=== PATIENT | male | born 1985 | race Caucasian/White ===

== ENCOUNTER 2023-06-07 14:44 | Emergency (ER) | payer SELFPAY ==
[2023-06-07 15:09] VITALS: BP 145/94
--- NOTE | 2023-06-07 16:21 | ED.GENMED ---
History of Present Illness
General
Chief Complaint: Back Pain
Source: patient
Exam Limitations: none
Time Seen by Provider: 06/07/23 16:05
Travel History
Have you had any contact with someone who has COVID-19?: No
Do you have any symptoms of coronavirus? Fever > 100 degrees, chills, cough, shortness of breath, sore throat, loss of taste or smell, muscle aches, or headache?: No
History of Present Illness
History of Present Illness:
37 year old male presents with low back pain starting after bending over today in the shower. He had similar pain one week ago after bending over as well. No leg pain,numbness. No perianal anesthesia. No bowel or bladder dysfunction. Tried
ibuprofen with minimal relief. healthy otherwise. No other complaints.
Past History
Past History
ED Past Medical History: GERD, Psychiatric (Anxiety, Depression) and Other (epididymitis L testicle, kidney stones); Negative Asthma, HTN, Hypercholesterolemia or NIDDM
ED Past Surgical History: Appendectomy
Social History
Tobacco: Vaping (Quit 2020 now vapes)
Alcohol: Daily (Beer 2-3, Drinks whatever he has, Vodka 05/12 pint 01/10/2020)
Drug: None
Personal: Single
Living: with family
Employment: Employed
Phy Exam
Physical Exam
Physical Exam:
General: well appearing male NAD
HEENT: normal cephalic, atraumatic
Heart; rRR, no murmurs
Lungs: CTA bilaterally
MSK: paraspinous muscle tenderness noted to lumbar spine
EXT: no cyanosis or edema
Neuro: Good sensation both lower extremities. Bilateral patellar reflexes 2+. Negative straight leg raise bilaterally
Skin is warm no rash or lesions
Course
Orders/Labs/Results
Orders:
Orders
06/07/23 16:16
Diazepam [Valium] 5 mg PO NOW STA
Ketorolac [Toradol] 30 mg IM NOW STA
CR Lumbar Spine 2 Or 3 Views Urgent
Comment:
Reason For Exam: back pain
Vital Signs
Initial and Last Documented VS:
Initial Vital Signs
Temp Pulse Resp BP Pulse Ox
98.5 F 74 18 145/94 99
06/07/23 15:06/07/23 15:06/07/23 15:06/07/23 15:06/07/23 15:09
Last Documented Vital Signs
Temp Pulse Resp BP Pulse Ox
98.5 F 74 18 145/94 99
06/07/23 15:06/07/23 15:06/07/23 15:06/07/23 15:06/07/23 15:09
MDM/Problems Addressed
Differential Diagnosis Includes:
Low back pain. No signs of cauda equina. No fever to suggest infectious source.
X-ray lumbar spine pending. Will treat with toradol and PO valium.
*Critical Care Note
Total Time (30-74mins, 75-104mins- exclusive of procedures): Not Applicable
Update Note
Update Note:
Lumbar spine x-ray negative for acute finding. Patient with subtle relief of discomfort after medications here. Will require more anti-inflammatories and muscle relaxers at home. Prescriptions for these were provided. Also recommended Lidoderm
patch and a work note was provided as well
ED Attending Note
-
Portions of this chart may have been created with voice recognition software.� Occasional wrong word or��sound alike� substitutions may have occurred due to the inherent limitations of voice recognition software.
Discharge Plan
Departure
Patient Disposition: Home (Routine Discharge)
Date of Disposition: 06/07/23
Time of Disposition: 17:50
Patient with high blood pressure during this ER visit?: No
Discharge Problem:
Lumbar strain
Instructions: Low Back Pain (DC)
Prescriptions:
New
diazepam [Valium] 5 mg tablet
5 mg PO TID PRN (Reason: muscle spasm) Qty: 10 0RF
lidocaine [Lidoderm] 5 % adhesive patch,medicated
1 patch topical DAILY Qty: 15 0RF
ibuprofen 600 mg tablet
600 mg PO Q8H PRN (Reason: Pain) Qty: 14 0RF
No Action
azithromycin 250 mg Tablet
500 mg PO DAILY Qty: 5 0RF
guaifenesin 600 mg Tablet Extended Release 12hr
600 mg PO Q12 Qty: 30 0RF
cefuroxime axetil 500 mg tablet
500 mg PO BID Qty: 10 0RF
albuterol sulfate [ProAir HFA] 90 mcg/actuation Hfa Aerosol Inhaler
2 puff INHALATION Q4HPRN PRN (Reason: shortness of breath) Qty: 8.5 0RF
Referrals:
Xavier Newman MD [Family Provider] -
Stand Alone Forms: Return to Work
Interventions
Interventions:
*Risk Screen - Suicide Last Done: 06/07/23 16:13
*General Assessment Last Done: 06/07/23 15:09
*Neglect/Abuse Screening Last Done: 06/07/23 16:13
ED- Fall Risk Assessment Last Done: 06/07/23 16:13
*ED COVID-19 Vaccine History Last Done: 06/07/23 15:09
ED-Musculoskeletal Assessment Last Done: 06/07/23 16:12
[2023-06-07] MEDS: VALIUM 5 MG PO (16:38)
[2023-06-07] MEDS: TORADOL 30 MG IM (16:38)
== END 2023-06-07 18:36 | disposition home or self-care (01) ==
LOC: EMR 14:44
PROVIDERS: EMERGENCY PHYSICIAN Emergency Medicine; FAMILY PHYSICIAN Family Medicine
DX: S39.012A Strain of muscle, fascia and tendon of lower back, initial encounter (principal); X50.1XXA Overexertion from prolonged static or awkward postures, initial encounter; F17.290 Nicotine dependence, other tobacco product, uncomplicated
CPT/HCPCS: 99284; 96372; 72100

== ENCOUNTER 2023-07-20 20:00 | Emergency (ER) | payer SELFPAY ==
[2023-07-20 20:05] VITALS: BP 144/105
[2023-07-20 20:25] LABS: % Eosinophils 5.9 % (0-6); % Immature Granulocytes 0.3 % (0-0.5); % Lymphocytes 46.8 % (20.5-51.1); % Monocytes 6.9 % (1.7-9.3); % Neutrophils 39.1 % (42.2-75.2); Absolute Basophils 0.1 10^3/uL (0-0.2); Absolute Eosinophils 0.3 10^3/uL (0-0.7); Absolute Lymphocytes 2.7 10^3/uL (1.2-3.4); Absolute Monocytes 0.4 10^3/uL (0.1-0.6); Absolute Neutrophils 2.3 10^3/uL (1.4-6.5); Hematocrit 44.6 % (39.0-52.0); Hemoglobin 15.2 g/dL (13.0-18.0); Mean Corp Hgb Conc. 34.1 g/dL (33.0-37.0); Mean Corpuscular Hgb 29.4 pg (27.0-31.0); Mean Corpuscular Volume 86.3 fL (80.0-94.0); Mean Platelet Volume 9.8 fL (7.4-10.4); Nucleated Red Blood Cells % 0 % (-); Platelet Count 283 10^3/uL (130-400); Red Blood Cell Count 5.17 10^6/uL (4.70-6.10); Red Cell Dist. Width 13.7 % (11.5-14.5); White Blood Cell Count 5.8 10^3/uL (4.8-10.8)
[2023-07-20 20:41] LABS: ALT (SGPT) 31 U/L (0-50); AST (SGOT) 29 U/L (17-59); Albumin 4.5 g/dl (3.5-5.0); Alkaline Phosphatase 64 U/L (38-126); Blood Urea Nitrogen 9 mg/dl (9-20); COVID-19 Antigen Negative (Negative); Calcium 9.4 mg/dl (8.4-10.2); Carbon Dioxide 29 mmol/L (22-30); Chloride 98 mmol/L (98-107); Glucose 102 mg/dl (70-99); Potassium 4.4 mmol/L (3.5-5.1); Sodium 138 mmol/L (135-145); Total Bilirubin 0.6 mg/dl (0.2-1.3); Total Protein 7.6 g/dl (6.3-8.2); eGFR > 60.00
--- NOTE | 2023-07-21 00:10 | ED.GENMED ---
History of Present Illness
General
Chief Complaint: Cough
Source: patient and records
Exam Limitations: none
Time Seen by Provider: 07/20/23 23:42
Nursing documentation reviewed up to this point in time: agreed with
Travel History
Have you had any contact with someone who has COVID-19?: No
Do you have any symptoms of coronavirus? Fever > 100 degrees, chills, cough, shortness of breath, sore throat, loss of taste or smell, muscle aches, or headache?: No
History of Present Illness
History of Present Illness:
37-year-old male cough congestion for a few days similar less severe to when he was admitted with pneumonia few months ago no nausea vomiting eating and drinking okay, no hemoptysis,
Past History
Past History
ED Past Medical History: GERD, Psychiatric (Anxiety, Depression) and Other (epididymitis L testicle, kidney stones); Negative Asthma, HTN, Hypercholesterolemia or NIDDM
ED Past Surgical History: Appendectomy
Social History
Tobacco: Vaping (Quit 2020 now vapes)
Alcohol: Daily (Beer 2-3, Drinks whatever he has, Vodka 05/12 pint 01/10/2020)
Drug: None
Personal: Single
Living: with family
Employment: Employed
Review of Systems
Review of Systems
All Other Systems: Not applicable
Constitutional: Reports fatigue; Denies fever
Respiratory: Reports cough and trouble breathing
Cardiac: Reports no symptoms
ABD/GI: Reports no symptoms
: Reports no symptoms
Musculoskeletal: Reports no symptoms
Skin: Reports no symptoms
Phy Exam
Physical Exam
Physical Exam:
Physical Exam
General: 37 male coughing
Neck: No jaundice posterior pharynx is clear
Heart: Regular
Lungs: Rhonchi right greater than left
Abdomen: Not tender
Neuro: alert and oriented. no focal neurological deficits
Skin: no rash
Psychiatric: well kept. interactive and cooperative
Extremities: no edema.
Course
Orders/Labs/Results
Orders:
Orders
07/20/23 20:08
CR Chest - 2 Views Urgent
Comment:
Reason For Exam: cough
07/20/23 20:15
COVID-19 Antigen Urgent
Source: Nasal Swab
Complete Blood Count/With Diff Urgent
Comprehensive Metabolic Panel Urgent
Influenza A+B Rapid Molecular Urgent
YOVANY Source: Nasal Swab
Specimen Description:
07/21/23 00:07
Azithromycin [Zithromax] 500 mg PO NOW STA
Benzonatate [Tessalon Perles] 200 mg PO NOW STA
Ipratropium/Albuterol Sulfate [Duoneb] 3 ml INH R NOW ONE
Abnormal Lab Results
07/20/23
20:15
Neutrophils % 39.1 L %
(42.2-75.2)
Glucose 102 H mg/dl
(70-99)
07/20/23 20:15
07/20/23 20:15
Vital Signs
Initial and Last Documented VS:
Initial Vital Signs
Temp Pulse Resp BP Pulse Ox
97.8 F 95 20 144/105 99
07/20/23 20:05 07/20/23 20:05 07/20/23 20:05 07/20/23 20:05 07/20/23 20:05
Last Documented Vital Signs
Temp Pulse Resp BP Pulse Ox
97.8 F 95 20 144/105 99
07/20/23 20:05 07/20/23 20:05 07/20/23 20:05 07/20/23 20:05 07/20/23 20:05
MDM/Problems Addressed
Differential Diagnosis Includes:
Bronchitis pneumonia less likely heart failure URI influenza COVID
MDM/Problems Addressed:
Cough
Chronic conditions affecting care:
Prior pneumonia
*Radiology
Radiology exam reviewed: radiology read reviewed
*Pulse Oximetry
Patient hypoxic: no
*Critical Care Note
Total Time (30-74mins, 75-104mins- exclusive of procedures): Not Applicable
Data Reviewed
Review of Other/Old Records Reveals: Labs, Records and Radiology Studies
Source: patient
Update Note
Update Note:
Update patient with cough congestion states he feels similar to when he had pneumonia x-ray noted report noted, labs are noted we will start on nebs steroids antibiotics, do not believe that this presentation represents pulm embolism, or ACS
ED Attending Note
-
Portions of this chart may have been created with voice recognition software.� Occasional wrong word or��sound alike� substitutions may have occurred due to the inherent limitations of voice recognition software.
Discharge Plan
Departure
Prescriptions:
No Action
azithromycin 250 mg Tablet
500 mg PO DAILY Qty: 5 0RF
guaifenesin 600 mg Tablet Extended Release 12hr
600 mg PO Q12 Qty: 30 0RF
cefuroxime axetil 500 mg tablet
500 mg PO BID Qty: 10 0RF
albuterol sulfate [ProAir HFA] 90 mcg/actuation Hfa Aerosol Inhaler
2 puff INHALATION Q4HPRN PRN (Reason: shortness of breath) Qty: 8.5 0RF
diazepam [Valium] 5 mg tablet
5 mg PO TID PRN (Reason: muscle spasm) Qty: 10 0RF
lidocaine [Lidoderm] 5 % adhesive patch,medicated
1 patch topical DAILY Qty: 15 0RF
ibuprofen 600 mg tablet
600 mg PO Q8H PRN (Reason: Pain) Qty: 14 0RF
Referrals:
Xavier Newman MD [Family Provider] -
Interventions
Interventions:
*Risk Screen - Suicide Last Done: 07/20/23 20:05
*General Assessment Last Done: 07/20/23 20:05
*Neglect/Abuse Screening Last Done: 07/20/23 20:05
[2023-07-21] MEDS: DUONEB 3 ML INH (00:11)
[2023-07-21] MEDS: ZITHROMAX 500 MG PO (00:11)
[2023-07-21] MEDS: TESSALON PERLES 200 MG PO (00:11)
[2023-07-21 00:13] VITALS: BP 127/92
== END 2023-07-21 00:48 | disposition home or self-care (01) ==
LOC: EMR 20:00
PROVIDERS: Emergency Medicine; EMERGENCY PHYSICIAN Emergency Medicine; FAMILY PHYSICIAN Family Medicine
DX: R05.9 Cough, unspecified (principal); R06.00 Dyspnea, unspecified; R53.83 Other fatigue; R09.89 Other specified symptoms and signs involving the circulatory and respiratory systems; Z11.52 Encounter for screening for COVID-19; F41.9 Anxiety disorder, unspecified; K21.9 Gastro-esophageal reflux disease without esophagitis; F32.A Depression, unspecified; F17.290 Nicotine dependence, other tobacco product, uncomplicated; Z87.01 Personal history of pneumonia (recurrent); Z87.442 Personal history of urinary calculi; Z86.16 Personal history of COVID-19
CPT/HCPCS: 99283; 71046; 80053; 85025; 87502; 87811

== ENCOUNTER 2023-11-12 05:45 | Emergency (ER) | payer OTHER, SELFPAY ==
[2023-11-12 05:52] VITALS: BP 144/108
[2023-11-12 06:00] VITALS: BMI 27.2
--- NOTE | 2023-11-12 06:03 | ED.GENMED ---
History of Present Illness
General
Chief Complaint: Breathing Problem
Source: patient
Exam Limitations: none
Time Seen by Provider: 11/12/23 06:04
Nursing documentation reviewed up to this point in time: agreed with
History of Present Illness
History of Present Illness:
Patient is a pleasant 38-year-old man who reports 2 days of diffuse chest tightness and shortness of breath. Patient also reports a mild cough. He denies fever. He denies sick contacts. He denies leg pain and leg swelling. Patient reports that
he feels short of breath at rest and during exertion. He denies a history of PE and DVT.
Past History
Past History
ED Past Medical History: GERD, Psychiatric (Anxiety, Depression) and Other (epididymitis L testicle, kidney stones)
ED Past Surgical History: Appendectomy
Social History
Tobacco: Vaping (Quit 2020 now vapes)
Alcohol: Daily (Beer 2-3, Drinks whatever he has, Vodka 05/12 pint 01/10/2020)
Drug: None
Personal: Single
Living: with family
Employment: Employed
Family History
Family History: Other
Review of Systems
Review of Systems
Allergies reviewed?: Yes
All Other Systems: ROS reviewed and negative except as documented in HPI and ROS
Constitutional: Reports no symptoms
EENT: Reports no symptoms
Respiratory: Reports cough and trouble breathing
Cardiac: Reports chest pain
ABD/GI: Reports no symptoms
: Reports no symptoms
Musculoskeletal: Reports muscle stiffness and back pain
Skin: Reports no symptoms
Neurological: Reports no symptoms
Endocrine: Reports no symptoms
Hematologic/Lymphatic: Reports no symptoms
Psychiatric: Reports no symptoms
Phy Exam
Physical Exam
Physical Exam:
Physical Exam
General: , not acutely ill, patient appears slightly diaphoretic but completely awake and conversational
Neck: supple. no meningeal signs. normal psoterior pharynx
Heart: Tachycardic, regular
Lungs: no acute respiratory distress. clear bilaterally
Abdomen: normal bowel sounds. not tender. no CVAT
Neuro: alert and oriented. no focal neurological deficits
Skin: no rash
Psychiatric: well kept. interactive and cooperative
Extremities: no edema. no calf tenderness. negative homans. good distal pulses
Course
Orders/Labs/Results
Orders:
Orders
11/12/23 05:56
Electrocardiogram (*1) Urgent
Reason for Study: Shortness of Breath
EKG- Treatment ONCE
11/12/23 06:09
CMP [Comprehensive Metabolic Panel] Urgent
Complete Blood Count/With Diff Urgent
Lipase Urgent
Troponin I Urgent
11/12/23 06:14
COVID-19 Antigen Urgent
Source: Nasal Swab
D-Dimer Urgent
11/12/23 06:45
CR Chest - 2 Views Urgent
Comment:
Reason For Exam: SOB
11/12/23 07:43
Ipratropium/Albuterol Sulfate [Duoneb] 3 ml INH R NOW ONE
11/12/23 08:39
Prednisone [Deltasone] 40 mg PO NOW STA
11/12/23 08:41
Azithromycin [Zithromax] 500 mg PO NOW STA
Abnormal Lab Results
11/12/23
06:09
RDW 15.2 H %
(11.5-14.5)
BUN 6 L mg/dl
(9-20)
Glucose 116 H mg/dl
(70-99)
AST 72 H U/L
(17-59)
11/12/23 06:09
11/12/23 06:09
Vital Signs
Initial and Last Documented VS:
Initial Vital Signs
Temp Pulse Resp BP Pulse Ox
98.3 F 112 26 144/108 98
11/12/23 05:52 11/12/23 05:52 11/12/23 05:52 11/12/23 05:52 11/12/23 05:52
Last Documented Vital Signs
Temp Pulse Resp BP Pulse Ox
98.3 F 87 14 143/98 96
11/12/23 05:52 11/12/23 06:30 11/12/23 06:30 11/12/23 06:18 11/12/23 06:30
MDM/Problems Addressed
Differential Diagnosis Includes:
Pneumonia, acute coronary syndrome, PE
MDM/Problems Addressed:
Patient presents with acute shortness of breath and chest tightness
Acute Exacerbation and/or Progression of Chronic Illness:
Patient is acutely hypertensive but there is no sign of stroke or CHF
Acute Exacerbation and/or Progression of Chronic Illness: HTN
*Radiology
Radiology exam reviewed: preliminary read by ED provider (Chest x-ray reviewed by me. No acute disease) and radiology read reviewed
*Pulse Oximetry
Patient hypoxic: no
*EKG
Interpreted by ED Provider?: Yes
Interpretation: abnormal
Comparison EKG: changes noted (Now tachycardic)
Rate: tachycardiac
Rhythm: sinus
[place]: normal axis
Interval: normal interval
QRS Pattern: normal QRS
Ischemia: no ischemia
*Metal Fitter Interpretation
Rate: tachycardiac
Interpretation: abnormal
Rhythm: sinus
*Critical Care Note
Total Time (30-74mins, 75-104mins- exclusive of procedures): Not Applicable
Data Reviewed
Review of Other/Old Records Reveals: Radiology Studies (Chest x-ray reviewed from 07/17/2023 which shows residual left-sided opacities)
Update Note
Update Note:
8:45 AM patient is still resting comfortably without tachypnea or hypoxia. His lungs remain clear. Chest x-ray looks negative for pneumonia, however, given patient's history of cigarette smoking and vaping, as well as his history of frequent
pneumonia, decision made to start him on azithromycin for acute bronchitis. Patient's heart rate in the 80s.
ED Attending Note
-
Portions of this chart may have been created with voice recognition software.� Occasional wrong word or��sound alike� substitutions may have occurred due to the inherent limitations of voice recognition software.
Discharge Plan
Departure
Patient Disposition: Home (Routine Discharge)
Date of Disposition: 11/12/23
Time of Disposition: 08:40
Patient with high blood pressure during this ER visit?: Yes
Condition: Good
Covid-19: Negative COVID-19
Discharge Problem:
Acute bronchitis
Instructions: Bronchitis, Adult ED
Prescriptions:
New
prednisone 20 mg tablet
20 mg PO DAILY 5 Days Qty: 5 0RF
azithromycin [Zithromax] 250 mg tablet
250 mg PO DAILY 4 Days Qty: 4 0RF
No Action
omeprazole [Prilosec] 20 mg Capsule,Delayed Release(Dr/Ec)
20 mg PO DAILY
escitalopram oxalate [Lexapro] 5 mg Tablet
5 mg PO DAILY
Referrals:
Xavier Newman MD [Family Provider] -
Interventions
Interventions:
*Risk Screen - Suicide Last Done: 11/12/23 05:52
*General Assessment Last Done: 11/12/23 06:01
*Neglect/Abuse Screening Last Done: 11/12/23 05:52
ED- Fall Risk Assessment Last Done: 11/12/23 06:22
*ED COVID-19 Vaccine History Last Done: 11/12/23 06:01
ED- Cardiac Assessment Last Done: 11/12/23 06:22
ED- Pulmonary Assessment Last Done: 11/12/23 06:22
Discharge Date and Time
Print Language: WELSH
[2023-11-12 06:18] VITALS: BP 143/98
[2023-11-12 06:18] LABS: % Basophils 1.3 % (0-2); % Eosinophils 2.5 % (0-6); % Immature Granulocytes 0.3 % (0-0.5); % Lymphocytes 37.8 % (20.5-51.1); % Monocytes 7.8 % (1.7-9.3); % Neutrophils 50.3 % (42.2-75.2); Absolute Basophils 0.1 10^3/uL (0-0.2); Absolute Eosinophils 0.2 10^3/uL (0-0.7); Absolute Lymphocytes 2.4 10^3/uL (1.2-3.4); Absolute Monocytes 0.5 10^3/uL (0.1-0.6); Absolute Neutrophils 3.2 10^3/uL (1.4-6.5); Hemoglobin 15.5 g/dL (13.0-18.0); Mean Corp Hgb Conc. 33.7 g/dL (33.0-37.0); Mean Corpuscular Hgb 29.2 pg (27.0-31.0); Mean Corpuscular Volume 86.8 fL (80.0-94.0); Mean Platelet Volume 9.7 fL (7.4-10.4); Nucleated Red Blood Cells % 0 % (-); Platelet Count 272 10^3/uL (130-400); Red Cell Dist. Width 15.2 % (11.5-14.5); White Blood Cell Count 6.4 10^3/uL (4.8-10.8)
[2023-11-12 06:36] LABS: ALT (SGPT) 45 U/L (0-50); AST (SGOT) 72 U/L (17-59); Alkaline Phosphatase 65 U/L (38-126); Blood Urea Nitrogen 6 mg/dl (9-20); Calcium 9.8 mg/dl (8.4-10.2); Carbon Dioxide 24 mmol/L (22-30); Chloride 101 mmol/L (98-107); Estimated Creatinine Clearance > 125 ml/min; Glucose 116 mg/dl (70-99); Lipase 142 U/L (23-300); Potassium 4.1 mmol/L (3.5-5.1); Sodium 139 mmol/L (135-145); Total Bilirubin 0.7 mg/dl (0.2-1.3); Total Protein 8.2 g/dl (6.3-8.2); eGFR > 60.00
[2023-11-12 06:42] LABS: D-Dimer < 0.27 ug/mlFEU (0.00-0.50)
[2023-11-12 06:43] LABS: COVID-19 Antigen Negative (Negative)
[2023-11-12 06:48] LABS: Troponin I < 0.012 ng/ml
[2023-11-12 07:06] VITALS: BP 153/84
[2023-11-12 08:00] VITALS: BP 133/78
[2023-11-12] MEDS: DUONEB 3 ML INH (08:09)
[2023-11-12] MEDS: ZITHROMAX 500 MG PO (08:53)
[2023-11-12] MEDS: DELTASONE 40 MG PO (08:53)
[2023-11-12 08:56] VITALS: BP 149/97
--- NOTE | 2023-11-12 09:05 | EDRN ---
Reviewed discharge instructions with patient. Verbalized understanding.
[2023-11-12 09:08] VITALS: BP 149/97
== END 2023-11-12 09:05 | disposition home or self-care (01) ==
LOC: EMR 05:45
PROVIDERS: EMERGENCY PHYSICIAN Emergency Medicine; FAMILY PHYSICIAN Family Medicine
DX: J20.9 Acute bronchitis, unspecified (principal); F17.290 Nicotine dependence, other tobacco product, uncomplicated; R03.0 Elevated blood-pressure reading, without diagnosis of hypertension
CPT/HCPCS: 99285; 94640; 71046; 80053; 83690; 84484; 85025; 85379; 87811; 93005

== ENCOUNTER 2023-11-12 14:09 | Emergency (ER) | payer OTHER, SELFPAY ==
[2023-11-12 14:11] VITALS: BP 166/98
[2023-11-12 14:49] VITALS: BP 168/120
[2023-11-12 15:00] VITALS: BP 160/106
--- NOTE | 2023-11-12 15:13 | ED.GENMED ---
History of Present Illness
General
Chief Complaint: Breathing Problem
Source: patient
Time Seen by Provider: 11/12/23 15:00
History of Present Illness
History of Present Illness:
2-year-old male presents to the emergency room complaining of abdominal distention. Patient was seen here in the emergency room early this morning for cough and shortness of breath. Workup at that time was unremarkable. He was started on
Zithromax and prednisone because of a smoking history and question of acute bronchitis. After patient returned home he began feeling some fullness in his abdomen. No nausea or vomiting. Patient denies any constipation or diarrhea.
Past History
Past History
ED Past Medical History: GERD, Psychiatric (Anxiety, Depression) and Other (epididymitis L testicle, kidney stones)
ED Past Surgical History: Appendectomy
Social History
Tobacco: Vaping (Quit 2020 now vapes)
Alcohol: Daily (Beer 2-3, Drinks whatever he has, Vodka 05/12 pint 01/10/2020)
Drug: None
Personal: Single
Living: with family
Employment: Employed
Family History
Family History: Other
Phy Exam
Physical Exam
Physical Exam:
General: Awake, Alert, Oriented X3. No acute distress.
Vitals: unremarkable
Head: Atraumatic
Eyes: Pupils equal, EOMI
Throat: Airway intact, no exudates
Neck: Trachea midline
Lungs: Clear and equal b/l
Heart: Regular rate, no murmurs
Abd: Soft, Nontender, no significant distention, no pulsatile mass
Neuro: Nonfocal
Skin: Warm, dry, no rash
Extremities: pulses equal b/l, no edema
Course
Orders/Labs/Results
Orders:
Orders
11/12/23 14:52
Electrocardiogram (*1) Urgent
Reason for Study: Chest Pain
EKG- Treatment ONCE
11/12/23 15:12
CR Abdomen - 2 Views Urgent
Comment: Pt had chest x-ray this morning so not neccesary n
Reason For Exam: abd pain/distension
Vital Signs
Initial and Last Documented VS:
Initial Vital Signs
Temp Pulse Resp BP Pulse Ox
98.3 F 119 16 166/98 99
11/12/23 14:11 11/12/23 14:11 11/12/23 14:11 11/12/23 14:11 11/12/23 14:11
Last Documented Vital Signs
Temp Pulse Resp BP Pulse Ox
98.3 F 91 18 165/101 100
11/12/23 14:11 11/12/23 16:35 11/12/23 16:35 11/12/23 16:35 11/12/23 16:35
MDM/Problems Addressed
Differential Diagnosis Includes:
Gastritis or medication, constipation,
MDM/Problems Addressed:
Exam benign. Labs from earlier today benign. Chest x-ray showed no acute abnormality. Obstruction series was obtained which shows no evidence of obstruction. Patient has a normal EKG. Stable for discharge home. Heart rate at the time of
discharge is 98. Abdomen is benign on repeat evaluation. Patient reportedly had a very large bowel movement while here.
*EKG
Interpreted by ED Provider?: Yes
Heart Rate: 105
Rate: tachycardiac
Rhythm: sinus tachycardia
QRS Pattern: normal QRS
Ischemia: no ischemia
*Station Baggage Agent Interpretation
Rate: tachycardiac
Rhythm: sinus tachycardia
*Critical Care Note
Total Time (30-74mins, 75-104mins- exclusive of procedures): Not Applicable
ED Attending Note
-
Portions of this chart may have been created with voice recognition software.� Occasional wrong word or��sound alike� substitutions may have occurred due to the inherent limitations of voice recognition software.
Discharge Plan
Departure
Patient Disposition: Home (Routine Discharge)
Date of Disposition: 11/12/23
Time of Disposition: 16:28
Patient with high blood pressure during this ER visit?: Yes
Condition: Good
Discharge Problem:
Abdominal pain
Instructions: Abdominal Pain, BLOOD PRESSURE
Prescriptions:
No Action
omeprazole [Prilosec] 20 mg Capsule,Delayed Release(Dr/Ec)
20 mg PO DAILY
escitalopram oxalate [Lexapro] 5 mg Tablet
5 mg PO DAILY
prednisone 20 mg tablet
20 mg PO DAILY 5 Days Qty: 5 0RF
azithromycin [Zithromax] 250 mg tablet
250 mg PO DAILY 4 Days Qty: 4 0RF
Referrals:
Xavier Newman MD [Family Provider] -
Interventions
Interventions:
*Risk Screen - Suicide Last Done: 11/12/23 14:11
*General Assessment Last Done: 11/12/23 14:11
*Neglect/Abuse Screening Last Done: 11/12/23 14:11
*Nursing Disposition Last Done: 11/12/23 16:35
ED- Cardiac Assessment Last Done: 11/12/23 15:04
ED- Pulmonary Assessment Last Done: 11/12/23 15:07
Discharge Date and Time
Discharge Date/Time: 11/12/23 16:36
Print Language: NEPALESE
[2023-11-12 16:35] VITALS: BP 165/101
== END 2023-11-12 16:36 | disposition home or self-care (01) ==
LOC: EMR 14:09
PROVIDERS: EMERGENCY PHYSICIAN Emergency Medicine; FAMILY PHYSICIAN Family Medicine
DX: R10.9 Unspecified abdominal pain (principal); R03.0 Elevated blood-pressure reading, without diagnosis of hypertension; F17.290 Nicotine dependence, other tobacco product, uncomplicated
CPT/HCPCS: 99284; 74019; 93005

== ENCOUNTER 2023-11-30 17:40 | Emergency (ER) | payer OTHER, SELFPAY ==
[2023-11-30 17:45] VITALS: BP 162/79
[2023-11-30 18:13] LABS: % Basophils 1.6 % (0-2); % Eosinophils 1.8 % (0-6); % Immature Granulocytes 0.2 % (0-0.5); % Lymphocytes 44.7 % (20.5-51.1); % Monocytes 8.8 % (1.7-9.3); % Neutrophils 42.9 % (42.2-75.2); Absolute Basophils 0.1 10^3/uL (0-0.2); Absolute Eosinophils 0.1 10^3/uL (0-0.7); Absolute Lymphocytes 2.2 10^3/uL (1.2-3.4); Absolute Monocytes 0.4 10^3/uL (0.1-0.6); Absolute Neutrophils 2.1 10^3/uL (1.4-6.5); Hematocrit 43.2 % (39.0-52.0); Hemoglobin 14.8 g/dL (13.0-18.0); Mean Corp Hgb Conc. 34.3 g/dL (33.0-37.0); Mean Corpuscular Hgb 29.1 pg (27.0-31.0); Mean Corpuscular Volume 84.9 fL (80.0-94.0); Mean Platelet Volume 9.8 fL (7.4-10.4); Nucleated Red Blood Cells % 0 % (-); Platelet Count 325 10^3/uL (130-400); Red Blood Cell Count 5.09 10^6/uL (4.70-6.10); Red Cell Dist. Width 15.9 % (11.5-14.5); White Blood Cell Count 4.9 10^3/uL (4.8-10.8)
[2023-11-30 18:27] LABS: ALT (SGPT) 86 U/L (0-50); AST (SGOT) 70 U/L (17-59); Albumin 4.9 g/dl (3.5-5.0); Alkaline Phosphatase 69 U/L (38-126); Blood Urea Nitrogen 9 mg/dl (9-20); Calcium 9.2 mg/dl (8.4-10.2); Carbon Dioxide 23 mmol/L (22-30); Chloride 102 mmol/L (98-107); Glucose 103 mg/dl (70-99); Lipase 117 U/L (23-300); Potassium 4.5 mmol/L (3.5-5.1); Sodium 139 mmol/L (135-145); Total Bilirubin 0.6 mg/dl (0.2-1.3); Total Protein 7.7 g/dl (6.3-8.2); eGFR > 60.00
[2023-11-30 18:44] VITALS: BP 141/67
[2023-11-30] MEDS: NSS 1000 IV (19:07)
[2023-11-30] MEDS: ZOFRAN 4 MG IV (19:07)
--- NOTE | 2023-11-30 19:19 | ED.GENMED ---
History of Present Illness
General
Chief Complaint: Abdominal Symptoms
Source: patient
Exam Limitations: none
Time Seen by Provider: 11/30/23 18:23
History of Present Illness
History of Present Illness:
This is a 38 year old male that comes in with c/o vomiting. States that in the past couple of hours he has vomited at least 15 times. State that this started 1-2 days ago and he just feels drained. States that he has pressure in his head that comes
and goes and state that he just feels out of it. States that occasionally he feels SOB and has abd pain. Denies any fever, chills, chest pain, diarrhea, urinary burning or dizziness.
Past History
Past History
ED Past Medical History: GERD, Psychiatric (Anxiety, Depression) and Other (epididymitis L testicle, kidney stones, PNA, Renal calculus, Migraines)
ED Past Surgical History: Appendectomy
Social History
Tobacco: Vaping (Quit 2020 now vapes)
Alcohol: Daily (Beer 2-3, Drinks whatever he has, Vodka 05/12 pint 01/10/2020)
Drug: None
Personal: Single
Living: alone
Employment: Employed
Family History
Family History: Other
Review of Systems
Review of Systems
All Other Systems: ROS reviewed and negative except as documented in HPI and ROS
Constitutional: Reports no symptoms; Denies fever or chills
EENT: Reports no symptoms
Respiratory: Reports trouble breathing (Occasional); Denies cough
Cardiac: Denies chest pain
ABD/GI: Reports abdominal pain, nausea and vomiting; Denies diarrhea
: Reports no symptoms; Denies dysuria, frequency or urgency
Musculoskeletal: Reports no symptoms
Skin: Reports no symptoms
Neurological: Reports headache and other (Just feels 'out of it')
Psychiatric: Reports no symptoms
Phy Exam
General Physical Exam
General Presentation: no apparent distress
General age: appears stated age
General Skin: warm and dry
General Habitus: normal
General Mental: alert
General Hydration: dry mucous membranes
ENT Exam
ENT Exam: TM's normal, pharynx normal and neck supple
Eye Exam
Eye Exam: EOMI
Cardiovascular Exam
Cardiovascular Exam: regular rate/rhythm, no edema and normal peripheral pulses
Pulmonary Exam
Pulmonary Exam: lungs clear, no respiratory distress, no rales, chest non tender, no crackles, no rhonchi, no wheezing and no cough
Gastrointestinal Exam
Gastrointestinal Exam: normal bowel sounds, non tender, soft, no organomegaly, no pulsatile mass and non distended
Musculoskeletal Exam
Musculoskeletal Exam: full ROM and no edema
Skin Exam
Skin Exam: normal color, warm/dry, no petechia and other (Slight Red rash noted on the right upper chest and shoulder into the upper back. Crosses over the mid line on the chest slightly)
Psychiatric Exam
Psychiatric Exam: normal mood/affect
Course
Orders/Labs/Results
Orders:
Orders
11/30/23 17:54
Alcohol Urgent
Complete Blood Count/With Diff Urgent
Comprehensive Metabolic Panel Urgent
Lipase Urgent
Lyme Progressive Urgent
Comment: ADD ON
11/30/23 18:53
Add On- LAB Urgent
Tests Added?: alcohol, Lyme titer
Urinalysis Reflex To Culture Urgent
Urine Drug Abuse Screen Urgent
0.9% Sodium Chloride 1000 ml [Nss] 1,000 ml IV BOLUS
Ondansetron Injectable [Zofran] 4 mg IV NOW STA
11/30/23 19:19
US Abdomen Complete/Upper Urgent
Comment:
Reason For Exam: Elevated liver enzymes
11/30/23 19:23
COVID-19 Antigen Urgent
Source: Nasal Swab
11/30/23 19:25
Pantoprazole [Protonix IV] 40 mg IV NOW STA
Abnormal Lab Results
11/30/23
17:54
RDW 15.9 H %
(11.5-14.5)
Glucose 103 H mg/dl
(70-99)
AST 70 H U/L
(17-59)
ALT 86 H U/L
(0-50)
11/30/23 17:54
11/30/23 17:54
Gucose nonfasting. AST/ALT elevation. Lipase normal at 117, Alcohol 230, COVID negative,
Vital Signs
Initial and Last Documented VS:
Initial Vital Signs
Temp Pulse Resp BP Pulse Ox
98.3 F 82 20 162/79 97
11/30/23 17:45 11/30/23 17:45 11/30/23 17:45 11/30/23 17:45 11/30/23 17:45
Last Documented Vital Signs
Temp Pulse Resp BP Pulse Ox
98.3 F 92 16 139/91 97
11/30/23 17:45 11/30/23 20:09 11/30/23 20:09 11/30/23 20:09 11/30/23 20:09
MDM/Problems Addressed
Differential Diagnosis Includes:
COVID, Alcohol abuse, Gallbladder disease
MDM/Problems Addressed:
This is a 38 year old male tht comes in with c/o vomiting. States that he has vomited at least 15 times in the past couple of hours. States that this started 2-3 days ago.
Will get labs, US, give IV fluids, Antiemetic,
Back into see patient. Explained that his blood work shows that his Liver enzymes are elevated. Lipase is normal but patient alcohol level shows that he is intoxicated. Patient US is negative for any gallstones of gallbladder disease. Explained to
patient that this is most likely due to his alcohol use. Explained that if he keeps drinking he will end up with liver disease and this is a slow . Patient to follow up with the family doctor. Return with any concerns.
Chronic conditions affecting care: Other (Alcohol abuse)
Acute Exacerbation and/or Progression of Chronic Illness: Other (Alcohol abuse)
*Radiology
Radiology exam reviewed: radiology read reviewed (US-Hepatic steatosis. No chlelithiasis or bile duct dilation. )
*Pulse Oximetry
Patient hypoxic: no
*EKG
Interpreted by ED Provider?: NA
Rate: EKG- N/A
*Reinforced Concrete Inspector Interpretation
Rate: Reinforced Concrete Inspector- N/A
*Critical Care Note
Total Time (30-74mins, 75-104mins- exclusive of procedures): Not Applicable
ED Attending Note
-
Portions of this chart may have been created with voice recognition software.� Occasional wrong word or��sound alike� substitutions may have occurred due to the inherent limitations of voice recognition software.
Discharge Plan
Departure
Patient Disposition: Home (Routine Discharge)
Date of Disposition: 11/30/23
Time of Disposition: 21:39
Patient with high blood pressure during this ER visit?: Yes
Condition: Good
Covid-19: Negative COVID-19
Discharge Problem:
Nausea & vomiting, Alcohol abuse
Instructions: Nausea and Vomiting, Adult (DC), Alcohol Use Disorder (DC), BLOOD PRESSURE
Prescriptions:
New
ondansetron 4 mg tablet,disintegrating
4 mg PO Q8H PRN (Reason: nausea and vomiting) Qty: 7 0RF
No Action
omeprazole [Prilosec] 20 mg Capsule,Delayed Release(Dr/Ec)
20 mg PO DAILY
escitalopram oxalate [Lexapro] 5 mg Tablet
5 mg PO DAILY
prednisone 20 mg tablet
20 mg PO DAILY 5 Days Qty: 5 0RF
azithromycin [Zithromax] 250 mg tablet
250 mg PO DAILY 4 Days Qty: 4 0RF
Referrals:
Xavier Newman MD [Family Provider] - Follow up in 2-3 days
Activity Restrictions/Additional Instructions:
As discussed, your blood work shows that your liver enzymes are elevated. Your Alcohol level shows that you are intoxicated. You need to stop drinking as you are going to destroy your liver. Please increase your water intake to 8-8oz glasses daily.
Your Ultrasound is negative for any gallbladder disease. Follow up with the family doctor. You have had a prescription for Zofran sent to your Pharmacy to help with any nausea/vomiting. IF YOU HAVE ANY OTHER CONCERNS PLEASE RETURN TO THE EMERGENCY
ROOM.
Interventions
Interventions:
*Risk Screen - Suicide Last Done: 11/30/23 17:45
*General Assessment Last Done: 11/30/23 17:45
*Neglect/Abuse Screening Last Done: 11/30/23 17:45
*ED COVID-19 Vaccine History Last Done: 11/30/23 18:33
BX-Ljxtwt-Wghftkyguy Assessment Last Done: 11/30/23 18:33
Discharge Date and Time
Print Language: WOLOF
[2023-11-30] MEDS: PROTONIX IV 40 MG IV (19:28)
[2023-11-30 19:40] LABS: Alcohol 230 mg/dl
[2023-11-30 19:49] LABS: COVID-19 Antigen Negative (Negative)
[2023-11-30 20:09] VITALS: BP 139/91
[2023-11-30 21:43] VITALS: BP 141/78
[2023-12-03 14:21] LABS: Lyme Antibody Screen, EIA Negative (Negative)
== END 2023-11-30 21:46 | disposition home or self-care (01) ==
LOC: EMR 17:40
PROVIDERS: Clinical Nurse Specialist Family Health; Emergency Medicine; EMERGENCY PHYSICIAN Student in an Organized Health Care Education/Training Program; FAMILY PHYSICIAN Family Medicine
DX: R11.2 Nausea with vomiting, unspecified (principal); R51.9 Headache, unspecified; R10.9 Unspecified abdominal pain; R06.02 Shortness of breath; F10.10 Alcohol abuse, uncomplicated; Y90.7 Blood alcohol level of 200-239 mg/100 ml; R03.0 Elevated blood-pressure reading, without diagnosis of hypertension; Z11.52 Encounter for screening for COVID-19; K76.0 Fatty (change of) liver, not elsewhere classified; F32.A Depression, unspecified; F41.9 Anxiety disorder, unspecified; K21.9 Gastro-esophageal reflux disease without esophagitis; F17.290 Nicotine dependence, other tobacco product, uncomplicated; Z87.442 Personal history of urinary calculi; Z87.01 Personal history of pneumonia (recurrent)
CPT/HCPCS: 99284; 96374; 96375; 96361; 76700; 80053; 82077; 83690; 85025; 86618; 87811

== ENCOUNTER 2023-12-02 22:41 | Inpatient (IN) | payer OTHER, SELFPAY ==
[2023-12-02 19:32] VITALS: BMI 27.9
[2023-12-02 19:34] VITALS: BP 152/108
[2023-12-02 20:32] LABS: % Basophils 1.4 % (0-2); % Eosinophils 2.1 % (0-6); % Immature Granulocytes 0.2 % (0-0.5); % Lymphocytes 42.9 % (20.5-51.1); % Monocytes 8.2 % (1.7-9.3); % Neutrophils 45.2 % (42.2-75.2); Absolute Basophils 0.1 10^3/uL (0-0.2); Absolute Eosinophils 0.1 10^3/uL (0-0.7); Absolute Lymphocytes 1.8 10^3/uL (1.2-3.4); Absolute Monocytes 0.4 10^3/uL (0.1-0.6); Absolute Neutrophils 1.9 10^3/uL (1.4-6.5); Hematocrit 42.5 % (39.0-52.0); Hemoglobin 14.5 g/dL (13.0-18.0); Mean Corp Hgb Conc. 34.1 g/dL (33.0-37.0); Mean Corpuscular Hgb 29.5 pg (27.0-31.0); Mean Corpuscular Volume 86.4 fL (80.0-94.0); Mean Platelet Volume 9.4 fL (7.4-10.4); Nucleated Red Blood Cells % 0 % (-); Platelet Count 312 10^3/uL (130-400); Red Blood Cell Count 4.92 10^6/uL (4.70-6.10); Red Cell Dist. Width 15.9 % (11.5-14.5); White Blood Cell Count 4.3 10^3/uL (4.8-10.8)
[2023-12-02] MEDS: NSS 1000 IV ×2 (20:39→23:15)
[2023-12-02] MEDS: ATIVAN 1 MG IV ×2 (20:40→21:39)
[2023-12-02] MEDS: ZOFRAN 4 MG IV (20:40)
[2023-12-02 20:48] VITALS: BP 145/98
--- NOTE | 2023-12-02 20:53 | ED.GENMED ---
History of Present Illness
General
Chief Complaint: Abdominal Symptoms
Source: patient
Exam Limitations: none
Time Seen by Provider: 12/02/23 20:06
History of Present Illness
History of Present Illness:
38-year-old male with recurrent vomiting. Jitteriness. Abdominal distention. Seen 2 days ago for same. Did not have any alcohol today. Admits to recent significant alcohol use. Denies fever flank or back pain. Had a bowel movement earlier
today.
Past History
Past History
ED Past Medical History: GERD, Psychiatric (Anxiety, Depression) and Other (epididymitis L testicle, kidney stones, PNA, Renal calculus, Migraines)
ED Past Surgical History: Appendectomy
Social History
Tobacco: Vaping (Quit 2020 now vapes)
Alcohol: Daily (Beer 2-3, Drinks whatever he has, Vodka 05/12 pint 01/10/2020)
Drug: None
Personal: Single
Living: alone
Employment: Employed
Family History
Family History: Other
Review of Systems
Review of Systems
All Other Systems: Not applicable
Constitutional: Denies fever or chills
Respiratory: Reports no symptoms
Cardiac: Reports no symptoms
Phy Exam
Physical Exam
Physical Exam:
GENERAL: Alert and oriented. Pleasant. Cooperative. However moderately anxious and tremulous
EYE: Orbits normal.
NECK: Supple, no significant adenopathy.
ENT: Pharynx without erythema
CARDIAC: Regular rate and rhythm without any obvious murmurs.
LUNGS: Clear breath sounds,normal
ABDOMEN: Mildly distended. Slightly decreased bowel sounds but present. No focal tenderness no rebound and no guarding.
NEUROLOGICAL: Alert and oriented , grossly non-focal. Tremulous anxious.
SKIN: Warm and dry, no rash or lesion, no discoloration, skin intact.
MUSCULOSKELETAL: No edema,no deformity.Good color
PSYCH: Normal and appropriate interaction.
Course
Orders/Labs/Results
Orders:
Orders
12/02/23 19:47
Add On- LAB Urgent
Tests Added?: alcohol
12/02/23 20:13
Electrocardiogram (*1) Urgent
Reason for Study: Chest Pain
Alcohol Urgent
Complete Blood Count/With Diff Urgent
Comprehensive Metabolic Panel Urgent
Lipase Urgent
12/02/23 20:14
EKG- Treatment ONCE
12/02/23 20:33
CT Abd/Pel (IV only)-DH only Urgent
Comment:
Reason For Exam: abd pain.vomiting
0.9% Sodium Chloride 1000 ml [Nss] 1,000 ml IV BOLUS
12/02/23 20:34
Lorazepam [Ativan] 1 mg IV NOW STA
Ondansetron Injectable [Zofran] 4 mg IV NOW STA
12/02/23 20:43
Ketorolac [Toradol] 60 mg IM NOW STA
12/02/23 21:25
Lorazepam [Ativan] 1 mg IV NOW STA
12/02/23 22:26
Admit/Transfer Patient As Directed
Co-Sign Provider:
Level of Care: Inpatient admission
Assign to:: Telemetry
Physician / Group: nelson
Diagnosis: alcohol withdrawal
Reason for Telemetry: Other
Other Reason for Telemetry: alcohol withdrawal
Date to Stop Telemetry: 12/04/23
Time to Stop Telemetry: 11:00
Reason for Hospitalization: alcohol withdrawal
Expected length of stay greater than two midnights?: Yes
ELOS- Estimated Length of Stay in days: 3
I certify the patient meets the requirements for IP care: Yes
PRN Pain Medication Management As Directed
May give lesser potent ordered pain med per pt: Yes
preference::
Protocol:: Medication orders for pain may be administered in a
manner that supports deferring to patient preference
when the pt is:
- Requesting an ordered lesser potent pain medication.
Least to most potent pain medications are defined
as: acetaminophen < NSAID < tramadol < opioids
(morphine, oxycodone, hydromorphone).
- Requesting a lesser dose of the same medication IF
ORDERED.
- Requesting a less intrusive route of administration
if both routes are prescribed by the provider (PO <
IV).
12/02/23 22:27
Code Status As Directed
Resuscitation Status: Full Code
12/02/23 22:45
0.9% Sodium Chloride [Nss (Preservative Free)] See Protocol IV PRN PRN
Lorazepam [Ativan] 1 mg IV Q1HPRN PRN
Lorazepam [Ativan] 1 mg PO Q2HPRN PRN
Lorazepam [Ativan] 2 mg IV Q1HPRN PRN
12/04/23 11:00
DC Protocol for Telemetry ONCE
Abnormal Lab Results
12/02/23
20:13
WBC 4.3 L 10^3/uL
(4.8-10.8)
RDW 15.9 H %
(11.5-14.5)
BUN 8 L mg/dl
(9-20)
Glucose 114 H mg/dl
(70-99)
AST 83 H U/L
(17-59)
ALT 73 H U/L
(0-50)
12/02/23 20:13
12/02/23 20:13
Vital Signs
Initial and Last Documented VS:
Initial Vital Signs
Temp Pulse Resp BP Pulse Ox
98.4 F 89 20 152/108 98
12/02/23 19:34 12/02/23 19:34 12/02/23 19:34 12/02/23 19:34 12/02/23 19:34
Last Documented Vital Signs
Temp Pulse Resp BP Pulse Ox
98.4 F 83 20 125/94 94
12/02/23 19:34 12/02/23 21:45 12/02/23 21:45 12/02/23 21:00 12/02/23 21:00
MDM/Problems Addressed
Differential Diagnosis Includes:
Suspect alcohol related issue alcohol withdrawal and possible gastritis. However with ongoing abdominal symptoms CT scan will also be ordered. Fluids, Ativan, Zofran.
*Radiology
Radiology exam reviewed: radiology read reviewed (No acute findings)
*Pulse Oximetry
Patient hypoxic: no
*EKG
Interpreted by ED Provider?: Yes
Interpretation: normal
Comparison EKG: no changes
Heart Rate: 82
Rate: normal
Rhythm: sinus
[place]: normal axis
Interval: normal interval
QRS Pattern: normal QRS
Ischemia: no ischemia
*Community Fundraiser Interpretation
Rate: normal
Interpretation: normal
Heart Rate: 88
Rhythm: sinus
*Critical Care Note
Total Time (30-74mins, 75-104mins- exclusive of procedures): Not Applicable
Data Reviewed
Review of Other/Old Records Reveals: Labs, Records and Testing
Update Note
Update Note:
2124... Patient returning from CT. Moderately tremulous. Will repeat Ativan dose
Patient still moderately symptomatic. Will admit
ED Attending Note
-
Portions of this chart may have been created with voice recognition software.� Occasional wrong word or��sound alike� substitutions may have occurred due to the inherent limitations of voice recognition software.
Discharge Plan
Departure
Patient Disposition: Admit
Date of Disposition: 12/02/23
Time of Disposition: 22:07
Presentation/result/management discussed w/ accepting MD/DO: Hospitalist
Discharge Problem:
Acute alcohol withdrawal
Interventions
Interventions:
*Risk Screen - Suicide Last Done: 12/02/23 19:34
*General Assessment Last Done: 12/02/23 19:34
*Neglect/Abuse Screening Last Done: 12/02/23 19:34
ED- Fall Risk Assessment Last Done: 12/02/23 20:51
NQ-Chnpyw-Jriwksfuuv Assessment Last Done: 12/02/23 20:51
[2023-12-02 20:56] LABS: ALT (SGPT) 73 U/L (0-50); AST (SGOT) 83 U/L (17-59); Albumin 4.8 g/dl (3.5-5.0); Alcohol 98 mg/dl; Alkaline Phosphatase 69 U/L (38-126); Blood Urea Nitrogen 8 mg/dl (9-20); Calcium 9.6 mg/dl (8.4-10.2); Carbon Dioxide 26 mmol/L (22-30); Chloride 102 mmol/L (98-107); Estimated Creatinine Clearance 105 ml/min; Glucose 114 mg/dl (70-99); Lipase 155 U/L (23-300); Potassium 4.7 mmol/L (3.5-5.1); Sodium 140 mmol/L (135-145); Total Bilirubin 0.9 mg/dl (0.2-1.3); Total Protein 7.7 g/dl (6.3-8.2); eGFR > 60.00
[2023-12-02 21:00] VITALS: BP 125/94
--- NOTE | 2023-12-02 22:09 | HPS.HSE ---
Family Physician
-
Family Physician: Xavier Newman
Chief Complaint
-
abdominal discomfort
History of Present Illness
38-year-old male with recurrent vomiting. Jitteriness. Abdominal distention, discomfort for past few days. stated some mid sternum pain which is worse with touch and movement. he feels sob with pain. multiple episodes of foamy vomit. tolerating
diet. denied CHAVEZ, dizzy or syncopal episode. feels foggy. denied diarrhea. denied dysuria or hematuria.
drinks alcohol 3-4 beers,vodka daily. last intake was last night. complaining of tremors tonight.
Medical History
Past Medical History
Past Medical History: Reports Other
Additional Past Medical History:
GERD
Anxiety
Kidney stones
Past Surgical History: Reports Other
Additional Past Surgical History:
Appendectomy
Social History
Tobacco: Vaping
Alcohol: Daily (3-48 drinks daily)
Living: With Family
Employment: Not Employed
Family History
Family History: Not pertinent
Allergies / Home Medications
Allergies reflects when Allergies were last updated in [facility].
Home Medications with original date entered in [facility]
Allergy/Medication List:
Allergies
Allergy/AdvReac Type Severity Reaction Status Date / Time
No Known Allergies Allergy Verified 12/02/23 19:34
Home Medications
escitalopram oxalate 5 mg tablet (Lexapro) 5 mg PO DAILY 11/12/23
omeprazole 20 mg capsule,delayed release 20 mg PO DAILY 11/12/23
Review of Systems
-
Constitutional: Reports No Symptoms
EENT: Reports No Symptoms
Respiratory: Reports No Symptoms
Cardiac: Reports No Symptoms
Abdomen/GI: Reports Abdominal Pain, Nausea and Vomiting
: Reports No Symptoms
Musculoskeletal: Reports No Symptoms
Skin: Reports No Symptoms
Neurological: Reports No Symptoms
Endocrine: Reports No Symptoms
Hematologic/Lymphatic: Reports No Symptoms
Psych: Reports No Symptoms
Physical Exam
Vital Signs
Vital Signs
Temp Pulse Resp BP Pulse Ox
98.4 F 83 20 125/94 94
12/02/23 19:34 12/02/23 21:45 12/02/23 21:45 12/02/23 21:00 12/02/23 21:00
Physical Exam
General: Well Developed, Well Nourished and No Apparent Distress
HEENT: NormoCephalic, Moist mucous membranes and Atraumatic
Respiratory: Clear
Cardiac: S1/S2 and Regular Rhythm; No Murmur or Rub
GI: Soft, Non Tender, Non Distended and Normal Bowel Sounds; No Organomegaly
Rectal: Deferred by Provider
Musculoskeletal: No Clubbing, No Cyanosis and No Edema
Skin: No Rash
Neuro: AO x 3 and Nonfocal/grossly intact
Laboratory Results
-
12/02/23 20:13
12/02/23 20:13
Laboratory Results
Total Bilirubin 0.9 mg/dl (0.2-1.3) 12/02/23 20:13
AST 83 U/L (17-59) H 12/02/23 20:13
ALT 73 U/L (0-50) H 12/02/23 20:13
Alkaline Phosphatase 69 U/L (38-126) 12/02/23 20:13
Lipase 155 U/L (23-300) 12/02/23 20:13
Data Reviewed
-
CT Scan: Report Reviewed by me
Lab Data: Labs Reviewed by me
Impression/Plan
-
# Alcohol withdrawal
-Protocol initiated
-Monitor MSAS
# Abdominal distention/pain unclear cause
#transaminitis likely from alcohol abuse
-ast 83,alt 73
-Ct abdomen pelvis with Submucosal fat deposition throughout the colon suggesting a chronic inflammatory bowel disease. No clear evidence for an acute inflammatory process.
-Continue to monitor
#midsternum pain likely muscular
-ctm
-ekg with NSR
# History of anxiety. Continue Lexapro
# GERD
-Protonix continued
# DVT prophylaxis, low risk.
# Code status, full code.
--- NOTE | 2023-12-02 22:23 | W.PN.UPDATE ---
Update Note
Progress Note Update
This is an addendum to the H&P written by Saritha Szymanski on 12/02/2023. Patient seen and examined independently with MENTAL HEALTH THERAPIST.
38-year-old male past medical history of alcohol use disorder, anxiety/depression, GERD, presenting with recurrent vomiting, anxiety, secondary to alcohol withdrawal.
Transaminitis on labs. CT abdomen pelvis shows no acute pathology, submucosal fat deposition as seen in chronic inflammatory bowel disease. IV fluids, thiamine and folate, alcohol withdrawal protocol. Continue omeprazole for gastritis.
[2023-12-02] MEDS: ATIVAN 1 MG PO (22:53)
[2023-12-02 23:37] LABS: INR 1.18; PT 15.1 Sec (11.4-14.6)
[2023-12-02 23:38] LABS: APTT 32.1 Sec (23.4-35.0)
[2023-12-02 23:50] LABS: GGTP 140 U/L (15-73); Magnesium 1.7 mg/dl (1.6-2.3); Phosphorus 3.2 mg/dl (2.5-4.5)
[2023-12-02 23:56] LABS: B-Hydroxybutyrate 0.06 mmol/L (0.02-0.27)
[2023-12-03] VITALS (8 sets, daily range): BP systolic 133–154; BP diastolic 79–105; BMI 27.4
[2023-12-03] MEDS: ATIVAN 1 MG IV (00:39)
[2023-12-03 00:52] LABS: Urine Albumin Negative (Neg - Trace); Urine Bilirubin Negative (Negative); Urine Character Clear (Clear); Urine Color Yellow; Urine Glucose Negative (Negative); Urine Ketone Negative (Negative); Urine Leukocyte Trace (Negative); Urine Nitrite Negative (Negative); Urine Occult Blood Negative (Negative); Urine Urobilinogen Negative (Neg - 1+); Urine pH 6.5 (5.0-9.0)
[2023-12-03 01:08] LABS: Amphetamines Negative (Negative); Barbiturates Negative (Negative); Benzodiazepines Positive (Negative); Buprenorphine Negative (Negative); Cocaine Negative (Negative); Marijuana Negative (Negative); Methadone Negative (Negative); Methamphetamines Negative (Negative); Opiates Negative (Negative); Phencyclidine Negative (Negative); Tricyclic Antidepressants Negative (Negative)
[2023-12-03 01:14] LABS: Urine Bacteria Few (Negative); Urine Red Blood Cell 0-2 /HPF (0-2)
[2023-12-03 01:16] LABS: Fentanyl, Urine Negative (Negative)
[2023-12-03 06:45] LABS: Hematocrit 36.8 % (39.0-52.0); Mean Corp Hgb Conc. 35.3 g/dL (33.0-37.0); Mean Corpuscular Hgb 30.8 pg (27.0-31.0); Mean Corpuscular Volume 87.2 fL (80.0-94.0); Mean Platelet Volume 9.6 fL (7.4-10.4); Platelet Count 242 10^3/uL (130-400); Red Blood Cell Count 4.22 10^6/uL (4.70-6.10); Red Cell Dist. Width 15.9 % (11.5-14.5); White Blood Cell Count 6.4 10^3/uL (4.8-10.8)
[2023-12-03 06:54] LABS: ALT (SGPT) 59 U/L (0-50); AST (SGOT) 76 U/L (17-59); Alkaline Phosphatase 58 U/L (38-126); Blood Urea Nitrogen 9 mg/dl (9-20); Calcium 9.1 mg/dl (8.4-10.2); Carbon Dioxide 28 mmol/L (22-30); Chloride 102 mmol/L (98-107); Estimated Creatinine Clearance 116 ml/min; Glucose 99 mg/dl (70-99); Potassium 4.2 mmol/L (3.5-5.1); Sodium 136 mmol/L (135-145); Total Bilirubin 1.7 mg/dl (0.2-1.3); Total Protein 6.4 g/dl (6.3-8.2); eGFR > 60.00
[2023-12-03] MEDS: PROTONIX 40 MG PO (07:41)
[2023-12-03] MEDS: LEXAPRO 5 MG PO (07:41)
[2023-12-03] MEDS: THIAMINE INJECTION 200 MG IV ×2 (07:42→20:00)
[2023-12-03] MEDS: FOLVITE 1 MG PO (07:42)
--- NOTE | 2023-12-03 07:53 | W.PN.HOSP.TC ---
Today's Communication/Plan
-
cont MSAS protocol
thiamine supplementation
ETOH cessation/abstinence counseled
Assessment / Plan
Assessment / Plan
Physical Exam
General: Well Developed, Well Nourished and No Apparent Distress
HEENT: NormoCephalic, Moist mucous membranes and Atraumatic
Respiratory: Clear
Cardiac: S1/S2 and Regular Rhythm; No Murmur or Rub
GI: Soft, Non Tender, Non Distended and Normal Bowel Sounds; No Organomegaly
Musculoskeletal: No Clubbing, No Cyanosis and No Edema
Skin: No Rash
Neuro: AO x 3, mild tremors fingertips outstretched hands
HPI: 38-year-old male with recurrent vomiting. Jitteriness. Abdominal distention, discomfort for past few days. stated some mid sternum pain which is worse with touch and movement. he feels sob with pain. multiple episodes of foamy vomit.
tolerating diet. denied CHAVEZ, dizzy or syncopal episode. feels foggy. denied diarrhea. denied dysuria or hematuria.
drinks alcohol 3-4 beers,vodka daily. Reports tremors
# Alcohol withdrawal
-Cont MSAS protocol
-ETOH abstinence counseled
# Abdominal distention/pain since improved/resolved
#mild transaminitis likely from alcohol abuse
-Ct abdomen pelvis with Submucosal fat deposition throughout the colon suggesting a chronic inflammatory bowel disease. No clear evidence for an acute inflammatory process.
-Continue to monitor
#midsternum pain likely muscular 2/2 vomiting since resolved
-ctm
-ekg with NSR
# History of anxiety. Continue Lexapro
# GERD
-Protonix continued
dvt ppx Lovenox
Full Code
I spent a total of 50 minutes with the patient or on the floor. More than 50% of this time involved counseling and coordination of care.
Anticipated Discharge: 24 - 48 hours
Subjective/Interval History
-
Date of Service: December 03, 2023
Seen and examined at bedside in no acute distress sitting up comfortably in bed. Reports significant improvement in overall symptoms. Tolerating diet. Mild tremor noted on outstretched hands
Objective Data
-
Labs:
Laboratory Results
12/02/23 12/02/23 12/03/23
20:13 23:14 06:16
WBC 4.3 L 6.4
Hgb 14.5 13.0
Hct 42.5 36.8 L
Plt Count 312 242 D
PT 15.1 H
INR 1.18
APTT 32.1
Sodium 140 136
Potassium 4.7 4.2
Chloride 102 102
Carbon Dioxide 26 28
BUN 8 L 9
Creatinine 1.0 0.9
Glucose 114 H 99
Calcium 9.6 9.1
Total Bilirubin 0.9 1.7 H
AST 83 H 76 H
ALT 73 H 59 H
Alkaline Phosphatase 69 58
Vital Signs:
Vital Signs
Temp Pulse Resp BP Pulse Ox
98.3 F 89 15 125/94 94
12/03/23 03:05 12/03/23 02:15 12/03/23 02:15 12/02/23 21:00 12/02/23 21:00
--- NOTE | 2023-12-03 09:21 | CM ---
CM following re: discharge planning.
Reviewed pt's chart, met with pt.
Pt is a 38 year old male, admitted with primary dx of abdominal discomfort. Alcohol withdrawal. Protocol initiated.
Pt reports he lives with parents and 12 year old daughter in a 2SH, 3 steps to enter. Pt reports he shared a custody of her daughter with daughter's mother who is around and usually does not care for her daughter. 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
Pt admitted to h/o alcohol abuse, has been drinking daily since he was 19. Drink of choice - bourbon. Pt reports he has been drinking heavily in the past 2 weeks due to 'life pressure situation'. Counseling regarding alcohol dependency, negative
outcomes and treatment resources provided to the pt. Pt agrees to meet with [facility] team. Pt expressed no interest in inpatient or outpatient D&A related treatment but expressed his interest to meet with [facility] team. pt stated he will try not to drink
on his own especially his parents do not drink and always alerted him of his alcohol dependency.
A referral to [facility] made. [facility] brochure provided and pt stated he will call them if he has challenges with working on his sobriety.
PCP: Xavier Newman
Pharmacy: [facility]
D/C plan: home with [facility] to follow and family support.
CM will follow with discharge plan updates as hospitalization progresses.
[2023-12-03] MEDS: TYLENOL 650 MG PO ×2 (10:14→16:37)
[2023-12-03] MEDS: ATIVAN 1 MG PO ×4 (11:16→20:08)
[2023-12-03] MEDS: NSS 1000 IV (12:48)
[2023-12-04] MEDS: NSS 1000 IV (01:54)
[2023-12-04 03:02] VITALS: BP 139/91
--- NOTE | 2023-12-04 07:05 | W.PN.HOSP.TC ---
Today's Communication/Plan
-
discharge
Assessment / Plan
Assessment / Plan
Physical Exam
General: Well Developed, Well Nourished and No Apparent Distress
HEENT: NormoCephalic, Moist mucous membranes and Atraumatic
Respiratory: Clear
Cardiac: S1/S2 and Regular Rhythm; No Murmur or Rub
GI: Soft, Non Tender, Non Distended and Normal Bowel Sounds; No Organomegaly
Musculoskeletal: No Clubbing, No Cyanosis and No Edema
Skin: No Rash
Neuro: AO x 3, no tremors noted
HPI: 38-year-old male with recurrent vomiting. Jitteriness. Abdominal distention, discomfort for past few days. stated some mid sternum pain which is worse with touch and movement. he feels sob with pain. multiple episodes of foamy vomit.
tolerating diet. denied CHAVEZ, dizzy or syncopal episode. feels foggy. denied diarrhea. denied dysuria or hematuria.
drinks alcohol 3-4 beers,vodka daily. Reports tremors
# Alcohol withdrawal
-Cont MSAS protocol
-ETOH abstinence counseled
-Patient reports he will follow up with [facility] outpatient
# Abdominal distention/pain since improved/resolved
#mild transaminitis likely from alcohol abuse
-Ct abdomen pelvis with Submucosal fat deposition throughout the colon suggesting a chronic inflammatory bowel disease. No clear evidence for an acute inflammatory process.
-Repeat CMP in [address] imaging in 1 month with primary care provider recommended.
#midsternum pain likely muscular 2/2 vomiting since resolved
-ctm
-ekg with NSR
# History of anxiety. Continue Lexapro
# GERD
-Protonix continued
dvt ppx Lovenox
Full Code
Medically stable for discharge home with outpatient follow up recommendations.
Total Time Preparing Discharge ___40____ minutes including examination of the patient, summary of the hospital stay, instructions for continuing care to all relevant caregivers; and preparation of discharge records, prescriptions, and referral
forms if necessary.
Anticipated Discharge: Today
Subjective/Interval History
-
Date of Service: December 04, 2023
Seen and examined at bedside. No acute distress. Reports overall feeling well. Alcohol withdrawal symptoms resolved. Last prn dose ativan yesterday. No issues overnight.
Objective Data
-
Labs:
Laboratory Results
12/04/23
06:21
WBC Pending
Hgb Pending
Hct Pending
Plt Count Pending
Sodium Pending
Potassium Pending
Chloride Pending
Carbon Dioxide Pending
BUN Pending
Creatinine Pending
Glucose Pending
Calcium Pending
Total Bilirubin Pending
AST Pending
ALT Pending
Alkaline Phosphatase Pending
Vital Signs:
Vital Signs
Temp Pulse Resp BP Pulse Ox
97.5 F 56 18 139/91 98
12/04/23 03:02 12/04/23 03:02 12/04/23 03:02 12/04/23 03:02 12/04/23 03:02
I&O
12/03/23 12/04/23 12/05/23
06:59 06:59 06:59
Intake Total 2400 / 2400
Balance 2400 / 2400
[2023-12-04 07:15] VITALS: BP 135/86
[2023-12-04 07:27] LABS: Hematocrit 38.6 % (39.0-52.0); Hemoglobin 12.9 g/dL (13.0-18.0); Mean Corp Hgb Conc. 33.4 g/dL (33.0-37.0); Mean Corpuscular Hgb 29.9 pg (27.0-31.0); Mean Corpuscular Volume 89.4 fL (80.0-94.0); Mean Platelet Volume 10.3 fL (7.4-10.4); Platelet Count 228 10^3/uL (130-400); Red Blood Cell Count 4.32 10^6/uL (4.70-6.10); Red Cell Dist. Width 15.6 % (11.5-14.5); White Blood Cell Count 4.7 10^3/uL (4.8-10.8)
[2023-12-04 07:47] LABS: ALT (SGPT) 62 U/L (0-50); AST (SGOT) 72 U/L (17-59); Albumin 3.9 g/dl (3.5-5.0); Alkaline Phosphatase 56 U/L (38-126); Blood Urea Nitrogen 7 mg/dl (9-20); Calcium 9.1 mg/dl (8.4-10.2); Carbon Dioxide 29 mmol/L (22-30); Chloride 105 mmol/L (98-107); Estimated Creatinine Clearance 116 ml/min; Glucose 103 mg/dl (70-99); Magnesium 1.8 mg/dl (1.6-2.3); Phosphorus 4.1 mg/dl (2.5-4.5); Potassium 4.7 mmol/L (3.5-5.1); Sodium 138 mmol/L (135-145); Total Bilirubin 1.5 mg/dl (0.2-1.3); Total Protein 6.4 g/dl (6.3-8.2); eGFR > 60.00
[2023-12-04] MEDS: PROTONIX 40 MG PO (08:38)
[2023-12-04] MEDS: FOLVITE 1 MG PO (08:38)
[2023-12-04] MEDS: LEXAPRO 5 MG PO (08:38)
[2023-12-04] MEDS: THIAMINE INJECTION 200 MG IV (08:38)
--- NOTE | 2023-12-04 09:52 | PTCARENOTE ---
pt MSAS score of 0 for this nurse and night clerk nurse 12/02. pt tolerating oral intake, D/c IVF per MD order, and is a self within the room. pt states he feels good and is no longer diaphoretic and or having abd pain.
[2023-12-04 11:05] VITALS: BP 135/88
--- NOTE | 2023-12-04 12:48 | W.DCSUMMARY ---
Discharge Summary
Discharge Data
Date of Admission: 12/02/23
Date of Discharge: 12/04/23
-
Pending Results: No
Discharge Plan
-
Patient Disposition: Home (Routine Discharge)
Discharge Diagnosis/Procedures: Alcohol Withdrawal
Mild Transaminitis likely due to Alcohol use
Fatty Liver Disease
Possible Chronic Inflammatory Bowel Disease noted on CT
Condition: Good
Diet: Regular
Activity: As tolerated
Driving Restrictions: As prior to admission
Bathing Restrictions: None
Blood Work: Please repeat CBC and CMP with primary care provider in 1 week of discharge.
Others Tests: Repeat CT abd/pelvis with contrast with primary care provider in 1 month of discharge to follow up on possible chronic inflammatory bowel disease (suspect related to Alcohol use)
Activity Restrictions/Additional Instructions:
Please follow up with primary care provider and [facility] in 1 week of discharge.
Alcohol use cessation/abstinence is strongly advised. Further use is likely to lead to recurrence of symptoms, significant increase risk of harm/morbidity, and even the possibility of .
Instructions: Alcohol Use Disorder (DC)
Referrals:
Xavier Newman MD [Family Provider] - in one week
Prescriptions:
Continued
omeprazole 20 mg Capsule,Delayed Release(Dr/Ec)
20 mg PO DAILY
escitalopram oxalate [Lexapro] 5 mg Tablet
5 mg PO DAILY
Discharge Orders:
Discharge Patient (As Directed); Ordered 12/04/23
Ordered By: Smitha Kim
Discharge Date and Time
Print Language: TUVALU[place]
--- NOTE | 2023-12-04 13:47 | PTCARENOTE ---
pt discharged home with no needs. follow up with [facility] and within one week per discharge paperwork. IV site discontinued and pt walked out of room with no assistance. refused wheelchair on discharge.
--- NOTE | 2023-12-04 17:00 | CM ---
Patient has been medically cleared for discharge to home with no additional skilled services. Patient has declined assistance with ETOH abuse at this time.
== END 2023-12-04 13:52 | disposition home or self-care (01) | DRG 897 ==
LOC: 2 NORTH 22:41
PROVIDERS: Emergency Medicine; Registered Nurse; ADMITTING PHYSICIAN Hospitalist; ATTENDING PHYSICIAN Internal Medicine; EMERGENCY PHYSICIAN Emergency Medicine; FAMILY PHYSICIAN Family Medicine
DX: F10.139 Alcohol abuse with withdrawal, unspecified (principal); K76.0 Fatty (change of) liver, not elsewhere classified; F32.A Depression, unspecified; F41.9 Anxiety disorder, unspecified; F17.290 Nicotine dependence, other tobacco product, uncomplicated; K21.9 Gastro-esophageal reflux disease without esophagitis; R25.1 Tremor, unspecified; R14.0 Abdominal distension (gaseous); Z79.899 Other long term (current) drug therapy; Z87.442 Personal history of urinary calculi
CPT/HCPCS: 74177; 80053; 80306; 80307; 81003; 81015; 82010; 82077; 82977; 83690; 83735; 84100; 85025; 85027; 85610; 85730; 93005; 96361; 96372; 96374; 96375; 96376; 99285; 99406; Q9967

== ENCOUNTER 2023-12-05 15:35 | Emergency (ER) | payer OTHER, SELFPAY ==
[2023-12-05 15:39] VITALS: BP 163/125
[2023-12-05 16:02] LABS: % Basophils 0.9 % (0-2); % Eosinophils 3.8 % (0-6); % Immature Granulocytes 0.3 % (0-0.5); % Lymphocytes 20.2 % (20.5-51.1); % Monocytes 5.4 % (1.7-9.3); % Neutrophils 69.4 % (42.2-75.2); Absolute Basophils 0.1 10^3/uL (0-0.2); Absolute Eosinophils 0.3 10^3/uL (0-0.7); Absolute Lymphocytes 1.3 10^3/uL (1.2-3.4); Absolute Monocytes 0.4 10^3/uL (0.1-0.6); Absolute Neutrophils 4.5 10^3/uL (1.4-6.5); Hematocrit 42.5 % (39.0-52.0); Hemoglobin 14.5 g/dL (13.0-18.0); Mean Corp Hgb Conc. 34.1 g/dL (33.0-37.0); Mean Corpuscular Hgb 29.8 pg (27.0-31.0); Mean Corpuscular Volume 87.3 fL (80.0-94.0); Mean Platelet Volume 9.6 fL (7.4-10.4); Nucleated Red Blood Cells % 0 % (-); Platelet Count 264 10^3/uL (130-400); Red Blood Cell Count 4.87 10^6/uL (4.70-6.10); Red Cell Dist. Width 15.8 % (11.5-14.5); White Blood Cell Count 6.5 10^3/uL (4.8-10.8)
[2023-12-05 16:19] LABS: ALT (SGPT) 169 U/L (0-50); AST (SGOT) 284 U/L (17-59); Alkaline Phosphatase 63 U/L (38-126); Blood Urea Nitrogen 13 mg/dl (9-20); Calcium 10.2 mg/dl (8.4-10.2); Carbon Dioxide 28 mmol/L (22-30); Chloride 100 mmol/L (98-107); Glucose 122 mg/dl (70-99); Potassium 4.3 mmol/L (3.5-5.1); Sodium 136 mmol/L (135-145); Total Bilirubin 1.5 mg/dl (0.2-1.3); Total Protein 7.8 g/dl (6.3-8.2); eGFR > 60.00
[2023-12-05 16:21] LABS: Alcohol None Detected
[2023-12-05 17:43] VITALS: BP 162/103
[2023-12-05 18:00] VITALS: BP 161/108
--- NOTE | 2023-12-05 18:10 | ED.GENMED ---
History of Present Illness
General
Chief Complaint: Headache
Source: patient
Exam Limitations: none
Time Seen by Provider: 12/05/23 17:53
History of Present Illness
History of Present Illness:
This is a 38 year old male that was discharged yesterday due to alcohol withdraw. States that he felt great yesterday. Then today he has this pressure in his head and everything looks bright. States that he feels like he can't talk right and that
his balance is off. States that his leg keeps jumping. States that he gets chest pain on and off and SOB. States that his abd discomfort comes and goes and he is nauseated. States that he had dry heaves today. Denies any fever, chills,
diarrhea,dizziness, urinary burning.
Past History
Past History
ED Past Medical History: GERD, Psychiatric (Anxiety, Depression) and Other (epididymitis L testicle, kidney stones, PNA, Renal calculus, Migraines)
ED Past Surgical History: Appendectomy
Social History
Tobacco: Vaping (Quit 2020 now vapes)
Alcohol: Former (as of 12/05/23 not alcohol for 5 days. )
Drug: None
Personal: Single
Living: alone
Employment: Employed
Family History
Family History: Other
Review of Systems
Review of Systems
All Other Systems: ROS reviewed and negative except as documented in HPI and ROS
Constitutional: Reports no symptoms; Denies fever or chills
EENT: Reports no symptoms
Respiratory: Reports trouble breathing (Occasional); Denies cough
Cardiac: Reports chest pain (On and off)
ABD/GI: Reports abdominal pain (Upper abd), nausea and other (Dry heaves); Denies diarrhea
: Reports no symptoms; Denies dysuria, frequency or urgency
Musculoskeletal: Reports other (Feels like his balance is off)
Skin: Reports no symptoms
Neurological: Reports headache; Denies dizzy
Psychiatric: Reports no symptoms
Phy Exam
General Physical Exam
General Presentation: well appearing and no apparent distress
General age: appears stated age
General Skin: warm and dry
General Habitus: normal
General Mental: alert
General Hydration: appears well hydrated
ENT Exam
ENT Exam: TM's normal, pharynx normal and neck supple
Eye Exam
Eye Exam: EOMI
Cardiovascular Exam
Cardiovascular Exam: regular rate/rhythm, no edema, no murmur and normal peripheral pulses
Pulmonary Exam
Pulmonary Exam: lungs clear, no respiratory distress, no rales, chest non tender, no crackles, no rhonchi, no wheezing and no cough
Gastrointestinal Exam
Gastrointestinal Exam: normal bowel sounds, soft, no organomegaly, no pulsatile mass, non distended and tender (Upper abd tenderness with palpation)
NIH Stroke Score
Level of Consciousness: 0 - Alert
LOC questions: 0-Answers both correctly
LOC Commands: 0-Performs both correctly
Best Gaze: 0-Normal
Visual Johns: 0=Normal, no visual loss
Facial palsy: 0=Normal, symmetrical
Motor - Right Arm: 0=No drift 10 seconds
Motor - Left Arm: 0=No drift 10 seconds
Motor - Right Le-No drift 5 seconds
Motor - Left Le-No drift 5 seconds
Limb Ataxia: 0-Absent
Sensation: 0-Normal
Best Language: 0-No aphasia
Dysarthria: 0-Normal
Extinction and Inattention: 0-No abnormality
Total Score:: 0
Musculoskeletal Exam
Musculoskeletal Exam: full ROM, no edema and other (Hand grasp and push pulls equal)
Skin Exam
Skin Exam: normal color, warm/dry, no rash and no petechia
Psychiatric Exam
Psychiatric Exam: normal mood/affect
Course
Orders/Labs/Results
Orders:
Orders
12/05/23 15:51
Alcohol Urgent
CMP [Comprehensive Metabolic Panel] Urgent
Complete Blood Count/With Diff Urgent
Direct Bilirubin Urgent
Comment: ADD ON
Lipase Urgent
Comment: ADDON
12/05/23 17:55
Add On- LAB Urgent
Tests Added?: Direct shanthi
12/05/23 18:08
CT Head W/o Iv Contrast Urgent
Comment:
Reason For Exam: Head pressure, feels off balance
0.9% Sodium Chloride 1000 ml [Nss] 1,000 ml IV BOLUS
Acetaminophen [Tylenol] 1,000 mg PO NOW STA
Ketorolac [Toradol] 30 mg IV NOW STA
US Abdomen Limited Urgent
Comment: RUQ exam per Araseli Nicolas
Reason For Exam: elevated liver enzymes, Upper abd tenderness
12/05/23 18:12
Electrocardiogram (*1) Urgent
Reason for Study: Chest Pain
EKG- Treatment ONCE
12/05/23 18:13
Dexamethasone Sod Phosphate [Decadron] 20 mg IV NOW STA
Diphenhydramine [Benadryl] 25 mg IV NOW STA
Prochlorperazine [Compazine] 5 mg IV NOW STA
12/05/23 18:16
Add On- LAB Urgent
Tests Added?: Lipase
12/05/23 18:36
Troponin I Urgent
Abnormal Lab Results
12/05/23
15:51
RDW 15.8 H %
(11.5-14.5)
Lymphocytes % 20.2 L %
(20.5-51.1)
Glucose 122 H mg/dl
(70-99)
Total Bilirubin 1.5 H mg/dl
(0.2-1.3)
AST 284 H U/L
(17-59)
ALT 169 H U/L
(0-50)
12/05/23 15:51
12/05/23 15:51
Hyperglycemia. Total shanthi elevated. AST/ALT elevation since AST was 72, ALT 62 on 12/04/23, Alcohol Negative. Direct shanthi nrmal at 0.4, Lipase normal at 147
Vital Signs
Initial and Last Documented VS:
Initial Vital Signs
Temp Pulse Resp BP Pulse Ox
98.6 F 105 16 163/125 97
12/05/23 15:39 12/05/23 15:39 12/05/23 15:39 12/05/23 15:39 12/05/23 15:39
Last Documented Vital Signs
Temp Pulse Resp BP Pulse Ox
98.6 F 65 14 138/98 97
12/05/23 15:39 12/05/23 20:17 12/05/23 19:15 12/05/23 20:17 12/05/23 20:17
MDM/Problems Addressed
Differential Diagnosis Includes:
Gallbladder disease. Migraines
MDM/Problems Addressed:
This is a 38 year old male that comes in with c/o just not feeling well. States that he has head pressure and feels off balance. States that his leg keep jumping, he is nauseated, had dry heaves, chest pain on and off with SOB occasionally. States
that he also has a headache that is pressure in the back of his head and on top. States that he did not take anything.
Will check labs. US abd, CT head and medicate for pain.
Back into see patient. Patient was sleeping soundly. Arouses easily. States that he is feeling better. Explained that his CT of his head is normal. This may have just been a Migraine. Explained that his US shows his fatty liver but there are no
stones or wall thickening. Will discharge patient home. Patient is steady on his feet and ambulating to the BR without difficulty.
Chronic conditions affecting care:
history of MIgraines
Acute Exacerbation and/or Progression of Chronic Illness:
Migraines
*Radiology
Radiology exam reviewed: radiology read reviewed (CT head-NO CT evidence for acute intracranial disease. Andrew cisterna magna in the posterior fossa which appears unchanged. US=Moderate diffuse hepatic steatosis. No sonographic evidence for
cholelithiasis or biliary obstruction. )
*Pulse Oximetry
Patient hypoxic: no
*Valve Mechanic Interpretation
Rate: normal
Heart Rate: 86
Rhythm: sinus
*Critical Care Note
Total Time (30-74mins, 75-104mins- exclusive of procedures): Not Applicable
ED Attending Note
-
Portions of this chart may have been created with voice recognition software.� Occasional wrong word or��sound alike� substitutions may have occurred due to the inherent limitations of voice recognition software.
Discharge Plan
Departure
Patient Disposition: Home (Routine Discharge)
Date of Disposition: 12/05/23
Time of Disposition: 20:41
Patient with high blood pressure during this ER visit?: Yes
Condition: Good
Covid-19: Not Applicable
Discharge Problem:
Migraine
Instructions: Migraines (DC), BLOOD PRESSURE
Prescriptions:
No Action
omeprazole 20 mg Capsule,Delayed Release(Dr/Ec)
20 mg PO DAILY
escitalopram oxalate [Lexapro] 5 mg Tablet
5 mg PO DAILY
Referrals:
Xavier Newman MD [Family Provider] - Follow up in 2-3 days
Activity Restrictions/Additional Instructions:
As discussed, your blood work shows that our liver enzymes are elevated. Your Ultrasound shows that you have a fatty liver. This will raise your Liver enzmes. Your CT of the head is negative for any acute process. Encouraged patient to increase his
water intake to 8-8oz glasses daily. Follow up with the Family doctor. Tylenol or Ibuprofen for headache pain. IF YOU HAVE VOMITING, FEVER, OR YOU HAVE ANY OTHER CONCERNS PLEASE RETURN TO THE EMERGENCY ROOM.
Interventions
Interventions:
ED- Neurological Assessment Last Done: 12/05/23 18:53
Discharge Date and Time
Print Language: MALTESE
[2023-12-05 18:30] LABS: Direct Bilirubin 0.4 mg/dl (0.0-0.4); Lipase 147 U/L (23-300)
[2023-12-05] MEDS: TYLENOL 1000 MG PO (18:38)
[2023-12-05] MEDS: NSS 1000 IV (18:38)
[2023-12-05] MEDS: BENADRYL 25 MG IV (18:38)
[2023-12-05] MEDS: TORADOL 30 MG IV (18:38)
[2023-12-05] MEDS: DECADRON 20 MG IV (18:39)
[2023-12-05] MEDS: COMPAZINE 5 MG IV (18:39)
[2023-12-05 19:18] LABS: Troponin I < 0.012 ng/ml
[2023-12-05 20:17] VITALS: BP 138/98
== END 2023-12-05 20:54 | disposition home or self-care (01) ==
LOC: EMR 15:35
PROVIDERS: Clinical Nurse Specialist Family Health; Student in an Organized Health Care Education/Training Program; EMERGENCY PHYSICIAN Emergency Medicine; FAMILY PHYSICIAN Family Medicine
DX: G43.909 Migraine, unspecified, not intractable, without status migrainosus (principal); R07.9 Chest pain, unspecified; R06.02 Shortness of breath; R10.10 Upper abdominal pain, unspecified; R11.0 Nausea; R03.0 Elevated blood-pressure reading, without diagnosis of hypertension; F41.9 Anxiety disorder, unspecified; F32.A Depression, unspecified; F17.290 Nicotine dependence, other tobacco product, uncomplicated; K76.0 Fatty (change of) liver, not elsewhere classified; F10.11 Alcohol abuse, in remission; Z87.442 Personal history of urinary calculi; Z87.01 Personal history of pneumonia (recurrent)
CPT/HCPCS: 99284; 96374; 96375 ×3; 96361; 70450; 76705; 80053; 82077; 82248; 83690; 84484; 85025; 93005

== ENCOUNTER 2023-12-20 05:34 | Emergency (ER) | payer SELFPAY ==
[2023-12-20 05:35] VITALS: BP 168/116
[2023-12-20] MEDS: ATIVAN 2 MG IV (08:49)
[2023-12-20] MEDS: NSS 1000 IV (08:49)
[2023-12-20 09:00] VITALS: BP 152/94
[2023-12-20 09:10] LABS: % Basophils 1.2 % (0-2); % Eosinophils 0.7 % (0-6); % Immature Granulocytes 0.2 % (0-0.5); % Monocytes 6.4 % (1.7-9.3); % Neutrophils 71.5 % (42.2-75.2); Absolute Basophils 0.1 10^3/uL (0-0.2); Absolute Eosinophils 0.1 10^3/uL (0-0.7); Absolute Lymphocytes 1.6 10^3/uL (1.2-3.4); Absolute Monocytes 0.5 10^3/uL (0.1-0.6); Absolute Neutrophils 5.7 10^3/uL (1.4-6.5); Hematocrit 43.1 % (39.0-52.0); Hemoglobin 15.1 g/dL (13.0-18.0); Mean Corpuscular Hgb 30.3 pg (27.0-31.0); Mean Corpuscular Volume 86.4 fL (80.0-94.0); Mean Platelet Volume 9.7 fL (7.4-10.4); Nucleated Red Blood Cells % 0 % (-); Platelet Count 374 10^3/uL (130-400); Red Blood Cell Count 4.99 10^6/uL (4.70-6.10); Red Cell Dist. Width 15.3 % (11.5-14.5)
[2023-12-20 09:26] LABS: Amphetamines Negative (Negative); Barbiturates Negative (Negative); Benzodiazepines Positive (Negative); Buprenorphine Negative (Negative); Cocaine Negative (Negative); Marijuana Negative (Negative); Methadone Negative (Negative); Methamphetamines Negative (Negative); Opiates Negative (Negative); Phencyclidine Negative (Negative); Tricyclic Antidepressants Negative (Negative)
[2023-12-20 09:36] LABS: Blood Urea Nitrogen 10 mg/dl (9-20); Calcium 9.5 mg/dl (8.4-10.2); Carbon Dioxide 30 mmol/L (22-30); Chloride 94 mmol/L (98-107); Glucose 106 mg/dl (70-99); Sodium 134 mmol/L (135-145); eGFR > 60.00
[2023-12-20 09:40] LABS: Alcohol None Detected
[2023-12-20 10:00] VITALS: BP 129/90
[2023-12-20 10:01] LABS: Fentanyl, Urine Negative (Negative)
--- NOTE | 2023-12-20 10:28 | ED.GENMED ---
History of Present Illness
General
Chief Complaint: Alcohol Problem
Source: patient
Time Seen by Provider: 12/20/23 07:02
History of Present Illness
History of Present Illness:
38-year-old male who presents feeling like he is in withdrawal. States he did have a drink between 8:10 PM last night. States he does not typically wake up withdrawal but they felt tremulous and like he is in withdrawal. Admits he has been
drinking about a pint of vodka daily. Was nauseous, sweaty and tremulous.
Past History
Past History
ED Past Medical History: GERD, Psychiatric (Anxiety, Depression, alcoholism) and Other (epididymitis L testicle, kidney stones, PNA, Renal calculus, Migraines, alcoholism)
ED Past Surgical History: Appendectomy
Social History
Tobacco: Vaping (Quit 2020 now vapes)
Alcohol: Daily
Drug: None
Personal: Single
Living: alone
Employment: Employed
Family History
Family History: Other
Phy Exam
Physical Exam
Physical Exam:
CONSTITUTIONAL Patient alert and oriented to person, place and time. Vital signs reviewed.
HEAD atraumatic, normocephalic.
EYES eyelids normal to inspection, Pupils equally round and reactive to light, Extraocular muscles intact, Conjunctiva normal, Sclera normal.
NECK normal range of motion, Trachea midline, no jugular venous distention.
RESPIRATORY CHEST No respiratory distress noted, Chest expansion equal, Bilateral breath sounds clear.
CARDIOVASCULAR regular and tachycardic, Heart sounds normal.
ABDOMEN abdomen nontender, Bowel sounds normal. No distention.
UPPER EXTREMITY range of motion normal, Motor strength normal, no cyanosis, no edema.
LOWER EXTREMITY range of motion normal, Motor strength normal, no cyanosis, no edema.
NEURO Speech normal, No focal motor deficits, [place] coma scale 15, Memory normal, Cranial Nerves intact to screening exam. tremulous.
SKIN skin mildly diaphoretic
Scores
Withdrawal Assessment of Alcohol
Withdrawal Assessment Completed?: Yes
Nausea and Vomiting: No nausea and no vomiting
Tactile Disturbances: None
Tremor: Moderate, with patient's arms extended
Auditory Disturbances: Not present
Paroxysmal Sweats: Beads of sweat obvious on forehead
Visual Disturbances: Not present
Anxiety: No anxiety, at ease
Headache, Fullness in Head: Not present
Agitation: Normal activity
Orientation and clouding of sensorium: Oriented and can do serial additions
Total CIWA Score: 8
Alcohol Withdrawal Medication Recommendation: Equal to MSAS Score 5-7. Lorazepam 1mg IV or PO NOW & re-assess q2hrs
Course
Orders/Labs/Results
Orders:
Orders
12/20/23 07:43
0.9% Sodium Chloride 1000 ml [Nss] 1,000 ml IV BOLUS
Lorazepam [Ativan] 2 mg IV NOW STA
12/20/23 08:51
Alcohol Urgent
Basic Metabolic Panel Urgent
Complete Blood Count/With Diff Urgent
Fentanyl, Urine Urgent
Urine Drug Abuse Screen Urgent
Date Specimen was Collected: 12/20/23
Time Specimen was Collected: 07:21
12/20/23 10:13
Vital Signs- Treatment ONCE
Frequency: Once
12/20/23 10:23
Lorazepam [Ativan] 1 mg IV NOW STA
12/20/23 11:02
Diazepam [Valium] 10 mg PO NOW STA
12/20/23 11:43
Potassium Urgent
Abnormal Lab Results
12/20/23
08:51
RDW 15.3 H %
(11.5-14.5)
Lymphocytes % 20.0 L %
(20.5-51.1)
Sodium 134 L mmol/L
(135-145)
Chloride 94 L mmol/L
(98-107)
Glucose 106 H mg/dl
(70-99)
U Benzodiazepines Scrn Positive H
(Negative)
12/20/23 08:51
12/20/23 11:43
Vital Signs
Pulse: 98
Initial and Last Documented VS:
Initial Vital Signs
Temp Pulse Resp BP Pulse Ox
98.2 F 110 24 168/116 98
12/20/23 05:35 12/20/23 05:35 12/20/23 05:35 12/20/23 05:35 12/20/23 05:35
Last Documented Vital Signs
Temp Pulse Resp BP Pulse Ox
98.2 F 98 25 129/90 94
12/20/23 05:35 12/20/23 13:02 12/20/23 10:00 12/20/23 10:00 12/20/23 10:00
MDM/Problems Addressed
MDM/Problems Addressed:
Acute alcohol withdrawal, alcoholism
*Pulse Oximetry
Patient hypoxic: no
*Carpentry Specialist Interpretation
Rate: tachycardiac
Interpretation: abnormal
Rhythm: sinus
*Critical Care Note
Total Time (30-74mins, 75-104mins- exclusive of procedures): 40 minutes
Data Reviewed
Review of Other/Old Records Reveals: Discharge Summary (Recent discharge summary reviewed from 2023 reveal history of alcoholism)
Source: patient
Patient Management
Discussion with other providers: Other ([facility] explosive ordnance disposal specialist)
Escalation/DeEscalation of care consider admission/obs:
Patient offered further inpatient rehab but declines at this time. Does agree to follow-up with outpatient for intensive outpatient management. Was given resources. Patient feels much better. Heart rate 98 on my recent assessment and does not
appear tremulous. States it is not nearly as bad as it was last time and does feel better. I think outpatient management is reasonable. Patient will return for any progressive symptoms. Counseled on importance of not driving while on
benzodiazepines and not mixing alcohol and benzodiazepines.
ED Attending Note
-
Portions of this chart may have been created with voice recognition software.� Occasional wrong word or��sound alike� substitutions may have occurred due to the inherent limitations of voice recognition software.
Discharge Plan
Departure
Patient Disposition: Home (Routine Discharge)
Date of Disposition: 12/20/23
Time of Disposition: 13:00
Patient with high blood pressure during this ER visit?: Yes
Discharge Problem:
Alcohol withdrawal
Instructions: Alcohol Withdrawal (DC), Alcohol Use Disorder (DC), BLOOD PRESSURE
Prescriptions:
New
diazepam 10 mg tablet
10 mg PO DAILY Qty: 11 0RF
Rx Instructions:
10 mg q6 hours x 1 day,then 10 mg q8 hrs x 1 day, then 10 mg q12 hours x 1 day then 10 mg qhs x 2 days.
No Action
omeprazole 20 mg Capsule,Delayed Release(Dr/Ec)
20 mg PO DAILY
escitalopram oxalate [Lexapro] 5 mg Tablet
5 mg PO DAILY
Referrals:
Xavier Newman MD [Family Provider] -
Activity Restrictions/Additional Instructions:
Please follow-up with [facility] as discussed. Please see your doctor in the next 2 to 3 days for follow-up and reevaluation. Please avoid alcohol. Please do not drive while taking benzodiazepines such as Valium. Please return immediately for
increased tremors, vomiting, sweats, seizures or any other concerns.
Interventions
Interventions:
*Risk Screen - Suicide Last Done: 12/20/23 05:35
*Neglect/Abuse Screening Last Done: 12/20/23 05:35
Discharge Date and Time
Print Language: GREENLAND[place]
[2023-12-20] MEDS: ATIVAN 1 MG IV (10:39)
[2023-12-20 12:00] LABS: Potassium 4.3 mmol/L (3.5-5.1)
[2023-12-20] MEDS: VALIUM 10 MG PO (12:09)
== END 2023-12-20 14:00 | disposition home or self-care (01) ==
LOC: EMR 05:34
PROVIDERS: EMERGENCY PHYSICIAN Emergency Medicine; FAMILY PHYSICIAN Family Medicine
DX: F10.239 Alcohol dependence with withdrawal, unspecified (principal); R11.0 Nausea; R00.0 Tachycardia, unspecified; R03.0 Elevated blood-pressure reading, without diagnosis of hypertension; K21.9 Gastro-esophageal reflux disease without esophagitis; F41.9 Anxiety disorder, unspecified; F32.A Depression, unspecified; F17.290 Nicotine dependence, other tobacco product, uncomplicated; G43.909 Migraine, unspecified, not intractable, without status migrainosus; Z87.442 Personal history of urinary calculi; Z87.01 Personal history of pneumonia (recurrent)
CPT/HCPCS: 99291; 96374; 96376; 96361; 80048; 80306; 80307; 82077; 84132; 85025

== ENCOUNTER 2024-01-15 03:56 | Emergency (ER) | payer SELFPAY ==
[2024-01-15 03:59] VITALS: BP 170/116
[2024-01-15] MEDS: ATIVAN 2 MG IV ×2 (04:12→05:48)
[2024-01-15] MEDS: MULTIVITAMIN 1011 ML IV (04:29)
[2024-01-15] MEDS: MULTIVITAMIN 1011 MG IV (04:29)
[2024-01-15 04:34] LABS: % Basophils 1.3 % (0-2); % Eosinophils 5.4 % (0-6); % Immature Granulocytes 0.5 % (0-0.5); % Lymphocytes 30.7 % (20.5-51.1); % Monocytes 10.6 % (1.7-9.3); % Neutrophils 51.5 % (42.2-75.2); Absolute Basophils 0.1 10^3/uL (0-0.2); Absolute Eosinophils 0.3 10^3/uL (0-0.7); Absolute Lymphocytes 1.7 10^3/uL (1.2-3.4); Absolute Monocytes 0.6 10^3/uL (0.1-0.6); Absolute Neutrophils 2.9 10^3/uL (1.4-6.5); Hematocrit 44.3 % (39.0-52.0); Hemoglobin 15.1 g/dL (13.0-18.0); Mean Corp Hgb Conc. 34.1 g/dL (33.0-37.0); Mean Corpuscular Hgb 30.8 pg (27.0-31.0); Mean Corpuscular Volume 90.2 fL (80.0-94.0); Mean Platelet Volume 9.8 fL (7.4-10.4); Nucleated Red Blood Cells % 0 % (-); Platelet Count 279 10^3/uL (130-400); Red Blood Cell Count 4.91 10^6/uL (4.70-6.10); Red Cell Dist. Width 14.6 % (11.5-14.5); White Blood Cell Count 5.6 10^3/uL (4.8-10.8)
[2024-01-15 04:38] VITALS: BMI 28.5
[2024-01-15 04:51] VITALS: BP 133/102
[2024-01-15 04:56] LABS: ALT (SGPT) 71 U/L (0-50); AST (SGOT) 127 U/L (17-59); Albumin 4.9 g/dl (3.5-5.0); Alcohol 100 mg/dl; Alkaline Phosphatase 89 U/L (38-126); Blood Urea Nitrogen 8 mg/dl (9-20); Calcium 10.3 mg/dl (8.4-10.2); Carbon Dioxide 27 mmol/L (22-30); Chloride 94 mmol/L (98-107); Estimated Creatinine Clearance 116 ml/min; Glucose 119 mg/dl (70-99); Potassium 3.8 mmol/L (3.5-5.1); Sodium 142 mmol/L (135-145); Total Bilirubin 0.6 mg/dl (0.2-1.3); Total Protein 7.8 g/dl (6.3-8.2); eGFR > 60.00
[2024-01-15 05:00] VITALS: BP 154/118
[2024-01-15 05:06] LABS: Troponin I < 0.012 ng/ml
--- NOTE | 2024-01-15 05:25 | ED.GENMED ---
History of Present Illness
General
Chief Complaint: Withdrawal Symptoms
Source: patient
Exam Limitations: none
Time Seen by Provider: 01/15/24 04:07
Nursing documentation reviewed up to this point in time: agreed with
History of Present Illness
History of Present Illness:
38-year-old male comes into the emergency department worsening nausea and vomiting. He does have some shortness of breath. Patient does drink in excess. His last drink was a few hours ago. Since then he has had shakiness and diaphoresis.
Patient does report going into withdrawal. He does have a pint of vodka every day. Patient denies chest pain or shortness of
Past History
Past History
ED Past Medical History: GERD, Psychiatric (Anxiety, Depression, alcoholism) and Other (epididymitis L testicle, kidney stones, PNA, Renal calculus, Migraines, alcoholism)
ED Past Surgical History: Appendectomy
Social History
Tobacco: Vaping (Quit 2020 now vapes)
Alcohol: Daily
Drug: None
Personal: Single
Living: alone
Employment: Employed
Family History
Family History: Other
Review of Systems
Review of Systems
Allergies reviewed?: Yes
All Other Systems: ROS reviewed and negative except as documented in HPI and ROS
ABD/GI: Reports nausea and vomiting
Musculoskeletal: Reports no symptoms
Skin: Reports no symptoms
Neurological: Reports dizzy
Endocrine: Reports no symptoms
Hematologic/Lymphatic: Reports no symptoms
Psychiatric: Reports anxiety
Phy Exam
General Physical Exam
General Presentation: well appearing and moderate distress
General Skin: warm and dry
General Habitus: normal
General Mental: alert
General Hydration: appears well hydrated
ENT Exam
ENT Exam: EOMI, pharynx normal, neck supple and normocephalic
Eye Exam
Eye Exam: PERRL, cornea clear and conjunctiva normal
Cardiovascular Exam
Cardiovascular Exam: regular rate/rhythm and tachycardia
Pulmonary Exam
Pulmonary Exam: lungs clear, no respiratory distress, no rales, no crackles, no rhonchi, no stridor, no wheezing and no cough
Gastrointestinal Exam
Gastrointestinal Exam: normal bowel sounds, non tender, soft, no organomegaly, no pulsatile mass and non distended
Neurological Exam
Neurological Exam: alert, oriented x3, no motor deficits and speech normal
Musculoskeletal Exam
Musculoskeletal Exam: full ROM and no edema
Skin Exam
Skin Exam: normal color, warm/dry, no rash and no petechia
Psychiatric Exam
Psychiatric Exam: normal mood/affect
Scores
Withdrawal Assessment of Alcohol
Withdrawal Assessment Completed?: Yes
Nausea and Vomiting: Constant nausea, frequent dry heaves and vomiting
Tactile Disturbances: Very mild itching, pins and needles, burning or numbness
Tremor: Moderate, with patient's arms extended
Auditory Disturbances: Not present
Paroxysmal Sweats: Beads of sweat obvious on forehead
Visual Disturbances: Not present
Anxiety: Mild anxiety
Headache, Fullness in Head: Not present
Agitation: Moderately fidgety and restless
Orientation and clouding of sensorium: Oriented and can do serial additions
Total CIWA Score: 21
Alcohol Withdrawal Medication Recommendation: Equal to MSAS >11. Lorazepam 2-4mg IV NOW and re-assess q1hr
Course
Orders/Labs/Results
Orders:
Orders
01/15/24 04:10
Lorazepam [Ativan] 2 mg .ROUTE .[facility]-MED ONE
01/15/24 04:11
Lorazepam [Ativan] 2 mg IV NOW STA
01/15/24 04:18
EKG [Electrocardiogram (*1)] Urgent
Reason for Study: Chest Pain
01/15/24 04:19
EKG- Treatment ONCE
01/15/24 04:23
Alcohol Urgent
Complete Blood Count/With Diff Urgent
Comprehensive Metabolic Panel Urgent
Troponin I Urgent
01/15/24 05:00
0.9% Sodium Chloride 1000 ml [Nss] 1,000 ml Mvi, Adult [Multivitamin] 10 ml Thiamine Injection 100 mg IV 250 mls/hr
01/15/24 05:35
Lorazepam [Ativan] 2 mg IV NOW STA
Abnormal Lab Results
01/15/24
04:23
RDW 14.6 H %
(11.5-14.5)
Monocytes % 10.6 H %
(1.7-9.3)
Chloride 94 L mmol/L
(98-107)
BUN 8 L mg/dl
(9-20)
Glucose 119 H mg/dl
(70-99)
Calcium 10.3 H mg/dl
(8.4-10.2)
AST 127 H U/L
(17-59)
ALT 71 H U/L
(0-50)
01/15/24 04:23
01/15/24 04:23
Vital Signs
Initial and Last Documented VS:
Initial Vital Signs
Pulse Resp BP Pulse Ox
109 19 170/116 98
01/15/24 03:59 01/15/24 03:59 01/15/24 03:59 01/15/24 03:59
Last Documented Vital Signs
Pulse Resp BP Pulse Ox
91 19 125/98 97
01/15/24 08:30 01/15/24 08:30 01/15/24 08:00 01/15/24 08:30
*Critical Care Note
Total Time (30-74mins, 75-104mins- exclusive of procedures): Not Applicable
Update Note
Update Note:
01/15/2024 0546 AM: Patient speaking with the [facility].
01/15/2024 0656 AM: Patient refuses inpatient treatment. He wishes to be discharged home. He is still getting a banana bag. I will provide a small amount of Ativan should he have withdrawal symptoms. I feel that inpatient therapy would be ideal
for him but he refuses. Patient has no nausea, vomiting, tactile disturbances, shakes, or diaphoresis. He is resting comfortably. Wishes to be discharged.
ED Attending Note
-
Portions of this chart may have been created with voice recognition software.� Occasional wrong word or��sound alike� substitutions may have occurred due to the inherent limitations of voice recognition software.
Discharge Plan
Departure
Patient Disposition: Home (Routine Discharge)
Date of Disposition: 01/15/24
Time of Disposition: 06:57
Patient with high blood pressure during this ER visit?: Yes
Condition: Good
Discharge Problem:
Alcohol use disorder, Alcohol withdrawal
Instructions: Alcohol Withdrawal (DC), Alcohol Use Disorder (DC), BLOOD PRESSURE
Prescriptions:
New
lorazepam [Ativan] 0.5 mg tablet
0.5 mg PO TID PRN (Reason: alcohol withdrawal) Qty: 7 0RF
No Action
omeprazole 20 mg Capsule,Delayed Release(Dr/Ec)
20 mg PO DAILY
escitalopram oxalate [Lexapro] 5 mg Tablet
5 mg PO DAILY
Referrals:
Xavier Newman MD [Family Provider] -
Activity Restrictions/Additional Instructions:
Your prescriptions were sent electronically to the pharmacy that you specified.
It was a pleasure meeting you and taking part in your care. We hope for your continued healing and wellness.
Please read discharge instructions in their entirety. However, they are for general education and may not describe your exact diagnosis at discharge. Information on your ER visit and medical conditions were discussed with you along with appropriate
follow up information...
If indicated, please take your medications as instructed and indicated on discharge paperwork.
Please schedule a follow up appointment as directed. Call to schedule an appointment
Please return to the emergency department with ANY change in, persisting, or worsening of symptoms. If any of your symptoms do not improve, or persist, or become more severe within 6-12 hours, please return to the emergency department for further
care.
Please return to the emergency department if you develop a headache, neck pain/stiffness, fever greater than 100.4F, chest pain, shortness of breath, persistent nausea, vomiting, slurred speech, difficulty walking, numbness/tingling, weakness, signs
of infection or any other symptoms that are worrisome to you.
If you have any questions or concerns please do not hesitate to call the Hospital at
Interventions
Interventions:
*Risk Screen - Suicide Last Done: 01/15/24 03:59
*General Assessment Last Done: 01/15/24 03:59
*Neglect/Abuse Screening Last Done: 01/15/24 03:59
ED- Fall Risk Assessment Last Done: 01/15/24 04:40
*ED COVID-19 Vaccine History Last Done: 01/15/24 03:59
*Nursing Disposition Last Done: 01/15/24 09:15
ED- Neurological Assessment Last Done: 01/15/24 04:40
ED-Psychological Assessment Last Done: 01/15/24 04:40
Discharge Date and Time
Discharge Date/Time: 01/15/24 09:15
Print Language: SENEGALESE
[2024-01-15 06:00] VITALS: BP 125/90
[2024-01-15 07:00] VITALS: BP 136/99
[2024-01-15 08:00] VITALS: BP 125/98
== END 2024-01-15 09:15 | disposition home or self-care (01) ==
LOC: EMR 03:56
PROVIDERS: EMERGENCY PHYSICIAN Student in an Organized Health Care Education/Training Program; FAMILY PHYSICIAN Family Medicine
DX: F10.239 Alcohol dependence with withdrawal, unspecified (principal); R11.2 Nausea with vomiting, unspecified; R06.02 Shortness of breath; R42 Dizziness and giddiness; F41.9 Anxiety disorder, unspecified; F32.A Depression, unspecified; K21.9 Gastro-esophageal reflux disease without esophagitis; G43.909 Migraine, unspecified, not intractable, without status migrainosus; F17.290 Nicotine dependence, other tobacco product, uncomplicated; Z87.442 Personal history of urinary calculi; Z87.01 Personal history of pneumonia (recurrent)
CPT/HCPCS: 99284; 96365; 96366 ×3; 80053; 82077; 84484; 85025; 93005

== ENCOUNTER 2024-02-08 19:54 | Inpatient (IN) | payer OTHER, SELFPAY ==
[2024-02-08] VITALS (11 sets, daily range): BP systolic 103–136; BP diastolic 70–100; BMI 25.9
[2024-02-08 14:15] LABS: Hematocrit 44.1 % (39.0-52.0); Hemoglobin 15.6 g/dL (13.0-18.0); Mean Corp Hgb Conc. 35.4 g/dL (33.0-37.0); Mean Corpuscular Hgb 31.8 pg (27.0-31.0); Red Cell Dist. Width 16.3 % (11.5-14.5); White Blood Cell Count 3.4 10^3/uL (4.8-10.8)
[2024-02-08 14:16] LABS: % Basophils 0.3 % (0-2); % Immature Granulocytes 0.3 % (0-0.5); % Lymphocytes 16.1 % (20.5-51.1); % Monocytes 5.1 % (1.7-9.3); % Neutrophils 78.2 % (42.2-75.2); Absolute Lymphocytes 0.5 10^3/uL (1.2-3.4); Absolute Monocytes 0.2 10^3/uL (0.1-0.6); Absolute Neutrophils 2.6 10^3/uL (1.4-6.5); Mean Platelet Volume 10.7 fL (7.4-10.4); Nucleated Red Blood Cells % 0 % (-); Platelet Count 106 10^3/uL (130-400)
[2024-02-08 14:23] LABS: ALT (SGPT) 393 U/L (0-50); AST (SGOT) 531 U/L (17-59); Albumin 5.6 g/dl (3.5-5.0); Alcohol 210 mg/dl; Alkaline Phosphatase 115 U/L (38-126); Blood Urea Nitrogen 17 mg/dl (9-20); Calcium 9.5 mg/dl (8.4-10.2); Carbon Dioxide 12 mmol/L (22-30); Chloride 89 mmol/L (98-107); Glucose 160 mg/dl (70-99); Sodium 135 mmol/L (135-145); Total Bilirubin 5.2 mg/dl (0.2-1.3); Total Protein 8.9 g/dl (6.3-8.2); eGFR 59.98
[2024-02-08 14:32] LABS: Troponin I < 0.012 ng/ml
[2024-02-08] MEDS: SODIUM BICARBONATE 50 MEQ IV (16:08)
[2024-02-08] MEDS: MULTIVITAMIN 1011 ML IV (16:17)
[2024-02-08] MEDS: MULTIVITAMIN 1011 MG IV (16:17)
[2024-02-08] MEDS: ZOFRAN 4 MG IV (16:21)
[2024-02-08] MEDS: VALIUM INJECTION 10 MG IV ×2 (16:21→18:29)
[2024-02-08 16:28] LABS: Lipase 1216 U/L (23-300)
[2024-02-08 16:35] LABS: Venous Blood Gas B.E. -8.8 mmol/L (-4 to +4); Venous Blood Gas O2 Sat % 51.7 %; Venous Blood Gas pCO2 41 mmHg (35-48); Venous Blood Gas pH 7.25 (7.32-7.43); Venous Blood Gas pO2 33 mmHg (30-50)
[2024-02-08 16:37] LABS: Urine Albumin 3+ (Neg - Trace); Urine Bilirubin 2+ (Negative); Urine Character Clear (Clear); Urine Glucose Negative (Negative); Urine Ketone 3+ (Negative); Urine Leukocyte Trace (Negative); Urine Nitrite Positive (Negative); Urine Occult Blood 2+ (Negative); Urine Urobilinogen 4+ (Neg - 1+)
[2024-02-08 16:45] LABS: Urine Color Orange
[2024-02-08 16:48] LABS: Lactic Acid 5.6 mmol/L (0.7-2.0)
[2024-02-08 16:53] LABS: Urine Mucus Few
[2024-02-08 16:56] LABS: Urine Bacteria Many (Negative); Urine White Cell 26-30 /HPF (0-5)
--- NOTE | 2024-02-08 17:52 | HPS.HSE ---
Family Physician
-
Family Physician: Xavier Newman
Chief Complaint
-
Nausea/vomiting
History of Present Illness
38M ETOH abuse Fatty Liver dz Anxiety/Depression p/w nausea vomiting chest abd/pain shortness of breath progressive past day. Reports poor oral intake due to nausea vomiting past few days. Last alcohol intake was yesterday but patient endorses
vomiting everything. Patient also endorses pain with urination for the past few days. Denies fevers. Endorses intermittent chills with sweats. Hands shaking during evaluation. Sinus tachy on residential monitor. Denies headache. Nausea improved
with prn zofran given in ED. CT chest neg for PE. Labs notable for significant anion gap metabolic acidosis with elevated lactic acid 5.6 and SHELLIE Cr 1.5 likely due to dehydration. Troponin neg. Elevated Lipase and transaminitis suggestive
alcohol pancreatitis and Hepatitis. Urinalysis suggestive of UTI. No significant hypotension noted, stable respiratory status on room air, afebrile.
Medical History
Past Medical History
Past Medical History: Reports Other (as above)
Past Surgical History: Reports Other (as above)
Social History
Tobacco: Vaping (occasionally)
Alcohol: Chronic Alcoholic
Drug: None
Personal: Single
Living: With Family
Family History
Family History: Not pertinent (reviewed)
Allergies / Home Medications
Allergies reflects when Allergies were last updated in [employer].
Home Medications with original date entered in [employer]
Allergy/Medication List:
Allergies
Allergy/AdvReac Type Severity Reaction Status Date / Time
No Known Allergies Allergy Verified 02/08/24 13:26
Home Medications
escitalopram oxalate 5 mg tablet (Lexapro) 5 mg PO DAILY Depression 11/12/23
omeprazole 20 mg capsule,delayed release 20 mg PO DAILY GERD 11/12/23
Review of Systems
-
History Source: Other
A 12 point ROS was completed and negative except as noted: Yes
Constitutional: Reports Other (as below)
Physical Exam
Vital Signs
Vital Signs
Temp Pulse Resp BP Pulse Ox
98.4 F 111 14 120/99 98
02/08/24 13:26 02/08/24 16:45 02/08/24 16:45 02/08/24 16:23 02/08/24 16:45
Physical Exam
General: Other (as below)
Laboratory Results
-
02/08/24 13:40
02/08/24 13:40
Laboratory Results
Lactic Acid 5.6 mmol/L (0.7-2.0) H* 02/08/24 16:03
Total Bilirubin 5.2 mg/dl (0.2-1.3) H 02/08/24 13:40
AST 531 U/L (17-59) H* 02/08/24 13:40
ALT 393 U/L (0-50) H 02/08/24 13:40
Alkaline Phosphatase 115 U/L (38-126) 02/08/24 13:40
Troponin I < 0.012 ng/ml 02/08/24 13:40
Lipase 1216 U/L (23-300) H* 02/08/24 13:40
Impression/Plan
-
ROS
General: Denies fever reports chills night sweats general malaise bodyaches
Neuro: reports shaking
Psych: denies depression hallucinations confusion manic episodes
Endocrine: Denies polyuria polydipsia polyphagia heat/cold intolerance
HEENT: Denies blindness visual disturbances epistaxis
Pulmonary: denies coughing hemoptysis sneezing sob dyspnea on exertion
Cardiovascular: reports chest pain denies palpitations leg swelling
Hematology: denies signs symptoms of anemia easy bruising/bleeding
Gastrointestinal: reports nausea vomiting
Genito-Urinary: reports dysuria
Musculoskeletal: denies weakness
Dermatology: denies rash laceration bruising
Physical Exam
General: No pallor, cyanosis, or jaundice.
HEENT: Throat clear. PERRLA Normocephalic atraumatic
NECK: Supple. No JVD Carotid Bruits
RESPIRATORY: Lungs clear to auscultation. No crackles wheezes stridor
CVS: S1, S2 sinus tachy. No murmur, rub or gallop.
ABDOMEN: Soft, non-tender. No distension. BS+/normal.
EXTREMITIES: No peripheral cyanosis or edema.
IP ARCHITECT: AOx3 resting tremors both hands noted
Psych: mildly anxious but cooperative
IMPRESSION:
38M ETOH abuse Fatty Liver dz Anxiety/Depression p/w nausea vomiting chest abd/pain shortness of breath progressive past day. Reports poor oral intake due to nausea vomiting past few days. Last alcohol intake was yesterday but patient endorses
vomiting everything. Patient also endorses pain with urination for the past few days. Denies fevers. Endorses intermittent chills with sweats. Hands shaking during evaluation. Sinus tachy on residential monitor. Denies headache. Nausea improved
with prn zofran given in ED. CT chest neg for PE. Labs notable for significant anion gap metabolic acidosis with elevated lactic acid 5.6 and SHELLIE Cr 1.5 likely due to dehydration. Troponin neg. EKG sinus tachy no significant change from prior,
no significant ST abn's. Elevated Lipase and transaminitis suggestive alcohol pancreatitis and Hepatitis. Urinalysis suggestive of UTI. No significant hypotension noted, stable respiratory status on room air, afebrile.
PLAN:
#ETOH Abuse
#ETOH withdrawal
IMU admit
Phenobarb Taper
MSAS protocol
Thiamine Folate Supplementation
#ETOH induced Pancreatitis Hepatitis
#Fatty Liver Disease
Bowel Rest, NPO except meds
IVF support
trend Lipase
monitor LFTs
prn antimetics pain
#Anion Gap Metabolic Acidosis due to elevated Lactic acid 2/2 dehydration
#Acute Kidney Injury
IVF support
monitor renal function
trend lactic acid
#UTI
cont empiric Ceftriaxone
follow urine blood cultures
#GERD
cont PPI
DVT ppx Heparin
Full Code
I spent a total of 80 minutes with the patient or on the floor. More than 50% of this time involved counseling and coordination of care.
--- NOTE | 2024-02-08 18:19 | ED.GENMED ---
History of Present Illness
General
Chief Complaint: Breathing Problem
Source: patient
Exam Limitations: none
Time Seen by Provider: 02/08/24 15:33
Nursing documentation reviewed up to this point in time: agreed with
History of Present Illness
History of Present Illness:
The patient is a 38-year-old male past medical history of alcohol abuse anxiety depression presenting to the emergency department today with multiple concerns including chest pain shortness of breath generalized weakness gradually worsening
throughout the day today. Also has had frequency urgency and burning with urination over the past few days as well. Has not been able to drink as much as usual today normally has at least a liter of liquor per day. Feels that he may be getting
going into withdrawal. Chest pain described as achiness to the chest also feels somewhat short of breath that his breathing is rapid. Has been drinking heavily over the past few months. Has some mild upper abdominal pain denies diffuse abdominal
pain. Has also had vomiting.
Past History
Past History
ED Past Medical History: GERD, Psychiatric (Anxiety, Depression, alcoholism) and Other (epididymitis L testicle, kidney stones, PNA, Renal calculus, Migraines, alcoholism)
ED Past Surgical History: Appendectomy
Social History
Tobacco: Vaping (Quit 2020 now vapes)
Alcohol: Daily
Drug: None
Personal: Single
Living: alone
Employment: Employed
Family History
Family History: Other
Review of Systems
Review of Systems
Allergies reviewed?: Yes
All Other Systems: ROS reviewed and negative except as documented in HPI and ROS
Phy Exam
Physical Exam
Physical Exam:
GENERAL: Alert , patient appears uncomfortable mildly sweaty
EYE: pupils equal and reactive
NECK: Supple, no significant adenopathy.
ENT: o/p clr, mmm.
CARDIAC: Regular rate and rhythm .
LUNGS: Clear breath sounds bilaterally, no acute respiratory distress, no wheezes/rales/rhonchi
ABDOMEN: Soft, without focal tenderness, no r/g, no cvat
NEUROLOGICAL: Alert and oriented, no focal neuro deficits shakiness to his hands with arms extended
SKIN: Warm and dry, skin intact.
MUSCULOSKELETAL: No edema, well perfused.
PSYCH: Normal and appropriate interaction.
Course
Orders/Labs/Results
Orders:
Orders
02/08/24 13:19
ECG [Electrocardiogram (*1)] Urgent
Reason for Study: Chest Pain
EKG- Treatment ONCE
02/08/24 13:40
Alcohol Urgent
Complete Blood Count/With Diff Urgent
Comprehensive Metabolic Panel Urgent
Lipase Urgent
Comment: ADD ON
Troponin I Urgent
02/08/24 15:34
Sodium Bicarbonate 50 meq IV NOW STA
02/08/24 15:[address] [CT Chest Pe Study] Urgent
Comment:
Reason For Exam: cp/sob
02/08/24 15:52
Add On- LAB Urgent
Tests Added?: Lipase
02/08/24 16:00
0.9% Sodium Chloride 1000 ml [Nss] 1,000 ml Mvi, Adult [Multivitamin] 10 ml Thiamine Injection 100 mg IV 1,000 mls/hr
02/08/24 16:03
Lactic Acid Urgent
Urinalysis Reflex To Culture Urgent
Date Specimen was Collected: 02/08/24
Time Specimen was Collected: 13:31
Urine Microscopic Reflex Cult Urgent
Venous Blood Gas Urgent
%Oxygen/Room Air: 97
Urine Culture Urgent
YOVANY Source: U
Specimen Description:
Date Specimen was Collected: 02/08/24
Time Specimen was Collected: 13:31
02/08/24 16:15
Ondansetron Injectable [Zofran] 4 mg IV NOW STA
diazePAM [Valium Injection] 10 mg IV NOW STA
02/08/24 17:04
CefTRIAXone [Rocephin] 2,000 mg IV NOW STA
02/08/24 17:44
Blood Culture Urgent
YOVANY Source: Blood/Venous
Specimen Description:
02/08/24 17:51
0.9% Sodium Chloride 1000 ml [Nss] 1,000 ml IV BOLUS
diazePAM [Valium Injection] 10 mg IV NOW STA
02/08/24 18:12
Sterile Water [Sterile Water For Injection] 10 ml .ROUTE .[facility]
02/08/24 18:14
Blood Culture Routine
YOVANY Source: Blood/Venous
Specimen Description:
Abnormal Lab Results
02/08/24 02/08/24
13:40 16:03
WBC 3.4 L 10^3/uL
(4.8-10.8)
MCH 31.8 H pg
(27.0-31.0)
RDW 16.3 H %
(11.5-14.5)
Plt Count 106 L 10^3/uL
(130-400)
MPV 10.7 H fL
(7.4-10.4)
Absolute Lymphs (auto) 0.5 L 10^3/uL
(1.2-3.4)
Neutrophils % 78.2 H %
(42.2-75.2)
Lymphocytes % 16.1 L %
(20.5-51.1)
VBG pH 7.25 L
(7.32-7.43)
VBG HCO3 18.0 L mmol/L
(22-27)
Chloride 89 L mmol/L
(98-107)
Carbon Dioxide 12 L* mmol/L
(22-30)
Creatinine 1.5 H mg/dL
(0.7-1.3)
Glucose 160 H mg/dl
(70-99)
Lactic Acid 5.6 H* mmol/L
(0.7-2.0)
Total Bilirubin 5.2 H mg/dl
(0.2-1.3)
AST 531 H* U/L
(17-59)
ALT 393 H U/L
(0-50)
Total Protein 8.9 H g/dl
(6.3-8.2)
Albumin 5.6 H g/dl
(3.5-5.0)
Lipase 1216 H* U/L
(23-300)
Urine Ketones 3+ A
(Negative)
Ur Occult Blood Reflex 2+ A
(Negative)
Urine Nitrite (Reflex) Positive A
(Negative)
Urine Bilirubin 2+ A
(Negative)
Urine Urobilinogen 4+ A
(Neg - 1+)
Leukocyte Esterase Rfl Trace A
(Negative)
Urine RBC 3-6 A /HPF
(0-2)
Urine WBC (Reflex) 26-30 A /HPF
(0-5)
Urine Bacteria (Reflex) Many A
(Negative)
Urine Albumin (Reflex) 3+ A
(Neg - Trace)
02/08/24 13:40
02/08/24 13:40
Vital Signs
Initial and Last Documented VS:
Initial Vital Signs
Temp Pulse Resp BP Pulse Ox
98.4 F 123 18 121/86 97
02/08/24 13:26 02/08/24 13:26 02/08/24 13:26 02/08/24 13:26 02/08/24 13:26
Last Documented Vital Signs
Temp Pulse Resp BP Pulse Ox
98.4 F 111 14 120/99 98
02/08/24 13:26 02/08/24 16:45 02/08/24 16:45 02/08/24 16:23 02/08/24 16:45
MDM/Problems Addressed
MDM/Problems Addressed:
38-year-old male presenting to the emergency department today with multiple concerns. Main concerns are that he feels he has trouble catching his breath over the past few hours has been worsening generalized weakness vomiting as well as urinary
symptoms of the past few days. Does drink daily and has a liter per day has not been drinking throughout the day today due to his symptoms. Feels that he also may be going into withdrawal. Has been continuously drinking for a few months. Upon
arrival patient tachycardic but blood pressure normal. White count not elevated patient was found to have a significantly low bicarb and elevated anion gap concerning for possible alcoholic ketoacidosis considering patient does not have a history
of diabetes and sugar level 160. Patient was started on fluids also given banana bag for thiamine though the patient was not altered initially while here. Also given dose of bicarb. Patient was found to have potential urinary tract infection and
significantly elevated lactic acid concerning this was given additional fluid as well as antibiotics as possible infection could be compounding as well. Additionally found to have elevated lipase of 1216. Patient being treated with fluids and pain
management here. Patient was given dose of Valium considering he may be having symptoms of withdrawal as well considering decreasing alcohol use from his baseline throughout the day today. Patient stable throughout ER stay improving heart rate
blood pressure remaining stable afebrile. Patient admitted for further monitoring and treatment of multiple emergent conditions.
*Critical Care Note
Total Time (30-74mins, 75-104mins- exclusive of procedures): Not Applicable
comment:
Critical care statement: A total of 40 minutes of critical care time was provided for this patient. This includes management of unstable vital signs, evaluation of the patient at bedside, reviewing the patient's pertinent medical records, discussion
with consultants, review of old EKGs and review of pertinent medical records. This time with separate from time utilized to perform the aforementioned documented procedures
ED Attending Note
-
Portions of this chart may have been created with voice recognition software.� Occasional wrong word or��sound alike� substitutions may have occurred due to the inherent limitations of voice recognition software.
Discharge Plan
Departure
Patient Disposition: Admit
Date of Disposition: 02/08/24
Time of Disposition: 18:22
Admit to: IMU
Admit to doctor: Arsen
Presentation/result/management discussed w/ accepting MD/DO: Hospitalist
Patient with high blood pressure during this ER visit?: No
Condition: Fair
Covid-19: Not Applicable
Discharge Problem:
Metabolic acidosis, Alcohol withdrawal, Alcohol abuse, Urinary tract infection
Prescriptions:
No Action
omeprazole 20 mg Capsule,Delayed Release(Dr/Ec)
20 mg PO DAILY
escitalopram oxalate [Lexapro] 5 mg Tablet
5 mg PO DAILY
Patient Comments:
02/08/24- no pharmacy fills
Referrals:
Xavier Newman MD [Family Provider] -
Interventions
Interventions:
*Risk Screen - Suicide Last Done: 02/08/24 13:26
*General Assessment Last Done: 02/08/24 13:26
*Neglect/Abuse Screening Last Done: 02/08/24 13:26
ED- Fall Risk Assessment Last Done: 02/08/24 15:55
*ED COVID-19 Vaccine History Last Done: 02/08/24 15:55
ED- Cardiac Assessment Last Done: 02/08/24 15:55
ED- Pulmonary Assessment Last Done: 02/08/24 15:55
Discharge Date and Time
Print Language: PRYDEINIG
[2024-02-08] MEDS: ROCEPHIN 2000 MG IV (18:26)
[2024-02-08] MEDS: NSS 1000 IV ×2 (18:28→20:25)
--- NOTE | 2024-02-08 19:00 | EDRN ---
Report received, introduced myself to patient, call lopez in reach, patient asking about meds for withdraw, hospitalist going in to work on admission and will give meds as ordered
[2024-02-08] MEDS: PHENOBARBITAL 104 MG IV (20:25)
[2024-02-08] MEDS: PROTONIX IV 40 MG IV (20:49)
[2024-02-08] MEDS: NSS (PRESERVATIVE FREE) 10 ML IV (20:49)
[2024-02-08] MEDS: ATIVAN 1 MG IV ×2 (20:50→22:12)
[2024-02-08 20:52] LABS: INR 1.19; PT 14.9 Sec (11.4-14.6)
[2024-02-08 20:53] LABS: APTT 34.1 Sec (23.4-35.0)
[2024-02-08 20:56] LABS: Lactic Acid 3.7 mmol/L (0.7-2.0)
[2024-02-08 21:02] LABS: Blood Urea Nitrogen 16 mg/dl (9-20); Calcium 8.2 mg/dl (8.4-10.2); Carbon Dioxide 13 mmol/L (22-30); Chloride 93 mmol/L (98-107); Glucose 129 mg/dl (70-99); Magnesium 1.9 mg/dl (1.6-2.3); Phosphorus 2.7 mg/dl (2.5-4.5); Potassium 4.8 mmol/L (3.5-5.1); Sodium 135 mmol/L (135-145); eGFR > 60.00
[2024-02-08] MEDS: THIAMINE INJECTION 200 MG IV (21:09)
[2024-02-08] MEDS: ATIVAN 1 MG PO (23:31)
[2024-02-08] MEDS: HEPARIN 5000 UNITS SC (23:32)
[2024-02-09] VITALS (12 sets, daily range): BP systolic 108–124; BP diastolic 76–93
--- NOTE | 2024-02-09 01:01 | PTCARENOTE ---
ax3 tremors sinus tach sweating msas 7- ativan given see mar- bed alarm in place- pt pleasant and cooperative- eager to recover
[2024-02-09] MEDS: ATIVAN 1 MG PO ×5 (01:17→10:40)
[2024-02-09] MEDS: NSS 1000 IV ×3 (04:07→21:52)
[2024-02-09 04:47] LABS: Hematocrit 32.1 % (39.0-52.0); Hemoglobin 11.2 g/dL (13.0-18.0); Mean Corp Hgb Conc. 34.9 g/dL (33.0-37.0); Mean Corpuscular Hgb 31.5 pg (27.0-31.0); Mean Corpuscular Volume 90.4 fL (80.0-94.0); Mean Platelet Volume 10.3 fL (7.4-10.4); Platelet Count 79 10^3/uL (130-400); Red Blood Cell Count 3.55 10^6/uL (4.70-6.10); Red Cell Dist. Width 16.7 % (11.5-14.5); White Blood Cell Count 5.5 10^3/uL (4.8-10.8)
[2024-02-09 05:01] LABS: Total Protein 6.5 g/dl (6.3-8.2)
[2024-02-09 05:02] LABS: ALT (SGPT) 273 U/L (0-50); AST (SGOT) 394 U/L (17-59); Albumin 4.1 g/dl (3.5-5.0); Alkaline Phosphatase 70 U/L (38-126); Blood Urea Nitrogen 17 mg/dl (9-20); Calcium 8.4 mg/dl (8.4-10.2); Carbon Dioxide 23 mmol/L (22-30); Chloride 94 mmol/L (98-107); Estimated Creatinine Clearance 105 ml/min; Glucose 115 mg/dl (70-99); Lipase 1540 U/L (23-300); Magnesium 1.9 mg/dl (1.6-2.3); Phosphorus 1.9 mg/dl (2.5-4.5); Potassium 4.3 mmol/L (3.5-5.1); Sodium 135 mmol/L (135-145); Total Bilirubin 3.6 mg/dl (0.2-1.3); eGFR > 60.00
--- NOTE | 2024-02-09 05:08 | W.PN.UPDATE ---
Update Note
Progress Note Update
will hold heparin sq for dvt proph due to platelets of 79 this am
[2024-02-09 06:06] LABS: Amphetamines Negative (Negative); Barbiturates Negative (Negative); Benzodiazepines Positive (Negative); Buprenorphine Negative (Negative); Cocaine Negative (Negative); Marijuana Negative (Negative); Methadone Negative (Negative); Methamphetamines Negative (Negative); Opiates Negative (Negative); Phencyclidine Negative (Negative); Tricyclic Antidepressants Negative (Negative)
[2024-02-09 06:23] LABS: Fentanyl, Urine Negative (Negative)
--- NOTE | 2024-02-09 07:00 | PTCARENOTE ---
report received from previous RN. Pt sleeping, arouses easily to voice. orientedx3- denies pain/nausea at this time. SR/ST on telemetry heart rate 90-100s. pulses palpable. no edema. pt on room air, sat 95%. lung sounds diminished. active bowel
sounds. denies nausea at this time. voiding in urinal- tea colored urine. NS infusing at 120 ml/hr. see worklist for full nursing assessment and interventions. pt updated on plan of care.
--- NOTE | 2024-02-09 07:48 | W.PN.HOSP.TC ---
Today's Communication/Plan
-
Stable for downgrade to Tele
cont IVF support
advance diet to clear liquid
cont abx
follow cultures
Assessment / Plan
Assessment / Plan
Physical Exam
General: No pallor, cyanosis, or jaundice.
HEENT: Throat clear. PERRLA Normocephalic atraumatic
NECK: Supple. No JVD Carotid Bruits
RESPIRATORY: Lungs clear to auscultation. No crackles wheezes stridor
CVS: S1, S2 sinus tachy. No murmur, rub or gallop.
ABDOMEN: Soft, non-tender. No distension. BS+/normal.
EXTREMITIES: No peripheral cyanosis or edema.
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 Fine tremor noted on fingertips outstretched hands
Psych: Calm cooperative
IMPRESSION:
38M ETOH abuse Fatty Liver dz Anxiety/Depression p/w nausea vomiting chest abd/pain shortness of breath progressive past day. Reports poor oral intake due to nausea vomiting past few days. Last alcohol intake was yesterday but patient endorses
vomiting everything. Patient also endorses pain with urination for the past few days. Denies fevers. Endorses intermittent chills with sweats. Hands shaking during evaluation. Sinus tachy on alarm security or surveillance monitor. Denies headache. Nausea improved
with prn zofran given in ED. CT chest neg for PE. Labs notable for significant anion gap metabolic acidosis with elevated lactic acid 5.6 and SHELLIE Cr 1.5 likely due to dehydration. Troponin neg. EKG sinus tachy no significant change from prior,
no significant ST abn's. Elevated Lipase and transaminitis suggestive alcohol pancreatitis and Hepatitis. Urinalysis suggestive of UTI. No significant hypotension noted, stable respiratory status on room air, afebrile.
PLAN:
#ETOH Abuse
#ETOH withdrawal
IMU admit since improved stable for downgrade to Tele
Phenobarb Taper
MSAS protocol
Thiamine Folate Supplementation
Discussed ETOH rehab patient not interested in inpt ETOH rehab, willing to consider outpt
#ETOH induced Pancreatitis Hepatitis
#Fatty Liver Disease
Bowel Rest, diet advanced to clear liquid with overall improvement in symptoms
cont IVF support
trend Lipase remains elevated
monitor LFTs improving
prn antimetics pain
#Anion Gap Metabolic Acidosis due to elevated Lactic acid 2/2 dehydration (resolved)
#Acute Kidney Injury resolved
IVF support
monitor renal function
trend lactic acid
#UTI
cont empiric Ceftriaxone
follow urine blood cultures
#GERD
cont PPI
#hx Depression
home lexapro resumed
currently denies active depression
DVT ppx Heparin
Full Code
I spent a total of 50 minutes with the patient or on the floor. More than 50% of this time involved counseling and coordination of care.
Anticipated Discharge: 24 - 48 hours
Subjective/Interval History
-
Date of Service: February 09, 2024
Reports overall significant improvement in symptoms since admission. Resting tremors resolved. Fine tremor noted fingertips outstretched arms. Eager to start eating. Denies abd pain
Objective Data
-
Labs:
Laboratory Results
02/08/24 02/09/24
20:20 04:22
WBC 5.5
Hgb 11.2 L D
Hct 32.1 L
Plt Count 79 L D
PT 14.9 H
INR 1.19
APTT 34.1
Sodium 135 135
Potassium 4.8 4.3
Chloride 93 L 94 L
Carbon Dioxide 13 L* 23
BUN 16 17
Creatinine 1.1 1.0
Glucose 129 H 115 H
Calcium 8.2 L 8.4
Total Bilirubin 3.6 H
AST 394 H
ALT 273 H
Alkaline Phosphatase 70
Vital Signs:
Vital Signs
Temp Pulse Resp BP Pulse Ox
99 F 89 25 117/86 97
02/09/24 07:41 02/09/24 06:00 02/09/24 06:00 02/09/24 06:00 02/09/24 06:00
I&O
02/08/24 02/09/24 02/10/24
06:59 06:59 06:59
Intake Total 1120 / 1120
Output Total 600 / 600
Balance 520 / 520
[2024-02-09] MEDS: NSS (PRESERVATIVE FREE) 10 ML IV (08:09)
[2024-02-09] MEDS: PHENOBARBITAL 97.5 MG IV ×3 (08:10→21:52)
[2024-02-09] MEDS: FOLVITE 1 MG PO (08:10)
[2024-02-09] MEDS: PROTONIX IV 40 MG IV (08:10)
[2024-02-09] MEDS: THIAMINE INJECTION 200 MG IV ×2 (08:10→19:58)
[2024-02-09] MEDS: SODIUM PHOSPHATE 255 MEQ IV (09:55)
[2024-02-09] MEDS: LEXAPRO 5 MG PO (10:40)
[2024-02-09] MEDS: ROCEPHIN 1000 MG IV (11:36)
[2024-02-09] MEDS: STERILE WATER FOR INJECTION 10 ML IV (11:36)
--- NOTE | 2024-02-09 12:00 | PTCARENOTE ---
pt resting comfortably, ambulating with standby assist to bathroom. NSR/ST on telemtry heart rate 90-low 100s. prn ativan for MSAS. pt denies nausea, tolerating clear liquids. no further changes in assessment noted.
[2024-02-09 12:14] LABS: % Basophils 0.8 % (0-2); % Eosinophils 0.8 % (0-6); % Immature Granulocytes 0.8 % (0-0.5); % Lymphocytes 15.1 % (20.5-51.1); % Monocytes 5.1 % (1.7-9.3); % Neutrophils 77.4 % (42.2-75.2); Absolute Lymphocytes 0.6 10^3/uL (1.2-3.4); Absolute Monocytes 0.2 10^3/uL (0.1-0.6); Hematocrit 30.3 % (39.0-52.0); Hemoglobin 10.5 g/dL (13.0-18.0); Mean Corp Hgb Conc. 34.7 g/dL (33.0-37.0); Mean Corpuscular Hgb 31.7 pg (27.0-31.0); Mean Corpuscular Volume 91.5 fL (80.0-94.0); Nucleated Red Blood Cells % 0 % (-); Red Blood Cell Count 3.31 10^6/uL (4.70-6.10); White Blood Cell Count 3.9 10^3/uL (4.8-10.8)
[2024-02-09 12:27] LABS: Mean Platelet Volume 10.7 fL (7.4-10.4); Platelet Count 74 10^3/uL (130-400)
--- NOTE | 2024-02-09 16:00 | PTCARENOTE ---
pt incontinent of stool, stated woke up and could not make it to the bathroom in time. otherwise assessment unchanged, resting in bed, states he feels better.
--- NOTE | 2024-02-09 16:17 | CM ---
Addendum entered by Nereida Mcguire 02/09/24 16:24:
Per prior admission patient had indicated that he lives with parents and 12 year old daughter in a 2SH, 3 steps to enter. Patient was previously independent of ADL's and IADL's. Patient PCP is Dr. Newman and she uses the [facility] in [place]. CM will
continue to follow for discharge planning needs.
Original Note:
Patient seen at bedside, patient sleeping, nursing able to arouse. Patient stated that he did not want information about [facility] and that nothing had changed in his prior living arrangements. Patient denied having any problems with bill paying at
this time. Patient PCP is Dr. Newman and he uses the [facility]. Patient plan is to return home with no needs at this time. CM will continue to follow for discharge planning needs.
Plan; home with no needs per patient
--- NOTE | 2024-02-09 21:24 | PTCARENOTE ---
Pt received sleeping. Arouses easily to name. Alert and oriented x3. Using call lopez appropriately. MSAS 1. Ambulated to bathroom independently. Assessment as charted.
[2024-02-10] VITALS (8 sets, daily range): BP systolic 106–132; BP diastolic 68–93
--- NOTE | 2024-02-10 04:00 | PTCARENOTE ---
Pt transferred to room 331 via w/c. Report given to RN upon arrival to floor.
[2024-02-10] MEDS: NSS 1000 IV ×3 (05:46→19:58)
[2024-02-10 06:32] LABS: Hematocrit 30.1 % (39.0-52.0); Hemoglobin 10.3 g/dL (13.0-18.0); Mean Corp Hgb Conc. 34.2 g/dL (33.0-37.0); Mean Corpuscular Hgb 31.9 pg (27.0-31.0); Mean Corpuscular Volume 93.2 fL (80.0-94.0); Mean Platelet Volume 11.1 fL (7.4-10.4); Platelet Count 67 10^3/uL (130-400); Red Blood Cell Count 3.23 10^6/uL (4.70-6.10); Red Cell Dist. Width 16.2 % (11.5-14.5); White Blood Cell Count 3.5 10^3/uL (4.8-10.8)
[2024-02-10 07:09] LABS: ALT (SGPT) 259 U/L (0-50); AST (SGOT) 350 U/L (17-59); Albumin 3.4 g/dl (3.5-5.0); Alkaline Phosphatase 58 U/L (38-126); Blood Urea Nitrogen 9 mg/dl (9-20); Calcium 8.5 mg/dl (8.4-10.2); Carbon Dioxide 27 mmol/L (22-30); Chloride 96 mmol/L (98-107); Estimated Creatinine Clearance > 125 ml/min; Glucose 91 mg/dl (70-99); Lipase 1881 U/L (23-300); Magnesium 1.6 mg/dl (1.6-2.3); Phosphorus 1.8 mg/dl (2.5-4.5); Potassium 3.1 mmol/L (3.5-5.1); Sodium 135 mmol/L (135-145); Total Bilirubin 2.4 mg/dl (0.2-1.3); Total Protein 5.7 g/dl (6.3-8.2); eGFR > 60.00
--- NOTE | 2024-02-10 07:16 | W.PN.HOSP.TC ---
Addendum entered and electronically signed by Smitha Kim MD 02/10/24 18:25:
Mild Pancytopenia likely 2/2 alcohol use
-cont monitoring CBC, no need for transfusions at this time
Original Note:
Today's Communication/Plan
-
replete potassium phosphate
diet advance to Full Liquid
cont IVF support
abx
discontinue phenobarb taper
continue MSAS protocol
trend Lipase monitor LFTs
Assessment / Plan
Assessment / Plan
Physical Exam
General: No pallor, cyanosis, or jaundice.
HEENT: Throat clear. PERRLA Normocephalic atraumatic
NECK: Supple. No JVD Carotid Bruits
RESPIRATORY: Lungs clear to auscultation. No crackles wheezes stridor
CVS: S1, S2 sinus tachy. No murmur, rub or gallop.
ABDOMEN: Soft, non-tender. No distension. BS+/normal.
EXTREMITIES: No peripheral cyanosis or edema.
GENERAL EXPEDITOR: AOx3
Psych: Calm cooperative
IMPRESSION:
38M ETOH abuse Fatty Liver dz Anxiety/Depression p/w nausea vomiting chest abd/pain shortness of breath progressive past day. Reports poor oral intake due to nausea vomiting past few days. Last alcohol intake was yesterday but patient endorses
vomiting everything. Patient also endorses pain with urination for the past few days. Denies fevers. Endorses intermittent chills with sweats. Hands shaking during evaluation. Sinus tachy on tooler. Denies headache. Nausea improved
with prn zofran given in ED. CT chest neg for PE. Labs notable for significant anion gap metabolic acidosis with elevated lactic acid 5.6 and SHELLIE Cr 1.5 likely due to dehydration. Troponin neg. EKG sinus tachy no significant change from prior,
no significant ST abn's. Elevated Lipase and transaminitis suggestive alcohol pancreatitis and Hepatitis. Urinalysis suggestive of UTI. No significant hypotension noted, stable respiratory status on room air, afebrile.
PLAN:
#ETOH Abuse
#ETOH withdrawal
IMU admit since improved downgraded to Tele
Withdrawal symptoms appear resolved
Phenobarb Taper discontinued, monitor off
cont MSAS protocol
Thiamine Folate Supplementation
Discussed ETOH rehab patient not interested in inpt ETOH rehab, willing to consider outpt
Psych eval appreciated
#ETOH induced Pancreatitis Hepatitis
#Fatty Liver Disease
Bowel Rest, diet gradually advanced to Full liquid tolerating well
cont IVF support
trend Lipase remains elevated
monitor LFTs improving
prn antimetics pain
#Anion Gap Metabolic Acidosis due to elevated Lactic acid 2/2 dehydration (resolved)
#Acute Kidney Injury resolved
#Hypokalemia
#Hypophosphatemia
monitor and replete as necessary
#UTI
cont empiric Ceftriaxone
follow blood cultures NGTD,
no significant growth Urine Cx mixed mamta
#GERD
cont PPI
#hx Depression
home lexapro resumed
currently denies active depression
Psych Eval appreciated
DVT ppx Heparin
Full Code
I spent a total of 50 minutes with the patient or on the floor. More than 50% of this time involved counseling and coordination of care.
Anticipated Discharge: 24 - 48 hours
Subjective/Interval History
-
Date of Service: February 10, 2024
No acute distress. Reports overall feeling well. Tolerating diet. No significant withdrawal symptoms noted at this time.
Objective Data
-
Labs:
Laboratory Results
02/10/24
05:59
WBC 3.5 L
Hgb 10.3 L
Hct 30.1 L
Plt Count 67 L
Sodium 135
Potassium 3.1 L D
Chloride 96 L
Carbon Dioxide 27
BUN 9
Creatinine 0.8
Glucose 91
Calcium 8.5
Total Bilirubin 2.4 H
AST 350 H
ALT 259 H
Alkaline Phosphatase 58
Vital Signs:
Vital Signs
Temp Pulse Resp BP Pulse Ox
98.6 F 76 20 127/86 99
02/10/24 03:45 02/10/24 03:45 02/10/24 03:45 02/10/24 03:45 02/10/24 03:45
I&O
02/09/24 02/10/24 02/11/24
06:59 06:59 06:59
Intake Total 1120 / 1120 2675 / 2675 840 / 840
Output Total 600 / 600 350 / 350
Balance 520 / 520 2325 / 2325 840 / 840
[2024-02-10] MEDS: PHENOBARBITAL 97.5 MG IV (08:57)
[2024-02-10] MEDS: THIAMINE INJECTION 200 MG IV ×2 (08:57→19:58)
[2024-02-10] MEDS: LEXAPRO 5 MG PO (08:58)
[2024-02-10] MEDS: FOLVITE 1 MG PO (08:58)
[2024-02-10] MEDS: PROTONIX IV 40 MG IV (08:58)
[2024-02-10] MEDS: NSS (PRESERVATIVE FREE) 10 ML IV (08:58)
--- NOTE | 2024-02-10 10:33 | CM ---
Patient seen at bedside. Patient confirmed that he has all the information needed for [facility] and does not wish to talk to them. Patient stated he has no needs for discharge at this time. CM will continue to follow for discharge planning needs.
Plan; home with no needs per patient wishes.
[2024-02-10] MEDS: KCL 40 MEQ PO (11:03)
[2024-02-10] MEDS: ROCEPHIN 1000 MG IV (11:04)
[2024-02-10] MEDS: POTASSIUM PHOSPHATE 259.0909 MEQ IV (11:08)
[2024-02-10] MEDS: STERILE WATER FOR INJECTION 10 ML IV (11:08)
[2024-02-10] MEDS: TYLENOL 650 MG PO (14:49)
[2024-02-10] MEDS: ATIVAN 1 MG PO (14:54)
--- NOTE | 2024-02-10 16:03 | CON.MD ---
Consultation - Medical
-
patient seen chart reviewed. spoke with nursing. the patient is a 38 yr old male w long hx etoh abuse. he comes to w n/v/malaise/abd pain. he was found to have elevated lft's/lipase and to be in etoh wd and was admitted. he was started on
phenobarb taper which was dc'ed ?due to elev lft's?. he is currently on msas protocol and received five doses of ativan yesterday but w lower scores today has only received one dose. he reports he is feeling better. he does have hx of depression
about five hears ago od w ativan for which hosp for 72 hr at [facility]. he was taking lexapro which helped . he no longer feels depressed and was tapering it now down to 5 mg and he wants to stop eventually. had been sober for a few months but
relapsed about four weeks ago w vodka of which he drinks a pint daily. he wants to quit but feels he can do it on his own or maybe w out pt rehab. he did attend [facility] in the past and felt it was helpful. he is no longer depressed. says when not
drinking appetite ok. sleeps w melatonin. says he can enjoy self energy level ok when sober. nothing to suggest bipolar or psychosis
past psych hx see above. has participated in rehab in the past at [facility].
medical hx noted elevated lft's and lipase (pancreatitis) patient ecg w tachy nl qtc hgb 10.3 platelets, k decreased patient recently rx for uti now w 100k mixed mamta cr 1.5 on admit thought secondary to dehydration gerd
family hx bro w etoh
substance abuse etoh only see above
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
mse alert ox3 cooperative pleasant in nad speech and thought process nl mood is neutral affect ok no si no hi aver intell insight judgment fair
dx etoh use disorder, moderate to severe hx depression
plan would continue w msas. patient is not interested in in patient rehab although i would recommend it. he does say he will consider calling [facility] for out pt rx. he says he is no longer depressed. he did not appear depressed today. he can dc
lexapro if that is what he wishes to do although would suggest he do it in conjunction with his pcp . psych signing off . patient says he hopes to leave tomorrow
[2024-02-11] MEDS: NSS 1000 IV (03:29)
[2024-02-11 03:40] VITALS: BP 130/95
[2024-02-11 06:53] LABS: Hematocrit 29.8 % (39.0-52.0); Hemoglobin 10.2 g/dL (13.0-18.0); Mean Corp Hgb Conc. 34.2 g/dL (33.0-37.0); Mean Corpuscular Hgb 32.2 pg (27.0-31.0); Mean Platelet Volume 11.2 fL (7.4-10.4); Platelet Count 96 10^3/uL (130-400); Red Blood Cell Count 3.17 10^6/uL (4.70-6.10); Red Cell Dist. Width 16.2 % (11.5-14.5); White Blood Cell Count 3.9 10^3/uL (4.8-10.8)
[2024-02-11 07:23] LABS: ALT (SGPT) 265 U/L (0-50); AST (SGOT) 277 U/L (17-59); Albumin 3.4 g/dl (3.5-5.0); Alkaline Phosphatase 56 U/L (38-126); Blood Urea Nitrogen 4 mg/dl (9-20); Calcium 8.5 mg/dl (8.4-10.2); Carbon Dioxide 30 mmol/L (22-30); Chloride 99 mmol/L (98-107); Estimated Creatinine Clearance > 125 ml/min; Glucose 94 mg/dl (70-99); Lipase 1433 U/L (23-300); Magnesium 1.3 mg/dl (1.6-2.3); Phosphorus 2.9 mg/dl (2.5-4.5); Potassium 3.5 mmol/L (3.5-5.1); Sodium 137 mmol/L (135-145); Total Bilirubin 1.7 mg/dl (0.2-1.3); Total Protein 5.7 g/dl (6.3-8.2); eGFR > 60.00
--- NOTE | 2024-02-11 07:28 | W.PN.HOSP.TC ---
Addendum entered and electronically signed by Smitha Kim MD 02/11/24 12:54:
Mild Pancytopenia likely 2/2 alcohol use
-improving
-outpt repeat CBC with primary care provider recommended.
Original Note:
Today's Communication/Plan
-
discharge
Assessment / Plan
Assessment / Plan
Physical Exam
General: No pallor, cyanosis, or jaundice.
HEENT: Throat clear. PERRLA Normocephalic atraumatic
NECK: Supple. No JVD Carotid Bruits
RESPIRATORY: Lungs clear to auscultation. No crackles wheezes stridor
CVS: S1, S2 sinus tachy. No murmur, rub or gallop.
ABDOMEN: Soft, non-tender. No distension. BS+/normal.
EXTREMITIES: No peripheral cyanosis or edema.
COST CONTROL SPECIALIST: AOx3
Psych: Calm cooperative
IMPRESSION:
38M ETOH abuse Fatty Liver dz Anxiety/Depression p/w nausea vomiting chest abd/pain shortness of breath progressive past day. Reports poor oral intake due to nausea vomiting past few days. Last alcohol intake was yesterday but patient endorses
vomiting everything. Patient also endorses pain with urination for the past few days. Denies fevers. Endorses intermittent chills with sweats. Hands shaking during evaluation. Sinus tachy on cover remover. Denies headache. Nausea improved
with prn zofran given in ED. CT chest neg for PE. Labs notable for significant anion gap metabolic acidosis with elevated lactic acid 5.6 and SHELLIE Cr 1.5 likely due to dehydration. Troponin neg. EKG sinus tachy no significant change from prior,
no significant ST abn's. Elevated Lipase and transaminitis suggestive alcohol pancreatitis and Hepatitis. Urinalysis suggestive of UTI. No significant hypotension noted, stable respiratory status on room air, afebrile.
PLAN:
#ETOH Abuse
#ETOH withdrawal
IMU admit since improved downgraded to Tele
Withdrawal symptoms appear resolved
Phenobarb Taper discontinued, monitor off
on MSAS protocol, no significant withdrawal symptoms since discontinuation phenobarb
Thiamine Folate Supplementation
Discussed ETOH rehab patient not interested in inpt ETOH rehab, willing to consider outpt
Psych eval appreciated
#ETOH induced Pancreatitis Hepatitis
#Fatty Liver Disease
Bowel Rest, diet gradually advanced to Low residue tolerating well
trend Lipase remains elevated but trending down
LFTs improving
outpt repeat labs with primary and GI follow up recommended
#Anion Gap Metabolic Acidosis due to elevated Lactic acid 2/2 dehydration
#Acute Kidney Injury resolved
-resolved with IVF
#Hypokalemia
#Hypophosphatemia
monitor and replete as necessary
#UTI
blood cultures NGTD,
no significant growth Urine Cx mixed mamta
dysuria resolved
empiric ceftriaxone transitioned to Keflex planned for total 5 days abx
#GERD
cont PPI
#hx Depression
home lexapro resumed
currently denies active depression
Psych Eval appreciated
DVT ppx Heparin
Full Code
Medically stable for discharge home with outpatient follow up recommendations
Total Time Preparing Discharge ___40____ minutes including examination of the patient, summary of the hospital stay, instructions for continuing care to all relevant caregivers; and preparation of discharge records, prescriptions, and referral
forms if necessary.
Anticipated Discharge: Today
Subjective/Interval History
-
Date of Service: February 11, 2024
no acute distress. Reports feeling well. Dysuria resolved. Tolerating low residue diet. eager to go home.
Objective Data
-
Labs:
Laboratory Results
02/11/24
06:23
WBC 3.9 L
Hgb 10.2 L
Hct 29.8 L
Plt Count 96 L D
Sodium 137
Potassium 3.5
Chloride 99
Carbon Dioxide 30
BUN 4 L
Creatinine 0.8
Glucose 94
Calcium 8.5
Total Bilirubin 1.7 H
AST 277 H
ALT 265 H
Alkaline Phosphatase 56
Vital Signs:
Vital Signs
Temp Pulse Resp BP Pulse Ox
98.5 F 76 16 130/95 100
02/11/24 03:40 02/11/24 03:40 02/11/24 03:40 02/11/24 03:40 02/11/24 03:40
I&O
02/10/24 02/11/24 02/12/24
06:59 06:59 06:59
Intake Total 2675 / 2675 1739 / 174
Output Total 350 / 350
Balance 2325 / 2325 1739 / 1739
[2024-02-11] MEDS: FOLVITE 1 MG PO (07:37)
[2024-02-11] MEDS: LEXAPRO 5 MG PO (07:37)
[2024-02-11] MEDS: THIAMINE INJECTION 200 MG IV (07:37)
[2024-02-11] MEDS: PROTONIX IV 40 MG IV (07:38)
[2024-02-11] MEDS: NSS (PRESERVATIVE FREE) 10 ML IV (07:38)
[2024-02-11 08:08] VITALS: BP 140/99
[2024-02-11] MEDS: KEFLEX 500 MG PO (08:33)
--- NOTE | 2024-02-11 11:52 | CM ---
Patient states he is going home today. Patient states he has a ride home and does not need any further information on [facility] or other supports. CM will continue to follow for discharge planning needs.
Plan; home with no needs.
--- NOTE | 2024-02-11 13:09 | W.DCSUMMARY ---
Discharge Summary
Discharge Data
Date of Admission: 02/08/24
Date of Discharge: 02/11/24
-
Pending Results: Yes
Additional Pending Results:
official culture results
Discharge Plan
-
Patient Disposition: Home (Routine Discharge)
Discharge Diagnosis/Procedures: Mild Pancytopenia likely due to alcohol use
Alcohol Abuse/Withdrawal
Alcohol Induced Pancreatitis/Hepatitis
Fatty Liver Disease
Acute Kidney Injury
Urinary Tract Infection
Condition: Fair
Diet: Low Residue
Additional Diets: Low residue diet for 1 week then advance as tolerated
Activity: As tolerated
Driving Restrictions: As prior to admission
Bathing Restrictions: None
Blood Work: Please repeat CBC CMP and Lipase with primary care provider in 1 week of discharge
Activity Restrictions/Additional Instructions:
Please follow up with primary care provider in 1 week of discharge and GI in 2-4 weeks of discharge. It is strongly recommended that you pursue outpatient alcohol rehab following discharge.
Keflex has been prescribed for urinary tract infection. Last day of antibiotics 02/12/24.
Multivitamin has been prescribed for nutrition support.
Please take medications as prescribed/recommended and follow up with primary care provider and/or other healthcare provider involved in your care for further adjustment to your medication regimen as necessary.
It is strongly advised that you abstain from further alcohol us as continued usage will likely lead to recurrence/worsening of symptoms and overall increase your risk of morbidity and/or mortality.
Instructions: Pancreatitis (DC), Alcohol Use Disorder (DC)
Referrals:
Xavier Newman MD [Family Provider] - in one week
Vanessa Scott MD [Active] - in two to four weeks
Prescriptions:
New
cephalexin 500 mg Capsule
500 mg PO BID Qty: 3 0RF
Rx Instructions:
Last day of antibiotics 02/12/24, for urinary tract infection
multivitamin Tablet
1 tab PO DAILY 30 Days Qty: 30 0RF
Continued
omeprazole 20 mg Capsule,Delayed Release(Dr/Ec)
20 mg PO DAILY
escitalopram oxalate [Lexapro] 5 mg Tablet
5 mg PO DAILY
Patient Comments:
02/08/24- no pharmacy fills
Discharge Orders:
Discharge Patient (As Directed); Ordered 02/11/24
Ordered By: Smitha Kim
Discharge Date and Time
Print Language: LATVIAN
[2024-02-11 13:31] VITALS: BP 138/86
== END 2024-02-11 13:30 | disposition home or self-care (01) | DRG 896 ==
LOC: 3 WEST ACU 19:54
PROVIDERS: Emergency Medicine; Physician Assistant; ADMITTING PHYSICIAN Internal Medicine; CONSULT PHYSICIAN Psychiatry & Neurology Psychiatry; EMERGENCY PHYSICIAN Emergency Medicine; FAMILY PHYSICIAN Family Medicine
DX: F10.239 Alcohol dependence with withdrawal, unspecified (principal); K85.20 Alcohol induced acute pancreatitis without necrosis or infection; D61.818 Other pancytopenia; N17.9 Acute kidney failure, unspecified; N39.0 Urinary tract infection, site not specified; E87.20 Acidosis, unspecified; Y90.7 Blood alcohol level of 200-239 mg/100 ml; K70.10 Alcoholic hepatitis without ascites; E86.0 Dehydration; E87.6 Hypokalemia
CPT/HCPCS: 71275; 80048; 80053; 80306; 80307; 81003; 81015; 82010; 82077; 82805; 83605; 83690; 83735; 84100; 84484; 85025; 85027; 85610; 85730; 87040; 87086; 93005; 96361; 96365; 96375; 96376; 99285; 99406; Q9967

== ENCOUNTER 2024-03-09 11:38 | Inpatient (IN) | payer OTHER, SELFPAY ==
[2024-03-08] VITALS (10 sets, daily range): BP systolic 124–170; BP diastolic 96–116
--- NOTE | 2024-03-08 13:49 | EDRN ---
Spoke to Keshawn rivera [facility] to let him know that the patient is interested in going to rehab.
--- NOTE | 2024-03-08 14:18 | ED.GENMED ---
History of Present Illness
General
Chief Complaint: Alcohol Problem
Source: patient
Exam Limitations: none
Time Seen by Provider: 03/08/24 14:17
Nursing documentation reviewed up to this point in time: agreed with
History of Present Illness
History of Present Illness:
38-year-old male with history of migraines, GERD, pancreatitis, kidney stones, alcohol abuse, anxiety/depression presents requesting help with his alcoholism. Admitted 02/07 to 02/10 for alcohol abuse/withdrawal and alcohol induced
pancreatitis/hepatitis.
He is here today stating drank a couple beers this a.m. drinks 10-12 beers a day. Wants inpatient detox.
Past History
Past History
ED Past Medical History: GERD, Psychiatric (Anxiety, Depression, alcoholism) and Other (epididymitis L testicle, kidney stones, PNA, Renal calculus, Migraines, alcoholism)
ED Past Surgical History: Appendectomy
Social History
Tobacco: Vaping (Quit 2020 now vapes)
Alcohol: Daily
Drug: None
Personal: Single
Living: alone
Employment: Employed
Family History
Family History: Other
Review of Systems
Review of Systems
Allergies reviewed?: Yes
All Other Systems: ROS reviewed and negative except as documented in HPI and ROS
Constitutional: Denies fever
Respiratory: Denies trouble breathing
Cardiac: Denies chest pain
ABD/GI: Reports nausea and vomiting; Denies diarrhea
: Denies dysuria or difficulty voiding
Musculoskeletal: Reports no symptoms
Skin: Reports no symptoms
Neurological: Denies headache, weakness or numbness
Psychiatric: Reports anxiety
Phy Exam
Physical Exam
Physical Exam:
GENERAL: No acute distress. A&Ox3.
CONSTITUTIONAL: Afebrile.
EYES: PERRL, conjunctivae normal
Neck: Supple
ENMT: moist mucus membranes, Pharynx nl
RESPIRATORY: Regular respirations, nonlabored, lungs clear.
CARDIOVASCULAR: Regular rate and rhythm, no murmurs, no rubs.
GI: Soft, nontender, normal BS
MUSCULOSKELETAL: Moves with ease. Well perfused.
SKIN: Warm, dry, pink
PSYCH: Normal mood and affect. Well kept, interactive and appropriate
NEUROLOGIC: Awake, alert and oriented. No focal neurological deficits
Scores
Withdrawal Assessment of Alcohol
Withdrawal Assessment Completed?: Yes
Nausea and Vomiting: Intermittent nausea with dry heaves
Tactile Disturbances: None
Tremor: Moderate, with patient's arms extended
Auditory Disturbances: Not present
Paroxysmal Sweats: No sweat visible
Visual Disturbances: Not present
Anxiety: Mild anxiety
Headache, Fullness in Head: Moderate
Agitation: Normal activity
Orientation and clouding of sensorium: Oriented and can do serial additions
Total CIWA Score: 12
Alcohol Withdrawal Medication Recommendation: Equal to MSAS Score 5-7. Lorazepam 1mg IV or PO NOW & re-assess q2hrs
Course
Orders/Labs/Results
Orders:
Orders
03/08/24 13:37
EKG [Electrocardiogram (*1)] Urgent
Reason for Study: Shortness of Breath
EKG- Treatment ONCE
03/08/24 14:22
Ondansetron Injectable [Zofran] 4 mg IV NOW STA
03/08/24 14:23
0.9% Sodium Chloride 1000 ml [Nss] 1,000 ml IV BOLUS
Lorazepam [Ativan] 1 mg IV NOW STA
03/08/24 14:47
Acetaminophen [Tylenol] 1,000 mg PO NOW STA
03/08/24 14:55
Complete Blood Count/With Diff Urgent
Troponin I Urgent
03/08/24 14:56
Alcohol Urgent
CMP [Comprehensive Metabolic Panel] Urgent
Lipase Urgent
03/08/24 15:17
Fentanyl, Urine Urgent
Urinalysis Reflex To Culture Urgent
Date Specimen was Collected: 03/08/24
Time Specimen was Collected: 15:17
Urine Drug Abuse Screen Urgent
Date Specimen was Collected: 03/08/24
Time Specimen was Collected: 15:16
Urine Microscopic Reflex Cult Urgent
Urine Culture Urgent
YOVANY Source: U
Specimen Description:
Date Specimen was Collected: 03/08/24
Time Specimen was Collected: 15:17
03/08/24 15:38
Lorazepam [Ativan] 1 mg IV NOW STA
03/08/24 15:47
Add On - Microbiology Urgent
Tests Added?: UA
03/08/24 17:09
Lorazepam [Ativan] 1 mg IV NOW STA
03/08/24 18:53
Lorazepam [Ativan] 1 mg IV NOW STA
03/08/24 19:00
US Abdomen Complete/Upper Urgent
Comment:
Reason For Exam: alcoholism, elevated liver enzymes
03/08/24 19:51
Admit/Transfer Patient As Directed
Co-Sign Provider:
Level of Care: Observation services
Assign to:: Medical/Surgical
Physician / Group: Iron Donnelly
Diagnosis: ETOH withdraw
PRN Pain Medication Management As Directed
May give lesser potent ordered pain med per pt: Yes
preference::
Protocol:: Medication orders for pain may be administered in a
manner that supports deferring to patient preference
when the pt is:
- Requesting an ordered lesser potent pain medication.
Least to most potent pain medications are defined
as: acetaminophen < NSAID < tramadol < opioids
(morphine, oxycodone, hydromorphone).
- Requesting a lesser dose of the same medication IF
ORDERED.
- Requesting a less intrusive route of administration
if both routes are prescribed by the provider (PO <
IV).
03/08/24 19:53
Lorazepam [Ativan] 2 mg IV NOW STA
03/08/24 21:32
0.9% Sodium Chloride [Nss (Preservative Free)] See Protocol IV PRN PRN
FOLic ACID [Folvite] 1 mg 0.9% Sodium Chloride 50 ml [Nss] 50 ml IV DAILYPRN
Lorazepam [Ativan] 1 mg IV Q1HPRN PRN
Lorazepam [Ativan] 1 mg PO Q2HPRN PRN
Lorazepam [Ativan] 2 mg IV Q1HPRN PRN
Thiamine Injection 200 mg IV Q12
03/08/24 21:32
Case Management Consult Once
Case Management Consult: Other
Comment: Substance abuse counseling
DIETARY CONSULT Routine
Reason for Consult: Nutrition support, possible refeeding guidelines
MSAS SCORE As Directed
MSAS Score 0-4: Repeat MSAS every 2 hours until 0-4 for three consecutive assessments, then every 4 hours x 48
hours.
MSAS Score 5-7: For MILD withdrawl symptoms. Repeat MSAS and RASS every 2 hours
MSAS Score 8-11: For MODERATE withdrawal symptoms. Repeat MSAS and RASS every 1 hour. Consider ICU or IMU
level of care.
MSAS Score > 11: For SEVERE withdrawal symptoms. Repeat MSAS and RASS every 1 hour. Notify provider, consider
ICU level of care.
MSAS Additional Instructions: If no improvement or no decrease in score from severe to moderate within 12
hours, consult psychiatry
MSAS Notify Provider: Notify provider if patient requires more than 10 mg of Lorazepam in eight hour period.
Sequential Compression Device [Pneumatic Compression Sleeves] As Directed
Type: Knee high
DX Deep Vein Thrombosis Video Routine
03/08/24 22:54
Alcohol Urgent
B-Hydroxybutyrate Urgent
GGTP Urgent
Magnesium Urgent
PTT Urgent
Phosphorus Urgent
Prothrombin Time Urgent
03/08/24 23:49
Urinalysis Routine
Date Specimen was Collected: 03/08/24
Time Specimen was Collected: 23:47
03/08/24 23:50
Urine Drug Abuse Screen Routine
Date Specimen was Collected: 03/08/24
Time Specimen was Collected: 23:47
03/09/24 08:00
Escitalopram Oxalate [Lexapro] 5 mg PO DAILY
FOLic ACID [Folvite] 1 mg PO DAILY
Pantoprazole [Protonix] 40 mg PO DAILY
03/11/24 20:00
Thiamine HCl [Vitamin B1] 100 mg PO BID
Abnormal Lab Results
03/08/24 03/08/24 03/08/24
14:55 14:56 15:17
WBC 4.5 L 10^3/uL
(4.8-10.8)
MCH 32.3 H pg
(27.0-31.0)
RDW 16.7 H %
(11.5-14.5)
Monocytes % 9.7 H %
(1.7-9.3)
Potassium 5.3 H mmol/L
(3.5-5.1)
Carbon Dioxide 18 L mmol/L
(22-30)
BUN 4 L mg/dl
(9-20)
Glucose 120 H mg/dl
(70-99)
AST 338 H U/L
(17-59)
ALT 406 H U/L
(0-50)
Total Protein 8.5 H g/dl
(6.3-8.2)
Albumin 5.2 H g/dl
(3.5-5.0)
Ur Occult Blood Reflex Trace A
(Negative)
Urine Bacteria (Reflex) Many A
(Negative)
Urine Albumin (Reflex) 2+ A
(Neg - Trace)
U Benzodiazepines Scrn Positive H
(Negative)
03/08/24 14:55
03/08/24 14:56
Vital Signs
Initial and Last Documented VS:
Initial Vital Signs
Temp Pulse Resp BP Pulse Ox
99.5 F 130 18 170/116 97
03/08/24 13:30 03/08/24 13:30 03/08/24 13:30 03/08/24 13:30 03/08/24 13:30
Last Documented Vital Signs
Temp Pulse Resp BP Pulse Ox
99.0 F 88 20 155/91 96
03/09/24 07:35 03/09/24 07:35 03/09/24 07:35 03/09/24 07:35 03/09/24 07:35
MDM/Problems Addressed
Differential Diagnosis Includes:
alcoholism, alcohol withdrawal
MDM/Problems Addressed:
38-year-old male with history of migraines, GERD, pancreatitis, kidney stones, alcohol abuse, anxiety/depression presents requesting help with his alcoholism. Admitted 02/07 to 02/10 for alcohol abuse/withdrawal and alcohol induced
pancreatitis/hepatitis.
He is here today stating drank a couple beers this a.m. drinks 10-12 beers a day. Wants inpatient detox.
CBC with no clinically significant abnormality
CMP: Elevation of liver enzymes this is not new
Lipase 271
Troponin normal
Alcohol level 172
[facility] in to see pt arrangements made to admit to [facility]
UA negative
UDS positive for benzos only
Jair from [facility] is here and will make the arrangements for patient to be transferred to [facility]
7:00 PM:
Jair RIVERA notified me that no rehab facility will take patient due to his elevated liver enzymes.
Informed that this is chronic and there is nothing we can do to make them go down for admission to rehab.
He will continue to try to find a facility that will take him
Ultrasound ordered to rule out any acute findings
Repeated doses of Ativan due to persistent MSAS score of 12
Plan: Admit: Alcohol withdrawal, alcoholic fatty liver
Hospitalist notified of admission
Ultrasound pending
*EKG
EKG Intrepretation Date: 03/08/24
Interpretation: abnormal
Heart Rate: 110
Rate: tachycardiac
Rhythm: sinus
[place]: normal axis
Interval: normal interval
QRS Pattern: normal QRS
Ischemia: no ischemia
*Critical Care Note
Total Time (30-74mins, 75-104mins- exclusive of procedures): Not Applicable
ED Attending Note
-
Portions of this chart may have been created with voice recognition software.� Occasional wrong word or��sound alike� substitutions may have occurred due to the inherent limitations of voice recognition software.
Discharge Plan
Departure
Patient Disposition: Admit
Date of Disposition: 03/08/24
Time of Disposition: 19:07
Admit to: Telemetry
Presentation/result/management discussed w/ accepting MD/DO: Hospitalist
Condition: Serious
Discharge Problem:
Alcohol withdrawal, Fatty liver, alcoholic
Interventions
Interventions:
*Risk Screen - Suicide Last Done: 03/08/24 13:30
*Neglect/Abuse Screening Last Done: 03/08/24 13:30
ED- Fall Risk Assessment Last Done: 03/08/24 21:45
*ED COVID-19 Vaccine History Last Done: 03/08/24 13:30
*Nursing Disposition Last Done: 03/08/24 21:45
TZ-Egucul-Zpwnlmpvlk Assessment Last Done: 03/08/24 15:07
ED- Cardiac Assessment Last Done: 03/08/24 15:07
ED- Neurological Assessment Last Done: 03/08/24 15:07
ED-Psychological Assessment Last Done: 03/08/24 15:07
Discharge Date and Time
Discharge Date/Time: 03/08/24 21:46
[2024-03-08] MEDS: ZOFRAN 4 MG IV (14:25)
[2024-03-08] MEDS: ATIVAN 1 MG IV ×4 (14:26→19:06)
[2024-03-08] MEDS: NSS 1000 IV ×2 (14:34→21:24)
[2024-03-08] MEDS: TYLENOL 1000 MG PO (14:57)
[2024-03-08 15:13] LABS: % Basophils 1.1 % (0-2); % Eosinophils 1.3 % (0-6); % Immature Granulocytes 0.4 % (0-0.5); % Lymphocytes 36.3 % (20.5-51.1); % Monocytes 9.7 % (1.7-9.3); % Neutrophils 51.2 % (42.2-75.2); Absolute Basophils 0.1 10^3/uL (0-0.2); Absolute Eosinophils 0.1 10^3/uL (0-0.7); Absolute Lymphocytes 1.7 10^3/uL (1.2-3.4); Absolute Monocytes 0.4 10^3/uL (0.1-0.6); Absolute Neutrophils 2.3 10^3/uL (1.4-6.5); Hematocrit 43.6 % (39.0-52.0); Hemoglobin 15.2 g/dL (13.0-18.0); Mean Corp Hgb Conc. 34.9 g/dL (33.0-37.0); Mean Corpuscular Hgb 32.3 pg (27.0-31.0); Mean Corpuscular Volume 92.8 fL (80.0-94.0); Nucleated Red Blood Cells % 0 % (-); Platelet Count 219 10^3/uL (130-400); Red Cell Dist. Width 16.7 % (11.5-14.5); White Blood Cell Count 4.5 10^3/uL (4.8-10.8)
[2024-03-08 15:30] LABS: ALT (SGPT) 406 U/L (0-50); AST (SGOT) 338 U/L (17-59); Albumin 5.2 g/dl (3.5-5.0); Alcohol 172 mg/dl; Alkaline Phosphatase 98 U/L (38-126); Blood Urea Nitrogen 4 mg/dl (9-20); Calcium 9.3 mg/dl (8.4-10.2); Carbon Dioxide 18 mmol/L (22-30); Chloride 98 mmol/L (98-107); Glucose 120 mg/dl (70-99); Lipase 271 U/L (23-300); Potassium 5.3 mmol/L (3.5-5.1); Sodium 139 mmol/L (135-145); Total Bilirubin 0.9 mg/dl (0.2-1.3); Total Protein 8.5 g/dl (6.3-8.2); eGFR > 60.00
[2024-03-08 15:38] LABS: Troponin I < 0.012 ng/ml
[2024-03-08 15:52] LABS: Urine Albumin 2+ (Neg - Trace); Urine Bilirubin Negative (Negative); Urine Character Clear (Clear); Urine Color Yellow; Urine Glucose Negative (Negative); Urine Ketone Negative (Negative); Urine Leukocyte Negative (Negative); Urine Nitrite Negative (Negative); Urine Occult Blood Trace (Negative); Urine Specific Gravity 1.025 (<1.030); Urine Urobilinogen Negative (Neg - 1+)
[2024-03-08 15:59] LABS: Amphetamines Negative (Negative); Barbiturates Negative (Negative); Benzodiazepines Positive (Negative); Buprenorphine Negative (Negative); Cocaine Negative (Negative); Marijuana Negative (Negative); Methadone Negative (Negative); Methamphetamines Negative (Negative); Opiates Negative (Negative); Phencyclidine Negative (Negative); Tricyclic Antidepressants Negative (Negative)
[2024-03-08 16:08] LABS: Urine Red Blood Cell 0-2 /HPF (0-2)
[2024-03-08 16:09] LABS: Urine Bacteria Many (Negative); Urine White Cell 0-2 /HPF (0-5)
[2024-03-08 16:25] LABS: Fentanyl, Urine Negative (Negative)
--- NOTE | 2024-03-08 19:24 | HPS.HSE ---
Family Physician
-
Family Physician: Xavier Newman
Chief Complaint
-
Alcohol withdraw
History of Present Illness
Patient is a 38-year-old male with past medical history significant for depression, anxiety, alcohol dependency and GERD who presented to [place] ED requesting help with alcoholism. Patient states he came to seek rehab placement for is alcohol
abuse. [facility] is unable to place patient at this time related to elevated liver enzymes. Patient states he has had some nausea and vomiting in the last 24-hours that he attributes to drinking and not eating anything. He denies any chest pain,
shortness of breath, cough, fevers, chills, constipation, diarrhea or urinary symptoms.
Medical History
Past Medical History
Past Medical History: Reports Other
Additional Past Medical History:
Depression
Anxiety
Alcohol dependency
Nicotine Dependency
GERD
Past Surgical History: Reports Other
Additional Past Surgical History:
Appendectomy
Social History
Tobacco: Smoker (smoked cigarettes for 20 years, now uses vape)
Alcohol: Daily (12 pack of beer per day)
Drug: None
Personal: Single
Living: With Family
Employment: Not Employed
Family History
Family History: Not pertinent
Allergies / Home Medications
Allergies reflects when Allergies were last updated in [employer].
Home Medications with original date entered in [employer]
Allergy/Medication List:
Allergies
Allergy/AdvReac Type Severity Reaction Status Date / Time
No Known Allergies Allergy Verified 03/08/24 13:36
Home Medications
escitalopram oxalate 5 mg tablet (Lexapro) 5 mg PO DAILY Depression 11/12/23
omeprazole 20 mg capsule,delayed release 20 mg PO DAILY GERD 11/12/23
Review of Systems
-
History Source: Patient
Constitutional: Reports Other (alcohol dependency with nausea/vomiting and previous withdraw symptoms)
EENT: Reports No Symptoms
Respiratory: Reports No Symptoms
Cardiac: Reports No Symptoms
Abdomen/GI: Reports No Symptoms
: Reports No Symptoms
Musculoskeletal: Reports No Symptoms
Skin: Reports No Symptoms
Neurological: Reports No Symptoms
Endocrine: Reports No Symptoms
Hematologic/Lymphatic: Reports No Symptoms
Psych: Reports No Symptoms
Physical Exam
Vital Signs
Vital Signs
Temp Pulse Resp BP Pulse Ox
99.5 F 112 20 142/112 96
03/08/24 13:30 03/08/24 17:00 03/08/24 17:00 03/08/24 15:00 03/08/24 17:00
Physical Exam
General: Well Developed, Well Nourished, No Apparent Distress, Comfortable and Conversant
HEENT: NormoCephalic, Moist mucous membranes, Atraumatic, PERRLA, Nose Appears Normal and Ears Appear Normal
Respiratory: Clear and Non Labored Respirations; No Wheezes, Rales, Rhonchi or Crackles
Cardiac: S1/S2, Regular Rhythm and Tachycardia; No Murmur, Rub or Gallop
Breast: Deferred by me
GI: Soft, Non Tender, Non Distended and Normal Bowel Sounds; No Organomegaly
Rectal: Deferred by Provider
Genito-urinary: Deferred by me
Musculoskeletal: No Clubbing, No Cyanosis and No Edema
Skin: Warm and Dry; No Rash or IV/Catheter Site
Neuro: Awake, Alert, AO x 3, Nonfocal/grossly intact and Cranial Nerves Intact
Hematologic/Lymphatic: No Lymphadenopathy
Psych: Calm and Intact Judgment/Insight
Laboratory Results
-
03/08/24 14:55
03/08/24 14:56
Laboratory Results
Total Bilirubin 0.9 mg/dl (0.2-1.3) 03/08/24 14:56
AST 338 U/L (17-59) H 03/08/24 14:56
ALT 406 U/L (0-50) H 03/08/24 14:56
Alkaline Phosphatase 98 U/L (38-126) 03/08/24 14:56
Troponin I < 0.012 ng/ml 03/08/24 14:55
Lipase 271 U/L (23-300) 03/08/24 14:56
Data Reviewed
-
Lab Data: Labs Reviewed by me (K+ 5.3, AST 338, ALT 406)
Impression/Plan
-
IMPRESSION/PLAN:
#Alcohol dependency
- Admit to Tele for observation
- MSAS protocol
- NSS IVF bolus
- Abdominal US pending
#Depression/Anxiety
- continue lexapro
#Nicotine Dependency
- vapes use daily
- declines nicotine replacement
#GERD
- continue omeprazole
Full code
DVT Px: SCDs
--- NOTE | 2024-03-08 19:52 | W.PN.UPDATE ---
Update Note
Progress Note Update
Patient seen in conjunction with LEANNE. I agree with the findings on history and physical as well as assessment and plan.
This is a 38-year-old male with past medical history of alcohol dependence, GERD, depression anxiety presented to the emergency department with intention to enter inpatient detox. He drinks regularly. He says he drinks about 2 sixpacks every
day./Drink was this morning. Patient arrives tremulous and tachycardic. He denies any vomiting. He denies any nausea. He does report a mild headache. He was admitted recently in early February but declined inpatient rehab planning to follow-up
with outpatient detox at that time.
Patient has chronically elevated LFTs with fatty liver. Otherwise his labs are unremarkable.
Vital signs are stable with temperature of 99, blood pressure was 1 1400 with a pulse rate of 110 oxygen saturation 96%. CBC was completely within normal limits. Chemistry showed potassium of 5.3 and a bicarb of 18 but otherwise normal. LFTs
chronically elevated with fatty liver.
A&P
Admit to [facility] protocol
Thiamine/folate supplementation
Case management for rehab placement
DVT PPX
Code Status - Full Code
[2024-03-08] MEDS: ATIVAN 2 MG IV (20:13)
--- NOTE | 2024-03-08 21:46 | PTCARENOTE ---
Pt arrived from ED via stretcher and ambulated to bed. Pt is AAOx3 with visible tremors, VSS, and w/o complaints of pain. Pt is oriented to room and resting comfortably, with call lopez within reach.
[2024-03-08] MEDS: ATIVAN 1 MG PO (22:04)
[2024-03-08] MEDS: THIAMINE INJECTION 200 MG IV (22:05)
[2024-03-08 23:16] LABS: APTT 34.1 Sec (23.4-35.0); INR 1.14; PT 14.4 Sec (11.4-14.6)
[2024-03-08 23:21] LABS: GGTP 827 U/L (15-73); Magnesium 1.7 mg/dl (1.6-2.3); Phosphorus 4.5 mg/dl (2.5-4.5)
[2024-03-08 23:22] LABS: Alcohol None Detected
[2024-03-08 23:28] LABS: B-Hydroxybutyrate 0.06 mmol/L (0.02-0.27)
[2024-03-09 00:02] LABS: Urine Albumin Negative (Neg - Trace); Urine Bilirubin 1+ (Negative); Urine Character Clear (Clear); Urine Color Amber; Urine Glucose Negative (Negative); Urine Ketone Negative (Negative); Urine Leukocyte Trace (Negative); Urine Nitrite Negative (Negative); Urine Occult Blood Negative (Negative); Urine Specific Gravity 1.025 (<1.030); Urine Urobilinogen Negative (Neg - 1+)
[2024-03-09 00:19] LABS: Amphetamines Negative (Negative); Barbiturates Positive (Negative); Benzodiazepines Positive (Negative); Buprenorphine Negative (Negative); Cocaine Negative (Negative); Marijuana Negative (Negative); Methadone Negative (Negative); Methamphetamines Negative (Negative); Opiates Negative (Negative); Phencyclidine Negative (Negative); Tricyclic Antidepressants Negative (Negative)
[2024-03-09] MEDS: ATIVAN 1 MG PO ×4 (00:21→11:00)
[2024-03-09 00:26] LABS: Urine Mucus Moderate; Urine Squamous Cell >30 /LPF (Few)
[2024-03-09 00:27] LABS: Urine Bacteria Many (Negative)
[2024-03-09 00:28] LABS: Urine Red Blood Cell 0-2 /HPF (0-2)
[2024-03-09 00:44] LABS: Fentanyl, Urine Negative (Negative)
[2024-03-09 03:29] VITALS: BP 113/83
[2024-03-09 07:35] VITALS: BP 155/91
[2024-03-09] MEDS: PROTONIX 40 MG PO (08:08)
[2024-03-09] MEDS: THIAMINE INJECTION 200 MG IV ×2 (08:08→20:00)
[2024-03-09] MEDS: LEXAPRO 5 MG PO (08:09)
[2024-03-09] MEDS: FOLVITE 1 MG PO (08:09)
--- NOTE | 2024-03-09 10:35 | W.PN.HOSP.TC ---
Addendum entered and electronically signed by Josephnie Chowdary MD 03/09/24 14:15:
T. Bili elevated; INR normal
discriminant function 5.1
Original Note:
Today's Communication/Plan
-
start phenobarb taper
MSAS
IVF
labs
Assessment / Plan
Assessment / Plan
This is a 38-year-old male with past medical history of alcohol dependence, GERD, depression anxiety presented to the emergency department with intention to enter inpatient detox. He drinks regularly. He says he drinks about 2 sixpacks every
day./Drink was this morning. Patient arrives tremulous and tachycardic.
RUQ US
IMPRESSION:
Normal appearance of the gallbladder with no evidence for biliary ductal dilation.
Hepatomegaly with diffuse fatty infiltration of the liver. No focal hepatic lesion.
Spleen size appears within normal limits.
#Alcohol dependency
- Admit to Tele for observation
- MSAS protocol
- start phenobarb taper given persistent elevated MSAS scoring and current tremors/anxiety - hx prolonged drinking
- NSS IVF bolus
- NS @ 125
- CMP, Mag, Phos now
#Depression/Anxiety
- continue lexapro
#Nicotine Dependency
- vapes use daily
- declines nicotine replacement
Hx Fatty Liver Disease
Alcohol Induced Hepatitis
-US results above
#GERD
- continue omeprazole
Full code
DVT Px: SCDs
Anticipated Discharge: > 48 hours
Subjective/Interval History
-
Date of Service: March 09, 2024
he is feeling shakey and anxious
Objective Data
-
Labs:
Laboratory Results
03/08/24 03/09/24
22:54 10:34
WBC Pending
Hgb Pending
Hct Pending
Plt Count Pending
PT 14.4
INR 1.14
APTT 34.1
Sodium Pending
Potassium Pending
Chloride Pending
Carbon Dioxide Pending
BUN Pending
Creatinine Pending
Glucose Pending
Calcium Pending
Total Bilirubin Pending
AST Pending
ALT Pending
Alkaline Phosphatase Pending
Vital Signs:
Vital Signs
Temp Pulse Resp BP Pulse Ox
99.0 F 88 20 155/91 96
03/09/24 07:35 03/09/24 07:35 03/09/24 07:35 03/09/24 07:35 03/09/24 07:35
Review of Systems
-
History Source: Patient
All other systems: Reviewed and negative
Physical Exam
-
General: Other (appears anxious)
HEENT: Normocephalic, Atraumatic and Moist Mucous Membranes
Respiratory: Clear to Auscultation
Cardiac: Regular Rhythm and S1/S2; Negative Murmur, Rub or Gallop
GI: Soft, Nontender, Nondistended and Normal Bowel Sounds; Negative Organomegaly
Rectal: Deferred by Provider
Musculoskeletal: No Clubbing, No Cyanosis and No Edema
Skin: Negative Rash
Neuro: Awake, Alert, Oriented, AO x 3 and Nonfocal/Grossly Intact
Psych: Anxious
Data Reviewed
-
Diagnostic Radiology: Report Reviewed by me
Labs: Labs Reviewed by me
[2024-03-09] MEDS: NSS 1000 IV ×2 (11:00→19:59)
[2024-03-09] MEDS: PHENOBARBITAL 97.5 MG IV ×3 (11:33→22:48)
[2024-03-09 11:38] LABS: ALT (SGPT) 359 U/L (0-50); AST (SGOT) 478 U/L (17-59); Albumin 4.5 g/dl (3.5-5.0); Alkaline Phosphatase 92 U/L (38-126); Blood Urea Nitrogen 11 mg/dl (9-20); Carbon Dioxide 29 mmol/L (22-30); Chloride 95 mmol/L (98-107); Glucose 100 mg/dl (70-99); Magnesium 1.9 mg/dl (1.6-2.3); Phosphorus 3.6 mg/dl (2.5-4.5); Potassium 4.9 mmol/L (3.5-5.1); Sodium 134 mmol/L (135-145); Total Bilirubin 2.3 mg/dl (0.2-1.3); Total Protein 7.3 g/dl (6.3-8.2); eGFR > 60.00
[2024-03-09 12:00] VITALS: BP 149/100
[2024-03-09 12:05] LABS: % Basophils 1.3 % (0-2); % Eosinophils 1.1 % (0-6); % Immature Granulocytes 0.2 % (0-0.5); % Lymphocytes 18.6 % (20.5-51.1); % Monocytes 12.8 % (1.7-9.3); Absolute Basophils 0.1 10^3/uL (0-0.2); Absolute Eosinophils 0.1 10^3/uL (0-0.7); Absolute Lymphocytes 0.9 10^3/uL (1.2-3.4); Absolute Monocytes 0.6 10^3/uL (0.1-0.6); Absolute Neutrophils 3.1 10^3/uL (1.4-6.5); Hematocrit 39.2 % (39.0-52.0); Hemoglobin 13.6 g/dL (13.0-18.0); Mean Corp Hgb Conc. 34.7 g/dL (33.0-37.0); Mean Corpuscular Hgb 33.7 pg (27.0-31.0); Mean Corpuscular Volume 97.3 fL (80.0-94.0); Mean Platelet Volume 10.5 fL (7.4-10.4); Nucleated Red Blood Cells % 0 % (-); Platelet Count 147 10^3/uL (130-400); Red Blood Cell Count 4.03 10^6/uL (4.70-6.10); Red Cell Dist. Width 16.4 % (11.5-14.5); White Blood Cell Count 4.7 10^3/uL (4.8-10.8)
[2024-03-09 12:46] LABS: INR 1.13; PT 14.6 Sec (11.4-14.6)
[2024-03-09 15:00] VITALS: BP 130/84
[2024-03-09 19:37] VITALS: BP 145/94
[2024-03-09 23:25] VITALS: BP 146/100
[2024-03-10 03:12] VITALS: BP 130/81
[2024-03-10 07:31] LABS: PT 14.3 Sec (11.4-14.6)
[2024-03-10 07:38] LABS: Hematocrit 36.9 % (39.0-52.0); Hemoglobin 12.3 g/dL (13.0-18.0); Mean Corp Hgb Conc. 33.3 g/dL (33.0-37.0); Mean Corpuscular Volume 96.1 fL (80.0-94.0); Mean Platelet Volume 10.5 fL (7.4-10.4); Platelet Count 134 10^3/uL (130-400); Red Blood Cell Count 3.84 10^6/uL (4.70-6.10); Red Cell Dist. Width 16.6 % (11.5-14.5); White Blood Cell Count 4.4 10^3/uL (4.8-10.8)
[2024-03-10 07:56] VITALS: BP 159/100
[2024-03-10 08:08] LABS: ALT (SGPT) 296 U/L (0-50); AST (SGOT) 324 U/L (17-59); Albumin 3.9 g/dl (3.5-5.0); Alkaline Phosphatase 79 U/L (38-126); Blood Urea Nitrogen 10 mg/dl (9-20); Calcium 8.6 mg/dl (8.4-10.2); Carbon Dioxide 28 mmol/L (22-30); Chloride 100 mmol/L (98-107); Direct Bilirubin 0.7 mg/dl (0.0-0.4); Glucose 97 mg/dl (70-99); Magnesium 1.9 mg/dl (1.6-2.3); Potassium 4.5 mmol/L (3.5-5.1); Sodium 140 mmol/L (135-145); Total Bilirubin 2.1 mg/dl (0.2-1.3); Total Protein 6.5 g/dl (6.3-8.2); eGFR > 60.00
[2024-03-10] MEDS: FOLVITE 1 MG PO (09:06)
[2024-03-10] MEDS: PROTONIX 40 MG PO (09:06)
[2024-03-10] MEDS: PHENOBARBITAL 97.5 MG IV ×3 (09:07→21:10)
[2024-03-10] MEDS: THIAMINE INJECTION 200 MG IV ×2 (09:07→21:09)
[2024-03-10] MEDS: LEXAPRO 5 MG PO (09:07)
--- NOTE | 2024-03-10 10:16 | CM ---
Addendum entered by Radha Ortega 03/10/24 10:53:
EARNESTINE spoke with Christos at [facility]; He advised that Keshawn has been working with [facility] for resources/placement.
Plan: [facility] to follow for services. EARNESTINE will continue to follow.
Original Note:
VM left for [facility] requesting return call to discuss services for Wilmer. Await response.
--- NOTE | 2024-03-10 10:40 | W.PN.HOSP.TC ---
Today's Communication/Plan
-
continue phenobarb taper
MSAS
patient working with [facility]
Assessment / Plan
Assessment / Plan
This is a 38-year-old male with past medical history of alcohol dependence, GERD, depression anxiety presented to the emergency department with intention to enter inpatient detox. He drinks regularly. He says he drinks about 2 sixpacks every
day./Drink was this morning. Patient arrives tremulous and tachycardic.
RUQ US
IMPRESSION:
Normal appearance of the gallbladder with no evidence for biliary ductal dilation.
Hepatomegaly with diffuse fatty infiltration of the liver. No focal hepatic lesion.
Spleen size appears within normal limits.
#Alcohol dependency
- Admit to Tele for observation
- MSAS protocol
- start phenobarb taper given persistent elevated MSAS scoring and current tremors/anxiety - hx prolonged drinking
- stop fluids
- monitor labs
#Depression/Anxiety
- continue lexapro
#Nicotine Dependency
- vapes use daily
- declines nicotine replacement
Hx Fatty Liver Disease
Alcohol Induced Hepatitis
-US results above
#GERD
- continue omeprazole
Full code
DVT Px: SCDs
Anticipated Discharge: 24 - 48 hours
Subjective/Interval History
-
Date of Service: March 10, 2024
feeling better
was hoping to leave today
Objective Data
-
Labs:
Laboratory Results
03/10/24
07:03
WBC 4.4 L
Hgb 12.3 L
Hct 36.9 L
Plt Count 134
PT 14.3
INR 1.10
Sodium 140
Potassium 4.5
Chloride 100
Carbon Dioxide 28
BUN 10
Creatinine 0.7
Glucose 97
Calcium 8.6
Total Bilirubin 2.1 H
AST 324 H
ALT 296 H
Alkaline Phosphatase 79
Vital Signs:
Vital Signs
Temp Pulse Resp BP Pulse Ox
98.1 F 83 18 159/100 98
03/10/24 07:56 03/10/24 07:56 03/10/24 07:56 03/10/24 07:56 03/10/24 07:56
I&O
03/09/24 03/10/24 03/11/24
06:59 06:59 06:59
Intake Total 480 / 480
Balance 480 / 480
Review of Systems
-
History Source: Patient
All other systems: Reviewed and negative
Physical Exam
-
General: Other (appears anxious)
HEENT: Normocephalic, Atraumatic and Moist Mucous Membranes
Respiratory: Clear to Auscultation
Cardiac: Regular Rhythm and S1/S2; Negative Murmur, Rub or Gallop
GI: Soft, Nontender, Nondistended and Normal Bowel Sounds; Negative Organomegaly
Rectal: Deferred by Provider
Musculoskeletal: No Clubbing, No Cyanosis and No Edema
Skin: Negative Rash
Neuro: Awake, Alert, Oriented, AO x 3 and Nonfocal/Grossly Intact
Psych: Calm
Data Reviewed
-
Diagnostic Radiology: Report Reviewed by me
Labs: Labs Reviewed by me
[2024-03-10] MEDS: NSS IV (11:51)
[2024-03-10 11:52] VITALS: BP 141/103
[2024-03-10] MEDS: ATIVAN 1 MG IV (11:57)
--- NOTE | 2024-03-10 13:00 | CM ---
EARNESTINE spoke with [facility] to discuss plans for SA services. He would like to go to an Intensive outpatient program (IOP). I spoke with Keshawn with [facility] who will look into possible funding for IOP services, as Wilmer is currently uninsured. He is working
with [facility] to apply for insurance.
Plan: Anticipate discharge to home with IOP services when medically cleared.
[2024-03-10 16:48] VITALS: BP 152/103
--- NOTE | 2024-03-10 17:21 | PTCARENOTE ---
Wilmer is complaining of chest pressure and SOB accompanied by a pain in the back of his head. I am doing an EKG now. EKG shows NSR. Pressure is 161/104 HR 79 and 99 on RA, His pressures have been high since he received news he wasn't leaving today.
He does have Ativan ordered for MSAS. his MSAS last was a 2. He did receive a dose of ativan at 11 for anxiety.
--- NOTE | 2024-03-10 17:26 | PTCARENOTE ---
Lavern BONNER Notified.
[2024-03-10 17:40] VITALS: BMI 26.5
[2024-03-10] MEDS: APRESOLINE 10 MG IV (17:43)
[2024-03-10 18:19] VITALS: BP 157/92
[2024-03-10 23:00] VITALS: BP 129/92
[2024-03-11 08:06] VITALS: BP 147/97
[2024-03-11] MEDS: FOLVITE 1 MG PO (08:11)
[2024-03-11] MEDS: PROTONIX 40 MG PO (08:11)
[2024-03-11] MEDS: LEXAPRO 5 MG PO (08:11)
[2024-03-11] MEDS: THIAMINE INJECTION 200 MG IV (08:12)
[2024-03-11] MEDS: FLUSH (NSS) 2 FLUSH IV (08:13)
[2024-03-11] MEDS: ATIVAN 1 MG IV ×2 (08:19→18:01)
[2024-03-11] MEDS: NSS (PRESERVATIVE FREE) 0.5 ML IV (08:21)
[2024-03-11 08:29] LABS: ALT (SGPT) 248 U/L (0-50); AST (SGOT) 176 U/L (17-59); Albumin 4.2 g/dl (3.5-5.0); Alkaline Phosphatase 66 U/L (38-126); Blood Urea Nitrogen 11 mg/dl (9-20); Calcium 9.2 mg/dl (8.4-10.2); Carbon Dioxide 26 mmol/L (22-30); Chloride 100 mmol/L (98-107); Estimated Creatinine Clearance > 125 ml/min; Glucose 103 mg/dl (70-99); Magnesium 1.9 mg/dl (1.6-2.3); Phosphorus 4.3 mg/dl (2.5-4.5); Potassium 4.5 mmol/L (3.5-5.1); Sodium 140 mmol/L (135-145); Total Bilirubin 1.6 mg/dl (0.2-1.3); eGFR > 60.00
--- NOTE | 2024-03-11 10:29 | W.PN.HOSP.TC ---
Today's Communication/Plan
-
CONTINUE phenobarb taper
Assessment / Plan
Assessment / Plan
This is a 38-year-old male with past medical history of alcohol dependence, GERD, depression anxiety presented to the emergency department with intention to enter inpatient detox. He drinks regularly. He says he drinks about 2 sixpacks every
day./Drink was this morning. Patient arrives tremulous and tachycardic.
RUQ US
IMPRESSION:
Normal appearance of the gallbladder with no evidence for biliary ductal dilation.
Hepatomegaly with diffuse fatty infiltration of the liver. No focal hepatic lesion.
Spleen size appears within normal limits.
#Alcohol dependency
- Admit to Tele for observation
- MSAS protocol
- started phenobarb taper given persistent elevated MSAS scoring and current tremors/anxiety - hx prolonged drinking
- readjusting timing of taper so he receives a dose this morning
- stop fluids
- monitor labs
#Depression/Anxiety
- continue lexapro - patient will follow up with a psychiatrist as outpatient
- in past he took Ativan BID - explained this is dangerous to be dependent on ativan
#Nicotine Dependency
- vapes use daily
- declines nicotine replacement
Hx Fatty Liver Disease
Alcohol Induced Hepatitis
-US results above
#GERD
- continue omeprazole
Full code
DVT Px: Lovenox
Anticipated Discharge: 24 - 48 hours
Subjective/Interval History
-
Date of Service: March 11, 2024
didn't receive AM phenobarbital today because of the way it was scheduled
feeling a little anxious
not yet ready to stop taper
Objective Data
-
Labs:
Laboratory Results
03/11/24
07:34
Sodium 140
Potassium 4.5
Chloride 100
Carbon Dioxide 26
BUN 11
Creatinine 0.8
Glucose 103 H
Calcium 9.2
Total Bilirubin 1.6 H
AST 176 H
ALT 248 H
Alkaline Phosphatase 66
Vital Signs:
Vital Signs
Temp Pulse Resp BP Pulse Ox
98.9 F 73 18 147/97 98
03/11/24 08:06 03/11/24 08:06 03/11/24 08:06 03/11/24 08:06 03/11/24 08:06
I&O
03/10/24 03/11/24 03/12/24
06:59 06:59 06:59
Intake Total 480 / 480 480 / 480
Balance 480 / 480 480 / 480
Review of Systems
-
History Source: Patient
All other systems: Reviewed and negative
Physical Exam
-
General: Other (appears anxious)
HEENT: Normocephalic, Atraumatic and Moist Mucous Membranes
Respiratory: Clear to Auscultation
Cardiac: Regular Rhythm and S1/S2; Negative Murmur, Rub or Gallop
GI: Soft, Nontender, Nondistended and Normal Bowel Sounds; Negative Organomegaly
Rectal: Deferred by Provider
Musculoskeletal: No Clubbing, No Cyanosis and No Edema
Skin: Negative Rash
Neuro: Awake, Alert, Oriented, AO x 3 and Nonfocal/Grossly Intact
Psych: Anxious
Data Reviewed
-
Diagnostic Radiology: Report Reviewed by me
Labs: Labs Reviewed by me
[2024-03-11] MEDS: LUMINAL 64.8 MG PO ×3 (10:56→22:10)
--- NOTE | 2024-03-11 13:55 | PN.CDI ---
CDI
- -
CDI:
Physician Documentation Request
Admit Date: 03/09/24 11:38
Dear Doctor Epi,
Patient's urine culture positive for Enterococcus Faecalis
UA results
Laboratory Tests
03/08/24
23:49
Urine Color Gricel
Urine Clarity Clear
Ur Leukocyte Esterase Trace A
Urine WBC 6-10 A
Urine Bacteria Many A
Could you please provide a diagnosis that supports the above lab abnormalities and additional evaluation/monitoring:
UTI
asymptomatic bacteruria
Other
Use of terms such as suspected, likely, concern for, or probable (associated with a specific diagnosis that is being evaluated, monitored, or treated as if it exists) are acceptable and can be coded in the inpatient setting, when documented at the
time of discharge.
Thank you,
Radha Hernandez RN, BSN
CDI Specialist
tiger text
Please use your independent medical judgment in providing your response.
--- NOTE | 2024-03-11 13:59 | PN.CDI ---
CDI
- -
CDI:
Physician Documentation Request
Admit Date: 03/09/24 11:38
Dear Doctor Epi,
Patient admitted with alcohol dependency and withdrawal.
Presenting wbc 4.5 , HR 130 , RR 18-27, has remained afebrile.
Please clarify which most accurately describes the patient:
Sepsis
Systemic manifestations of infection, with 2 or more SIRS criteria which include:
Fever > 100.4 degrees F or hypothermia < 96.8 degrees F
Leukocytosis - WBC > 12,000 or leukopenia, WBC < 4,000 or > 10% bands
Tachycardia - > 90 beats per minute
Tachypnea - RR > 20 breaths per minute or PaCO2 < 32 mmHg
SIRS due to a non-infectious source
Other
Use of terms such as suspected, likely, concern for, or probable (associated with a specific diagnosis that is being evaluated, monitored, or treated as if it exists) are acceptable and can be coded in the inpatient setting, when documented at the
time of discharge.
Thank you,
Radha Hernandez RN, BSN
CDI Specialist
tiger text
Please use your independent medical judgment in providing your response.
[2024-03-11 15:35] VITALS: BP 146/101
[2024-03-11 16:35] VITALS: BP 165/101
[2024-03-11] MEDS: APRESOLINE 10 MG IV (16:37)
[2024-03-11 17:49] VITALS: BP 153/111
[2024-03-11] MEDS: LOVENOX 40 MG SC (18:05)
[2024-03-11] MEDS: VITAMIN B1 100 MG PO (19:20)
[2024-03-11 19:21] VITALS: BP 143/96
[2024-03-11 23:32] VITALS: BP 116/76
--- NOTE | 2024-03-12 07:22 | W.PN.HOSP.TC ---
Today's Communication/Plan
-
end phenobarb taper today with goal for DC tomorrow
Assessment / Plan
Assessment / Plan
This is a 38-year-old male with past medical history of alcohol dependence, GERD, depression anxiety presented to the emergency department with intention to enter inpatient detox. He drinks regularly. He says he drinks about 2 sixpacks every
day./Drink was this morning. Patient arrives tremulous and tachycardic.
RUQ US
IMPRESSION:
Normal appearance of the gallbladder with no evidence for biliary ductal dilation.
Hepatomegaly with diffuse fatty infiltration of the liver. No focal hepatic lesion.
Spleen size appears within normal limits.
#Alcohol dependency
Alcohol Withdrawal
SIRS 2/ Alcohol withdrawal
- Admit to Tele for observation
- MSAS protocol
- started phenobarb taper given persistent elevated MSAS scoring and current tremors/anxiety -no intermittent ativan; OK to stop taper today (give one dose 32.4mg at 4PM) and observe overnight with plans to discharge tomorrow. patient has
outpatient appt on Thursday
- stopped fluids
- monitor labs
#Depression/Anxiety
- continue lexapro - patient will follow up with a psychiatrist as outpatient
- in past he took Ativan BID - explained this is dangerous to be dependent on ativan
Asymptomatic Bacteriuria
#Nicotine Dependency
- vapes use daily
- declines nicotine replacement
Hx Fatty Liver Disease
Alcohol Induced Hepatitis
-US results above
#GERD
- continue omeprazole
Full code
DVT Px: Lovenox
Anticipated Discharge: 24 - 48 hours
Subjective/Interval History
-
Date of Service: March 12, 2024
feeling anxious sitting in bed
wants to go home tomorrow
Objective Data
-
Labs:
Laboratory Results
03/12/24
06:24
Sodium Pending
Potassium Pending
Chloride Pending
Carbon Dioxide Pending
BUN Pending
Creatinine Pending
Glucose Pending
Calcium Pending
Total Bilirubin Pending
AST Pending
ALT Pending
Alkaline Phosphatase Pending
Vital Signs:
Vital Signs
Temp Pulse Resp BP Pulse Ox
98.2 F 86 18 116/76 99
03/11/24 23:32 03/11/24 23:32 03/11/24 23:32 03/11/24 23:32 03/11/24 23:32
I&O
03/11/24 03/12/24 03/13/24
06:59 06:59 05:59
Intake Total 480 / 480 1919
Balance 480 / 480 1919
Review of Systems
-
History Source: Patient
All other systems: Reviewed and negative
Physical Exam
-
General: Other (appears anxious)
HEENT: Normocephalic, Atraumatic and Moist Mucous Membranes
Respiratory: Clear to Auscultation
Cardiac: Regular Rhythm and S1/S2; Negative Murmur, Rub or Gallop
GI: Soft, Nontender, Nondistended and Normal Bowel Sounds; Negative Organomegaly
Rectal: Deferred by Provider
Musculoskeletal: No Clubbing, No Cyanosis and No Edema
Skin: Negative Rash
Neuro: Awake, Alert, Oriented, AO x 3 and Nonfocal/Grossly Intact
Psych: Anxious
Data Reviewed
-
Diagnostic Radiology: Report Reviewed by me
Labs: Labs Reviewed by me
[2024-03-12 07:55] VITALS: BP 118/83
[2024-03-12] MEDS: VITAMIN B1 100 MG PO ×2 (09:24→20:20)
[2024-03-12] MEDS: PROTONIX 40 MG PO (09:24)
[2024-03-12] MEDS: FOLVITE 1 MG PO (09:24)
[2024-03-12] MEDS: LUMINAL 64.8 MG PO (09:25)
[2024-03-12] MEDS: LEXAPRO 5 MG PO (09:25)
[2024-03-12] MEDS: NSS (PRESERVATIVE FREE) 0.5 ML IV ×2 (09:30→15:35)
[2024-03-12 09:31] LABS: ALT (SGPT) 197 U/L (0-50); AST (SGOT) 113 U/L (17-59); Albumin 4.2 g/dl (3.5-5.0); Alkaline Phosphatase 70 U/L (38-126); Blood Urea Nitrogen 13 mg/dl (9-20); Calcium 9.4 mg/dl (8.4-10.2); Carbon Dioxide 30 mmol/L (22-30); Chloride 98 mmol/L (98-107); Estimated Creatinine Clearance 116 ml/min; Glucose 108 mg/dl (70-99); Potassium 3.8 mmol/L (3.5-5.1); Sodium 137 mmol/L (135-145); Total Bilirubin 1.3 mg/dl (0.2-1.3); Total Protein 7.1 g/dl (6.3-8.2); eGFR > 60.00
[2024-03-12] MEDS: ATIVAN 1 MG IV ×3 (09:32→21:32)
[2024-03-12 15:10] VITALS: BP 137/85
[2024-03-12 16:10] VITALS: BP 137/85
[2024-03-12] MEDS: LUMINAL 32.4 MG PO (16:13)
[2024-03-12] MEDS: LOVENOX 40 MG SC (17:34)
[2024-03-12 23:30] VITALS: BP 121/79
[2024-03-13 06:39] LABS: ALT (SGPT) 153 U/L (0-50); AST (SGOT) 77 U/L (17-59); Alkaline Phosphatase 58 U/L (38-126); Blood Urea Nitrogen 13 mg/dl (9-20); Calcium 9.4 mg/dl (8.4-10.2); Carbon Dioxide 27 mmol/L (22-30); Chloride 100 mmol/L (98-107); Estimated Creatinine Clearance 116 ml/min; Glucose 109 mg/dl (70-99); Sodium 139 mmol/L (135-145); Total Bilirubin 0.9 mg/dl (0.2-1.3); Total Protein 6.7 g/dl (6.3-8.2); eGFR > 60.00
[2024-03-13 07:10] VITALS: BP 115/75
[2024-03-13] MEDS: VITAMIN B1 100 MG PO (08:13)
[2024-03-13] MEDS: LEXAPRO 5 MG PO (08:13)
[2024-03-13] MEDS: FOLVITE 1 MG PO (08:13)
[2024-03-13] MEDS: PROTONIX 40 MG PO (08:13)
[2024-03-13] MEDS: MOTRIN 600 MG PO (10:28)
--- NOTE | 2024-03-13 10:55 | W.PN.HOSP.TC ---
Today's Communication/Plan
-
Ok for DC today
Assessment / Plan
Assessment / Plan
This is a 38-year-old male with past medical history of alcohol dependence, GERD, depression anxiety presented to the emergency department with intention to enter inpatient detox. He drinks regularly. He says he drinks about 2 sixpacks every
day./Drink was this morning. Patient arrives tremulous and tachycardic.
RUQ US
IMPRESSION:
Normal appearance of the gallbladder with no evidence for biliary ductal dilation.
Hepatomegaly with diffuse fatty infiltration of the liver. No focal hepatic lesion.
Spleen size appears within normal limits.
#Alcohol dependency
Alcohol Withdrawal
SIRS 2/2 Alcohol withdrawal
- Admit to Tele for observation
- MSAS protocol
- started phenobarb taper given persistent elevated MSAS scoring and current tremors/anxiety -no intermittent ativan;now off taper overnight without withdrawal. He remains anxious which is his baseline anxiety. I will discharge with 3 pills of
Ativan to help with anxiety until plugged into outpatient program (on Thursday)
- repeat CMP in one week
#Depression/Anxiety
- continue lexapro - patient will follow up with a psychiatrist as outpatient
Asymptomatic Bacteriuria
#Nicotine Dependency
- vapes use daily
- declines nicotine replacement
Hx Fatty Liver Disease
Alcohol Induced Hepatitis
-US results above
#GERD
- continue omeprazole
Full code
DVT Px: Lovenox
Anticipated Discharge: Today
Subjective/Interval History
-
Date of Service: March 13, 2024
feeling anxious
but no withdrawal
he wants to go home
Objective Data
-
Labs:
Laboratory Results
03/13/24
05:47
PT 13.0
INR 1.00
Sodium 139
Potassium 4.0
Chloride 100
Carbon Dioxide 27
BUN 13
Creatinine 0.9
Glucose 109 H
Calcium 9.4
Total Bilirubin 0.9
AST 77 H
ALT 153 H
Alkaline Phosphatase 58
Vital Signs:
Vital Signs
Temp Pulse Resp BP Pulse Ox
98.4 F 70 16 115/75 98
03/13/24 07:10 03/13/24 07:10 03/13/24 07:10 03/13/24 07:10 03/13/24 07:10
I&O
03/12/24 03/13/24 03/14/24
07:59 06:59 06:59
Intake Total
Balance
Review of Systems
-
History Source: Patient
All other systems: Reviewed and negative
Physical Exam
-
General: Other (appears anxious)
HEENT: Normocephalic, Atraumatic and Moist Mucous Membranes
Respiratory: Clear to Auscultation
Cardiac: Regular Rhythm and S1/S2; Negative Murmur, Rub or Gallop
GI: Soft, Nontender, Nondistended and Normal Bowel Sounds; Negative Organomegaly
Rectal: Deferred by Provider
Musculoskeletal: No Clubbing, No Cyanosis and No Edema
Skin: Negative Rash
Neuro: Awake, Alert, Oriented, AO x 3 and Nonfocal/Grossly Intact
Psych: Anxious
Data Reviewed
-
Diagnostic Radiology: Report Reviewed by me
Labs: Labs Reviewed by me
[2024-03-13] MEDS: ATIVAN 1 MG PO (10:57)
--- NOTE | 2024-03-13 11:08 | W.DS.TRANS ---
DC Summary - [employer]
-
Discharge Instructions:
Discharge Diagnosis/Procedures alcohol withdrawal
Diet Regular
Activity As tolerated
Driving Restrictions As prior to admission
Bathing Restrictions None
Instructions:
Stand-Alone Forms:
Changes to Home Medications: Yes
Discharge Medications:
DC Medications w/original date entered in [facility] [employer]
escitalopram oxalate 5 mg tablet (Lexapro) 5 mg PO DAILY Depression 11/12/23
omeprazole 20 mg capsule,delayed release 20 mg PO DAILY GERD 11/12/23
folic acid 1 mg tablet 1 mg PO DAILY #30 tabs 03/13/24
lorazepam 1 mg tablet 1 mg PO BIDPRN PRN anxiety #4 tabs 03/13/24
thiamine HCl (vitamin B1) 100 mg tablet 100 mg PO DAILY #30 tabs 03/13/24
Home Medication Changes
addition of folate, thiamine, 4 pills of Ativan
Pending Results: No
--- NOTE | 2024-03-13 12:23 | CM ---
CM following re: discharge planning.
Reviewed pt's chart, met with pt.
Discharge order noted. Pt is aware and he stated his father is coming to transport him home. Pt stated he has an appointment at [facility] on Thursday03/16/24 for outpatient D&A treatment program. Encouragement with support to participate in
D&A treatment program provided, pt expressed his appreciation.
D/c plan: home with outpatient D&A treatment program at [facility]. Father to transport.
[2024-03-13 12:27] VITALS: BP 144/100
--- NOTE | 2024-03-13 13:40 | W.DCSUMMARY ---
Discharge Summary
Discharge Data
Date of Admission: 03/09/24
Date of Discharge: 03/13/24
-
Pending Results: No
Hospital Course
Discharging Physician : Dr. Josephine Chowdary
Disposition : Home
Primary care physician : Dr. Xavier Newman
Principal Discharge diagnosis : Alcohol Withdrawal, Anxiety
Hospital Course :
Mr. Wilmer Kirkpatrick is a 38 yo man with hx alcohol dependence, GERD, depression/anxiety who presents to the ER with intention to enter inpatient detox. He was admitted to medicine, started on phenobarbital taper with MSAS protocol. After discussions
with [facility] patient made decision to enter intensive outpatient program. His phenobarbital taper was more rapidly tapered on day 4 as he remained without symptoms of withdrawal. He has anxiety and I am prescribing several pills of Ativan on
discharge. He was told to not mix alcohol with Ativan and understands that risk. I offered to increase patient's Lexapro but he would rather adjust his medications with his Psychiatrist.
Time spent on discharge was 35 minutes.
Important imaging findings :
RUQ US
IMPRESSION:
Normal appearance of the gallbladder with no evidence for biliary ductal dilation.
Hepatomegaly with diffuse fatty infiltration of the liver. No focal hepatic lesion.
Spleen size appears within normal limits.
Procedure findings :
Discharge Plan
-
Patient Disposition: Home (Routine Discharge)
Discharge Diagnosis/Procedures: alcohol withdrawal
Diet: Regular
Activity: As tolerated
Driving Restrictions: As prior to admission
Bathing Restrictions: None
Referrals:
Xavier Newman MD [Family Provider] - in less than 1 week
Additional Discharge Medication Instructions: addition of folate, thiamine, 4 pills of Ativan
Prescriptions:
New
thiamine HCl (vitamin B1) 100 mg Tablet
100 mg PO DAILY Qty: 30 0RF
folic acid 1 mg Tablet
1 mg PO DAILY Qty: 30 0RF
lorazepam 1 mg Tablet
1 mg PO BIDPRN PRN (Reason: anxiety) Qty: 4 0RF
Continued
omeprazole 20 mg Capsule,Delayed Release(Dr/Ec)
20 mg PO DAILY
escitalopram oxalate [Lexapro] 5 mg Tablet
5 mg PO DAILY
Patient Comments:
02/08/24- no pharmacy fills
Discharge Orders:
Discharge Patient (As Directed); Ordered 03/13/24
Ordered By: Josephine Chowdary
Discharge Date and Time
Discharge Date/Time: 03/13/24 12:30
Print Language: ANGUILLAN
== END 2024-03-13 12:30 | disposition home or self-care (01) | DRG 897 ==
LOC: 4 EAST ACU 11:38
PROVIDERS: Nurse Practitioner Family; Registered Nurse; ADMITTING PHYSICIAN Internal Medicine; ATTENDING PHYSICIAN Student in an Organized Health Care Education/Training Program; EMERGENCY PHYSICIAN Emergency Medicine; FAMILY PHYSICIAN Family Medicine
DX: F10.239 Alcohol dependence with withdrawal, unspecified (principal); R65.10 Systemic inflammatory response syndrome (SIRS) of non-infectious origin without acute organ dysfunction; K70.10 Alcoholic hepatitis without ascites; K70.0 Alcoholic fatty liver; F32.A Depression, unspecified; F17.290 Nicotine dependence, other tobacco product, uncomplicated; F41.9 Anxiety disorder, unspecified; G43.909 Migraine, unspecified, not intractable, without status migrainosus; K21.9 Gastro-esophageal reflux disease without esophagitis; Z79.899 Other long term (current) drug therapy; Z87.19 Personal history of other diseases of the digestive system; Z87.442 Personal history of urinary calculi; Z87.01 Personal history of pneumonia (recurrent)
CPT/HCPCS: 76700; 80053; 80306; 80307; 81003; 81015; 82010; 82077; 82248; 82977; 83690; 83735; 84100; 84484; 85025; 85027; 85610; 85730; 87077; 87086; 87186; 93005; 96361; 96374; 96375; 96376; 99285

== ENCOUNTER 2024-04-08 00:59 | Inpatient (IN) | payer OTHER, SELFPAY ==
[2024-04-07] VITALS (9 sets, daily range): BP systolic 143–165; BP diastolic 96–124; BMI 27.6
[2024-04-07 20:01] LABS: % Basophils 1.8 % (0-2); % Eosinophils 1.8 % (0-6); % Immature Granulocytes 0.2 % (0-0.5); % Lymphocytes 49.2 % (20.5-51.1); % Monocytes 7.9 % (1.7-9.3); % Neutrophils 39.1 % (42.2-75.2); Absolute Basophils 0.1 10^3/uL (0-0.2); Absolute Eosinophils 0.1 10^3/uL (0-0.7); Absolute Lymphocytes 2.2 10^3/uL (1.2-3.4); Absolute Monocytes 0.4 10^3/uL (0.1-0.6); Absolute Neutrophils 1.7 10^3/uL (1.4-6.5); Hematocrit 46.1 % (39.0-52.0); Hemoglobin 15.8 g/dL (13.0-18.0); Mean Corp Hgb Conc. 34.3 g/dL (33.0-37.0); Mean Corpuscular Hgb 32.2 pg (27.0-31.0); Mean Corpuscular Volume 94.1 fL (80.0-94.0); Mean Platelet Volume 10.1 fL (7.4-10.4); Nucleated Red Blood Cells % 0 % (-); Platelet Count 216 10^3/uL (130-400); Red Cell Dist. Width 15.1 % (11.5-14.5); White Blood Cell Count 4.5 10^3/uL (4.8-10.8)
--- NOTE | 2024-04-07 20:11 | ED.GENMED ---
History of Present Illness
General
Chief Complaint: Alcohol Problem
Source: patient
Exam Limitations: none
Time Seen by Provider: 04/07/24 19:54
History of Present Illness
History of Present Illness:
This is a 38 year old male that is brought in by ambulance with c/o alcohol abuse. States that he is going through withdraw. States that he did drink earlier but has not felt good so is not drinking much. states that he has been SOB on and off with
chest pain. States that he is nauseated with vomiting and diarrhea. states that he also has a headache with dizziness and urinary burning. States that he is shaking due to withdraw. States that he has been trying to do outpatient but this is not
working. denies any fever, chills.
Past History
Past History
ED Past Medical History: GERD, Psychiatric (Anxiety, Depression, alcoholism) and Other (epididymitis L testicle, kidney stones, PNA, Renal calculus, Migraines, alcoholism, PNA, Pancreatitis, )
ED Past Surgical History: Appendectomy
Social History
Tobacco: Vaping (Quit 2020 now vapes)
Alcohol: Daily (12 pack of beer or bottle of vodka)
Drug: None
Personal: Single
Living: alone
Employment: Employed
Family History
Family History: Other
Review of Systems
Review of Systems
All Other Systems: ROS reviewed and negative except as documented in HPI and ROS
Constitutional: Reports no symptoms; Denies fever or chills
EENT: Reports no symptoms
Respiratory: Reports trouble breathing; Denies cough
Cardiac: Reports chest pain
ABD/GI: Reports abdominal pain, nausea, vomiting and diarrhea
: Reports dysuria; Denies frequency or urgency
Musculoskeletal: Reports no symptoms
Skin: Reports no symptoms
Neurological: Reports dizzy and headache
Psychiatric: Reports no symptoms
Phy Exam
General Physical Exam
General Presentation: no apparent distress
General age: appears stated age
General Skin: warm and dry
General Habitus: normal
General Mental: alert
General Hydration: dry mucous membranes
ENT Exam
ENT Exam: TM's normal, pharynx normal and neck supple
Eye Exam
Eye Exam: EOMI
Cardiovascular Exam
Cardiovascular Exam: no edema, normal peripheral pulses and tachycardia
Pulmonary Exam
Pulmonary Exam: lungs clear, no respiratory distress, no rales, chest non tender, no crackles, no rhonchi, no wheezing and no cough
Gastrointestinal Exam
Gastrointestinal Exam: normal bowel sounds, soft, no organomegaly, no pulsatile mass, non distended and tender (Slight upper abd tenderness with palpation)
Musculoskeletal Exam
Musculoskeletal Exam: full ROM and no edema
Skin Exam
Skin Exam: normal color, warm/dry, no rash and no petechia
Psychiatric Exam
Psychiatric Exam: normal mood/affect
Scores
Withdrawal Assessment of Alcohol
Withdrawal Assessment Completed?: Yes
Nausea and Vomiting: Intermittent nausea with dry heaves
Tactile Disturbances: None
Tremor: Moderate, with patient's arms extended
Auditory Disturbances: Not present
Paroxysmal Sweats: No sweat visible
Visual Disturbances: Not present
Anxiety: Mild anxiety
Headache, Fullness in Head: Mild
Agitation: Normal activity
Orientation and clouding of sensorium: Oriented and can do serial additions
Total CIWA Score: 11
Alcohol Withdrawal Medication Recommendation: Equal to MSAS Score 5-7. Lorazepam 1mg IV or PO NOW & re-assess q2hrs
Course
Orders/Labs/Results
Orders:
Orders
04/07/24 19:44
Electrocardiogram (*1) Urgent
Reason for Study: Chest Pain
EKG- Treatment ONCE
04/07/24 19:52
Alcohol Urgent
Complete Blood Count/With Diff Urgent
Comprehensive Metabolic Panel Urgent
Lipase Urgent
Comment: ADD ON
04/07/24 20:09
Add On- LAB Urgent
Tests Added?: Lipase
Electrocardiogram (*1) Urgent
Reason for Study: QTc Monitoring
0.9% Sodium Chloride 1000 ml [Nss] 1,000 ml IV BOLUS
Lorazepam [Ativan] 1 mg IV NOW STA
Ondansetron Injectable [Zofran] 4 mg IV NOW STA
04/07/24 20:10
Add On- LAB Urgent
Tests Added?: alcohol
04/07/24 20:12
Pantoprazole [Protonix IV] 40 mg IV NOW STA
04/07/24 20:13
CR Chest - 2 Views Urgent
Comment:
Reason For Exam: SOB
04/07/24 20:30
Troponin I Urgent
04/07/24 21:10
Fentanyl, Urine Urgent
Urinalysis Reflex To Culture Urgent
Date Specimen was Collected: 04/07/24
Time Specimen was Collected: 20:24
Urine Drug Abuse Screen Urgent
Date Specimen was Collected: 04/07/24
Time Specimen was Collected: 20:24
Urine Microscopic Reflex Cult Urgent
Urine Culture Urgent
YOVANY Source: U
Specimen Description:
Date Specimen was Collected: 04/07/24
Time Specimen was Collected: 20:24
04/07/24 21:28
Lorazepam [Ativan] 2 mg .ROUTE .STK-MED ONE
04/07/24 21:29
Lorazepam [Ativan] 1 mg IV NOW STA
04/07/24 23:12
HydrALAZINE [Apresoline] 5 mg IV NOW STA
Abnormal Lab Results
04/07/24 04/07/24
19:52 21:10
WBC 4.5 L 10^3/uL
(4.8-10.8)
MCV 94.1 H fL
(80.0-94.0)
MCH 32.2 H pg
(27.0-31.0)
RDW 15.1 H %
(11.5-14.5)
Neutrophils % 39.1 L %
(42.2-75.2)
Carbon Dioxide 18 L mmol/L
(22-30)
BUN 2 L mg/dl
(9-20)
Glucose 124 H mg/dl
(70-99)
AST 357 H U/L
(17-59)
ALT 226 H U/L
(0-50)
Total Protein 8.7 H g/dl
(6.3-8.2)
Albumin 5.3 H g/dl
(3.5-5.0)
Leukocyte Esterase Rfl 1+ A
(Negative)
U Benzodiazepines Scrn Positive H
(Negative)
04/07/24 19:52
04/07/24 19:52
WBC Very slightly low. Hyperglycemia, AST/ALT elevation. total protein slightly elevated. Albumin slightly elevated. Troponin <0.012, Lipase normal at 191, Alcohol level 231, Urine positive only for Benzodiazepine.
Vital Signs
Initial and Last Documented VS:
Initial Vital Signs
Temp Pulse Resp BP Pulse Ox
98.5 F 120 11 164/124 97
04/07/24 19:44 04/07/24 19:44 04/07/24 19:44 04/07/24 19:44 04/07/24 19:44
Last Documented Vital Signs
Temp Pulse Resp BP Pulse Ox
98.9 F 99 23 163/107 96
04/07/24 22:39 04/07/24 23:00 04/07/24 23:00 04/07/24 23:00 04/07/24 23:00
MDM/Problems Addressed
Differential Diagnosis Includes:
Alcohol abuse, Alcohol intoxication
MDM/Problems Addressed:
This is a 38 year old male that comes in by ambulance with c/o alcohol abuse. states that he has been trying to do out patient but this is not working. States that he is ready to go inpatient.
Will check labs and call [facility]. Will give IV fluids. Ativan for the shaking.
[facility] will be here to see patient.
Patient was seen by [facility] and they have stated that patient's withdraw symptoms are to severe and [facility] will hold a bed for him but will not take him at this time until his symptoms are under more control. Will admit. Hospitalist
notified.
Chronic conditions affecting care:
alcohol abuse
Acute Exacerbation and/or Progression of Chronic Illness:
Alcohol abuse
*Pulse Oximetry
Patient hypoxic: no
*EKG
Interpreted by ED Provider?: Yes
Heart Rate: 115
Rate: tachycardiac
Rhythm: sinus tachycardia
Cornish: normal axis
Interval: normal interval
QRS Pattern: normal QRS
Ischemia: no ischemia
*Customer Service Professional Interpretation
Rate: tachycardiac
Heart Rate: 107
Rhythm: sinus tachycardia
*Critical Care Note
Total Time (30-74mins, 75-104mins- exclusive of procedures): Not Applicable
ED Attending Note
-
Portions of this chart may have been created with voice recognition software.� Occasional wrong word or��sound alike� substitutions may have occurred due to the inherent limitations of voice recognition software.
Discharge Plan
Departure
Patient Disposition: Admit
Date of Disposition: 04/07/24
Time of Disposition: 23:20
Admit to: Telemetry
Presentation/result/management discussed w/ accepting MD/DO: Hospitalist
Patient with high blood pressure during this ER visit?: Yes
Condition: Good
Covid-19: Not Applicable
Discharge Problem:
Alcohol withdrawal, Hypertension
Prescriptions:
No Action
omeprazole 20 mg Capsule,Delayed Release(Dr/Ec)
20 mg PO DAILY
escitalopram oxalate [Lexapro] 5 mg Tablet
5 mg PO DAILY
Patient Comments:
02/08/24- no pharmacy fills
thiamine HCl (vitamin B1) 100 mg Tablet
100 mg PO DAILY Qty: 30 0RF
folic acid 1 mg Tablet
1 mg PO DAILY Qty: 30 0RF
lorazepam 1 mg Tablet
1 mg PO BIDPRN PRN (Reason: anxiety) Qty: 4 0RF
Referrals:
Xavier Newman MD [Family Provider] -
Interventions
Interventions:
*Risk Screen - Suicide Last Done: 04/07/24 19:48
*General Assessment Last Done: 04/07/24 19:48
*Neglect/Abuse Screening Last Done: 04/07/24 19:48
*ED COVID-19 Vaccine History Last Done: 04/07/24 19:48
ED- Neurological Assessment Last Done: 04/07/24 20:00
ED-Psychological Assessment Last Done: 04/07/24 20:00
Discharge Date and Time
Print Language: MONGOLIAN
[2024-04-07] MEDS: ATIVAN 1 MG IV ×2 (20:15→21:30)
[2024-04-07] MEDS: ZOFRAN 4 MG IV (20:15)
[2024-04-07] MEDS: NSS 1000 IV (20:15)
[2024-04-07 20:20] LABS: ALT (SGPT) 226 U/L (0-50); AST (SGOT) 357 U/L (17-59); Albumin 5.3 g/dl (3.5-5.0); Alkaline Phosphatase 76 U/L (38-126); Blood Urea Nitrogen 2 mg/dl (9-20); Calcium 9.4 mg/dl (8.4-10.2); Carbon Dioxide 18 mmol/L (22-30); Chloride 99 mmol/L (98-107); Estimated Creatinine Clearance > 125 ml/min; Glucose 124 mg/dl (70-99); Potassium 4.5 mmol/L (3.5-5.1); Sodium 143 mmol/L (135-145); Total Bilirubin 0.7 mg/dl (0.2-1.3); Total Protein 8.7 g/dl (6.3-8.2); eGFR > 60.00
[2024-04-07] MEDS: PROTONIX IV 40 MG IV (20:23)
[2024-04-07 20:46] LABS: Alcohol 231 mg/dl; Lipase 191 U/L (23-300)
[2024-04-07 20:58] LABS: Troponin I < 0.012 ng/ml
[2024-04-07 21:17] LABS: Urine Albumin Trace (Neg - Trace); Urine Bilirubin Negative (Negative); Urine Character Clear (Clear); Urine Color Yellow; Urine Glucose Negative (Negative); Urine Ketone Negative (Negative); Urine Leukocyte 1+ (Negative); Urine Nitrite Negative (Negative); Urine Occult Blood Negative (Negative); Urine Specific Gravity 1.015 (<1.030); Urine Urobilinogen Negative (Neg - 1+)
[2024-04-07 21:31] LABS: Urine Squamous Cell 0-2 /LPF (Few)
[2024-04-07 21:32] LABS: Amphetamines Negative (Negative); Barbiturates Negative (Negative); Benzodiazepines Positive (Negative); Buprenorphine Negative (Negative); Cocaine Negative (Negative); Marijuana Negative (Negative); Methadone Negative (Negative); Methamphetamines Negative (Negative); Opiates Negative (Negative); Phencyclidine Negative (Negative); Tricyclic Antidepressants Negative (Negative); Urine Hyaline Cast 0-2 /LPF (0-2)
[2024-04-07 21:34] LABS: Urine Red Blood Cell 0-2 /HPF (0-2)
[2024-04-07 21:53] LABS: Fentanyl, Urine Negative (Negative)
[2024-04-07] MEDS: APRESOLINE 5 MG IV (23:18)
[2024-04-08] VITALS (17 sets, daily range): BP systolic 123–162; BP diastolic 89–140; BMI 26.6
[2024-04-08] MEDS: ZOFRAN 4 MG IV (00:21)
[2024-04-08] MEDS: ATIVAN 2 MG IV (00:21)
--- NOTE | 2024-04-08 00:38 | HPS.HSE ---
Family Physician
-
Family Physician: Xavier Newman
Chief Complaint
-
Nausea, Shaking
History of Present Illness
Patient is a 38y M with PMH significant for alcohol use disorder who presents to ED complaining of withdrawal symptoms. Patient states that he drinks 12 beers per day or a bottle of vodka per day on average. He was recently admitted here for
similar presentation 03/08 - 03/13. Inpatient rehab was discussed at that time; however, patient elected to go home with intensive outpatient therapy. He states that he returned to drinking right away.
He last drank earlier today. He states that he drank about 6 beers today - his last drink around noon. This afternoon he began to feel shaky and nauseated. He reports chest tightness and shortness of breath. He preented to the ED for furtehr
evaluation.
Patient reports that he has been in touch with case workers at [facility] and notes that he has a bed waiting in inpatient rehab at this facility.
Medical History
Past Medical History
Past Medical History: Reports Other
Additional Past Medical History:
Depression / Anxiety
Alcohol Use Disorder
GERD
Past Surgical History: Reports Other
Additional Past Surgical History:
Appendectomy
Social History
Tobacco: Smoker (smoked cigarettes for 20 years, now uses vape every day)
Alcohol: Daily (12 pack of beer per day or 1 bottle vodka per day.)
Drug: None
Personal: Single
Living: With Family
Employment: Not Employed
Family History
Family History: Other (Brother: Alcohol Use Disorder)
Allergies / Home Medications
Allergies reflects when Allergies were last updated in PostedIn.
Home Medications with original date entered in PostedIn
Allergy/Medication List:
Allergies
Allergy/AdvReac Type Severity Reaction Status Date / Time
No Known Allergies Allergy Verified 03/08/24 13:36
Home Medications
escitalopram oxalate 5 mg tablet (Lexapro) 5 mg PO DAILY Depression 11/12/23
omeprazole 20 mg capsule,delayed release 20 mg PO DAILY GERD 11/12/23
Review of Systems
-
History Source: Patient
A 12 point ROS was completed and negative except as noted: Yes
Constitutional: Reports Fatigue; Denies Fever or Chills
EENT: Denies Sore Throat
Respiratory: Reports Trouble Breathing; Denies Cough
Cardiac: Reports Chest Pain, Diaphoresis and Palpitations; Denies Syncope
Abdomen/GI: Reports Nausea; Denies Abdominal Pain, Vomiting or Diarrhea
: Denies Dysuria or Flank Pain
Musculoskeletal: Denies Joint Pain or Edema
Neurological: Reports Dizzy and Headache
Psych: Reports Depression and Anxiety
Physical Exam
Vital Signs
Vital Signs
Temp Pulse Resp BP Pulse Ox
98.9 F 117 25 161/121 97
04/07/24 22:39 04/08/24 00:30 04/08/24 00:30 04/08/24 00:00 04/08/24 00:30
Physical Exam
General: Other (38y M in moderate distress.)
HEENT: Moist mucous membranes and PERRLA
Respiratory: Clear; No Wheezes, Rales or Rhonchi
Cardiac: S1/S2 and Tachycardia; No Murmur
GI: Soft, Non Tender, Non Distended and Normal Bowel Sounds
Musculoskeletal: No Clubbing, No Cyanosis and No Edema
Neuro: AO x 3 and Nonfocal/grossly intact
Psych: Other (Tremulous, diaphoretic.)
Laboratory Results
-
04/07/24 19:52
04/07/24 19:52
Laboratory Results
Total Bilirubin 0.7 mg/dl (0.2-1.3) 04/07/24 19:52
AST 357 U/L (17-59) H 04/07/24 19:52
ALT 226 U/L (0-50) H 04/07/24 19:52
Alkaline Phosphatase 76 U/L (38-126) 04/07/24 19:52
Troponin I < 0.012 ng/ml 04/07/24 20:30
Lipase 191 U/L (23-300) 04/07/24 19:52
Impression/Plan
-
A/P: Patient is a 38y M with PMH significant for alcohol use disorder who presents to ED for evaluation of alcohol withdrawal symptoms that started this afternoon.
Alcohol Use Disorder
Acute Alcohol Withdrawal
Alcoholic Ketoacidosis
- Admit for further evaluation and treatment.
- Phenobarb taper given active withdrawal symptoms and history of similar.
- MSAS protocol / Ativan as needed.
- Follow labs / lytes.
- IVFs support with supplemental dextrose given anion gap acidosis / AKA.
- Follow for clinical improvement.
- Case Management evaluation for discharge planning.
- Patient notes that he has inpatient rehab bed reserved at [facility].
Alcoholic Hepatitis
- Abnormal LFTs likely due to ongoing alcohol use as noted above.
- Check additional labs now in order to calculate MELD score.
- Follow LFTs / lytes for changes.
- Abstain from alcohol.
Anxiety / Depression
- Continue Lexapro for now.
- Would likely benefit from alternate / increased regimen given evident uncontrolled symptoms.
DVT Prophylaxis: Lovenox
Code Status: Full
[2024-04-08] MEDS: ATIVAN 1 MG IV ×2 (02:02→05:19)
[2024-04-08] MEDS: NSS (PRESERVATIVE FREE) 0.5 ML IV ×2 (02:02→05:20)
[2024-04-08] MEDS: PHENOBARBITAL 104 MG IV (02:33)
[2024-04-08] MEDS: D5LR 1000 IV ×3 (03:07→17:04)
[2024-04-08] MEDS: TYLENOL 650 MG PO ×2 (03:11→12:30)
[2024-04-08] MEDS: ATIVAN 1 MG PO ×4 (03:17→14:22)
[2024-04-08] MEDS: THIAMINE INJECTION 200 MG IV ×3 (03:17→17:00)
--- NOTE | 2024-04-08 05:04 | PTCARENOTE ---
Assumed care of Pt from ED RN. Pt AAOx3, with pleasant demeanor. Pt started on Phenobarbital. Pt remains on MSAS (see work list). Pt had no complaints at this time. Call lopez within reach. Assessment care and vitals as charted.
[2024-04-08 05:43] LABS: Mean Corp Hgb Conc. 34.2 g/dL (33.0-37.0); Mean Corpuscular Hgb 32.5 pg (27.0-31.0); Mean Platelet Volume 9.9 fL (7.4-10.4); Platelet Count 148 10^3/uL (130-400); Red Cell Dist. Width 14.7 % (11.5-14.5); White Blood Cell Count 5.4 10^3/uL (4.8-10.8)
[2024-04-08 05:45] LABS: INR 1.09; PT 14.6 Sec (11.4-14.6)
[2024-04-08 05:47] LABS: APTT 34.4 Sec (23.4-35.0)
[2024-04-08 06:00] LABS: Magnesium 1.7 mg/dl (1.6-2.3); Phosphorus 3.7 mg/dl (2.5-4.5)
[2024-04-08 06:02] LABS: ALT (SGPT) 188 U/L (0-50); AST (SGOT) 265 U/L (17-59); Albumin 4.2 g/dl (3.5-5.0); Alkaline Phosphatase 53 U/L (38-126); Blood Urea Nitrogen 7 mg/dl (9-20); Calcium 8.7 mg/dl (8.4-10.2); Carbon Dioxide 28 mmol/L (22-30); Chloride 98 mmol/L (98-107); Direct Bilirubin 0.3 mg/dl (0.0-0.4); Estimated Creatinine Clearance > 125 ml/min; Glucose 118 mg/dl (70-99); Magnesium 1.7 mg/dl (1.6-2.3); Phosphorus 3.6 mg/dl (2.5-4.5); Potassium 4.3 mmol/L (3.5-5.1); Sodium 138 mmol/L (135-145); Total Bilirubin 0.9 mg/dl (0.2-1.3); Total Protein 7.1 g/dl (6.3-8.2); eGFR > 60.00
[2024-04-08 06:06] LABS: B-Hydroxybutyrate 0.04 mmol/L (0.02-0.27)
[2024-04-08] MEDS: PHENOBARBITAL 97.5 MG IV ×3 (08:02→21:01)
[2024-04-08] MEDS: PROTONIX 40 MG PO (08:02)
[2024-04-08] MEDS: FOLVITE 1 MG PO (08:02)
[2024-04-08] MEDS: LEXAPRO 5 MG PO (08:02)
--- NOTE | 2024-04-08 08:23 | W.PN.HOSP.TC ---
Today's Communication/Plan
-
Continue alcohol withdrawal protocol
Low dose Amlodipine for high blood pressure
Assessment / Plan
Assessment / Plan
Physical Exam
General: Not in acute distress
HEENT: Moist mucous membranes
Respiratory: CTAB
Cardiac: S1/S2 and RRR
GI: Soft, Non Tender, Non Distended and Normal Bowel Sounds
Musculoskeletal: No Cyanosis and No Edema
Neuro: AO x 3 and Nonfocal/grossly intact
Psych: Other (Tremulous, diaphoretic.)
Assessment/Plan
Patient is a 38 y/o male with past medical history significant for alcohol use disorder who presents to ED for evaluation of alcohol withdrawal symptoms that started on 04/07/24 afternoon. Patient was here about 2 weeks ago for similar issue but
declined inpatient rehab at that time. Patient stated he already has bed at [facility] for IP rehab.
Alcohol Use Disorder
Acute Alcohol Withdrawal
Alcoholic Ketoacidosis
- Phenobarb taper given active withdrawal symptoms and history of similar.
- MSAS protocol / Ativan as needed.
- Follow labs / lytes.
- IVFs support with supplemental dextrose given anion gap acidosis / AKA.
- Follow for clinical improvement.
- Case Management evaluation for discharge planning.
- Patient notes that he has inpatient rehab bed reserved at [facility].
Alcoholic Hepatitis
- Abnormal LFTs likely due to ongoing alcohol use as noted above.
- MELD score is low
- Follow LFTs / lytes for changes.
- Abstain from alcohol.
Hypertension
-Low sodium diet
-Started low dose Amlodipine
Anxiety / Depression
- Continue Lexapro for now.
- Would likely benefit from alternate / increased regimen given evident uncontrolled symptoms.
GERD
- Continue Omeprazole
History of Asymptomatic Bacteriuria
#Nicotine Dependency
- vapes use daily
- Recently declined nicotine replacement
Hx Fatty Liver Disease
Alcohol Induced Hepatitis
DVT Prophylaxis: Lovenox
Code Status: Full
Anticipated Discharge: > 48 hours
Subjective/Interval History
-
Date of Service: April 08, 2024
Patient was seen and examined. He denied any new symptoms or complaints.
Objective Data
-
Labs:
Laboratory Results
04/08/24
05:28
WBC 5.4
Hgb 13.0
Hct 38.0 L
Plt Count 148 D
PT 14.6
INR 1.09
APTT 34.4
Sodium 138
Potassium 4.3
Chloride 98
Carbon Dioxide 28
BUN 7 L
Creatinine 0.7
Glucose 118 H
Calcium 8.7
Total Bilirubin 0.9
AST 265 H
ALT 188 H
Alkaline Phosphatase 53
Vital Signs:
Vital Signs
Temp Pulse Resp BP Pulse Ox
98.3 F 88 17 133/90 95
04/08/24 01:40 04/08/24 06:06 04/08/24 06:06 04/08/24 06:06 04/08/24 06:06
I&O
04/07/24 04/08/24 04/09/24
06:59 06:59 06:59
Intake Total 844 / 844
Output Total 250 / 250
Balance 594 / 594
[2024-04-08] MEDS: NORVASC 2.5 MG PO (14:22)
--- NOTE | 2024-04-08 14:23 | CM ---
Patient with Hx Etoh Use Disorder, Anxiety Disorder. Tox Screen Etoh 231. Room air. Receiving IVF, IV Phenobarbital, IV Ativan prn. MSAS per nursing.
Met with patient who resides with his parents, brother and 12 yr old daughter in a 2 story house with 3 steps to enter.
The patient has been independent in ADLs and ambulation.
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
The patient has no DME, prior VN.
PCP - Xavier Newman
Pharmacy - [facility]
Spoke with [facility]; patient is active with Medicaid.
Spoke with MIGUEL Segal; confirmed that patient has been accepted by [facility] Inpatient Etoh program.
Per Christos, the patient's brother who he lives with also recently did an Etoh program and is doing well. The parents however are actively drinking in the home. The patient recently participated in [facility]'s outpatient program however
resumed drinking.
*[facility] will not take the patient while he is on a Phenobarb taper. Patient needs to be independent in his mobility. [facility] will need updated clinical info prior to d/c.
Plan continue to follow patient's mobility.
Plan [facility] Inpatient Program when medically ready.
--- NOTE | 2024-04-08 16:41 | PTCARENOTE ---
Assumed care of patient at beginning of this shift from previous RN. Patient continues with MSAS requiring po ativan at different times t/o the day; see worklist for intervention and MAR for administration times. BP elevated today; Dr Pierce made
aware and ordered Norvasc. Patient stated he does not normally take bp medication at home. OOB to chair x1 asst; bed and chair alarm in use for patient safety. See worklist for full assessment.
[2024-04-08] MEDS: LOVENOX 40 MG SC (17:00)
[2024-04-09] VITALS (12 sets, daily range): BP systolic 109–156; BP diastolic 84–116
[2024-04-09] MEDS: THIAMINE INJECTION 200 MG IV ×3 (00:32→16:42)
[2024-04-09] MEDS: D5LR 1000 IV (01:12)
[2024-04-09] MEDS: TYLENOL 650 MG PO ×2 (04:18→16:46)
[2024-04-09] MEDS: ATIVAN 1 MG PO ×3 (04:19→20:08)
[2024-04-09 04:56] LABS: Hematocrit 39.8 % (39.0-52.0); Hemoglobin 13.4 g/dL (13.0-18.0); Mean Corp Hgb Conc. 33.7 g/dL (33.0-37.0); Mean Corpuscular Hgb 32.8 pg (27.0-31.0); Mean Corpuscular Volume 97.5 fL (80.0-94.0); Mean Platelet Volume 10.4 fL (7.4-10.4); Platelet Count 133 10^3/uL (130-400); Red Blood Cell Count 4.08 10^6/uL (4.70-6.10); Red Cell Dist. Width 14.6 % (11.5-14.5); White Blood Cell Count 4.2 10^3/uL (4.8-10.8)
[2024-04-09 05:10] LABS: ALT (SGPT) 191 U/L (0-50); AST (SGOT) 263 U/L (17-59); Alkaline Phosphatase 42 U/L (38-126); Blood Urea Nitrogen 7 mg/dl (9-20); Calcium 8.9 mg/dl (8.4-10.2); Carbon Dioxide 23 mmol/L (22-30); Chloride 102 mmol/L (98-107); Estimated Creatinine Clearance > 125 ml/min; Glucose 123 mg/dl (70-99); Magnesium 1.8 mg/dl (1.6-2.3); Potassium 4.6 mmol/L (3.5-5.1); Sodium 136 mmol/L (135-145); Total Bilirubin 1.7 mg/dl (0.2-1.3); eGFR > 60.00
--- NOTE | 2024-04-09 09:05 | W.PN.HOSP.TC ---
Today's Communication/Plan
-
Patient doing better
Continue Phenobarb taper/alcohol withdrawal protocol
Discharge planning to an inpatient rehab facility
Assessment / Plan
Assessment / Plan
Physical Exam
General: Not in acute distress
HEENT: Moist mucous membranes
Respiratory: CTAB
Cardiac: S1/S2 and RRR
GI: Soft, Non Tender, Non Distended and Normal Bowel Sounds
Musculoskeletal: No Cyanosis and No Edema
Neuro: AO x 3 and Nonfocal/grossly intact
Psych: Calm.
Assessment/Plan
Patient is a 38 y/o male with past medical history significant for alcohol use disorder who presents to ED for evaluation of alcohol withdrawal symptoms that started on 04/07/24 afternoon. Patient was here about 2 weeks ago for similar issue but
declined inpatient rehab at that time. Patient stated he already has bed at [facility] [place] for IP rehab.
Alcohol Use Disorder
Acute Alcohol Withdrawal
Alcoholic Ketoacidosis
- Phenobarb taper given active withdrawal symptoms and history of similar.
- MSAS protocol / Ativan as needed.
- Follow labs / lytes.
- IVFs support with supplemental dextrose given anion gap acidosis / AKA.
- Follow for clinical improvement.
- Case Management evaluation for discharge planning.
- Patient notes that he has inpatient rehab bed reserved at [facility] [place].
Alcoholic Hepatitis
- Abnormal LFTs likely due to ongoing alcohol use as noted above.
- MELD score is low
- Follow LFTs / lytes for changes.
- Abstain from alcohol.
- GI evaluation appreciated, low DF, ultrasound with fatty liver, follow-up with GI outpatient
Hypertension
-Low sodium diet
-Started low dose Amlodipine
Anxiety / Depression
- Continue Lexapro for now.
- Would likely benefit from alternate / increased regimen given evident uncontrolled symptoms.
GERD
- Continue Omeprazole
History of Asymptomatic Bacteriuria
#Nicotine Dependency
- vapes use daily
- Recently declined nicotine replacement
Hx Fatty Liver Disease
Alcohol Induced Hepatitis
DVT Prophylaxis: Lovenox
Code Status: Full Code
Anticipated Discharge: > 48 hours
Subjective/Interval History
-
Date of Service: April 09, 2024
Patient was seen and examined. He denied any complaints, he was alert and eating breakfast.
Objective Data
-
Labs:
Laboratory Results
04/09/24
04:33
WBC 4.2 L
Hgb 13.4
Hct 39.8
Plt Count 133
Sodium 136
Potassium 4.6
Chloride 102
Carbon Dioxide 23
BUN 7 L
Creatinine 0.7
Glucose 123 H
Calcium 8.9
Total Bilirubin 1.7 H
AST 263 H
ALT 191 H
Alkaline Phosphatase 42
Vital Signs:
Vital Signs
Temp Pulse Resp BP Pulse Ox
97.6 F 69 12 127/91 97
04/09/24 04:30 04/09/24 04:43 04/09/24 04:43 04/09/24 04:43 04/08/24 22:00
I&O
04/08/24 04/09/24 04/10/24
06:59 06:59 06:59
Intake Total 844 / 844 1979 / 1979
Output Total 250 / 250 900 / 900
Balance 594 / 594 1080 / 1080
--- NOTE | 2024-04-09 10:05 | CON.GI ---
Addendum entered and electronically signed by Mary Riggs MD 04/09/24 12:20:
I saw and examined the patient.
The HYDRAULIC PLUMBER HELPER or PA's note was reviewed and I agree with the note.
Comment: 38 yo M history of EtOH abuse here with EtOH withdrawal.
Found to have abnormal LFTs likely 2/2 drinking.
Low DF no need for steroids.
Fatty liver on US no signs of cirrhosis - normal platelets, normal coag.
Recommend outpatient GI follow up.
GI will sign off please call with ?s.
Original Note:
Consultation
-
Date/Time Consultation Requested: 04/08/242199
Date/Time Consultation Performed: 04/09/24 0940
Requesting Provider: Dr Pierce
Performing Provider: Dr. Riggs / Lea Clarke PA-C
Reason for Consultation: elevated LFTs
Medical History
Chief Complaint / HPI
Chief Complaint: alcohol withdrawal
History of Present Illness:
This is a 38 year old male with a past medical history of alcohol use disorder and GERD who presented to the hospital for withdrawal symptoms, with recent admission for same 1 month ago. GI is asked to consult. Patient admits to history of alcohol
abuse. He does want help quitting and is scheduled for inpatient rehab facility. Patient will drink a bottle ('fifth') of vodka daily or sometimes a 12-pack of beer. He currently denies any abdominal pain. +nausea. No vomiting, diarrhea, fevers or
chills. He has not been jaundiced and denies any dark urine. ER labs reviewed, showing elevated transaminases (AST 357, ALT 226) with normal total bilirubin (0.7) and alk phos (76). Transaminases have trended downward slightly since his admission on
04/07/24, but today with mild increase in total bili to 1.7. Direct bili pending. US abdomen shows hepatomegaly but no evidence of cirrhosis or focal hepatic lesion. Patient states his brother has alcohol use disorder as well, with liver
complications (pt cannot elaborate further) but otherwise denies a family history of liver disease. He denies a family history of any GI malignancies. Reflux is well-controlled on omeprazole.
Past Medical History
Past Medical History: GERD and Other (alcohol abuse)
Past Surgical History: Appendectomy
Social History
Tobacco: Vaping
Alcohol: Daily (12 beers or 1 bottle of vodka daily)
Drug: None
Personal: Single
Living: With Family
Family History
Family History: Other (No family history of GI malignancies. Brother does have alcohol abuse disorder.)
Allergies / Home Medications
Allergy/AdvReac Type Severity Reaction Status Date / Time
No Known Allergies Allergy Verified 03/08/24 13:36
�Medication �Instructions �Recorded
escitalopram oxalate 5 mg tablet 5 mg PO DAILY Depression 11/12/23
(Lexapro)
omeprazole 20 mg capsule,delayed 20 mg PO DAILY GERD 11/12/23
release
Review of Systems
-
History Source: Patient
All other systems: A 12 pt ROS was Negative except as stated above in HPI
Vital Signs
Temp Pulse Resp BP Pulse Ox
97.8 F 59 12 120/99 97
04/09/24 09:40 04/09/24 08:00 04/09/24 08:00 04/09/24 08:00 04/08/24 22:00
Physical Exam
Exam
General: Well Developed, Well Nourished and No Apparent Distress
HEENT: Anicteric
Respiratory: Clear
Cardiac: Regular Rhythm
GI: Soft, Non Tender, Non Distended and Normal Bowel Sounds
Skin: Warm and Dry
Neuro: AO x 3
Psych: Calm
Results
WBC 4.2 10^3/uL (4.8-10.8) L 04/09/24 04:33
Hgb 13.4 g/dL (13.0-18.0) 04/09/24 04:33
Hct 39.8 % (39.0-52.0) 04/09/24 04:33
MCV 97.5 fL (80.0-94.0) H 04/09/24 04:33
Plt Count 133 10^3/uL (130-400) 04/09/24 04:33
Absolute Neuts (auto) 1.7 10^3/uL (1.4-6.5) 04/07/24 19:52
PT 14.6 Sec (11.4-14.6) 04/08/24 05:28
INR 1.09 04/08/24 05:28
APTT 34.4 Sec (23.4-35.0) 04/08/24 05:28
Sodium 136 mmol/L (135-145) 04/09/24 04:33
Potassium 4.6 mmol/L (3.5-5.1) 04/09/24 04:33
Chloride 102 mmol/L (98-107) 04/09/24 04:33
Carbon Dioxide 23 mmol/L (22-30) 04/09/24 04:33
BUN 7 mg/dl (9-20) L 04/09/24 04:33
Creatinine 0.7 mg/dL (0.7-1.3) 04/09/24 04:33
Calcium 8.9 mg/dl (8.4-10.2) 04/09/24 04:33
Total Bilirubin 1.7 mg/dl (0.2-1.3) H 04/09/24 04:33
AST 263 U/L (17-59) H 04/09/24 04:33
ALT 191 U/L (0-50) H 04/09/24 04:33
Alkaline Phosphatase 42 U/L (38-126) 04/09/24 04:33
Lipase 191 U/L (23-300) 04/07/24 19:52
Diagnostic Image Results:
04/09/24 US Abdomen:
Mild hepatomegaly. Stable
Hepatic fatty infiltration. Stable
Nonvisualization of pancreas due to overlying bowel gas.
Prior GI Procedures:
EGD: never
Colonoscopy: never
Assessment / Plan
-
38 year old male with alcohol use disorder and GERD, admitted for acute alcohol withdrawal symptoms, with elevated LFTs.
IMPRESSION / PLAN:
Alcohol Use Disorder, with concern for alcoholic hepatitis
- elevated LFTs due to ongoing alcohol abuse
- DF calculated 9.1, no need for any steroid treatment
- abdominal US with hepatomegaly and fatty liver but no evidence of cirrhosis or focal liver lesion
- continue to trend LFTs
- extensive counseling on alcohol cessation and patient wishes to quit, plans to go to inpatient rehab
Other medical issues managed per primary medical team.
-
-
Thank you for consultation and allowing me to participate in the patient's care. Please call the rubber production machine operator GI physician during the after hours with any questions or concerns.
[2024-04-09] MEDS: PHENOBARBITAL 97.5 MG IV ×3 (10:48→22:18)
[2024-04-09] MEDS: PROTONIX 40 MG PO (10:53)
[2024-04-09] MEDS: FOLVITE 1 MG PO (10:53)
[2024-04-09] MEDS: NORVASC 2.5 MG PO (10:53)
[2024-04-09] MEDS: LEXAPRO 5 MG PO (10:53)
--- NOTE | 2024-04-09 15:14 | PTCARENOTE ---
Patient ambulating to bathroom with supervision and a steady gait. Patient with a mild tremor. Patient asking for Ativan. Patient states, 'I can feel when the Phenobarbital is wearing off and I am starting for feel anxious.' Physician notified,
order obtained for Ativan PO PRN daily. Patient states, 'If I can only have it once a day, then I want at bedtime.' Patient refusing Ativan at present. MSAS 2.
[2024-04-09 15:33] LABS: Direct Bilirubin 0.5 mg/dl (0.0-0.4)
[2024-04-09] MEDS: LOVENOX 40 MG SC (16:42)
[2024-04-10] VITALS (13 sets, daily range): BP systolic 122–147; BP diastolic 87–112
[2024-04-10] MEDS: THIAMINE INJECTION 200 MG IV ×3 (01:16→16:31)
[2024-04-10] MEDS: ATIVAN 1 MG PO (04:14)
[2024-04-10 04:55] LABS: Hematocrit 40.7 % (39.0-52.0); Hemoglobin 13.4 g/dL (13.0-18.0); Mean Corp Hgb Conc. 32.9 g/dL (33.0-37.0); Mean Corpuscular Hgb 32.4 pg (27.0-31.0); Mean Corpuscular Volume 98.3 fL (80.0-94.0); Mean Platelet Volume 10.3 fL (7.4-10.4); Platelet Count 135 10^3/uL (130-400); Red Blood Cell Count 4.14 10^6/uL (4.70-6.10); Red Cell Dist. Width 14.6 % (11.5-14.5); White Blood Cell Count 4.6 10^3/uL (4.8-10.8)
[2024-04-10 06:19] LABS: ALT (SGPT) 254 U/L (0-50); AST (SGOT) 304 U/L (17-59); Albumin 4.4 g/dl (3.5-5.0); Alkaline Phosphatase 58 U/L (38-126); Blood Urea Nitrogen 7 mg/dl (9-20); Calcium 9.2 mg/dl (8.4-10.2); Carbon Dioxide 26 mmol/L (22-30); Chloride 101 mmol/L (98-107); Estimated Creatinine Clearance > 125 ml/min; Glucose 105 mg/dl (70-99); Magnesium 1.6 mg/dl (1.6-2.3); Sodium 138 mmol/L (135-145); Total Bilirubin 1.3 mg/dl (0.2-1.3); Total Protein 7.2 g/dl (6.3-8.2); eGFR > 60.00
--- NOTE | 2024-04-10 07:58 | W.PN.HOSP.TC ---
Today's Communication/Plan
-
Continue Phenobarb taper, patient doing relatively well
Per case management, patient cannot be discharged to inpatient rehab until he completes phenobarb taper
Assessment / Plan
Assessment / Plan
Physical Exam
General: Not in acute distress
HEENT: Moist mucous membranes
Respiratory: CTAB
Cardiac: S1/S2 and RRR
GI: Soft, Non Tender, Non Distended and Normal Bowel Sounds
Musculoskeletal: No Cyanosis and No Edema
Neuro: AAO x 3 and Nonfocal/grossly intact
Psych: Calm.
Assessment/Plan
Patient is a 38 y/o male with past medical history significant for alcohol use disorder who presents to ED for evaluation of alcohol withdrawal symptoms that started on 04/07/24 afternoon. Patient was here about 2 weeks ago for similar issue but
declined inpatient rehab at that time. Patient stated he already has bed at [facility] for IP rehab.
Alcohol Use Disorder
Acute Alcohol Withdrawal
Alcoholic Ketoacidosis
- Continue Phenobarb taper given active withdrawal symptoms and history of similar.
- MSAS protocol / Ativan as needed.
- Follow labs / lytes.
- IVFs support with supplemental dextrose given anion gap acidosis / AKA.
- Follow for clinical improvement.
- Case Management evaluation for discharge planning.
- Patient notes that he has inpatient rehab bed reserved at [facility].
Alcoholic Hepatitis
- Abnormal LFTs likely due to ongoing alcohol use as noted above.
- MELD score is low
- Follow LFTs / lytes for changes.
- Abstain from alcohol.
- GI evaluation appreciated, low DF (so no need for steroids), ultrasound with fatty liver, follow-up with GI outpatient
Hypertension
-Low sodium diet
-Started low dose Amlodipine
Anxiety / Depression
- Continue Lexapro for now.
- Would likely benefit from alternate / increased regimen given evident uncontrolled symptoms.
Gastroesophageal Reflux Disease
- Continue Omeprazole
History of Asymptomatic Bacteriuria
Nicotine Dependency
- vapes use daily
- Recently declined nicotine replacement
History of Fatty Liver Disease
Alcohol-Induced Hepatitis
DVT Prophylaxis: Lovenox
Code Status: Full Code
Anticipated Discharge: > 48 hours
Subjective/Interval History
-
Date of Service: April 10, 2024
Patient was seen and examined. He reported feeling fine, denied any new symptoms or complaints.
Objective Data
-
Labs:
Laboratory Results
04/10/24
04:25
WBC 4.6 L
Hgb 13.4
Hct 40.7
Plt Count 135
Sodium 138
Potassium 4.0
Chloride 101
Carbon Dioxide 26
BUN 7 L
Creatinine 0.8
Glucose 105 H
Calcium 9.2
Total Bilirubin 1.3
AST 304 H
ALT 254 H
Alkaline Phosphatase 58
Vital Signs:
Vital Signs
Temp Pulse Resp BP Pulse Ox
98.2 F 69 15 124/91 97
04/10/24 03:00 04/10/24 06:00 04/10/24 06:00 04/10/24 06:00 04/10/24 06:00
I&O
04/09/24 04/10/24 04/11/24
06:59 06:59 06:59
Intake Total 1979 / 1979 480 / 480
Output Total 900 / 900 350 / 350
Balance 1080 / 1080 130 / 130
[2024-04-10] MEDS: PROTONIX 40 MG PO (08:07)
[2024-04-10] MEDS: FOLVITE 1 MG PO (08:07)
[2024-04-10] MEDS: NORVASC 2.5 MG PO (08:07)
[2024-04-10] MEDS: LEXAPRO 5 MG PO (08:07)
[2024-04-10] MEDS: LUMINAL 64.8 MG PO ×3 (08:22→21:39)
[2024-04-10] MEDS: ATIVAN 0.5 MG PO ×2 (11:41→17:15)
[2024-04-10] MEDS: LOVENOX 40 MG SC (16:38)
[2024-04-10] MEDS: TYLENOL 650 MG PO (17:15)
[2024-04-11] VITALS (11 sets, daily range): BP systolic 113–151; BP diastolic 81–107
[2024-04-11] MEDS: THIAMINE INJECTION 200 MG IV (00:26)
--- NOTE | 2024-04-11 03:48 | PTCARENOTE ---
Maintaining < 4 MSAS score; Improved withdrawal symptoms noted. Pt very anxious at times. OOB PRN; AAO x 3; SR on monitor. Will continue to monitor and assess.
[2024-04-11] MEDS: ATIVAN 1 MG PO ×3 (05:15→20:19)
[2024-04-11 05:27] LABS: Hematocrit 41.6 % (39.0-52.0); Hemoglobin 13.5 g/dL (13.0-18.0); Mean Corp Hgb Conc. 32.5 g/dL (33.0-37.0); Mean Corpuscular Hgb 31.7 pg (27.0-31.0); Mean Corpuscular Volume 97.7 fL (80.0-94.0); Platelet Count 142 10^3/uL (130-400); Red Blood Cell Count 4.26 10^6/uL (4.70-6.10); Red Cell Dist. Width 15.1 % (11.5-14.5); White Blood Cell Count 5.6 10^3/uL (4.8-10.8)
[2024-04-11 06:05] LABS: ALT (SGPT) 256 U/L (0-50); AST (SGOT) 215 U/L (17-59); Albumin 4.4 g/dl (3.5-5.0); Alkaline Phosphatase 52 U/L (38-126); Blood Urea Nitrogen 14 mg/dl (9-20); Calcium 9.2 mg/dl (8.4-10.2); Chloride 97 mmol/L (98-107); Estimated Creatinine Clearance 116 ml/min; Glucose 105 mg/dl (70-99); Magnesium 1.6 mg/dl (1.6-2.3); Potassium 4.4 mmol/L (3.5-5.1); Sodium 136 mmol/L (135-145); Total Protein 7.3 g/dl (6.3-8.2); eGFR > 60.00
[2024-04-11 06:35] LABS: Carbon Dioxide 28 mmol/L (22-30)
--- NOTE | 2024-04-11 07:25 | W.PN.HOSP.TC ---
Today's Communication/Plan
-
Transfer to telemetry
Continue Phenobarb taper
Psychiatry consulted for patient's significant anxiety
Assessment / Plan
Assessment / Plan
Physical Exam
General: Not in acute distress
HEENT: Moist mucous membranes
Respiratory: CTAB
Cardiac: S1/S2 and RRR
GI: Soft, Non Tender, Non Distended and Normal Bowel Sounds
Musculoskeletal: No Cyanosis and No Edema
Neuro: AAO x 3 and Nonfocal/grossly intact
Psych: Calm.
Assessment/Plan
Patient is a 38 y/o male with past medical history significant for alcohol use disorder who presents to ED for evaluation of alcohol withdrawal symptoms that started on 04/07/24 afternoon. Patient was here about 2 weeks ago for similar issue but
declined inpatient rehab at that time. Patient stated he already has bed at [facility] for IP rehab.
Alcohol Use Disorder
Acute Alcohol Withdrawal
Alcoholic Ketoacidosis
- Continue Phenobarb taper given active withdrawal symptoms and history of similar.
- MSAS protocol / Ativan as needed.
- Follow labs / lytes.
- IVFs support with supplemental dextrose given anion gap acidosis / AKA.
- Follow for clinical improvement.
- Case Management evaluation for discharge planning.
- Patient notes that he has inpatient rehab bed reserved at [facility].
Alcoholic Hepatitis
- Abnormal LFTs likely due to ongoing alcohol use as noted above.
- MELD score is low
- Follow LFTs / lytes for changes.
- Abstain from alcohol.
- GI evaluation appreciated, low DF (so no need for steroids), ultrasound with fatty liver, follow-up with GI outpatient
Hypertension
-Low sodium diet
-Started low dose Amlodipine
Anxiety / Depression
- Continue Lexapro for now.
- Would likely benefit from alternate / increased regimen given evident uncontrolled symptoms.
Gastroesophageal Reflux Disease
- Continue Omeprazole
History of Asymptomatic Bacteriuria
Nicotine Dependency
- vapes use daily
- Recently declined nicotine replacement
History of Fatty Liver Disease
Alcohol-Induced Hepatitis
DVT Prophylaxis: Lovenox
Code Status: Full Code
Anticipated Discharge: > 48 hours
Subjective/Interval History
-
Date of Service: April 11, 2024
Patient was seen and examined. He denied any complaints, except on and off anxiety.
Objective Data
-
Labs:
Laboratory Results
04/11/24
05:08
WBC 5.6
Hgb 13.5
Hct 41.6
Plt Count 142
Sodium 136
Potassium 4.4
Chloride 97 L
Carbon Dioxide 28
BUN 14
Creatinine 0.9
Glucose 105 H
Calcium 9.2
Total Bilirubin 1.0
AST 215 H
ALT 256 H
Alkaline Phosphatase 52
Vital Signs:
Vital Signs
Temp Pulse Resp BP Pulse Ox
97.9 F 68 18 126/99 97
04/10/24 22:00 04/11/24 06:00 04/11/24 06:00 04/11/24 06:00 04/11/24 06:00
I&O
04/10/24 04/11/24 04/12/24
06:59 06:59 06:59
Intake Total 480 / 480
Output Total 350 / 350
Balance 130 / 130
[2024-04-11] MEDS: NORVASC 2.5 MG PO (07:56)
[2024-04-11] MEDS: VITAMIN B1 100 MG PO ×2 (07:56→20:15)
[2024-04-11] MEDS: PROTONIX 40 MG PO (07:56)
[2024-04-11] MEDS: FOLVITE 1 MG PO (07:56)
[2024-04-11] MEDS: LEXAPRO 5 MG PO (07:56)
[2024-04-11] MEDS: LUMINAL 64.8 MG PO ×3 (07:57→22:06)
--- NOTE | 2024-04-11 09:37 | PTCARENOTE ---
pt asleep wakes to name. states no pain. states he does feel anxious at times. will monitor told pt to let me know when he feels anxious. room air breath sounds clear. pt ambulates in room self. msas as documented.
[2024-04-11] MEDS: ATIVAN 0.5 MG PO (11:21)
[2024-04-11] MEDS: TYLENOL 650 MG PO (12:08)
--- NOTE | 2024-04-11 15:20 | PTCARENOTE ---
Patient AOx3. MSAS completed per order. Patient anxious at times. PRN Ativan given per JUL. Patient on RA with SpO2 greater than 92%. NSR on tele. Patient ambulates independently in room. Bed in lowest position, wheels locked, and call lopez within
reach.
--- NOTE | 2024-04-11 16:13 | PTCARENOTE ---
Patient transferred to . Report given to Lorena GAMBLE. Patient belongings transferred with patient.
--- NOTE | 2024-04-11 17:02 | PTCARENOTE ---
pt transfer from IMU. pt anxious, AAO*3, denies any pain. call lopez within the reach. oriented to the room. plan of care ongoing.
--- NOTE | 2024-04-11 17:42 | CM ---
Patient with Hx Etoh Use Disorder, Anxiety Disorder. Tox Screen Etoh 231. Room air. Receiving PO Phenobarbital with taper, IV Ativan prn. MSAS. Per nursing; ambulatory by self in room.
As per prior CM notes 04/08; CM spoke with MIGUEL Segal & confirmed that patient has been accepted by [facility] Inpatient E[facility] program.
Plan [facility] Inpatient Program when medically ready.
[2024-04-11] MEDS: LOVENOX 40 MG SC (18:30)
[2024-04-12] MEDS: ATIVAN 1 MG PO (03:24)
[2024-04-12 03:32] VITALS: BP 116/86
[2024-04-12 07:25] LABS: Hematocrit 39.2 % (39.0-52.0); Mean Corp Hgb Conc. 33.2 g/dL (33.0-37.0); Mean Corpuscular Volume 96.6 fL (80.0-94.0); Mean Platelet Volume 10.9 fL (7.4-10.4); Platelet Count 148 10^3/uL (130-400); Red Blood Cell Count 4.06 10^6/uL (4.70-6.10); Red Cell Dist. Width 15.1 % (11.5-14.5); White Blood Cell Count 5.7 10^3/uL (4.8-10.8)
[2024-04-12 07:35] VITALS: BP 100/75
[2024-04-12 08:21] LABS: ALT (SGPT) 218 U/L (0-50); AST (SGOT) 150 U/L (17-59); Albumin 4.2 g/dl (3.5-5.0); Alkaline Phosphatase 54 U/L (38-126); Blood Urea Nitrogen 14 mg/dl (9-20); Calcium 9.1 mg/dl (8.4-10.2); Carbon Dioxide 30 mmol/L (22-30); Chloride 98 mmol/L (98-107); Estimated Creatinine Clearance > 125 ml/min; Glucose 97 mg/dl (70-99); Potassium 3.7 mmol/L (3.5-5.1); Sodium 137 mmol/L (135-145); Total Bilirubin 0.8 mg/dl (0.2-1.3); eGFR > 60.00
[2024-04-12] MEDS: LEXAPRO 5 MG PO (08:27)
[2024-04-12] MEDS: VITAMIN B1 100 MG PO (08:27)
[2024-04-12] MEDS: PROTONIX 40 MG PO (08:27)
[2024-04-12] MEDS: LUMINAL 32.4 MG PO (08:28)
[2024-04-12] MEDS: FOLVITE 1 MG PO (08:28)
[2024-04-12] MEDS: TYLENOL 650 MG PO (08:38)
[2024-04-12] MEDS: ATIVAN 0.5 MG PO (11:30)
[2024-04-12 12:19] VITALS: BP 159/106
[2024-04-12] MEDS: NORVASC 2.5 MG PO (12:19)
--- NOTE | 2024-04-12 12:50 | W.PN.HOSP.TC ---
Today's Communication/Plan
-
Patient Leaving Against Medical Advice
Assessment / Plan
Assessment / Plan
Physical Exam
General: Not in acute distress
HEENT: Moist mucous membranes
Respiratory: CTAB
Cardiac: S1/S2 and RRR
GI: Soft, Non Tender, Non Distended and Normal Bowel Sounds
Musculoskeletal: No Cyanosis and No Edema
Neuro: AAO x 3 and Nonfocal/grossly intact
Psych: Calm.
Assessment/Plan
Patient is a 38 y/o male with past medical history significant for alcohol use disorder who presents to ED for evaluation of alcohol withdrawal symptoms that started on 04/07/24 afternoon. Patient was here about 2 weeks ago for similar issue but
declined inpatient rehab at that time. Patient stated he already has bed at [facility] for IP rehab.
Alcohol Use Disorder
Acute Alcohol Withdrawal
Alcoholic Ketoacidosis
- Continue Phenobarb taper given active withdrawal symptoms and history of similar.
- MSAS protocol / Ativan as needed.
- Follow labs / lytes.
- IVFs support with supplemental dextrose given anion gap acidosis / AKA.
- Follow for clinical improvement.
- Case Management evaluation for discharge planning.
- Patient notes that he has inpatient rehab bed reserved at [facility].
Alcoholic Hepatitis
- Abnormal LFTs likely due to ongoing alcohol use as noted above.
- MELD score is low
- Follow LFTs / lytes for changes.
- Abstain from alcohol.
- GI evaluation appreciated, low DF (so no need for steroids), ultrasound with fatty liver, follow-up with GI outpatient
Hypertension
-Low sodium diet
-Started low dose Amlodipine
Anxiety / Depression
- Continue Lexapro for now.
- Would likely benefit from alternate / increased regimen given evident uncontrolled symptoms.
Gastroesophageal Reflux Disease
- Continue Omeprazole
History of Asymptomatic Bacteriuria
Nicotine Dependency
- vapes use daily
- Recently declined nicotine replacement
History of Fatty Liver Disease
Alcohol-Induced Hepatitis
DVT Prophylaxis: Lovenox
Code Status: Full Code
Patient requested to leave today. In the presence of patient's nurse, I explained to him that he has 5 doses of phenobarbital left and he also required Ativan yesterday and overnight for elevated MSAS scores. I explained to him that he needs to stay
1 more day to ensure it is safe for him to be discharged from the hospital. He stated his daughter is having a crisis at school, and he needs to go now. I asked patient case manager to see if she (patient case manager) can help with patient's situation, but after
patient case manager discussed with him, he said that he still needs to leave now. Patient stated that he lives with his parents, and his parents could watch over him at home. I told patient to return to the emergency room if he experiences new symptoms,
including but not limited to sweating, nausea, elevated heart rate, pulsations, chest pain, or shaking or seizures. Patient said he will follow-up with his PCP outpatient, and will try to follow-up with them tomorrow.
More than 30 minutes spent in discharge including
Final examination of the patient
Summarizing hospital stay
Instructions for continuing care to all relevant caregivers
Preparation of discharge records, prescriptions, and referral forms
Total time spent (in minutes): 35
Anticipated Discharge: Today
Subjective/Interval History
-
Date of Service: April 12, 2024
Patient was seen and examined. He denied any symptoms or complaints.
Objective Data
-
Labs:
Laboratory Results
04/12/24
06:50
WBC 5.7
Hgb 13.0
Hct 39.2
Plt Count 148
Sodium 137
Potassium 3.7
Chloride 98
Carbon Dioxide 30
BUN 14
Creatinine 0.8
Glucose 97
Calcium 9.1
Total Bilirubin 0.8
AST 150 H
ALT 218 H
Alkaline Phosphatase 54
Vital Signs:
Vital Signs
Temp Pulse Resp BP Pulse Ox
98.4 F 79 18 159/106 98
04/12/24 12:19 04/12/24 12:19 04/12/24 12:19 04/12/24 12:19 04/12/24 03:32
I&O
04/11/24 04/12/24 04/13/24
06:59 06:59 06:59
Intake Total 480 / 480
Balance 480 / 480
--- NOTE | 2024-04-12 13:51 | PTCARENOTE ---
Patient left AMA. Education was provided on the imoprtance of el reese in finishing his alcohol withdrawal protocol.
--- NOTE | 2024-04-12 14:29 | CM ---
CM notified that Wilmer is leaving AMA due to a psychiatric crisis with his daughter at school. I met with Wilmer to provide support and encourage him to stay for the remainder of his phenobarb taper, however he felt that he needed to be with his
daughter, and his mother was on her way to the hospital to take him home.
Wilmer was accepted for admission to [facility] IP ETOH program, however with his concern for his daughter, he is adamant about going home. Wilmer advised that he has a counselor that he sees weekly at [facility] and will see if he can
increase to at least twice a week with the increased stress he is under.
BCARES notified of AMA discharge and will be in contact with Wilmer.
Plan: Pt signed out AMA.
== END 2024-04-12 14:08 | disposition left against medical advice (07) | DRG 894 ==
LOC: 4 EAST ACU 00:59
PROVIDERS: Clinical Nurse Specialist Family Health; ADMITTING PHYSICIAN Hospitalist; ATTENDING PHYSICIAN Hospitalist; CONSULT PHYSICIAN Internal Medicine Gastroenterology; EMERGENCY PHYSICIAN Emergency Medicine; FAMILY PHYSICIAN Family Medicine
DX: F10.939 Alcohol use, unspecified with withdrawal, unspecified (principal); E87.29 Other acidosis; K70.10 Alcoholic hepatitis without ascites; F17.200 Nicotine dependence, unspecified, uncomplicated; I10 Essential (primary) hypertension
CPT/HCPCS: 71046; 76700; 80048; 80053; 80076; 80306; 80307; 81003; 81015; 82010; 82077; 82248; 83690; 83735; 84100; 84484; 85025; 85027; 85610; 85730; 87086; 93005; 96361; 96374; 96375; 96376; 99285

== ENCOUNTER 2024-05-20 16:56 | Inpatient (IN) | payer OTHER, SELFPAY ==
[2024-05-20] VITALS (9 sets, daily range): BP systolic 124–147; BP diastolic 82–102
--- NOTE | 2024-05-20 14:26 | ED.GENMED ---
ED Provider Triage
<Anuel Marroquin PA-C - Last Filed: 05/20/24 14:32>
-
Patient seen by provider in Triage?: Seen in Triage
38-year-old male presents with dizziness lightheadedness fatigue heart racing. He states he may be withdrawing from alcohol. He had an alcoholic beverage this morning. He also notes chest pressure and head pressure. No fever.
Patient is tachycardic at triage. He is hypertensive at triage. Consider possible alcohol withdrawal. Will check labs EKG troponin because of the chest pain.
Seen by provider in triage but warrants further assessment
History of Present Illness
<Anuel Marroquin PA-C - Last Filed: 05/20/24 14:32>
General
Chief Complaint: Breathing Problem
Time Seen by Provider: 05/20/24 14:42
<Xavier Walker MD - Last Filed: 05/20/24 19:08>
General
Source: patient
Exam Limitations: none
History of Present Illness
History of Present Illness:
38-year-old male presents with nausea vomiting tremors agitation shortness of breath. Started a few hours ago. Feels like withdrawal. History of same in the past. No pleuritic pain no back pain.
Past History
<Anuel Marroquin PA-C - Last Filed: 05/20/24 14:32>
Past History
ED Past Medical History: GERD, Psychiatric (Anxiety, Depression, alcoholism) and Other (epididymitis L testicle, kidney stones, PNA, Renal calculus, Migraines, alcoholism, PNA, Pancreatitis, )
ED Past Surgical History: Appendectomy
Social History
Tobacco: Vaping (Quit 2020 now vapes)
Alcohol: Daily (12 pack of beer or bottle of vodka)
Drug: None
Personal: Single
Living: alone
Employment: Employed
Family History
Family History: Other
Review of Systems
<Xavier Walker MD - Last Filed: 05/20/24 19:08>
Review of Systems
All Other Systems: Not applicable
Respiratory: Denies cough
Cardiac: Reports no symptoms
Phy Exam
<Xavier Walker MD - Last Filed: 05/20/24 19:08>
Physical Exam
Physical Exam:
GENERAL: Alert and oriented. Tremulous. Agitated. Diaphoretic.
EYE: Orbits normal.
NECK: Supple, no significant adenopathy.
ENT: Pharynx without erythema
CARDIAC: Tacky and regular no murmur.
LUNGS: Mildly tachypneic and regular clear
ABDOMEN: Soft, without focal tenderness or distention
NEUROLOGICAL: Alert and oriented , grossly non-focal
SKIN: Warm. Diaphoretic
MUSCULOSKELETAL: No edema,no deformity.Good color
PSYCH: Anxious. Mild tremulous
Scores
<Xavier Walker MD - Last Filed: 05/20/24 19:08>
Withdrawal Assessment of Alcohol
Withdrawal Assessment Completed?: Yes
Nausea and Vomiting: Intermittent nausea with dry heaves
Tactile Disturbances: Very mild itching, pins and needles, burning or numbness
Tremor: Moderate, with patient's arms extended
Auditory Disturbances: Not present
Paroxysmal Sweats: Beads of sweat obvious on forehead
Visual Disturbances: Not present
Anxiety: Moderately anxious, or guarded, so anxiety is inferred
Headache, Fullness in Head: Moderate
Agitation: Moderately fidgety and restless
Orientation and clouding of sensorium: Oriented and can do serial additions
Total CIWA Score: 24
Alcohol Withdrawal Medication Recommendation: Equal to MSAS >11. Lorazepam 2-4mg IV NOW and re-assess q1hr
Course
<Anuel Marroquin PA-C - Last Filed: 05/20/24 14:32>
Orders/Labs/Results
Orders:
Orders
05/20/24 14:24
Electrocardiogram (*1) Urgent
Reason for Study: Shortness of Breath
EKG- Treatment ONCE
05/20/24 14:45
MSAS SCORE As Directed
MSAS Score 0-4: Repeat MSAS every 2 hours until 0-4 for three consecutive assessments, then every 4 hours x 48
hours.
MSAS Score 5-7: For MILD withdrawl symptoms. Repeat MSAS and RASS every 2 hours
MSAS Score 8-11: For MODERATE withdrawal symptoms. Repeat MSAS and RASS every 1 hour. Consider ICU or IMU
level of care.
MSAS Score > 11: For SEVERE withdrawal symptoms. Repeat MSAS and RASS every 1 hour. Notify provider, consider
ICU level of care.
MSAS Additional Instructions: If no improvement or no decrease in score from severe to moderate within 12
hours, consult psychiatry
MSAS Notify Provider: Notify provider if patient requires more than 10 mg of Lorazepam in eight hour period.
05/20/24 14:47
Alcohol Urgent
Complete Blood Count/With Diff Urgent
Comprehensive Metabolic Panel Urgent
Troponin I Urgent
0.9% Sodium Chloride 1000 ml [Nss] 1,000 ml IV BOLUS
Lorazepam [Ativan] 2 mg .ROUTE .STK-MED ONE
Ondansetron Injectable [Zofran] 4 mg .ROUTE .STK-MED ONE
CXR Port [CR Chest Portable - 1 View] Urgent
Comment:
Reason For Exam: sob
Reason Study Needs to be Portable: Patient Unstable
05/20/24 14:48
Ondansetron Injectable [Zofran] 4 mg IV NOW STA
05/20/24 14:50
Lorazepam [Ativan] 1 mg IV NOW STA
05/20/24 Dinner
Regular
At Your Request: Full Participation
05/20/24 15:09
Lorazepam [Ativan] 1 mg IV NOW STA
05/20/24 16:39
Admit/Transfer Patient As Directed
Co-Sign Provider:
Level of Care: Inpatient admission
Assign to:: IMU- Intermediate Care
Physician / Group: nelson
Diagnosis: alcohol use disorder
Reason for Hospitalization: alcohol use disorder
Expected length of stay greater than two midnights?: Yes
ELOS- Estimated Length of Stay in days: 2
I certify the patient meets the requirements for IP care: Yes
Code Status As Directed
Resuscitation Status: Full Code
PRN Pain Medication Management As Directed
May give lesser potent ordered pain med per pt: Yes
preference::
Protocol:: Medication orders for pain may be administered in a
manner that supports deferring to patient preference
when the pt is:
- Requesting an ordered lesser potent pain medication.
Least to most potent pain medications are defined
as: acetaminophen < NSAID < tramadol < opioids
(morphine, oxycodone, hydromorphone).
- Requesting a lesser dose of the same medication IF
ORDERED.
- Requesting a less intrusive route of administration
if both routes are prescribed by the provider (PO <
IV).
05/20/24 17:00
0.9% Sodium Chloride 1000 ml [Nss] 1,000 ml Mvi, Adult [Multivitamin] 10 ml Thiamine Injection 100 mg IV Wide Open mls/hr
05/20/24 17:01
0.9% Sodium Chloride [Nss (Preservative Free)] See Protocol IV PRN PRN
Lorazepam [Ativan] 1 mg IV Q1HPRN PRN
Lorazepam [Ativan] 1 mg PO Q2HPRN PRN
Lorazepam [Ativan] 2 mg IV Q1HPRN PRN
05/20/24 17:01
MSAS SCORE As Directed
MSAS Score 0-4: Repeat MSAS every 2 hours until 0-4 for three consecutive assessments, then every 4 hours x 48
hours.
MSAS Score 5-7: For MILD withdrawl symptoms. Repeat MSAS and RASS every 2 hours
MSAS Score 8-11: For MODERATE withdrawal symptoms. Repeat MSAS and RASS every 1 hour. Consider ICU or IMU
level of care.
MSAS Score > 11: For SEVERE withdrawal symptoms. Repeat MSAS and RASS every 1 hour. Notify provider, consider
ICU level of care.
MSAS Additional Instructions: If no improvement or no decrease in score from severe to moderate within 12
hours, consult psychiatry
MSAS Notify Provider: Notify provider if patient requires more than 10 mg of Lorazepam in eight hour period.
05/20/24 17:23
Phenobarbital Sodium [Phenobarbital] 260 mg 0.9% Sodium Chloride 100 ml [Nss] 100 ml IV NOW
Abnormal Lab Results
05/20/24
14:47
Neutrophils % 39.9 L %
(42.2-75.2)
Chloride 93 L mmol/L
(98-107)
Carbon Dioxide 21 L mmol/L
(22-30)
BUN 8 L mg/dl
(9-20)
Glucose 121 H mg/dl
(70-99)
AST 124 H U/L
(17-59)
ALT 113 H U/L
(0-50)
Total Protein 9.6 H g/dl
(6.3-8.2)
Albumin 5.6 H g/dl
(3.5-5.0)
05/20/24 14:47
05/20/24 14:47
Vital Signs
Initial and Last Documented VS:
Initial Vital Signs
Temp Pulse Resp BP Pulse Ox
97.9 F 125 16 147/102 98
05/20/24 14:20 05/20/24 14:20 05/20/24 14:20 05/20/24 14:20 05/20/24 14:20
Last Documented Vital Signs
Temp Pulse Resp BP Pulse Ox
97.9 F 127 24 125/84 96
05/20/24 14:20 05/20/24 16:15 05/20/24 16:15 05/20/24 16:00 05/20/24 16:15
<Xavier Walker MD - Last Filed: 05/20/24 19:08>
Orders/Labs/Results
Orders:
Orders
05/20/24 14:24
Electrocardiogram (*1) Urgent
Reason for Study: Shortness of Breath
EKG- Treatment ONCE
05/20/24 14:45
MSAS SCORE As Directed
MSAS Score 0-4: Repeat MSAS every 2 hours until 0-4 for three consecutive assessments, then every 4 hours x 48
hours.
MSAS Score 5-7: For MILD withdrawl symptoms. Repeat MSAS and RASS every 2 hours
MSAS Score 8-11: For MODERATE withdrawal symptoms. Repeat MSAS and RASS every 1 hour. Consider ICU or IMU
level of care.
MSAS Score > 11: For SEVERE withdrawal symptoms. Repeat MSAS and RASS every 1 hour. Notify provider, consider
ICU level of care.
MSAS Additional Instructions: If no improvement or no decrease in score from severe to moderate within 12
hours, consult psychiatry
MSAS Notify Provider: Notify provider if patient requires more than 10 mg of Lorazepam in eight hour period.
05/20/24 14:47
Alcohol Urgent
Complete Blood Count/With Diff Urgent
Comprehensive Metabolic Panel Urgent
Troponin I Urgent
0.9% Sodium Chloride 1000 ml [Nss] 1,000 ml IV BOLUS
Lorazepam [Ativan] 2 mg .ROUTE .STK-MED ONE
Ondansetron Injectable [Zofran] 4 mg .ROUTE .STK-MED ONE
CXR Port [CR Chest Portable - 1 View] Urgent
Comment:
Reason For Exam: sob
Reason Study Needs to be Portable: Patient Unstable
05/20/24 14:48
Ondansetron Injectable [Zofran] 4 mg IV NOW STA
05/20/24 14:50
Lorazepam [Ativan] 1 mg IV NOW STA
05/20/24 Dinner
Regular
At Your Request: Full Participation
05/20/24 15:09
Lorazepam [Ativan] 1 mg IV NOW STA
05/20/24 16:39
Admit/Transfer Patient As Directed
Co-Sign Provider:
Level of Care: Inpatient admission
Assign to:: IMU- Intermediate Care
Physician / Group: nelson
Diagnosis: alcohol use disorder
Reason for Hospitalization: alcohol use disorder
Expected length of stay greater than two midnights?: Yes
ELOS- Estimated Length of Stay in days: 2
I certify the patient meets the requirements for IP care: Yes
Code Status As Directed
Resuscitation Status: Full Code
PRN Pain Medication Management As Directed
May give lesser potent ordered pain med per pt: Yes
preference::
Protocol:: Medication orders for pain may be administered in a
manner that supports deferring to patient preference
when the pt is:
- Requesting an ordered lesser potent pain medication.
Least to most potent pain medications are defined
as: acetaminophen < NSAID < tramadol < opioids
(morphine, oxycodone, hydromorphone).
- Requesting a lesser dose of the same medication IF
ORDERED.
- Requesting a less intrusive route of administration
if both routes are prescribed by the provider (PO <
IV).
05/20/24 17:00
0.9% Sodium Chloride 1000 ml [Nss] 1,000 ml Mvi, Adult [Multivitamin] 10 ml Thiamine Injection 100 mg IV Wide Open mls/hr
05/20/24 17:01
0.9% Sodium Chloride [Nss (Preservative Free)] See Protocol IV PRN PRN
Lorazepam [Ativan] 1 mg IV Q1HPRN PRN
Lorazepam [Ativan] 1 mg PO Q2HPRN PRN
Lorazepam [Ativan] 2 mg IV Q1HPRN PRN
05/20/24 17:01
MSAS SCORE As Directed
MSAS Score 0-4: Repeat MSAS every 2 hours until 0-4 for three consecutive assessments, then every 4 hours x 48
hours.
MSAS Score 5-7: For MILD withdrawl symptoms. Repeat MSAS and RASS every 2 hours
MSAS Score 8-11: For MODERATE withdrawal symptoms. Repeat MSAS and RASS every 1 hour. Consider ICU or IMU
level of care.
MSAS Score > 11: For SEVERE withdrawal symptoms. Repeat MSAS and RASS every 1 hour. Notify provider, consider
ICU level of care.
MSAS Additional Instructions: If no improvement or no decrease in score from severe to moderate within 12
hours, consult psychiatry
MSAS Notify Provider: Notify provider if patient requires more than 10 mg of Lorazepam in eight hour period.
05/20/24 17:23
Phenobarbital Sodium [Phenobarbital] 260 mg 0.9% Sodium Chloride 100 ml [Nss] 100 ml IV NOW
Abnormal Lab Results
05/20/24
14:47
Neutrophils % 39.9 L %
(42.2-75.2)
Chloride 93 L mmol/L
(98-107)
Carbon Dioxide 21 L mmol/L
(22-30)
BUN 8 L mg/dl
(9-20)
Glucose 121 H mg/dl
(70-99)
AST 124 H U/L
(17-59)
ALT 113 H U/L
(0-50)
Total Protein 9.6 H g/dl
(6.3-8.2)
Albumin 5.6 H g/dl
(3.5-5.0)
05/20/24 14:47
05/20/24 14:47
Vital Signs
Initial and Last Documented VS:
Initial Vital Signs
Temp Pulse Resp BP Pulse Ox
97.9 F 125 16 147/102 98
05/20/24 14:20 05/20/24 14:20 05/20/24 14:20 05/20/24 14:20 05/20/24 14:20
Last Documented Vital Signs
Temp Pulse Resp BP Pulse Ox
97.9 F 127 24 125/84 96
05/20/24 14:20 05/20/24 16:15 05/20/24 16:15 05/20/24 16:00 05/20/24 16:15
<Xavier Walker MD - Last Filed: 05/20/24 19:08>
MDM/Problems Addressed
Differential Diagnosis Includes:
Patient's symptoms all consistent with alcohol withdrawal although not a significant change in his dosing at home. May be a component of alcoholic gastritis or alcoholic ketoacidosis. Multiple rechecks. Clinically improved significantly with
Ativan.
<Xavier Walker MD - Last Filed: 05/20/24 19:08>
*Pulse Oximetry
Patient hypoxic: no
*EKG
Interpreted by ED Provider?: Yes
Interpretation: abnormal
Comparison EKG: no changes
Heart Rate: 125
Rate: tachycardiac
Rhythm: sinus
[place]: normal axis
Interval: normal interval
QRS Pattern: normal QRS
Ischemia: no ischemia
*Production Lead Interpretation
Rate: tachycardiac
Interpretation: abnormal
Heart Rate: 108
Rhythm: sinus
*Critical Care Note
Total Time (30-74mins, 75-104mins- exclusive of procedures): 15
ED Attending Note
<Anuel Marroquin PA-C - Last Filed: 05/20/24 14:32>
-
Portions of this chart may have been created with voice recognition software.� Occasional wrong word or��sound alike� substitutions may have occurred due to the inherent limitations of voice recognition software.
Discharge Plan
Departure
Patient Disposition: Admit
Date of Disposition: 05/20/24
Time of Disposition: 16:13
Presentation/result/management discussed w/ accepting MD/DO: Hospitalist
Discharge Problem:
Acute alcohol withdrawal, Suspect alcoholic gastritis/hepatitis
Interventions
Interventions:
*Risk Screen - Suicide Last Done: 05/20/24 14:20
*General Assessment Last Done: 05/20/24 14:20
*Neglect/Abuse Screening Last Done: 05/20/24 14:20
ED- Fall Risk Assessment Last Done: 05/20/24 14:43
*ED COVID-19 Vaccine History Last Done: 05/20/24 14:20
ED- Cardiac Assessment Last Done: 05/20/24 14:43
ED- Pulmonary Assessment Last Done: 05/20/24 14:43
[2024-05-20] MEDS: NSS 1000 IV ×2 (14:47→22:02)
[2024-05-20] MEDS: ZOFRAN 4 MG IV (14:48)
[2024-05-20] MEDS: ATIVAN 1 MG IV ×3 (14:50→17:13)
[2024-05-20 15:08] LABS: % Basophils 1.4 % (0-2); % Eosinophils 3.8 % (0-6); % Immature Granulocytes 0.1 % (0-0.5); % Lymphocytes 48.7 % (20.5-51.1); % Monocytes 6.1 % (1.7-9.3); % Neutrophils 39.9 % (42.2-75.2); Absolute Basophils 0.1 10^3/uL (0-0.2); Absolute Eosinophils 0.3 10^3/uL (0-0.7); Absolute Lymphocytes 3.4 10^3/uL (1.2-3.4); Absolute Monocytes 0.4 10^3/uL (0.1-0.6); Absolute Neutrophils 2.8 10^3/uL (1.4-6.5); Hematocrit 51.1 % (39.0-52.0); Hemoglobin 17.4 g/dL (13.0-18.0); Mean Corp Hgb Conc. 34.1 g/dL (33.0-37.0); Mean Corpuscular Hgb 30.1 pg (27.0-31.0); Mean Corpuscular Volume 88.4 fL (80.0-94.0); Mean Platelet Volume 9.7 fL (7.4-10.4); Nucleated Red Blood Cells % 0 % (-); Platelet Count 353 10^3/uL (130-400); Red Blood Cell Count 5.78 10^6/uL (4.70-6.10); Red Cell Dist. Width 13.9 % (11.5-14.5); White Blood Cell Count 7.1 10^3/uL (4.8-10.8)
[2024-05-20 15:21] LABS: ALT (SGPT) 113 U/L (0-50); AST (SGOT) 124 U/L (17-59); Albumin 5.6 g/dl (3.5-5.0); Alkaline Phosphatase 80 U/L (38-126); Blood Urea Nitrogen 8 mg/dl (9-20); Calcium 10.2 mg/dl (8.4-10.2); Carbon Dioxide 21 mmol/L (22-30); Chloride 93 mmol/L (98-107); Glucose 121 mg/dl (70-99); Sodium 138 mmol/L (135-145); Total Protein 9.6 g/dl (6.3-8.2); eGFR > 60.00
[2024-05-20 15:32] LABS: Troponin I 0.015 ng/ml
[2024-05-20 15:36] LABS: Alcohol 136 mg/dl
--- NOTE | 2024-05-20 16:48 | HPS.HSE ---
Family Physician
-
Family Physician: Xavier Newman
Chief Complaint
-
alcohol withdrawal
History of Present Illness
38-year-old male past medical history of alcohol use disorder, anxiety/depression, hypertension, presenting for dizziness, lightheadedness and fatigue and heart racing over the past few days. Has nausea but denies vomiting.
He was recently hospitalized in end of March for alcohol withdrawal. He stopped drinking alcohol for 1 month but started drinking around again. Drinking 1 bottle of vodka per day. Last drink was this morning.
He vapes nicotine.
Complains of chest pressure.
Medical History
Past Medical History
Past Medical History: Reports Other (alcohol use disorder, anxiety/depression, hypertension)
Past Surgical History: Reports None
Social History
Tobacco: Vaping
Alcohol: Daily
Drug: None
Family History
Family History: Not pertinent
Allergies / Home Medications
Allergies reflects when Allergies were last updated in [facility].
Home Medications with original date entered in [facility]
Allergy/Medication List:
Allergies
Allergy/AdvReac Type Severity Reaction Status Date / Time
No Known Allergies Allergy Verified 05/20/24 14:25
Home Medications
omeprazole 20 mg capsule,delayed release 20 mg PO DAILY GERD 11/12/23
amlodipine 5 mg tablet 5 mg PO DAILY 05/20/24
escitalopram oxalate 10 mg tablet (Lexapro) 10 mg PO DAILY 05/20/24
Review of Systems
-
History Source: Patient
A 12 point ROS was completed and negative except as noted: Yes
Constitutional: Reports No Symptoms
EENT: Reports No Symptoms
Respiratory: Reports No Symptoms
Cardiac: Reports No Symptoms
Abdomen/GI: Reports No Symptoms
: Reports No Symptoms
Musculoskeletal: Reports No Symptoms
Skin: Reports No Symptoms
Neurological: Reports No Symptoms
Endocrine: Reports No Symptoms
Hematologic/Lymphatic: Reports No Symptoms
Psych: Reports No Symptoms
Physical Exam
Vital Signs
Vital Signs
Temp Pulse Resp BP Pulse Ox
97.9 F 127 24 125/84 96
05/20/24 14:20 05/20/24 16:15 05/20/24 16:15 05/20/24 16:00 05/20/24 16:15
Physical Exam
General: Well Developed, Well Nourished and No Apparent Distress
HEENT: NormoCephalic, Moist mucous membranes and Atraumatic
Respiratory: Clear
Cardiac: S1/S2 and Regular Rhythm; No Murmur or Rub
GI: Soft, Non Tender, Non Distended and Normal Bowel Sounds; No Organomegaly
Rectal: Deferred by Provider
Musculoskeletal: No Clubbing, No Cyanosis and No Edema
Skin: No Rash
Neuro: Nonfocal/grossly intact
Laboratory Results
-
05/20/24 14:47
05/20/24 14:47
Laboratory Results
Total Bilirubin 1.0 mg/dl (0.2-1.3) 05/20/24 14:47
AST 124 U/L (17-59) H 05/20/24 14:47
ALT 113 U/L (0-50) H 05/20/24 14:47
Alkaline Phosphatase 80 U/L (38-126) 05/20/24 14:47
Troponin I 0.015 ng/ml 05/20/24 14:47
Data Reviewed
-
Lab Data: Labs Reviewed by me
Old Records: Reviewed
Impression/Plan
-
IMPRESSION:
PLAN:
# Alcohol use disorder
# Acute alcohol withdrawal
# Sinus tachycardia
-Thiamine and folate
-IV fluids
-Alcohol withdrawal protocol
-Phenobarbital protocol
-Zofran
# Transaminitis secondary to alcohol use
-Continue to monitor
Anxiety/depression
-Continue Lexapro
Essential hypertension
-Continue amlodipine
GERD
-continue omeprazole
Vaping history
Full code
DVT prophylaxis�heparin
Regular diet
[2024-05-20] MEDS: MULTIVITAMIN 1011 MG IV (17:12)
[2024-05-20] MEDS: MULTIVITAMIN 1011 ML IV (17:12)
[2024-05-20] MEDS: PHENOBARBITAL 104 MG IV (17:57)
[2024-05-20] MEDS: ATIVAN 1 MG PO (19:45)
[2024-05-20] MEDS: PHENOBARBITAL 97.5 MG IV (21:58)
[2024-05-20] MEDS: THIAMINE INJECTION 200 MG IV (21:58)
[2024-05-20] MEDS: HEPARIN 5000 UNITS SC (21:59)
[2024-05-20 22:46] LABS: Troponin I 0.013 ng/ml
[2024-05-21] VITALS (12 sets, daily range): BP systolic 121–145; BP diastolic 83–102; BMI 27.6
--- NOTE | 2024-05-21 01:48 | PTCARENOTE ---
Assumed care of Pt from ED RN. Pt AAOx3, with pleasant demeanor. Pt remains on MSAS (see work list). Call lopez within reach. Assessment care and vitals as charted.
[2024-05-21] MEDS: ATIVAN 1 MG PO ×3 (01:56→20:35)
[2024-05-21 04:55] LABS: % Basophils 0.9 % (0-2); % Immature Granulocytes 0.3 % (0-0.5); % Lymphocytes 27.2 % (20.5-51.1); % Monocytes 5.9 % (1.7-9.3); % Neutrophils 61.7 % (42.2-75.2); Absolute Basophils 0.1 10^3/uL (0-0.2); Absolute Eosinophils 0.3 10^3/uL (0-0.7); Absolute Lymphocytes 1.9 10^3/uL (1.2-3.4); Absolute Monocytes 0.4 10^3/uL (0.1-0.6); Absolute Neutrophils 4.3 10^3/uL (1.4-6.5); Hematocrit 40.2 % (39.0-52.0); Hemoglobin 13.4 g/dL (13.0-18.0); Mean Corp Hgb Conc. 33.3 g/dL (33.0-37.0); Mean Corpuscular Hgb 30.5 pg (27.0-31.0); Mean Corpuscular Volume 91.6 fL (80.0-94.0); Mean Platelet Volume 9.8 fL (7.4-10.4); Nucleated Red Blood Cells % 0 % (-); Platelet Count 199 10^3/uL (130-400); Red Blood Cell Count 4.39 10^6/uL (4.70-6.10); Red Cell Dist. Width 13.5 % (11.5-14.5); White Blood Cell Count 6.9 10^3/uL (4.8-10.8)
[2024-05-21 05:23] LABS: ALT (SGPT) 79 U/L (0-50); AST (SGOT) 87 U/L (17-59); Albumin 3.8 g/dl (3.5-5.0); Alkaline Phosphatase 59 U/L (38-126); Blood Urea Nitrogen 10 mg/dl (9-20); Calcium 8.4 mg/dl (8.4-10.2); Carbon Dioxide 28 mmol/L (22-30); Chloride 98 mmol/L (98-107); Estimated Creatinine Clearance > 125 ml/min; Glucose 101 mg/dl (70-99); Potassium 4.1 mmol/L (3.5-5.1); Sodium 134 mmol/L (135-145); Total Bilirubin 1.3 mg/dl (0.2-1.3); Total Protein 6.5 g/dl (6.3-8.2); eGFR > 60.00
[2024-05-21 05:24] LABS: Troponin I < 0.012 ng/ml
--- NOTE | 2024-05-21 05:33 | PTCARENOTE ---
Pt morning Labs showing drop in Hgb, night PROPERTY SPECIALIST made aware. Pt has no active signs of bleeding at this time.
--- NOTE | 2024-05-21 05:41 | PTCARENOTE ---
Pt morning Labs showing drop in Hgb, night BUSINESS DEVELOPMENT RECRUITER made aware. Pt has no active signs of bleeding at this time. ABD soft, non tender to palpation, hyperactive bowel sounds. Pt has no complaints of pain just 'feels niya Bloated'.
[2024-05-21] MEDS: PHENOBARBITAL 97.5 MG IV (08:34)
[2024-05-21] MEDS: FOLVITE 1 MG PO (08:35)
[2024-05-21] MEDS: NORVASC 5 MG PO (08:35)
[2024-05-21] MEDS: LEXAPRO 10 MG PO (08:35)
[2024-05-21] MEDS: HEPARIN 5000 UNITS SC ×2 (08:35→20:35)
[2024-05-21] MEDS: THIAMINE INJECTION 200 MG IV ×2 (08:35→20:35)
[2024-05-21] MEDS: PROTONIX 40 MG PO (08:36)
[2024-05-21] MEDS: NSS 1000 IV ×3 (08:40→19:08)
--- NOTE | 2024-05-21 11:53 | W.PN.HOSP.TC ---
Today's Communication/Plan
-
Check lipase.
Continue with alcohol withdrawal protocol with as needed Ativan based on the CIWA scale.
cw PPI.
Assessment / Plan
Assessment / Plan
# Presents with nausea, abdominal discomfort and shortness of breath with ongoing alcohol abuse. Chest x-ray did did not suggest any acute pathology. Chest is clear. EKG and troponins does not suggest any cardiac event. Suspect may be related to
ongoing alcohol use and any gastritis or pancreatitis. Mild transaminitis noted today. Check a lipase. Treat symptomatically with PPI and follow symptom.
# Alcohol use disorder with possibe mild Acute alcohol withdrawal
# Sinus tachycardia
-cw Thiamine and folate
-cw IV fluids
-cw Alcohol withdrawal protocol
-Hold on Phenobarbital protocol
-Zofran
# Transaminitis secondary to alcohol use
-Continue to monitor
Anxiety/depression
-Continue Lexapro
Essential hypertension
-Continue amlodipine
GERD
-continue omeprazole
Vaping history
Full code
DVT prophylaxis�heparin
Regular diet
Anticipated Discharge: 24 - 48 hours
Subjective/Interval History
-
Date of Service: May 21, 2024
Patient says he relapsed back with his alcohol use from holidays time again. He started to drink every day sometimes 12 pack of beer mixed with some vodka.
He started to then notice issues with stomach discomfort, nausea. Was able to have some oral intake without vomiting. The symptoms close he was feeling short of breath so he came into the hospital. He was also feeling little tremulous but he had
alcohol on the day of admission and his alcohol level was 136.
He does not think he is going through withdrawal like he had before.
This morning he does not feel shaky. He is alert and oriented. No agitation or feeling anxious ID.
He had his breakfast this morning without any issue. Denies any shortness of breath. No nausea. He has some vague abdominal discomfort.
He feels bloated.
He was feeling dizzy.
He vapes nicotine .
Objective Data
-
Labs:
Laboratory Results
05/21/24
04:36
WBC 6.9
Hgb 13.4 D
Hct 40.2
Plt Count 199 D
Sodium 134 L
Potassium 4.1
Chloride 98
Carbon Dioxide 28
BUN 10
Creatinine 0.7
Glucose 101 H
Calcium 8.4 D
Total Bilirubin 1.3
AST 87 H
ALT 79 H
Alkaline Phosphatase 59
Vital Signs:
Vital Signs
Temp Pulse Resp BP Pulse Ox
98.3 F 87 21 141/101 99
05/21/24 11:15 05/21/24 10:00 05/21/24 10:00 05/21/24 10:00 05/21/24 10:23
I&O
05/20/24 05/21/24 05/22/24
06:59 06:59 06:59
Intake Total 980 / 980
Output Total 400 / 400
Balance 580 / 580
Review of Systems
-
Constitutional: Denies Fever
EENT: Denies Sore Throat
Respiratory: Denies Cough or Trouble Breathing
Cardiac: Denies Chest Pain
Neuro: Denies Dizzy or Headache
Physical Exam
-
General: No Apparent Distress
HEENT: Moist Mucous Membranes
Respiratory: Clear to Auscultation; Negative Wheezes or Crackles
Cardiac: Regular Rhythm, S1/S2 and Tachycardic
GI: Soft, Nondistended and Normal Bowel Sounds; Negative Tender (Some discomfort in epigastric and the left upper quadrant area but no rebound guarding rigidity.)
Neuro: AO x 3; Negative Tremors
Psych: Calm; Negative Confused, Agitated or Anxious
Data Reviewed
-
Labs: Labs Reviewed by me
[2024-05-21 12:42] LABS: Lipase 138 U/L (23-300)
--- NOTE | 2024-05-21 15:32 | CM ---
Patient with Hx Alcohol use disorder, anxiety & depression with Dx possible acute alcohol withdrawal. Alcohol level 136. MSAS per nursing.
Met with patient who resides with his parents, brother and 12 yr old daughter in a 2 story house with 3 steps to enter.
The patient has been independent in ADLs and ambulation.
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
The patient has no DME, prior VN.
PCP - Xavier Newman
Pharmacy -[facility]
CM Consult: Alcohol Withdrawal Risk
Patient states he has had contact with [facility] that was referred to him on a prior admission.
Offered [facility] for alcohol use, patient says he feels like he needs to see Psych instead for his anxiety. He says he drinks when he is anxious---> Dr Guerin notified.
He reluctantly agrees to speak with [facility] for [facility] resources/referrals.
Spoke with [facility] Quintana; the patient was given resources before for an appt at [facility] on 04/14 and was 'no show'. Someone from [facility] will see him by tomorrow.
Plan follow up after seen by [facility].
[2024-05-21] MEDS: ATIVAN 0.5 MG IV (16:18)
[2024-05-21] MEDS: TYLENOL 650 MG PO (16:19)
--- NOTE | 2024-05-21 17:42 | PTCARENOTE ---
see msas documentation. this afternoon pt c/o feeling anxious but did not meet criteria for ativan dose. one time order for ativan provided by hospitalist and given. pt also given tylenol for mild headache with relief. psych consult ordered d/t
anxiety.
--- NOTE | 2024-05-21 22:52 | PTCARENOTE ---
Pt appearing in good spirits. MSAS continues (see work list). Pt had no complaints at this time. Assessment care and vitals as charted.
[2024-05-22] VITALS: BP 121/89
[2024-05-22 02:07] VITALS: BP 128/100
[2024-05-22 03:44] VITALS: BMI 28.3
[2024-05-22 04:00] VITALS: BP 115/79
[2024-05-22 06:00] VITALS: BP 123/91
[2024-05-22 07:02] LABS: ALT (SGPT) 77 U/L (0-50); AST (SGOT) 65 U/L (17-59); Albumin 3.8 g/dl (3.5-5.0); Alkaline Phosphatase 61 U/L (38-126); Blood Urea Nitrogen 8 mg/dl (9-20); Calcium 8.7 mg/dl (8.4-10.2); Carbon Dioxide 26 mmol/L (22-30); Chloride 100 mmol/L (98-107); Estimated Creatinine Clearance > 125 ml/min; Glucose 100 mg/dl (70-99); Potassium 4.3 mmol/L (3.5-5.1); Sodium 136 mmol/L (135-145); Total Bilirubin 1.2 mg/dl (0.2-1.3); Total Protein 6.6 g/dl (6.3-8.2); eGFR > 60.00
[2024-05-22 08:00] VITALS: BP 117/103
[2024-05-22] MEDS: LEXAPRO 10 MG PO (08:50)
[2024-05-22] MEDS: HEPARIN 5000 UNITS SC (08:50)
[2024-05-22] MEDS: FOLVITE 1 MG PO (08:50)
[2024-05-22] MEDS: THIAMINE INJECTION 200 MG IV (08:50)
[2024-05-22] MEDS: PROTONIX 40 MG PO (08:50)
[2024-05-22] MEDS: NORVASC 5 MG PO (08:50)
--- NOTE | 2024-05-22 09:53 | CM ---
Addendum entered by Ale Mae RN 05/22/24 13:28:
Psych Consult noted.
Met with patient who was preparing for d/c and says he feels ready to go home today. His mother will provide transport home.
Plan home today.
Original Note:
Patient with Hx Alcohol use disorder, anxiety & depression with Dx possible acute alcohol withdrawal. Alcohol level 136. MSAS per nursing. Psych Consult pending.
Spoke with [facility] Sher; he met with patient today. Patient says he was focused on wanting to see a psychiatrist on an outpatient basis and doesn't have anyone yet. He agreed to contact [facility] for outpatient alcohol support and also
mental health services.
Plan home with referral to [facility].
--- NOTE | 2024-05-22 10:45 | W.PN.UPDATE ---
Update Note
Progress Note Update
Psychiatric Evaluation dictated.
Patient reports history of anxiety since he was 23 characterized by shortness of breath, palpitations and diaphoresis, episodes happen daily lasting for an hour or so. He often self medicates with alcohol although he knows it is not advisable. He
was able to stay sober for about a month after last admission but started drinking again after New Year.
He sees his FP for medication management and his Lexapro was recently increased to 10 mg daily from 5mg.
I have discussed various options with him but he wants to stay on the current dose of Lexapro. He was asking to be given BZD's but given the controlled status of these meds as well as him having taken OD of the Ativan in the past I do not believe it
is advisable. Certainly he need OP F/U for mental health and ANJALI but it is questionable he he well follow the advise. He is not interested in inpatient rehab.
[2024-05-22] MEDS: ATIVAN 0.5 MG PO (11:15)
--- NOTE | 2024-05-22 12:51 | W.PN.HOSP.TC ---
Today's Communication/Plan
-
DC
Assessment / Plan
Assessment / Plan
# Presents with nausea, abdominal discomfort and shortness of breath with ongoing alcohol abuse. Chest x-ray did did not suggest any acute pathology. Chest is clear. EKG and troponins does not suggest any cardiac event. Suspect may be related to
ongoing alcohol use and any gastritis or pancreatitis. Mild transaminitis noted today. Check a lipase. Treat symptomatically with PPI and follow symptom.
# Alcohol use disorder with possibe mild Acute alcohol withdrawal
# Sinus tachycardia
- Today without S/S of ISATU nor meeting criteria for Ativan use. Off of phenobarb.
-cw Thiamine and folate
-Patient spoke with the suzette yesterday and going to follow as an outpatient regarding his alcohol use disorder.
# Transaminitis secondary to alcohol use
-Continue to monitor
Anxiety/depression
-Continue Lexapro
Appt to get her input. Discussions noted. Not an ideal candidate for Ativan/benzodiazepine outpatient use. Patient advised to continue with antidepressant and follow with his psychologist.
Essential hypertension
-Continue amlodipine
GERD
-continue omeprazole
Vaping history
Full code
DVT prophylaxis�heparin
Regular diet
With no active alcohol withdrawal symptoms and no GI symptoms and is tolerating all his meals will discharge patient home today. Advised to use PPI for the next 2 weeks and continue to remain off of alcohol.
Anticipated Discharge: Today
Subjective/Interval History
-
Date of Service: May 22, 2024
Tolerating diet without any nausea or abdominal discomfort.
No shortness of breath.
No dizziness. Walking to the bathroom without any issues.
Tolerating all his meals so far.
No tremors. Is having issues with anxiety as outpatient. Follows with psychologist through [facility].
Voices no new specific complaints.
Motivated to quit alcohol.
Objective Data
-
Labs:
Laboratory Results
05/22/24
05:06
Sodium 136
Potassium 4.3
Chloride 100
Carbon Dioxide 26
BUN 8 L
Creatinine 0.8
Glucose 100 H
Calcium 8.7
Total Bilirubin 1.2
AST 65 H
ALT 77 H
Alkaline Phosphatase 61
Vital Signs:
Vital Signs
Temp Pulse Resp BP Pulse Ox
98.1 F 70 21 117/103 99
05/22/24 11:20 05/22/24 08:00 05/22/24 08:00 05/22/24 08:00 05/21/24 19:40
I&O
05/21/24 05/22/24 05/23/24
06:59 06:59 06:59
Intake Total 1220 / 1220 3200 / 3200
Output Total 400 / 400
Balance 820 / 820 3200 / 3200
Review of Systems
-
Constitutional: Denies Fever
EENT: Denies Sore Throat
Respiratory: Denies Cough or Trouble Breathing
Cardiac: Denies Chest Pain
Abdomen/GI: Denies Abdominal Pain, Nausea, Vomiting or Diarrhea
Neuro: Denies Dizzy
Physical Exam
-
General: No Apparent Distress
HEENT: Moist Mucous Membranes
Respiratory: Clear to Auscultation
Cardiac: Regular Rhythm and S1/S2; Negative Tachycardic
GI: Soft, Nontender, Nondistended and Normal Bowel Sounds
Neuro: AO x 3; Negative Tremors
Psych: Calm; Negative Confused or Agitated
Data Reviewed
-
Labs: Labs Reviewed by me
== END 2024-05-22 13:55 | disposition home or self-care (01) | DRG 897 ==
LOC: IMU 16:56
PROVIDERS: Physician Assistant; ADMITTING PHYSICIAN Hospitalist; ATTENDING PHYSICIAN Internal Medicine; CONSULT PHYSICIAN Psychiatry & Neurology Psychiatry; EMERGENCY PHYSICIAN Emergency Medicine; FAMILY PHYSICIAN Family Medicine
DX: F10.139 Alcohol abuse with withdrawal, unspecified (principal); F41.1 Generalized anxiety disorder; F32.A Depression, unspecified; I10 Essential (primary) hypertension; K21.9 Gastro-esophageal reflux disease without esophagitis; F17.290 Nicotine dependence, other tobacco product, uncomplicated; R00.0 Tachycardia, unspecified; Y90.6 Blood alcohol level of 120-199 mg/100 ml; Z56.0 Unemployment, unspecified; Z81.8 Family history of other mental and behavioral disorders; Z79.899 Other long term (current) drug therapy
CPT/HCPCS: 71045; 80053; 82077; 83690; 84484; 85025; 93005; 96361; 96365; 96375; 96376; 99285

== ENCOUNTER 2024-06-04 23:10 | Inpatient (IN) | payer OTHER, SELFPAY ==
[2024-06-04] VITALS (11 sets, daily range): BP systolic 123–165; BP diastolic 81–109; BMI 27.3
[2024-06-04 19:20] LABS: % Basophils 1.3 % (0-2); % Eosinophils 0.9 % (0-6); % Immature Granulocytes 0.4 % (0-0.5); % Monocytes 9.2 % (1.7-9.3); % Neutrophils 57.2 % (42.2-75.2); Absolute Basophils 0.1 10^3/uL (0-0.2); Absolute Eosinophils 0.1 10^3/uL (0-0.7); Absolute Lymphocytes 2.2 10^3/uL (1.2-3.4); Absolute Monocytes 0.6 10^3/uL (0.1-0.6); Hematocrit 44.5 % (39.0-52.0); Hemoglobin 15.3 g/dL (13.0-18.0); Mean Corp Hgb Conc. 34.4 g/dL (33.0-37.0); Mean Corpuscular Hgb 30.1 pg (27.0-31.0); Mean Corpuscular Volume 87.4 fL (80.0-94.0); Mean Platelet Volume 9.3 fL (7.4-10.4); Nucleated Red Blood Cells % 0 % (-); Platelet Count 358 10^3/uL (130-400); Red Blood Cell Count 5.09 10^6/uL (4.70-6.10); Red Cell Dist. Width 14.5 % (11.5-14.5)
--- NOTE | 2024-06-04 19:36 | EDRN ---
pt rang call jessica, states 'its taking too long, where is the doctor!?' Informed that we are monitoring him and his blood work has been sent an gave another warm blanket.
[2024-06-04 19:37] LABS: ALT (SGPT) 64 U/L (0-50); AST (SGOT) 91 U/L (17-59); Albumin 5.5 g/dl (3.5-5.0); Alcohol 149 mg/dl; Alkaline Phosphatase 81 U/L (38-126); Blood Urea Nitrogen < 2 mg/dl (9-20); Calcium 9.6 mg/dl (8.4-10.2); Carbon Dioxide 23 mmol/L (22-30); Chloride 88 mmol/L (98-107); Glucose 127 mg/dl (70-99); Potassium 4.1 mmol/L (3.5-5.1); Sodium 135 mmol/L (135-145); Total Protein 9.1 g/dl (6.3-8.2); eGFR > 60.00
--- NOTE | 2024-06-04 19:50 | ED.GENMED ---
History of Present Illness
<Anuel Marroquin PA-C - Last Filed: 06/04/24 21:23>
General
Chief Complaint: Alcohol Problem
Source: patient
Time Seen by Provider: 06/04/24 19:45
History of Present Illness
History of Present Illness:
38-year-old male states that he is in alcohol withdrawal. He is drinking up to a case of beer a day. He has been vomiting since last night and has not been able to keep any alcohol in today. He notes shakes nausea vomiting. He notes sweats but
denies hallucinations. He notes chest tightness. He was here couple weeks ago for alcohol withdrawal and admitted and of getting phenobarbital.
Past History
<Anuel Marroquin PA-C - Last Filed: 06/04/24 21:23>
Past History
ED Past Medical History: GERD, Psychiatric (Anxiety, Depression, alcoholism) and Other (epididymitis L testicle, kidney stones, PNA, Renal calculus, Migraines, alcoholism, PNA, Pancreatitis, )
ED Past Surgical History: Appendectomy
Social History
Tobacco: Vaping (Quit 2020 now vapes)
Alcohol: Daily (12 pack of beer or bottle of vodka)
Drug: None
Personal: Single
Living: alone
Employment: Employed
Family History
Family History: Other
Phy Exam
<Anuel Marroquin PA-C - Last Filed: 06/04/24 21:23>
Physical Exam
Physical Exam:
General: Well-developed male no acute respiratory distress
Neurologic: Tremulous alert and oriented however responding to questions appropriately
Skin: Diaphoretic
Heart tachycardic and regular
Lungs: Clear
Abdomen soft nontender
Scores
<PAGE Alva Last Filed: 06/04/24 21:23>
Withdrawal Assessment of Alcohol
Withdrawal Assessment Completed?: Yes
Nausea and Vomiting: Constant nausea, frequent dry heaves and vomiting
Tactile Disturbances: None
Tremor: Severe, even with arms not extended
Auditory Disturbances: Not present
Paroxysmal Sweats: Beads of sweat obvious on forehead
Visual Disturbances: Not present
Anxiety: Moderately anxious, or guarded, so anxiety is inferred
Headache, Fullness in Head: Very mild
Agitation: Moderately fidgety and restless
Orientation and clouding of sensorium: Oriented and can do serial additions
Total CIWA Score: 27
Alcohol Withdrawal Medication Recommendation: Equal to MSAS >11. Lorazepam 2-4mg IV NOW and re-assess q1hr
<Hernan Wagoner DO - Last Filed: 06/05/24 00:15>
Withdrawal Assessment of Alcohol
Total CIWA Score: 27
Alcohol Withdrawal Medication Recommendation: Equal to MSAS >11. Lorazepam 2-4mg IV NOW and re-assess q1hr
Course
<Anuel Marroquin PA-C - Last Filed: 06/04/24 21:23>
Orders/Labs/Results
Orders:
Orders
06/04/24 Breakfast
Clear Liquid
At Your Request: Full Participation
Does patient need a safe tray?: No
06/04/24 19:02
Electrocardiogram (*1) Urgent
Reason for Study: Other
Other Reason for Exam: Potential overdose
06/04/24 19:03
EKG- Treatment ONCE
06/04/24 19:13
Alcohol Urgent
Complete Blood Count/With Diff Urgent
Comprehensive Metabolic Panel Urgent
06/04/24 19:50
Lorazepam [Ativan] 2 mg IV NOW STA
06/04/24 19:53
Ondansetron Injectable [Zofran] 4 mg IV NOW STA
06/04/24 19:56
Famotidine [Pepcid] 20 mg IV NOW STA
06/04/24 20:30
Lorazepam [Ativan] 2 mg IV NOW STA
06/04/24 22:48
Admit/Transfer Patient As Directed
Co-Sign Provider:
Level of Care: Inpatient admission
Assign to:: IMU- Intermediate Care
Physician / Group: Tyshawn
Diagnosis: Alcohol Withdrawal
Reason for Hospitalization: Alcohol Withdrawal
Expected length of stay greater than two midnights?: Yes
ELOS- Estimated Length of Stay in days: 3
I certify the patient meets the requirements for IP care: Yes
PRN Pain Medication Management As Directed
May give lesser potent ordered pain med per pt: Yes
preference::
Protocol:: Medication orders for pain may be administered in a
manner that supports deferring to patient preference
when the pt is:
- Requesting an ordered lesser potent pain medication.
Least to most potent pain medications are defined
as: acetaminophen < NSAID < tramadol < opioids
(morphine, oxycodone, hydromorphone).
- Requesting a lesser dose of the same medication IF
ORDERED.
- Requesting a less intrusive route of administration
if both routes are prescribed by the provider (PO <
IV).
06/04/24 22:49
Code Status As Directed
Resuscitation Status: Full Code
06/04/24 23:31
0.9% Sodium Chloride [Nss (Preservative Free)] See Protocol IV PRN PRN
Acetaminophen [Tylenol] 650 mg PO Q4HPRN PRN
FOLic ACID [Folvite] 1 mg 0.9% Sodium Chloride 50 ml [Nss] 50 ml IV DAILYPRN
Lactated Ringers [Lr] 1,000 ml IV 125 mls/hr
Lorazepam [Ativan] 1 mg IV Q1HPRN PRN
Lorazepam [Ativan] 1 mg PO Q2HPRN PRN
Lorazepam [Ativan] 2 mg IV Q1HPRN PRN
Ondansetron Injectable [Zofran] 4 mg IV Q6HPRN PRN
Phenobarbital Sodium [Phenobarbital] 260 mg 0.9% Sodium Chloride 100 ml [Nss] 100 ml IV NOW
06/04/24 23:31
Echo 2D MMode Doppler [Echo 2D MMode Color/Doppler] Routine
Reason for Study: Murmur
Case Management Consult Once
Case Management Consult: Other
Comment: Substance abuse counseling
DIETARY CONSULT Routine
Reason for Consult: Nutrition support, possible refeeding guidelines
Activity As Directed
Activity Level: Bedrest
EKG with chest pain [ECG as needed] As Directed
ECG as needed for:: Chest Pain
I/O [Intake/ Output] As Directed
Frequency: Per unit guidelines
MSAS SCORE As Directed
MSAS Score 0-4: Repeat MSAS every 2 hours until 0-4 for three consecutive assessments, then every 4 hours x 48
hours.
MSAS Score 5-7: For MILD withdrawl symptoms. Repeat MSAS and RASS every 2 hours
MSAS Score 8-11: For MODERATE withdrawal symptoms. Repeat MSAS and RASS every 1 hour. Consider ICU or IMU
level of care.
MSAS Score > 11: For SEVERE withdrawal symptoms. Repeat MSAS and RASS every 1 hour. Notify provider, consider
ICU level of care.
MSAS Additional Instructions: If no improvement or no decrease in score from severe to moderate within 12
hours, consult psychiatry
MSAS Notify Provider: Notify provider if patient requires more than 10 mg of Lorazepam in eight hour period.
Pneumatic Compression Sleeves As Directed
Type: Knee high
Precautions As Directed
Type of Precautions: Seizure
Vital Signs As Directed
Frequency: Per unit guidelines
Oxygen Therapy [O2 Therapy] [RESP] Routine
Titrate/Wean O2 to maintain O2 sat greater than (%): 94
DX Deep Vein Thrombosis Video Routine
06/04/24 23:58
Magnesium Urgent
Phosphorus Urgent
Urinalysis Routine
Date Specimen was Collected: 06/04/24
Time Specimen was Collected: 23:46
Urine Drug Abuse Screen Routine
Date Specimen was Collected: 06/04/24
Time Specimen was Collected: 23:46
06/05/24 00:00
Thiamine Injection 200 mg IV Q8
06/05/24 06:00
EKG [Electrocardiogram (*1)] IN AM
Reason for Study: Chest Pain
Basic Metabolic Panel IN AM
Complete Blood Count/No Diff IN AM
LFT [Mnykd-Ckdk-Bqttzof] IN AM
06/05/24 08:00
FOLic ACID [Folvite] 1 mg PO DAILY
Pantoprazole [Protonix] 40 mg PO DAILY
Phenobarbital Sodium [Phenobarbital] 97.5 mg IV TID
06/05/24 18:00
Enoxaparin Sodium [Lovenox] 40 mg SC QPM
06/07/24 08:00
Phenobarbital [Luminal] 64.8 mg PO TID
06/08/24 08:00
Thiamine HCl [Vitamin B1] 100 mg PO BID
06/09/24 08:00
Phenobarbital [Luminal] 32.4 mg PO TID
Abnormal Lab Results
06/04/24
19:13
Chloride 88 L mmol/L
(98-107)
BUN < 2 L mg/dl
(9-20)
Glucose 127 H mg/dl
(70-99)
AST 91 H U/L
(17-59)
ALT 64 H U/L
(0-50)
Total Protein 9.1 H g/dl
(6.3-8.2)
Albumin 5.5 H g/dl
(3.5-5.0)
06/04/24 19:13
06/04/24 19:13
Vital Signs
Initial and Last Documented VS:
Initial Vital Signs
Temp Pulse Resp BP Pulse Ox
98.9 F 133 16 154/109 98
06/04/24 19:01 06/04/24 19:01 06/04/24 19:01 06/04/24 19:01 06/04/24 19:01
Last Documented Vital Signs
Temp Pulse Resp BP Pulse Ox
98.9 F 128 26 123/86 98
06/04/24 23:54 06/04/24 23:15 06/04/24 23:15 06/04/24 23:00 06/04/24 23:15
<Hernan Wagoner, - Last Filed: 06/05/24 00:15>
Orders/Labs/Results
Orders:
Orders
06/04/24 Breakfast
Clear Liquid
At Your Request: Full Participation
Does patient need a safe tray?: No
06/04/24 19:02
Electrocardiogram (*1) Urgent
Reason for Study: Other
Other Reason for Exam: Potential overdose
06/04/24 19:03
EKG- Treatment ONCE
06/04/24 19:13
Alcohol Urgent
Complete Blood Count/With Diff Urgent
Comprehensive Metabolic Panel Urgent
06/04/24 19:50
Lorazepam [Ativan] 2 mg IV NOW STA
06/04/24 19:53
Ondansetron Injectable [Zofran] 4 mg IV NOW STA
06/04/24 19:56
Famotidine [Pepcid] 20 mg IV NOW STA
06/04/24 20:30
Lorazepam [Ativan] 2 mg IV NOW STA
06/04/24 22:48
Admit/Transfer Patient As Directed
Co-Sign Provider:
Level of Care: Inpatient admission
Assign to:: IMU- Intermediate Care
Physician / Group: Tyshawn
Diagnosis: Alcohol Withdrawal
Reason for Hospitalization: Alcohol Withdrawal
Expected length of stay greater than two midnights?: Yes
ELOS- Estimated Length of Stay in days: 3
I certify the patient meets the requirements for IP care: Yes
PRN Pain Medication Management As Directed
May give lesser potent ordered pain med per pt: Yes
preference::
Protocol:: Medication orders for pain may be administered in a
manner that supports deferring to patient preference
when the pt is:
- Requesting an ordered lesser potent pain medication.
Least to most potent pain medications are defined
as: acetaminophen < NSAID < tramadol < opioids
(morphine, oxycodone, hydromorphone).
- Requesting a lesser dose of the same medication IF
ORDERED.
- Requesting a less intrusive route of administration
if both routes are prescribed by the provider (PO <
IV).
06/04/24 22:49
Code Status As Directed
Resuscitation Status: Full Code
06/04/24 23:31
0.9% Sodium Chloride [Nss (Preservative Free)] See Protocol IV PRN PRN
Acetaminophen [Tylenol] 650 mg PO Q4HPRN PRN
FOLic ACID [Folvite] 1 mg 0.9% Sodium Chloride 50 ml [Nss] 50 ml IV DAILYPRN
Lactated Ringers [Lr] 1,000 ml IV 125 mls/hr
Lorazepam [Ativan] 1 mg IV Q1HPRN PRN
Lorazepam [Ativan] 1 mg PO Q2HPRN PRN
Lorazepam [Ativan] 2 mg IV Q1HPRN PRN
Ondansetron Injectable [Zofran] 4 mg IV Q6HPRN PRN
Phenobarbital Sodium [Phenobarbital] 260 mg 0.9% Sodium Chloride 100 ml [Nss] 100 ml IV NOW
06/04/24 23:31
Echo 2D MMode Doppler [Echo 2D MMode Color/Doppler] Routine
Reason for Study: Murmur
Case Management Consult Once
Case Management Consult: Other
Comment: Substance abuse counseling
DIETARY CONSULT Routine
Reason for Consult: Nutrition support, possible refeeding guidelines
Activity As Directed
Activity Level: Bedrest
EKG with chest pain [ECG as needed] As Directed
ECG as needed for:: Chest Pain
I/O [Intake/ Output] As Directed
Frequency: Per unit guidelines
MSAS SCORE As Directed
MSAS Score 0-4: Repeat MSAS every 2 hours until 0-4 for three consecutive assessments, then every 4 hours x 48
hours.
MSAS Score 5-7: For MILD withdrawl symptoms. Repeat MSAS and RASS every 2 hours
MSAS Score 8-11: For MODERATE withdrawal symptoms. Repeat MSAS and RASS every 1 hour. Consider ICU or IMU
level of care.
MSAS Score > 11: For SEVERE withdrawal symptoms. Repeat MSAS and RASS every 1 hour. Notify provider, consider
ICU level of care.
MSAS Additional Instructions: If no improvement or no decrease in score from severe to moderate within 12
hours, consult psychiatry
MSAS Notify Provider: Notify provider if patient requires more than 10 mg of Lorazepam in eight hour period.
Pneumatic Compression Sleeves As Directed
Type: Knee high
Precautions As Directed
Type of Precautions: Seizure
Vital Signs As Directed
Frequency: Per unit guidelines
Oxygen Therapy [O2 Therapy] [RESP] Routine
Titrate/Wean O2 to maintain O2 sat greater than (%): 94
DX Deep Vein Thrombosis Video Routine
06/04/24 23:58
Magnesium Urgent
Phosphorus Urgent
Urinalysis Routine
Date Specimen was Collected: 06/04/24
Time Specimen was Collected: 23:46
Urine Drug Abuse Screen Routine
Date Specimen was Collected: 06/04/24
Time Specimen was Collected: 23:46
06/05/24 00:00
Thiamine Injection 200 mg IV Q8
06/05/24 06:00
EKG [Electrocardiogram (*1)] IN AM
Reason for Study: Chest Pain
Basic Metabolic Panel IN AM
Complete Blood Count/No Diff IN AM
LFT [Utnnt-Uoap-Ezatcug] IN AM
06/05/24 08:00
FOLic ACID [Folvite] 1 mg PO DAILY
Pantoprazole [Protonix] 40 mg PO DAILY
Phenobarbital Sodium [Phenobarbital] 97.5 mg IV TID
06/05/24 18:00
Enoxaparin Sodium [Lovenox] 40 mg SC QPM
06/07/24 08:00
Phenobarbital [Luminal] 64.8 mg PO TID
06/08/24 08:00
Thiamine HCl [Vitamin B1] 100 mg PO BID
06/09/24 08:00
Phenobarbital [Luminal] 32.4 mg PO TID
Abnormal Lab Results
06/04/24
19:13
Chloride 88 L mmol/L
(98-107)
BUN < 2 L mg/dl
(9-20)
Glucose 127 H mg/dl
(70-99)
AST 91 H U/L
(17-59)
ALT 64 H U/L
(0-50)
Total Protein 9.1 H g/dl
(6.3-8.2)
Albumin 5.5 H g/dl
(3.5-5.0)
06/04/24 19:13
06/04/24 19:13
Vital Signs
Initial and Last Documented VS:
Initial Vital Signs
Temp Pulse Resp BP Pulse Ox
98.9 F 133 16 154/109 98
06/04/24 19:01 06/04/24 19:01 06/04/24 19:01 06/04/24 19:01 06/04/24 19:01
Last Documented Vital Signs
Temp Pulse Resp BP Pulse Ox
98.9 F 128 26 123/86 98
06/04/24 23:54 06/04/24 23:15 06/04/24 23:15 06/04/24 23:00 06/04/24 23:15
<Anuel Marroquin PA-C - Last Filed: 06/04/24 21:23>
MDM/Problems Addressed
Differential Diagnosis Includes:
Patient here stating that he is withdrawing from alcohol. He was admitted to this hospital about 2 weeks ago for the same. He is tachycardic hypertensive tremulous and diaphoretic. He has been vomiting and has not been able to keep any alcohol in
today. Abdomen exam is benign. Fluids ordered. 2 mg IV Ativan ordered initially. Anticipate he will need to be admitted to hospital for acute alcohol withdrawal. He states he has yet to have a seizure from withdrawal.
<Anuel Marroquin PA-C - Last Filed: 06/04/24 21:23>
*Critical Care Note
Total Time (30-74mins, 75-104mins- exclusive of procedures): Not Applicable
<Anuel Marroquin PA-C - Last Filed: 06/04/24 21:23>
Update Note
Update Note:
Patient reexamined. Still tremulous and tachycardic. Initially CIWA 2 mg of Ativan IV I added another 2 mg of Ativan IV. Labs reviewed. Discussed with emergency room attending. Will admit to hospital for acute alcohol withdrawal
ED Attending Note
<Anuel Marroquin PA-C - Last Filed: 06/04/24 21:23>
-
Portions of this chart may have been created with voice recognition software.� Occasional wrong word or��sound alike� substitutions may have occurred due to the inherent limitations of voice recognition software.
<Hernan Wagoner DO - Last Filed: 06/05/24 00:15>
ED Attending Note
I performed the substantive portion of visit, reviewed & personally made and approve the management plan that is documented in note by myself or MARIA ESTHER.: Yes
Discharge Plan
Departure
Patient Disposition: Admit
Date of Disposition: 06/04/24
Time of Disposition: 21:22
Presentation/result/management discussed w/ accepting MD/DO: Hospitalist
Discharge Problem:
ACUTE ALCOHOL WITHDRAWAL
Interventions
Interventions:
*Risk Screen - Suicide Last Done: 06/04/24 19:01
*General Assessment Last Done: 06/04/24 19:01
*Neglect/Abuse Screening Last Done: 06/04/24 19:01
ED- Fall Risk Assessment Last Done: 06/04/24 19:01
*Nursing Disposition Last Done: 06/04/24 23:28
ED- Neurological Assessment Last Done: 06/04/24 19:17
ED-Psychological Assessment Last Done: 06/04/24 19:01
Discharge Date and Time
Discharge Date/Time: 06/04/24 23:32
[2024-06-04] MEDS: ATIVAN 2 MG IV ×2 (19:53→20:48)
[2024-06-04] MEDS: ZOFRAN 4 MG IV (19:58)
[2024-06-04] MEDS: PEPCID 20 MG IV (19:59)
--- NOTE | 2024-06-04 22:59 | HPS.HSE ---
Family Physician
-
Family Physician: Xavier Newman
Chief Complaint
-
Alcohol withdrawal symptoms.
History of Present Illness
Patient is a 38y M with PMH significant for alcohol use disorder who presents to ED complaining of withdrawal symptoms. Patient states that he drinks 12-24 beers per day or a bottle of vodka per day on average. He has been admitted here
previously with similar presentations. Inpatient rehab was discussed; however, patient elected to go home with intensive outpatient therapy. He states that he returned to drinking right away.
Patient states that he started to feel nauseated and had some emesis last PM. Today he attempted to drink alcohol, but was unable to keep anything down. He began to have worsening N/V and onset of tremors similar to his prior episodes.
Medical History
Past Medical History
Past Medical History: Reports Other
Additional Past Medical History:
Depression / Anxiety
Alcohol Use Disorder
GERD
Past Surgical History: Reports Other
Additional Past Surgical History:
Appendectomy
Social History
Tobacco: Smoker (smoked cigarettes for 20 years, now uses vape every day)
Alcohol: Daily (12 pack of beer per day or 1 bottle vodka per day.)
Drug: None
Personal: Single
Living: With Family
Employment: Not Employed
Family History
Family History: Other (Brother: Alcohol Use Disorder)
Allergies / Home Medications
Allergies reflects when Allergies were last updated in [facility].
Home Medications with original date entered in [facility]
Allergy/Medication List:
Allergies
Allergy/AdvReac Type Severity Reaction Status Date / Time
No Known Allergies Allergy Verified 06/04/24 19:00
Home Medications
omeprazole 20 mg capsule,delayed release 20 mg PO DAILY GERD 11/12/23
amlodipine 5 mg tablet 5 mg PO DAILY Blood Pressure 05/20/24
escitalopram oxalate 10 mg tablet (Lexapro) 10 mg PO DAILY Mental Health/Anxiety 05/20/24
folic acid 1 mg tablet 1 mg PO DAILY #30 tabs 05/22/24
pantoprazole 40 mg tablet,delayed release 40 mg PO DAILY #15 tabs 05/22/24
thiamine HCl (vitamin B1) 100 mg tablet 100 mg PO DAILY #30 tabs 05/22/24
Review of Systems
-
History Source: Patient
A 12 point ROS was completed and negative except as noted: Yes
Constitutional: Reports Fatigue; Denies Fever or Chills
Respiratory: Denies Cough or Trouble Breathing
Cardiac: Denies Chest Pain or Palpitations
Abdomen/GI: Reports Nausea, Vomiting and Diarrhea; Denies Abdominal Pain, Bloody Stools or Black Stools
: Denies Dysuria or Frequency
Musculoskeletal: Denies Joint Pain or Edema
Neurological: Reports Other (Tremors); Denies Dizzy or Headache
Psych: Reports Depression and Anxiety
Physical Exam
Vital Signs
Vital Signs
Temp Pulse Resp BP Pulse Ox
98.9 F 112 20 129/81 97
06/04/24 19:01 06/04/24 22:00 06/04/24 22:00 06/04/24 22:00 06/04/24 22:00
Physical Exam
General: Other (38y M in moderate distress due to tremulousness.)
HEENT: Other (Dry MM. Neck supple.)
Respiratory: Clear; No Wheezes, Rales or Rhonchi
Cardiac: S1/S2, Tachycardia and Murmur (III/ PEDRO LUIS)
GI: Soft, Non Tender, Non Distended and Normal Bowel Sounds
Musculoskeletal: No Clubbing, No Cyanosis and No Edema
Neuro: AO x 3 and Other (Tremulous. No focal deficits.)
Laboratory Results
-
06/04/24 19:13
06/04/24 19:13
Laboratory Results
Total Bilirubin 1.0 mg/dl (0.2-1.3) 06/04/24 19:13
AST 91 U/L (17-59) H 06/04/24 19:13
ALT 64 U/L (0-50) H 06/04/24 19:13
Alkaline Phosphatase 81 U/L (38-126) 06/04/24 19:13
Impression/Plan
-
A/P: Patient is a 38y M with PMH significant for alcohol use disorder who presents to ED for evaluation of alcohol withdrawal symptoms that started today.
Alcohol Use Disorder
Acute Alcohol Withdrawal
Alcoholic Ketoacidosis
- Admit for further evaluation and treatment.
- Phenobarb taper given active withdrawal symptoms and history of similar.
- MSAS protocol / Ativan as needed.
- Follow labs / lytes.
- IVFs support.
- Follow for clinical improvement.
- Would encourage inpateint rehab program at discharge if patient is amenable.
Alcoholic Hepatitis
- Abnormal LFTs likely due to ongoing alcohol use as noted above.
- Follow LFTs / lytes for changes.
- Abstain from alcohol.
DVT Prophylaxis: Lovenox
Code Status: Full
[2024-06-05] VITALS (12 sets, daily range): BP systolic 108–140; BP diastolic 79–97
[2024-06-05] MEDS: NSS (PRESERVATIVE FREE) 0.5 ML IV (00:09)
[2024-06-05] MEDS: ATIVAN 1 MG IV (00:09)
[2024-06-05] MEDS: PHENOBARBITAL 104 MG IV (00:15)
[2024-06-05 00:26] LABS: Magnesium 1.6 mg/dl (1.6-2.3); Phosphorus 2.4 mg/dl (2.5-4.5)
[2024-06-05 00:32] LABS: Urine Albumin Trace (Neg - Trace); Urine Bilirubin Negative (Negative); Urine Character Clear (Clear); Urine Color Yellow; Urine Glucose Negative (Negative); Urine Ketone Negative (Negative); Urine Leukocyte Trace (Negative); Urine Nitrite Negative (Negative); Urine Occult Blood Negative (Negative); Urine Urobilinogen Negative (Neg - 1+); Urine pH 6.5 (5.0-9.0)
[2024-06-05] MEDS: THIAMINE INJECTION 200 MG IV ×3 (00:40→16:33)
[2024-06-05] MEDS: LR 1000 IV ×3 (00:40→16:35)
[2024-06-05 00:56] LABS: Amphetamines Negative (Negative); Barbiturates Positive (Negative); Benzodiazepines Positive (Negative); Buprenorphine Negative (Negative); Cocaine Negative (Negative); Marijuana Negative (Negative); Methadone Negative (Negative); Methamphetamines Negative (Negative); Opiates Negative (Negative); Phencyclidine Negative (Negative); Tricyclic Antidepressants Negative (Negative)
[2024-06-05 01:05] LABS: Urine Amorphous Seen; Urine Squamous Cell 21-25 /LPF (Few); Urine Urothelial Cell 16-20 /LPF (FEW); Urine White Cell 40-50 /HPF (0-5)
[2024-06-05 01:06] LABS: Urine Bacteria Few (Negative)
[2024-06-05] MEDS: ATIVAN 1 MG PO ×5 (01:09→20:46)
[2024-06-05 01:12] LABS: Fentanyl, Urine Negative (Negative)
[2024-06-05 04:51] LABS: Hemoglobin 12.5 g/dL (13.0-18.0); Mean Corp Hgb Conc. 33.8 g/dL (33.0-37.0); Mean Corpuscular Hgb 30.3 pg (27.0-31.0); Mean Corpuscular Volume 89.8 fL (80.0-94.0); Mean Platelet Volume 9.7 fL (7.4-10.4); Platelet Count 227 10^3/uL (130-400); Red Blood Cell Count 4.12 10^6/uL (4.70-6.10); Red Cell Dist. Width 14.5 % (11.5-14.5); White Blood Cell Count 5.9 10^3/uL (4.8-10.8)
[2024-06-05 05:19] LABS: ALT (SGPT) 52 U/L (0-50); AST (SGOT) 82 U/L (17-59); Albumin 4.1 g/dl (3.5-5.0); Alkaline Phosphatase 63 U/L (38-126); Blood Urea Nitrogen 2 mg/dl (9-20); Calcium 8.4 mg/dl (8.4-10.2); Carbon Dioxide 29 mmol/L (22-30); Chloride 94 mmol/L (98-107); Direct Bilirubin 0.3 mg/dl (0.0-0.4); Estimated Creatinine Clearance > 125 ml/min; Glucose 103 mg/dl (70-99); Potassium 3.8 mmol/L (3.5-5.1); Sodium 132 mmol/L (135-145); Total Bilirubin 1.7 mg/dl (0.2-1.3); Total Protein 6.9 g/dl (6.3-8.2); eGFR > 60.00
[2024-06-05] MEDS: PHENOBARBITAL 97.5 MG IV ×3 (09:03→22:42)
[2024-06-05] MEDS: FOLVITE 1 MG PO (09:06)
[2024-06-05] MEDS: PROTONIX 40 MG PO (09:06)
--- NOTE | 2024-06-05 10:03 | W.PN.HOSP.TC ---
Today's Communication/Plan
-
see plan
Assessment / Plan
Assessment / Plan
Gen: NAD, AAOx3.
Eyes: EOMI, PERRLA, no scleral icterus.
Neck: supple.
CV: Tachycardic, regular rhythm, +S1/S2, no m/r/g.
Resp: CTAB, no rales, wheezes, or rhonchi.
Abd: +BS, soft, NT, ND
Skin: No rashes.
Neuro: CN 2-12 intact, non-focal.
Psych: Normal mood and affect.
Acute alcoholic hepatitis, acute alcoholic ketoacidosis, and acute alcohol withdrawal due to alcohol abuse disorder:
-cont phenobarbital taper
-MSAS protocol (thiamine/folate/Ativan PRN)
-INR normal, Maddrey's score does not indicate need for methylprednisone
-IVFs
Hyponatremia, mild
FULL/Lovenox
Anticipated Discharge: > 48 hours
Subjective/Interval History
-
Date of Service: June 05, 2024
Denies AH/VH. States his anxiety is at baseline. Reports diaphoresis
Objective Data
-
Labs:
Laboratory Results
06/05/24
04:20
WBC 5.9
Hgb 12.5 L
Hct 37.0 L
Plt Count 227 D
Sodium 132 L
Potassium 3.8
Chloride 94 L
Carbon Dioxide 29
BUN 2 L
Creatinine 0.8
Glucose 103 H
Calcium 8.4
Total Bilirubin 1.7 H
AST 82 H
ALT 52 H
Alkaline Phosphatase 63
Vital Signs:
Vital Signs
Temp Pulse Resp BP Pulse Ox
98.2 F 89 23 124/79 93
06/05/24 07:15 06/05/24 09:00 06/05/24 09:00 06/05/24 08:00 06/05/24 09:00
I&O
06/04/24 06/05/24 06/06/24
06:59 06:59 06:59
Output Total 305 / 305 525 / 525
Balance -305 / -305 -525 / -525
--- NOTE | 2024-06-05 13:19 | PTCARENOTE ---
pt with MSAS 6 at 1100; diaphoretic, mild tremor, tachycardic in low 100's. Ativan 1 mg given po. 1 hr later requesting to ambulate to the bathroom. Contact guard, steady gait. No acceleration in heart rate. Diet increased to regular. Pt calm and
cooperative. Continuing to monitor
--- NOTE | 2024-06-05 14:01 | CM ---
Reviewed the chart notes and spoke with the patient at the bedside. CM consult received for substance abuse. Patient interested in speaking with [facility]. CM spoke with Tierney with [facility] intake, she will have Keshawn meet with the patient tomorrow.
Patient expressed interest in inpatient substance abuse therapy. The patient resides with his parents, brother, and daughter in a two story home with three steps to enter. The patient reports no DME/VN/SNF in the past. Patient confirmed his
pharmacy of choice is the [facility] and PCP is Dr. Xavier Newman. CM continues to be available to patient/family and is monitoring medical plan for needs at discharge.
Plan: Discharge plans will depend on patient's progress.
[2024-06-05] MEDS: LOVENOX 40 MG SC (19:10)
[2024-06-06] VITALS (8 sets, daily range): BP systolic 119–157; BP diastolic 82–105
[2024-06-06] MEDS: LR 1000 IV (00:44)
[2024-06-06] MEDS: THIAMINE INJECTION 200 MG IV ×4 (00:44→23:47)
[2024-06-06] MEDS: PHENOBARBITAL 97.5 MG IV ×3 (08:35→22:16)
[2024-06-06] MEDS: PROTONIX 40 MG PO (08:35)
[2024-06-06] MEDS: FOLVITE 1 MG PO (08:35)
[2024-06-06] MEDS: TYLENOL 650 MG PO (08:45)
[2024-06-06] MEDS: ATIVAN 1 MG PO ×2 (08:45→22:06)
[2024-06-06 10:15] LABS: % Basophils 1.8 % (0-2); % Eosinophils 9.5 % (0-6); % Immature Granulocytes 0.3 % (0-0.5); % Lymphocytes 26.1 % (20.5-51.1); % Monocytes 7.1 % (1.7-9.3); % Neutrophils 55.2 % (42.2-75.2); Absolute Basophils 0.1 10^3/uL (0-0.2); Absolute Eosinophils 0.4 10^3/uL (0-0.7); Absolute Monocytes 0.3 10^3/uL (0.1-0.6); Absolute Neutrophils 2.1 10^3/uL (1.4-6.5); Hematocrit 35.5 % (39.0-52.0); Hemoglobin 11.7 g/dL (13.0-18.0); Mean Corpuscular Hgb 30.1 pg (27.0-31.0); Mean Corpuscular Volume 91.3 fL (80.0-94.0); Mean Platelet Volume 9.8 fL (7.4-10.4); Nucleated Red Blood Cells % 0 % (-); Platelet Count 178 10^3/uL (130-400); Red Blood Cell Count 3.89 10^6/uL (4.70-6.10); Red Cell Dist. Width 14.7 % (11.5-14.5); White Blood Cell Count 3.8 10^3/uL (4.8-10.8)
[2024-06-06 10:37] LABS: ALT (SGPT) 45 U/L (0-50); AST (SGOT) 61 U/L (17-59); Albumin 3.8 g/dl (3.5-5.0); Alkaline Phosphatase 49 U/L (38-126); Blood Urea Nitrogen 5 mg/dl (9-20); Calcium 8.6 mg/dl (8.4-10.2); Carbon Dioxide 28 mmol/L (22-30); Chloride 100 mmol/L (98-107); Estimated Creatinine Clearance > 125 ml/min; Glucose 133 mg/dl (70-99); Potassium 3.8 mmol/L (3.5-5.1); Sodium 135 mmol/L (135-145); Total Bilirubin 1.5 mg/dl (0.2-1.3); Total Protein 6.4 g/dl (6.3-8.2); eGFR > 60.00
[2024-06-06] MEDS: LEXAPRO 10 MG PO (13:39)
--- NOTE | 2024-06-06 13:39 | W.PN.HOSP.TC ---
Today's Communication/Plan
-
Monitor vital signs see plan
Continue to monitor MSAS
Continue with phenobarb
Restart Lexapro
Transfer out of U
Assessment / Plan
Assessment / Plan
Gen: NAD, AAOx3.
Eyes: EOMI, PERRLA, no scleral icterus.
Neck: supple.
CV: Tachycardic, regular rhythm, +S1/S2, no m/r/g.
Resp: CTAB, no rales, wheezes, or rhonchi.
Abd: +BS, soft, NT, ND
Skin: No rashes.
Neuro: CN 2-12 intact, non-focal. + TREMOR
Psych: Normal mood and affect.
Acute alcoholic hepatitis, acute alcoholic ketoacidosis, and acute alcohol withdrawal due to alcohol abuse disorder:
-cont phenobarbital taper
-MSAS protocol (thiamine/folate/Ativan PRN)
-INR normal, Maddrey's score does not indicate need for methylprednisone
Interested in rehab. [facility] involved
Hyponatremia, resolved
Mild LFT elevation
likely secondary to alcohol
Anxiety/depression
Continue Lexapro
Monitor
Hypertension
Currently normotensive
Continue to hold amlodipine at this time
GERD
FULL/Lovenox
Anticipated Discharge: 24 - 48 hours
Subjective/Interval History
-
Date of Service: June 06, 2024
Denies pain
Objective Data
-
Labs:
Laboratory Results
06/06/24
10:04
WBC 3.8 L
Hgb 11.7 L
Hct 35.5 L
Plt Count 178 D
Sodium 135
Potassium 3.8
Chloride 100
Carbon Dioxide 28
BUN 5 L
Creatinine 0.8
Glucose 133 H
Calcium 8.6
Total Bilirubin 1.5 H
AST 61 H
ALT 45
Alkaline Phosphatase 49
Vital Signs:
Vital Signs
Temp Pulse Resp BP Pulse Ox
98.4 F 83 21 132/95 98
06/06/24 11:29 06/06/24 13:37 06/06/24 13:37 06/06/24 13:37 06/06/24 13:37
I&O
06/05/24 06/06/24 06/07/24
06:59 06:59 06:59
Intake Total 2500 / 2500 1160 / 1160
Output Total 305 / 305 2325 / 2325
Balance -305 / -305 175 / 175 1160 / 1160
--- NOTE | 2024-06-06 15:23 | CM ---
Patient with Hx Alcohol Use Disorder, Anxiety/depression. Room air. Receiving IV Phenobarbital w taper, IV/PO Ativan prn. MSAS per nursing. Ambulatory in room per nurse.
Spoke with MIGUEL Sher; confirmed that patient is agreeable to [facility] program. Christos feels confident that he will be approved for this program. His agreement is somewhat tenuous as he has changed his mind about this on
prior admits, so MIGUEL suggested strategy of minimizing discussion about it until he is ready to go. *[facility] will not take the patient while he is on a Phenobarb taper, either IV or PO.
Plan [facility] Inpatient Program when medically ready.
--- NOTE | 2024-06-06 16:42 | PTCARENOTE ---
Patient MSAS score under 5 majority of the shift. Patient has been calm and cooperative today compliant with plan of care. Mild headache relieved with Tylenol. Patient eating majority of meals. Out of bed to chair. For transfer to room 411 today.
--- NOTE | 2024-06-06 17:31 | PTCARENOTE ---
Report given to Maribell GAMBLE for transfer to room 411 bed 1. Patient educated about plan of care, he verbalized understanding. In good spirits. MSAS <4.
[2024-06-06] MEDS: LOVENOX 40 MG SC (17:34)
[2024-06-06] MEDS: ATIVAN 1 MG IV (18:13)
[2024-06-07] VITALS (7 sets, daily range): BP systolic 114–141; BP diastolic 77–101
[2024-06-07 07:22] LABS: % Basophils 1.2 % (0-2); % Eosinophils 8.4 % (0-6); % Immature Granulocytes 0.2 % (0-0.5); % Neutrophils 53.2 % (42.2-75.2); Absolute Basophils 0.1 10^3/uL (0-0.2); Absolute Eosinophils 0.4 10^3/uL (0-0.7); Absolute Lymphocytes 1.5 10^3/uL (1.2-3.4); Absolute Monocytes 0.4 10^3/uL (0.1-0.6); Absolute Neutrophils 2.7 10^3/uL (1.4-6.5); Hematocrit 36.2 % (39.0-52.0); Hemoglobin 11.9 g/dL (13.0-18.0); Mean Corp Hgb Conc. 32.9 g/dL (33.0-37.0); Mean Corpuscular Hgb 30.4 pg (27.0-31.0); Mean Corpuscular Volume 92.3 fL (80.0-94.0); Mean Platelet Volume 10.4 fL (7.4-10.4); Nucleated Red Blood Cells % 0 % (-); Platelet Count 169 10^3/uL (130-400); Red Blood Cell Count 3.92 10^6/uL (4.70-6.10); Red Cell Dist. Width 14.9 % (11.5-14.5); White Blood Cell Count 5.1 10^3/uL (4.8-10.8)
[2024-06-07 07:46] LABS: ALT (SGPT) 53 U/L (0-50); AST (SGOT) 55 U/L (17-59); Albumin 3.9 g/dl (3.5-5.0); Alkaline Phosphatase 54 U/L (38-126); Blood Urea Nitrogen 6 mg/dl (9-20); Calcium 8.9 mg/dl (8.4-10.2); Carbon Dioxide 30 mmol/L (22-30); Chloride 100 mmol/L (98-107); Estimated Creatinine Clearance 116 ml/min; Glucose 95 mg/dl (70-99); Potassium 3.8 mmol/L (3.5-5.1); Sodium 138 mmol/L (135-145); Total Bilirubin 0.9 mg/dl (0.2-1.3); Total Protein 6.6 g/dl (6.3-8.2); eGFR > 60.00
[2024-06-07] MEDS: PROTONIX 40 MG PO (09:02)
[2024-06-07] MEDS: FOLVITE 1 MG PO (09:02)
[2024-06-07] MEDS: LUMINAL 64.8 MG PO ×3 (09:02→21:12)
[2024-06-07] MEDS: THIAMINE INJECTION 200 MG IV ×2 (09:02→16:26)
[2024-06-07] MEDS: LEXAPRO 10 MG PO (09:02)
[2024-06-07] MEDS: FLUSH (NSS) 2 FLUSH IV ×2 (09:03→16:26)
--- NOTE | 2024-06-07 12:32 | W.PN.HOSP.TC ---
Today's Communication/Plan
-
monitor vitals
See plan
Continue with phenobarbital
Restart amlodipine
Hopeful DC tomorrow
Assessment / Plan
Assessment / Plan
Gen: NAD, AAOx3.
Eyes: EOMI, PERRLA, no scleral icterus.
Neck: supple.
CV: Tachycardic, regular rhythm, +S1/S2, no m/r/g.
Resp: CTAB, no rales, wheezes, or rhonchi.
Abd: +BS, soft, NT, ND
Skin: No rashes.
Neuro: CN 2-12 intact, non-focal. + TREMOR
Psych: Normal mood and affect.
Acute alcoholic hepatitis, acute alcoholic ketoacidosis, and acute alcohol withdrawal due to alcohol abuse disorder:
-cont phenobarbital taper. If continues to do well with MSAS then possible discharge tomorrow
-MSAS protocol (thiamine/folate/Ativan PRN)
-INR normal, Maddrey's score does not indicate need for methylprednisone
Interested in rehab. [facility] involved
Hyponatremia, resolved
Mild LFT elevation
likely secondary to alcohol
Mild anemia
Monitor
Anxiety/depression
Continue Lexapro
Monitor
Hypertension
Restart amlodipine
GERD
FULL/Lovenox
[facility] following, interested in rehab
Anticipated Discharge: Within 24 hours
Subjective/Interval History
-
Date of Service: June 07, 2024
Denies pain
Objective Data
-
Labs:
Laboratory Results
06/07/24
06:53
WBC 5.1
Hgb 11.9 L
Hct 36.2 L
Plt Count 169
Sodium 138
Potassium 3.8
Chloride 100
Carbon Dioxide 30
BUN 6 L
Creatinine 0.9
Glucose 95
Calcium 8.9
Total Bilirubin 0.9
AST 55
ALT 53 H
Alkaline Phosphatase 54
Vital Signs:
Vital Signs
Temp Pulse Resp BP Pulse Ox
98.3 F 70 18 141/97 98
06/07/24 11:49 06/07/24 11:49 06/07/24 11:49 06/07/24 11:49 06/07/24 11:49
I&O
06/06/24 06/07/24 06/08/24
06:59 06:59 06:59
Intake Total 2500 / 2500 2119
Output Total 2324 / 232
Balance 175 / 175 2119
[2024-06-07] MEDS: NORVASC 5 MG PO (13:25)
--- NOTE | 2024-06-07 13:45 | CM ---
EARNESTINE met with Wilmer today to discuss discharge plan for transfer to ETOH rehab at [facility]. When he was here previously he had left AMA due to an emergency with his daughter at school.
Wilmer is agreeable to the plan for transfer/admission to [facility] when medically cleared.
Plan: IRENE to coordinate with [facility] for transportation there; Wilmer also advised that his parents would be agreeable to provide transport if needed.
[2024-06-07] MEDS: ATIVAN 1 MG PO (13:54)
--- NOTE | 2024-06-07 14:18 | PTCARENOTE ---
patient sleeping- awoke for medication and visit from [facility] representative- after visit patient rang call lopez for nurse, requesting ativan- stating he is feeling very anxious, diaphoretic, shaky, MSAS reassessed now with level of 5- ativan 1mg
po given as ordered be protocol. plan of care on going.
[2024-06-07] MEDS: TYLENOL 650 MG PO ×2 (16:25→21:20)
[2024-06-07] MEDS: LOVENOX 40 MG SC (18:31)
[2024-06-08 03:42] VITALS: BP 124/86
[2024-06-08 07:30] VITALS: BP 128/69
[2024-06-08] MEDS: PROTONIX 40 MG PO (08:13)
[2024-06-08] MEDS: NORVASC 5 MG PO (08:13)
[2024-06-08] MEDS: LUMINAL 64.8 MG PO ×3 (08:14→21:05)
[2024-06-08] MEDS: FOLVITE 1 MG PO (08:14)
[2024-06-08] MEDS: LEXAPRO 10 MG PO (08:14)
[2024-06-08] MEDS: VITAMIN B1 100 MG PO ×2 (08:14→21:05)
[2024-06-08] MEDS: FLUSH (NSS) 1 FLUSH IV (08:15)
[2024-06-08] MEDS: TYLENOL 650 MG PO ×3 (08:17→21:13)
[2024-06-08 08:27] LABS: % Basophils 1.2 % (0-2); % Eosinophils 7.1 % (0-6); % Immature Granulocytes 0.5 % (0-0.5); % Lymphocytes 20.7 % (20.5-51.1); % Neutrophils 64.5 % (42.2-75.2); Absolute Basophils 0.1 10^3/uL (0-0.2); Absolute Eosinophils 0.5 10^3/uL (0-0.7); Absolute Lymphocytes 1.3 10^3/uL (1.2-3.4); Absolute Monocytes 0.4 10^3/uL (0.1-0.6); Absolute Neutrophils 4.2 10^3/uL (1.4-6.5); Hematocrit 39.7 % (39.0-52.0); Hemoglobin 12.6 g/dL (13.0-18.0); Mean Corp Hgb Conc. 31.7 g/dL (33.0-37.0); Mean Corpuscular Hgb 29.6 pg (27.0-31.0); Mean Corpuscular Volume 93.2 fL (80.0-94.0); Mean Platelet Volume 10.5 fL (7.4-10.4); Nucleated Red Blood Cells % 0 % (-); Platelet Count 205 10^3/uL (130-400); Red Blood Cell Count 4.26 10^6/uL (4.70-6.10); White Blood Cell Count 6.5 10^3/uL (4.8-10.8)
[2024-06-08 09:02] LABS: ALT (SGPT) 53 U/L (0-50); AST (SGOT) 46 U/L (17-59); Albumin 4.2 g/dl (3.5-5.0); Alkaline Phosphatase 57 U/L (38-126); Blood Urea Nitrogen 7 mg/dl (9-20); Calcium 8.9 mg/dl (8.4-10.2); Carbon Dioxide 29 mmol/L (22-30); Chloride 97 mmol/L (98-107); Estimated Creatinine Clearance 116 ml/min; Glucose 115 mg/dl (70-99); Potassium 3.4 mmol/L (3.5-5.1); Sodium 137 mmol/L (135-145); Total Bilirubin 0.5 mg/dl (0.2-1.3); eGFR > 60.00
[2024-06-08] MEDS: KCL 40 MEQ PO (11:13)
[2024-06-08] MEDS: ATIVAN 1 MG PO (12:46)
--- NOTE | 2024-06-08 13:00 | PTCARENOTE ---
patient with visit from [facility]- patient upset about not being able to be discharged today and not being able to go to [facility] for 24 hours after phenobarb stopped. requesting ativan for anxiety, no withdrawal symptoms noted- Dr Lizama
made aware and ordered one time dose of ativan oral which was given. plan of care on going.
--- NOTE | 2024-06-08 13:35 | W.PN.HOSP.TC ---
Today's Communication/Plan
-
Monitor vital signs see plan
Continue with phenobarbital
Monitor MSAS
Ativan earlier was given secondary to anxiety
hopeful dc tomorrow
Assessment / Plan
Assessment / Plan
Gen: NAD, AAOx3.
Eyes: EOMI, PERRLA, no scleral icterus.
Neck: supple.
CV: Tachycardic, regular rhythm, +S1/S2, no m/r/g.
Resp: CTAB, no rales, wheezes, or rhonchi.
Abd: +BS, soft, NT, ND
Skin: No rashes.
Neuro: CN 2-12 intact, non-focal. + TREMOR
Psych: Normal mood and affect.
Acute alcoholic hepatitis, acute alcoholic ketoacidosis, and acute alcohol withdrawal due to alcohol abuse disorder:
-cont phenobarbital taper. If continues to do well with MSAS then possible discharge tomorrow
Apparently facility wants patient to be on phenobarbital before discharge. hopeful can dc tomorrow
-MSAS protocol (thiamine/folate/Ativan PRN)
-INR normal, Maddrey's score does not indicate need for methylprednisone
Interested in rehab. [facility] involved
Hyponatremia, resolved
Hypokalemia
Replete
Mild LFT elevation
likely secondary to alcohol
Mild anemia
Monitor
Anxiety/depression
Continue Lexapro
Monitor
used to be on ativan however now stooped few years ago since he had an episode with overdose. Per patient's PCP he will need psychiatry evaluation before primary practice can start prescribing again. Advised patient to see outpatient.
Hypertension
Restarted amlodipine
GERD
FULL/Lovenox
[facility] following, interested in rehab
Anticipated Discharge: Within 24 hours
Subjective/Interval History
-
Date of Service: June 08, 2024
Denies pain
Objective Data
-
Labs:
Laboratory Results
06/08/24
07:31
WBC 6.5
Hgb 12.6 L
Hct 39.7
Plt Count 205 D
Sodium 137
Potassium 3.4 L
Chloride 97 L
Carbon Dioxide 29
BUN 7 L
Creatinine 0.9
Glucose 115 H
Calcium 8.9
Total Bilirubin 0.5
AST 46
ALT 53 H
Alkaline Phosphatase 57
Vital Signs:
Vital Signs
Temp Pulse Resp BP Pulse Ox
98 F 74 16 128/69 98
06/08/24 07:30 06/08/24 07:30 06/08/24 07:30 06/08/24 07:30 06/08/24 07:30
I&O
06/07/24 06/08/24 06/09/24
06:59 06:59 06:59
Intake Total 2119 480 / 480 240 / 240
Balance 2119 480 / 480 240 / 240
[2024-06-08 15:46] VITALS: BP 129/83
[2024-06-08] MEDS: LOVENOX 40 MG SC (17:26)
--- NOTE | 2024-06-08 23:17 | W.PN.UPDATE ---
Update Note
Progress Note Update
patient reports sorethroat, cough and congestion. Denies fever chills. Will check Covid and influenza.
[2024-06-08 23:26] VITALS: BP 124/83
[2024-06-08 23:47] LABS: COVID-19 Antigen Negative (Negative)
[2024-06-09] MEDS: MELATONIN 5 MG PO (00:21)
[2024-06-09] MEDS: ANESTHETIC LOZENGE 1 LOZENGE PO (00:22)
[2024-06-09 07:45] VITALS: BP 113/82
[2024-06-09 08:11] LABS: % Basophils 1.4 % (0-2); % Eosinophils 7.9 % (0-6); % Immature Granulocytes 0.4 % (0-0.5); % Lymphocytes 21.3 % (20.5-51.1); % Monocytes 9.7 % (1.7-9.3); % Neutrophils 59.3 % (42.2-75.2); Absolute Basophils 0.1 10^3/uL (0-0.2); Absolute Eosinophils 0.6 10^3/uL (0-0.7); Absolute Lymphocytes 1.5 10^3/uL (1.2-3.4); Absolute Monocytes 0.7 10^3/uL (0.1-0.6); Absolute Neutrophils 4.3 10^3/uL (1.4-6.5); Hematocrit 35.7 % (39.0-52.0); Hemoglobin 11.8 g/dL (13.0-18.0); Mean Corp Hgb Conc. 33.1 g/dL (33.0-37.0); Mean Corpuscular Hgb 30.5 pg (27.0-31.0); Mean Corpuscular Volume 92.2 fL (80.0-94.0); Mean Platelet Volume 10.6 fL (7.4-10.4); Nucleated Red Blood Cells % 0 % (-); Platelet Count 208 10^3/uL (130-400); Red Blood Cell Count 3.87 10^6/uL (4.70-6.10); Red Cell Dist. Width 15.2 % (11.5-14.5); White Blood Cell Count 7.2 10^3/uL (4.8-10.8)
[2024-06-09 08:29] LABS: ALT (SGPT) 46 U/L (0-50); AST (SGOT) 33 U/L (17-59); Alkaline Phosphatase 58 U/L (38-126); Blood Urea Nitrogen 10 mg/dl (9-20); Carbon Dioxide 30 mmol/L (22-30); Chloride 99 mmol/L (98-107); Estimated Creatinine Clearance 116 ml/min; Glucose 108 mg/dl (70-99); Potassium 3.7 mmol/L (3.5-5.1); Sodium 137 mmol/L (135-145); Total Bilirubin 0.4 mg/dl (0.2-1.3); Total Protein 6.6 g/dl (6.3-8.2); eGFR > 60.00
[2024-06-09] MEDS: PROTONIX 40 MG PO (09:40)
[2024-06-09] MEDS: FOLVITE 1 MG PO (09:40)
[2024-06-09] MEDS: VITAMIN B1 100 MG PO (09:40)
[2024-06-09] MEDS: LEXAPRO 10 MG PO (09:40)
[2024-06-09] MEDS: NORVASC 5 MG PO (09:40)
[2024-06-09] MEDS: LUMINAL 32.4 MG PO (09:41)
[2024-06-09] MEDS: TYLENOL 650 MG PO (09:45)
--- NOTE | 2024-06-09 10:34 | CM ---
Addendum entered by Gibson Loya 06/09/24 10:50:
Discharge order noted. Both pt and his father are aware.
Per MIGUEL Liao, pt will return back home to complete taking his mediations for couple of days and he will report to [facility] inpatient residential D&A rehab. Both pt and his father are aware, expressed their agreement and pt's
father stated pt's mother will transport home.
D/C plan: home with report to [facility] D&A rehab in a couple of days. MIGUEL CRS coordinating. Mother to transport.
Original Note:
CM following re: discharge planning.
Reviewed pt's chart, met with pt with MIGUEL Liao present.
Pt confirmed his agreement to go to [facility] inpatient residential D&A rehab when medically stable. Support and encouragement given to the pt.
D/C plan: [facility] inpatient residential D&A rehab. MIGUEL WHITTAKER following.
CM will follow to assist pt with discharge to [facility] inpatient D&A rehab.
--- NOTE | 2024-06-09 10:37 | W.PN.HOSP.TC ---
Today's Communication/Plan
-
monitor vitals
see plan
on phenobarb
dc today
time of discharge 37 minutes
Assessment / Plan
Assessment / Plan
Gen: NAD, AAOx3.
Eyes: EOMI, PERRLA, no scleral icterus.
Neck: supple.
CV: Tachycardic, regular rhythm, +S1/S2, no m/r/g.
Resp: CTAB, no rales, wheezes, or rhonchi.
Abd: +BS, soft, NT, ND
Skin: No rashes.
Neuro: CN 2-12 intact, non-focal. + TREMOR
Psych: Normal mood and affect.
Acute alcoholic hepatitis, acute alcoholic ketoacidosis, and acute alcohol withdrawal due to alcohol abuse disorder:
-cont phenobarbital taper. will dc on 2 doses of phenobarb to complete course. dc today
will go to rehab from home
-MSAS protocol (thiamine/folate/Ativan PRN)
-INR normal, Maddrey's score does not indicate need for methylprednisone
Interested in rehab. [facility] involved
Hyponatremia, resolved
Hypokalemia
improved
Mild LFT elevation
likely secondary to alcohol; resolved
Mild anemia
Monitor
Anxiety/depression
Continue Lexapro
Monitor
used to be on ativan however now stooped few years ago since he had an episode with overdose. Per patient's PCP he will need psychiatry evaluation before primary practice can start prescribing again. Advised patient to see outpatient.
Hypertension
Restarted amlodipine
GERD
FULL/Lovenox
[facility] following, interested in rehab
Anticipated Discharge: Today
Subjective/Interval History
-
Date of Service: June 09, 2024
denies pain
Objective Data
-
Labs:
Laboratory Results
06/09/24
07:31
WBC 7.2
Hgb 11.8 L
Hct 35.7 L
Plt Count 208
Sodium 137
Potassium 3.7
Chloride 99
Carbon Dioxide 30
BUN 10
Creatinine 0.9
Glucose 108 H
Calcium 9.0
Total Bilirubin 0.4
AST 33
ALT 46
Alkaline Phosphatase 58
Vital Signs:
Vital Signs
Temp Pulse Resp BP Pulse Ox
98.4 F 77 18 113/82 97
06/09/24 07:45 06/09/24 07:45 06/09/24 07:45 06/09/24 07:45 06/09/24 07:45
I&O
06/08/24 06/09/24 06/10/24
06:59 06:59 06:59
Intake Total 480 / 480 1440 / 1440
Balance 480 / 480 1440 / 1440
--- NOTE | 2024-06-09 10:42 | W.DCSUMMARY ---
Discharge Summary
Discharge Data
Date of Admission: 06/04/24
Date of Discharge: 06/09/24
-
Pending Results: No
Hospital Course
38-year-old male with past medical history of anxiety, depression, hypertension, GERD came to the hospital with acute alcoholic ketoacidosis and alcohol withdrawal. Patient was started on phenobarbital protocol and his symptoms continue to improve
over time. He was seen by Katy and showed interest in going to rehab. Once his symptoms continue to improve on phenobarbital he was then discharged with couple doses remaining of phenobarbital to complete his taper. On discharge instructed to
follow-up closely with his PCP outpatient.
Discharge Plan
-
Patient Disposition: Home (Routine Discharge)
Discharge Diagnosis/Procedures: Acute alcohol withdrawal
Hyponatremia
Hypokalemia
LFT elevation
Diet: As tolerated
Activity: As tolerated
Driving Restrictions: As prior to admission
Bathing Restrictions: None
Referrals:
Xavier Newman MD [Family Provider] - in less than 1 week
Prescriptions:
New
phenobarbital 32.4 mg Tablet
32.4 mg PO BID Qty: 2 0RF
Continued
omeprazole 20 mg Capsule,Delayed Release(Dr/Ec)
20 mg PO DAILY
amlodipine 5 mg Tablet
5 mg PO DAILY
escitalopram oxalate [Lexapro] 10 mg Tablet
10 mg PO DAILY
thiamine HCl (vitamin B1) 100 mg Tablet
100 mg PO DAILY Qty: 30 0RF
pantoprazole 40 mg Tablet,Delayed Release (Dr/Ec)
40 mg PO DAILY Qty: 15 0RF
folic acid 1 mg Tablet
1 mg PO DAILY Qty: 30 0RF
Discharge Orders:
Discharge Patient (As Directed); Ordered 06/09/24
Ordered By: Armaan Lizama
Discharge Date and Time
Discharge Date/Time: 06/09/24 15:36
Print Language: GEORGIAN
== END 2024-06-09 15:36 | DRG 433 ==
LOC: 4 EAST ACU 23:10
PROVIDERS: Nurse Practitioner Gerontology; ADMITTING PHYSICIAN Hospitalist; ATTENDING PHYSICIAN Internal Medicine; EMERGENCY PHYSICIAN Emergency Medicine; FAMILY PHYSICIAN Family Medicine
DX: K70.10 Alcoholic hepatitis without ascites (principal); E87.1 Hypo-osmolality and hyponatremia; F10.239 Alcohol dependence with withdrawal, unspecified; E87.29 Other acidosis; E87.6 Hypokalemia; F41.9 Anxiety disorder, unspecified; F32.A Depression, unspecified; I10 Essential (primary) hypertension; K21.9 Gastro-esophageal reflux disease without esophagitis; D64.9 Anemia, unspecified; F17.290 Nicotine dependence, other tobacco product, uncomplicated; Z11.52 Encounter for screening for COVID-19; G43.909 Migraine, unspecified, not intractable, without status migrainosus; Z79.899 Other long term (current) drug therapy
CPT/HCPCS: 80053; 80306; 80307; 81003; 81015; 82077; 82248; 83735; 84100; 85025; 85027; 87502; 87811; 93005; 93306; 96374; 96375; 99285

== ENCOUNTER 2024-07-05 10:15 | Inpatient (IN) | payer OTHER, SELFPAY ==
[2024-07-05] VITALS (9 sets, daily range): BP systolic 113–166; BP diastolic 79–101; PULSE 83–143; BMI 26.2
[2024-07-05 06:15] LABS: ALT (SGPT) 72 U/L (0-50); AST (SGOT) 97 U/L (17-59); Albumin 5.8 g/dl (3.5-5.0); Alcohol 104 mg/dl; Alkaline Phosphatase 99 U/L (38-126); Blood Urea Nitrogen 10 mg/dl (9-20); Calcium 10.2 mg/dl (8.4-10.2); Carbon Dioxide 10 mmol/L (22-30); Chloride 91 mmol/L (98-107); Glucose 130 mg/dl (70-99); Potassium 4.6 mmol/L (3.5-5.1); Sodium 136 mmol/L (135-145); Total Bilirubin 1.3 mg/dl (0.2-1.3); Total Protein 9.5 g/dl (6.3-8.2); eGFR > 60.00
[2024-07-05 06:37] LABS: Hemoglobin 15.6 g/dL (13.0-18.0); Mean Corp Hgb Conc. 33.9 g/dL (33.0-37.0); Mean Corpuscular Hgb 28.8 pg (27.0-31.0); Mean Corpuscular Volume 84.9 fL (80.0-94.0); Mean Platelet Volume 10.1 fL (7.4-10.4); Platelet Count 504 10^3/uL (130-400); Red Blood Cell Count 5.42 10^6/uL (4.70-6.10); White Blood Cell Count 19.1 10^3/uL (4.8-10.8)
--- NOTE | 2024-07-05 07:31 | ED.GENMED ---
History of Present Illness
General
Chief Complaint: Abdominal Pain
Source: patient
Exam Limitations: none
Time Seen by Provider: 07/05/24 07:27
History of Present Illness
History of Present Illness:
See MDM
Past History
Past History
ED Past Medical History: GERD, Psychiatric (Anxiety, Depression, alcoholism) and Other (epididymitis L testicle, kidney stones, PNA, Renal calculus, Migraines, alcoholism, PNA, Pancreatitis, )
ED Past Surgical History: Appendectomy
Social History
Tobacco: Vaping (Quit 2020 now vapes)
Alcohol: Daily (12 pack of beer or bottle of vodka)
Drug: None
Personal: Single
Living: alone
Employment: Employed
Family History
Family History: Other
Phy Exam
Physical Exam
Physical Exam:
See MDM
Course
Orders/Labs/Results
Orders:
Orders
07/05/24 05:21
Electrocardiogram (*1) Urgent
Reason for Study: Shortness of Breath
07/05/24 05:22
EKG- Treatment ONCE
07/05/24 05:35
Alcohol Urgent
Complete Blood Count/With Diff Urgent
Comprehensive Metabolic Panel Urgent
Lipase Urgent
Manual Differential Urgent
07/05/24 07:27
Add On- LAB Urgent
Tests Added?: Lipase
Lorazepam [Ativan] 2 mg .ROUTE .STK-MED ONE
07/05/24 07:28
Ondansetron Injectable [Zofran] 4 mg .ROUTE .STK-MED ONE
07/05/24 07:31
IV Insert/Care/Rem.- Treatment PRN
Pantoprazole 80 mg/100 ml Nss [Protonix] 80 mg in 100 ml IV NOW
Pantoprazole [Protonix IV] 80 mg IV NOW STA
07/05/24 07:38
Lorazepam [Ativan] 1 mg IV NOW STA
07/05/24 07:39
Ondansetron Injectable [Zofran] 4 mg IV NOW STA
07/05/24 08:28
Lorazepam [Ativan] 1 mg IV NOW STA
Abnormal Lab Results
07/05/24
05:35
WBC 19.1 H 10^3/uL
(4.8-10.8)
RDW 15.0 H %
(11.5-14.5)
Plt Count 504 H 10^3/uL
(130-400)
Abs Neuts (Manual) 16.4 H 10^3/uL
(1.4-6.5)
Band Neutrophils 11 H %
(0-3)
Lymphocytes (Manual) 6 L %
(20-51)
Chloride 91 L mmol/L
(98-107)
Carbon Dioxide 10 L* mmol/L
(22-30)
Glucose 130 H mg/dl
(70-99)
AST 97 H U/L
(17-59)
ALT 72 H U/L
(0-50)
Total Protein 9.5 H g/dl
(6.3-8.2)
Albumin 5.8 H g/dl
(3.5-5.0)
07/05/24 05:35
07/05/24 05:35
Vital Signs
Initial and Last Documented VS:
Initial Vital Signs
Temp Pulse Resp BP Pulse Ox
98.2 F 138 26 140/90 98
07/05/24 05:18 07/05/24 05:18 07/05/24 05:18 07/05/24 05:18 07/05/24 05:18
Last Documented Vital Signs
Temp Pulse Resp BP Pulse Ox
98.2 F 126 20 145/97 96
07/05/24 05:18 07/05/24 08:06 07/05/24 08:06 07/05/24 08:02 07/05/24 08:02
MDM/Problems Addressed
Differential Diagnosis Includes:
HPI and MDM Narrative:
38-year-old male presenting with nausea and vomiting for the past several days. Patient does acknowledge that he has been binge drinking recently. Patient does have a history of pancreatitis and has gone through withdrawal before. Patient is
worried because he cannot keep any food or water down. He is now noticing blood in his vomit.
Patient is uncomfortable. Patient given Zofran and Ativan. Patient started on IV fluids. His vomit at bedside does appear dark. We discussed likely Tabitha-Mena tear but cannot rule out peptic ulcer disease. Will start PPI bolus and drip.
Based on his prior history, patient will require admission
Physical exam
General: Uncomfortable, sweaty
HEENT: protecting airway
Neck: appears supple
CV: No evidence of cyanosis. Tachycardic
Resp: No accessory muscle use
Abd: Non-distended. Generalized abdominal tenderness
Extremities: No deformities
Neuro: alert
Psych: Mildly anxious
Skin: Intact
Problems Addressed including Acute and Chronic Conditions affecting care:
1. Nausea and vomiting
Acuity: acute
Prognosis: unstable
Details: Potentially in the setting of pancreatitis versus alcohol withdrawal.
2. Upper GI bleed
Acuity: acute
Prognosis: stable
Details: Potentially Tabitha-Mena tear versus peptic ulcer disease. Patient started on PPI bolus and drip
Updates
Patient requiring multiple doses of Ativan. Will admit
Differential Diagnosis (but not limited to): Pancreatitis, peptic ulcer disease, Tabitha-Mena tear, alcohol withdrawal
Testing considered: CT abdomen/pelvis
Drug therapy (if applicable): OTC meds, please see d/c instruction regarding Rx drugs
Amount and/or Complexity of Data Reviewed
Clinical info obtained from: Patient
External data reviewed: N/A
Labs I independently reviewed (but not limited to): Leukocytosis, low bicarb, elevated alcohol level
Radiology: N/A
Pulse Ox: not hypoxic
EKG independently reviewed: N/A
Metal Fabricating Inspector: Sinus tachycardia
Critical Care: The high probability of a clinically significant, sudden or life threatening deterioration of the cardiovascular/GI system(s) required my full and direct attention, intervention and personal management. The aggregate critical care
time was 33 minutes. This time is in addition to time spent performing reported procedures but includes the following:
[x] Data Review and interpretation
[x] Patient assessment and monitoring of vital signs
[x] Documentation
[x] Medication orders and management
Risk of Complication:
Social Determinants of health: Good social support
Discussed with other providers: Hospitalist
Escalation of Care includes Admit/Obs: Given the concern for pancreatitis and upper GI bleed concern for alcohol withdrawal, will admit
Occasional wrong word or 'sound a like' substitutions may have occurred due to the inherent limitations of voice recognition software. Read the chart carefully and recognize, using context, where substitutions have occurred.
*Critical Care Note
Total Time (30-74mins, 75-104mins- exclusive of procedures): 33 min
ED Attending Note
-
Portions of this chart may have been created with voice recognition software.� Occasional wrong word or��sound alike� substitutions may have occurred due to the inherent limitations of voice recognition software.
Discharge Plan
Departure
Patient Disposition: Admit
Date of Disposition: 07/05/24
Time of Disposition: 08:32
Admit to: Med/Surg
Presentation/result/management discussed w/ accepting MD/DO: Hospitalist
Discharge Problem:
Alcohol use with withdrawal, UGIB (upper gastrointestinal bleed), Acute pancreatitis
Prescriptions:
No Action
omeprazole 20 mg Capsule,Delayed Release(Dr/Ec)
20 mg PO DAILY
amlodipine 5 mg Tablet
5 mg PO DAILY
escitalopram oxalate [Lexapro] 10 mg Tablet
10 mg PO DAILY
thiamine HCl (vitamin B1) 100 mg Tablet
100 mg PO DAILY Qty: 30 0RF
pantoprazole 40 mg Tablet,Delayed Release (Dr/Ec)
40 mg PO DAILY Qty: 15 0RF
folic acid 1 mg Tablet
1 mg PO DAILY Qty: 30 0RF
Referrals:
Xavier Newman MD [Family Provider] -
Interventions
Interventions:
*Risk Screen - Suicide Last Done: 07/05/24 05:22
*General Assessment Last Done: 07/05/24 08:06
*Neglect/Abuse Screening Last Done: 07/05/24 05:20
*ED COVID-19 Vaccine History Last Done: 07/05/24 08:08
CD-Zbdoxa-Jlhfctqjni Assessment Last Done: 07/05/24 08:07
ED- Cardiac Assessment Last Done: 07/05/24 08:07
ED- Neurological Assessment Last Done: 07/05/24 08:07
ED-Psychological Assessment Last Done: 07/05/24 08:07
ED- Pulmonary Assessment Last Done: 07/05/24 08:07
Discharge Date and Time
Print Language: SWEDISH
[2024-07-05 07:33] LABS: Absolute Neutrophils -Man Diff 16.4 10^3/uL (1.4-6.5); Anisocytosis 1+; Band Neutrophils 11 % (0-3); Lymphocytes 6 % (20-51); Monocytes 8 % (2-9); Normal RBC Morphology No; Platelets Checked Yes; Segmented Neutrophils 75 % (42-75)
[2024-07-05 07:34] LABS: Total Cells Counted 100
[2024-07-05] MEDS: ATIVAN 1 MG IV ×4 (07:38→11:37)
[2024-07-05] MEDS: ZOFRAN 4 MG IV (07:39)
[2024-07-05] MEDS: PROTONIX 100 IV (07:53)
[2024-07-05] MEDS: PROTONIX IV 80 MG IV (07:53)
[2024-07-05 08:33] LABS: Lipase 128 U/L (23-300)
[2024-07-05] MEDS: MORPHINE SULFATE 4 MG IV (08:49)
--- NOTE | 2024-07-05 09:23 | HPS.HSE ---
Family Physician
-
Family Physician: Xavier Newman
Chief Complaint
-
Intractable vomiting
History of Present Illness
38-year-old male with a past medical history of alcohol abuse with dependency, gastroesophageal reflux disorder, and anxiety/depression presents with nausea and vomiting since yesterday. Patient reports he has been binge drinking, he was binge
drinking last night, and developed nausea and vomiting. Patient reports he drinks a 12 pack beer a day. His nausea and vomiting persisted throughout the night, this morning he was vomiting up black liquids. He also complains of diffuse abdominal
soreness. No fever, no chest pain, no shortness of breath. Patient has frequent admissions for alcohol withdrawal, his last admission was 1 month ago.
Medical History
Past Medical History
Past Medical History: Reports Other
Additional Past Medical History:
Depression / Anxiety
Alcohol Use Disorder
GERD
Past Surgical History: Reports Other
Additional Past Surgical History:
Appendectomy
Social History
Tobacco: Smoker (smoked cigarettes for 20 years, now uses vape every day)
Alcohol: Daily (12 pack of beer per day or 1 bottle vodka per day.)
Drug: None
Personal: Single
Living: With Family
Employment: Not Employed
Family History
Family History: Other (Brother: Alcohol Use Disorder)
Allergies / Home Medications
Allergies reflects when Allergies were last updated in [employer].
Home Medications with original date entered in [employer]
Allergy/Medication List:
Allergies
Allergy/AdvReac Type Severity Reaction Status Date / Time
No Known Allergies Allergy Verified 06/04/24 19:00
Home Medications Table - record
�Medication �Instructions �Recorded �Confirmed
omeprazole 20 mg capsule,delayed 20 mg PO DAILY GERD 11/12/23 07/05/24
release
amlodipine 5 mg tablet 5 mg PO DAILY Blood Pressure 05/20/24 07/05/24
escitalopram oxalate 10 mg tablet 10 mg PO DAILY Mental 05/20/24 07/05/24
(Lexapro) Health/Anxiety
Review of Systems
-
A 12 point ROS was completed and negative except as noted: Yes
Physical Exam
Vital Signs
Vital Signs
Temp Pulse Resp BP Pulse Ox
98.2 F 124 27 135/94 95
07/05/24 05:18 07/05/24 09:15 07/05/24 09:15 07/05/24 09:00 07/05/24 09:15
Physical Exam
General: No Apparent Distress
HEENT: NormoCephalic, Anicteric, Moist mucous membranes and Atraumatic
Respiratory: Clear
Cardiac: S1/S2 and Regular Rhythm
GI: Soft, Non Tender, Non Distended and Normal Bowel Sounds
Musculoskeletal: No Clubbing, No Cyanosis and No Edema
Neuro: Awake, Alert and Oriented
Psych: Calm
Laboratory Results
-
07/05/24 05:35
07/05/24 05:35
Laboratory Results
Total Bilirubin 1.3 mg/dl (0.2-1.3) 07/05/24 05:35
AST 97 U/L (17-59) H 07/05/24 05:35
ALT 72 U/L (0-50) H 07/05/24 05:35
Alkaline Phosphatase 99 U/L (38-126) 07/05/24 05:35
Lipase 128 U/L (23-300) 07/05/24 05:35
Impression/Plan
-
38-year-old male with a past medical history of alcohol abuse with dependency, gastroesophageal reflux disorder, and anxiety/depression presents with nausea and vomiting since yesterday. Patient reports he has been binge drinking, he was binge
drinking last night, and developed nausea and vomiting. Patient reports he drinks a 12 pack beer a day. His nausea and vomiting persisted throughout the night, this morning he was vomiting up black liquids. He also complains of diffuse abdominal
soreness. No fever, no chest pain, no shortness of breath. Patient has frequent admissions for alcohol withdrawal, his last admission was 1 month ago.
#Acute alcohol intoxication with dependency and withdrawal
#Acute alcoholic hepatitis
#Acute alcoholic ketoacidosis
Alcohol level upon admission 104
IVFs, Phenobarbital taper, MSAS protocol, thiamine, folic acid
Alcohol cessation counseling has been provided
#Coffee-ground emesis
Suspect Tabitha-Mena tear
Continue Protonix drip, consult GI, trend hemoglobin
#Abdominal soreness
Due to vomiting
Lipase normal, pancreatitis ruled out
#Essential hypertension
Hold amlodipine
Give clonidine 0.1 mg as needed
#Systemic inflammatory response syndrome
#Tachycardia
#Leukocytosis
Leukocytosis likely reactive from vomiting, tachycardia from alcohol withdrawal
Patient is afebrile, continue to monitor
#Anxiety/depression
Continue SSRI
DVT prophylaxis�SCDs
Full code
Total time spent to see the patient on the floor, examine the patient, review data and lab results, discuss treatment plan with patient, nursing staff around 76 minutes.
[2024-07-05 10:44] LABS: Magnesium 1.7 mg/dl (1.6-2.3)
[2024-07-05] MEDS: PHENOBARBITAL 104 MG IV (10:58)
[2024-07-05] MEDS: MULTIVITAMIN 1011 MG IV (11:38)
[2024-07-05] MEDS: MULTIVITAMIN 1011 ML IV (11:38)
--- NOTE | 2024-07-05 12:00 | CON.GI ---
Consultation
-
Date/Time Consultation Requested: 07/05/24 09:49
Date/Time Consultation Performed: 07/05/24 12.01
Requesting Provider: DO Mendes MD
Performing Provider: Arlin Richard MD
Reason for Consultation: Abdominal Pain
Medical History
Chief Complaint / HPI
Chief Complaint: Abdominal Pain
History of Present Illness:
The patient is a 38-year-old male with a PMH of alcohol use disorder, pancreatitis, GERD, depression, kidney stone and migraine who presented to ER today complaining from nausea and vomiting for the past several days. Patient reports that he has
been binge drinking recently. Patient had alcohol withdrawal in the past but denies any seizure related it. Patient reports drinking a good amount of alcohol for last couple of weeks and started to throw up yesterday night. Since yesterday night,
he might had thrown up for 50 times and reported seeing some dark colored emesis this morning with his vomiting. He reported having GERD for last 10 years and has been taking omeprazole. He denied dysphagia, vomiting blood, diarrhea and
constipation. He reports having fatty lives for last a few years and did not have a follow up for it. Denies any endoscopy/colonoscopy in the past.
Past Medical History
Past Medical History: GERD, Psychiatric (Anxiety, Depression) and Other (alcohol use disorder, epididymitis L testicle, kidney stones, PNA, Renal calculus, Migraines, alcoholism, PNA, Pancreatitis,)
Past Surgical History: Appendectomy
Social History
Tobacco: Vaping (Quit 2020, currently vapes )
Alcohol: Daily (12 pack of beer/daily)
Drug: None
Personal: Single
Living: With Family (daughter )
Employment: Not Employed
Family History
Family History: Reviewed & Not Pertinent
Allergies / Home Medications
Allergy/AdvReac Type Severity Reaction Status Date / Time
No Known Allergies Allergy Verified 06/04/24 19:00
�Medication �Instructions �Recorded
omeprazole 20 mg capsule,delayed 20 mg PO DAILY GERD 11/12/23
release
amlodipine 5 mg tablet 5 mg PO DAILY Blood Pressure 05/20/24
escitalopram oxalate 10 mg tablet 10 mg PO DAILY Mental 05/20/24
(Lexapro) Health/Anxiety
Review of Systems
-
History Source: Patient
Constitutional: Reports No Symptoms
EENT: Reports No Symptoms
Respiratory: Reports No Symptoms
Cardiac: Reports No Symptoms
Abdomen/GI: Reports Abdominal Pain, Nausea and Vomiting
: Reports No Symptoms
Musculoskeletal: Reports No Symptoms
Skin: Reports No Symptoms
Neurological: Reports No Symptoms
Vital Signs
Temp Pulse Resp BP Pulse Ox
98.2 F 118 26 136/96 94
07/05/24 05:18 07/05/24 11:30 07/05/24 11:30 07/05/24 11:00 07/05/24 11:30
Physical Exam
Exam
General: Well Developed and Well Nourished
HEENT: Normocephalic and Anicteric
Respiratory: Clear
Cardiac: S1/S2 and Regular Rhythm
GI: Soft
Musculoskeletal: No Clubbing and No Edema
Skin: Warm and Dry
Neuro: Awake, Alert, Oriented and AO x 3
Results
WBC 19.1 10^3/uL (4.8-10.8) H 07/05/24 05:35
Hgb 15.6 g/dL (13.0-18.0) 07/05/24 05:35
Hct 46.0 % (39.0-52.0) 07/05/24 05:35
MCV 84.9 fL (80.0-94.0) 07/05/24 05:35
Plt Count 504 10^3/uL (130-400) H 07/05/24 05:35
Sodium 136 mmol/L (135-145) 07/05/24 05:35
Potassium 4.6 mmol/L (3.5-5.1) 07/05/24 05:35
Chloride 91 mmol/L (98-107) L 07/05/24 05:35
Carbon Dioxide 10 mmol/L (22-30) L* 07/05/24 05:35
BUN 10 mg/dl (9-20) 07/05/24 05:35
Creatinine 1.2 mg/dL (0.7-1.3) 07/05/24 05:35
Calcium 10.2 mg/dl (8.4-10.2) 07/05/24 05:35
Total Bilirubin 1.3 mg/dl (0.2-1.3) 07/05/24 05:35
AST 97 U/L (17-59) H 07/05/24 05:35
ALT 72 U/L (0-50) H 07/05/24 05:35
Alkaline Phosphatase 99 U/L (38-126) 07/05/24 05:35
Lipase 128 U/L (23-300) 07/05/24 05:35
Diagnostic Image Results:
Abd US 04/09/24
FINDINGS: The liver is increased in size, measuring 20 cm in length. It is increased in echogenicity. There is no focal hepatic lesion or intrahepatic biliary dilation. The gallbladder is physiologically distended with fluid and shows no shadowing
calculi or wall thickening. The common duct is normal, measuring 3 mm. The pancreas is poorly visualized due to overlying bowel gas. The spleen is normal in size and shows no focal abnormality. Survey evaluation of the kidneys shows no
hydronephrosis. No free fluid is seen in the abdomen. The proximal IVC and abdominal aorta are unremarkable.
IMPRESSION: Mild hepatomegaly. Stable
Hepatic fatty infiltration. Stable
Nonvisualization of pancreas due to overlying bowel gas.
Prior GI Procedures:
EGD: Not known
Colonoscopy: Not known
Assessment / Plan
-
Assessment
Mr Kirkpatrick is 38-year-old male with a significant history of alcohol use disorder, pancreatitis, GERD, fatty liver who presented to ER complaining from nausea and vomiting for the past several days. Patient reports being a binge drinker and was
drinking a good amount of alcohol for last couple of weeks He reports he might be consuming less amount of alcohol comparing to the previous days. He started to throw up yesterday night and he might had thrown up for 50 times since yesterday. The
patient shared his concerns seeing some dark colored emesis this morning with his vomiting for a few times. He reports heartburn following vomiting. He reported having GERD for last 10 years and has been taking omeprazole. His lab results showed
normal lipase and hgb levels, but his LFTs were found elevated.
Impression
Abdominal pain with vomiting
Hematemesis
Transaminitis
Hx of Fatty liver
Alcohol Use Disorder
Hx of pancreatitis
#Abdominal Pain with Vomiting likely secondary to Alcohol Use/Withdrawal vs Gastroenteritis
-Reports possible less amount of alcohol consuming in last days
-No sick contact, no diarrhea
-Antiemetics as needed
-Continue IV fluids
-MSAS protocol
-Hx of pancreatitis: Lipase level N
#Hematemesis likely secondary to vomiting (Tabitha Mena Syndrome) vs PU bleeding
-Dark colored emesis started this morning at the end of emesis
-Hx of GERD/ No hx of PU
-Start Protonix 40 mg BID IV
-hgb 15.6/Follow up Q12 H
-No signs of active GI bleeding
-EGD is planning for tomorrow
#Transaminitis likely secondary to alcohol use
-Follow up LFTs
-Abdominal US was ordered
-
-
Thank you for consultation and allowing me to participate in the patient's care. Please call the district home economics agent GI physician during the after hours with any questions or concerns.
[2024-07-05] MEDS: CATAPRES 0.1 MG PO (14:44)
[2024-07-05] MEDS: ATIVAN 1 MG PO ×2 (15:06→17:31)
[2024-07-05] MEDS: PHENOBARBITAL 97.5 MG IV ×2 (16:32→21:34)
[2024-07-05 17:28] LABS: Amphetamines Negative (Negative); Barbiturates Positive (Negative); Benzodiazepines Positive (Negative); Buprenorphine Negative (Negative); Cocaine Negative (Negative); Marijuana Negative (Negative); Methadone Negative (Negative); Methamphetamines Negative (Negative); Opiates Positive (Negative); Phencyclidine Negative (Negative); Tricyclic Antidepressants Negative (Negative)
[2024-07-05 18:05] LABS: Fentanyl, Urine Negative (Negative)
[2024-07-05] MEDS: NSS (PRESERVATIVE FREE) 10 ML IV (20:00)
[2024-07-05] MEDS: PROTONIX IV 40 MG IV (20:00)
[2024-07-05] MEDS: THIAMINE INJECTION 200 MG IV (20:04)
[2024-07-05] MEDS: NSS 1000 IV (21:31)
[2024-07-06] VITALS (12 sets, daily range): BP systolic 94–124; BP diastolic 76–90; PULSE 85–106
[2024-07-06] MEDS: ATIVAN 1 MG PO ×4 (03:47→20:25)
--- NOTE | 2024-07-06 07:53 | W.PN.HOSP.TC ---
Today's Communication/Plan
-
see bold
Assessment / Plan
Assessment / Plan
38-year-old male with a past medical history of alcohol abuse with dependency, gastroesophageal reflux disorder, and anxiety/depression presents with nausea and vomiting since yesterday. Patient reports he has been binge drinking, he was binge
drinking last night, and developed nausea and vomiting. Patient reports he drinks a 12 pack beer a day. His nausea and vomiting persisted throughout the night, this morning he was vomiting up black liquids. He also complains of diffuse abdominal
soreness. No fever, no chest pain, no shortness of breath. Patient has frequent admissions for alcohol withdrawal, his last admission was 1 month ago.
#Acute alcohol intoxication with dependency and withdrawal
#Acute alcoholic hepatitis
#Acute alcoholic ketoacidosis
Alcohol level upon admission 104, last drink 07/04 evening
Phenobarbital taper, MSAS protocol, thiamine, folic acid
Alcohol cessation counseling has been provided
#Coffee-ground emesis
#Alcoholic gastritis
#Hepatomegaly
#Hepatic steatosis
Appreciate GI input, 07/06 EGD shows esophagitis with no bleeding, no esophageal varices, erythematous mucosa in the gastric body, medium size hiatal hernia
GI recommend strict avoidance of alcohol and NSAIDs, FibroScan outpatient
GI signed off. Change Protonix to 40 mg p.o. twice daily while in the hospital, will discharge on Protonix 40 mg daily
#Abdominal soreness
Due to vomiting
Lipase normal, pancreatitis ruled out
#Essential hypertension
Hold amlodipine
Give clonidine 0.1 mg as needed
#Systemic inflammatory response syndrome
#Tachycardia
#Leukocytosis
Leukocytosis likely reactive from vomiting, tachycardia from alcohol withdrawal
Patient is afebrile, continue to monitor
#Anxiety/depression
Continue SSRI
DVT prophylaxis�SCDs
Full code
Total time spent to see the patient on the floor, examine the patient, review data and lab results, discuss treatment plan with patient, nursing staff around 51 minutes.
Physical Exam
General: Appears disheveled, no acute distress
HEENT: Normocephalic, Atraumatic, EOMI, MMM
Respiratory: Clear to Auscultation bilaterally
Cardiac: Normal S1/S2, tachycardic rate and Rhythm
GI: Soft, diffuse tenderness, Nondistended, Normal Bowel Sounds
Extremities: No Clubbing, Cyanosis, or Edema
Neuro: Bilateral hand tremors noted
Psych: Calm, Cooperative
Derm: No Visible lesions
Anticipated Discharge: 24 - 48 hours
Subjective/Interval History
-
Date of Service: July 06, 2024
Continues to have severe tremors. Nausea and vomiting resolved. He tolerated his clear liquid diet yesterday. Continues to have abdominal soreness. No chest pain, no shortness of breath.
Objective Data
-
Labs:
Laboratory Results
07/06/24
07:22
WBC Pending
Hgb Pending
Hct Pending
Plt Count Pending
Sodium Pending
Potassium Pending
Chloride Pending
Carbon Dioxide Pending
BUN Pending
Creatinine Pending
Glucose Pending
Calcium Pending
Total Bilirubin Pending
AST Pending
ALT Pending
Alkaline Phosphatase Pending
Vital Signs:
Vital Signs
Temp Pulse Resp BP Pulse Ox
98.1 F 143 20 166/101 97
07/06/24 03:30 07/05/24 14:44 07/06/24 03:30 07/05/24 14:44 07/06/24 03:30
I&O
07/05/24 07/06/24 07/07/24
06:59 06:59 06:59
Intake Total 480 / 480
Balance 480 / 480
[2024-07-06] MEDS: PHENOBARBITAL 97.5 MG IV ×3 (08:02→20:22)
[2024-07-06] MEDS: PROTONIX IV 40 MG IV (08:03)
[2024-07-06] MEDS: NSS (PRESERVATIVE FREE) 10 ML IV (08:03)
[2024-07-06] MEDS: LEXAPRO 10 MG PO (08:03)
[2024-07-06] MEDS: THIAMINE INJECTION 200 MG IV ×2 (08:03→20:21)
[2024-07-06] MEDS: FOLVITE 1 MG PO (08:03)
[2024-07-06 09:40] LABS: Hematocrit 37.5 % (39.0-52.0); Hemoglobin 12.5 g/dL (13.0-18.0); Mean Corp Hgb Conc. 33.3 g/dL (33.0-37.0); Mean Corpuscular Hgb 29.3 pg (27.0-31.0); Mean Platelet Volume 10.4 fL (7.4-10.4); Platelet Count 221 10^3/uL (130-400); Red Blood Cell Count 4.26 10^6/uL (4.70-6.10); White Blood Cell Count 4.8 10^3/uL (4.8-10.8)
[2024-07-06 10:33] LABS: ALT (SGPT) 47 U/L (0-50); AST (SGOT) 40 U/L (17-59); Albumin 4.2 g/dl (3.5-5.0); Alkaline Phosphatase 63 U/L (38-126); Blood Urea Nitrogen 12 mg/dl (9-20); Calcium 8.5 mg/dl (8.4-10.2); Carbon Dioxide 24 mmol/L (22-30); Chloride 99 mmol/L (98-107); Estimated Creatinine Clearance > 125 ml/min; Glucose 108 mg/dl (70-99); Potassium 3.8 mmol/L (3.5-5.1); Sodium 135 mmol/L (135-145); Total Bilirubin 1.5 mg/dl (0.2-1.3); Total Protein 6.7 g/dl (6.3-8.2); eGFR > 60.00
[2024-07-06 13:26] LABS: Magnesium 1.7 mg/dl (1.6-2.3); Phosphorus 2.5 mg/dl (2.5-4.5)
[2024-07-06] MEDS: NSS IV (13:42)
--- NOTE | 2024-07-06 16:21 | CM ---
Patient seen bedside.
IA completed.
Patient lives with parents in a 2 story home.
Patient independent prior to admission without assistive devices.
Patient drives, though has no car at the moment.
Patient declined referral to [facility] stating he has all the information needed.
PCP: Dr Newman
Pharmacy: [facility]
Plan: home no needs.
[2024-07-07] MEDS: ZOFRAN 4 MG IV (00:09)
[2024-07-07 03:18] VITALS: BP 119/83
[2024-07-07 07:32] LABS: Hematocrit 40.1 % (39.0-52.0); Hemoglobin 12.7 g/dL (13.0-18.0); Mean Corp Hgb Conc. 31.7 g/dL (33.0-37.0); Mean Corpuscular Volume 91.6 fL (80.0-94.0); Mean Platelet Volume 10.2 fL (7.4-10.4); Platelet Count 189 10^3/uL (130-400); Red Blood Cell Count 4.38 10^6/uL (4.70-6.10); Red Cell Dist. Width 14.7 % (11.5-14.5); White Blood Cell Count 5.9 10^3/uL (4.8-10.8)
[2024-07-07] MEDS: PHENOBARBITAL 97.5 MG IV (07:48)
[2024-07-07] MEDS: PROTONIX 40 MG PO (07:49)
[2024-07-07] MEDS: THIAMINE INJECTION 200 MG IV ×2 (07:49→19:52)
[2024-07-07 08:12] VITALS: BP 126/85
[2024-07-07] MEDS: LEXAPRO 10 MG PO (08:31)
[2024-07-07] MEDS: FOLVITE 1 MG PO (08:32)
[2024-07-07 08:53] LABS: ALT (SGPT) 46 U/L (0-50); AST (SGOT) 44 U/L (17-59); Alkaline Phosphatase 52 U/L (38-126); Blood Urea Nitrogen 9 mg/dl (9-20); Carbon Dioxide 30 mmol/L (22-30); Chloride 97 mmol/L (98-107); Estimated Creatinine Clearance 116 ml/min; Glucose 104 mg/dl (70-99); Potassium 3.3 mmol/L (3.5-5.1); Sodium 138 mmol/L (135-145); Total Bilirubin 1.2 mg/dl (0.2-1.3); Total Protein 6.9 g/dl (6.3-8.2); eGFR > 60.00
--- NOTE | 2024-07-07 09:06 | W.PN.HOSP.TC ---
Today's Communication/Plan
-
Possible discharge tomorrow
Assessment / Plan
Assessment / Plan
38-year-old male with a past medical history of alcohol abuse with dependency, gastroesophageal reflux disorder, and anxiety/depression presents with nausea and vomiting since yesterday. Patient reports he has been binge drinking, he was binge
drinking last night, and developed nausea and vomiting. Patient reports he drinks a 12 pack beer a day. His nausea and vomiting persisted throughout the night, this morning he was vomiting up black liquids. He also complains of diffuse abdominal
soreness. No fever, no chest pain, no shortness of breath. Patient has frequent admissions for alcohol withdrawal, his last admission was 1 month ago.
#Acute alcohol intoxication with dependency and withdrawal
#Acute alcoholic hepatitis
#Acute alcoholic ketoacidosis
Alcohol level upon admission 104, last drink 07/04 evening
Phenobarbital taper, MSAS protocol, thiamine, folic acid
Alcohol cessation counseling has been provided
#Coffee-ground emesis
#Alcoholic gastritis
#Hepatomegaly
#Hepatic steatosis
Appreciate GI input, 07/06 EGD shows esophagitis with no bleeding, no esophageal varices, erythematous mucosa in the gastric body, medium size hiatal hernia
GI recommend strict avoidance of alcohol and NSAIDs, FibroScan outpatient
GI signed off. Change Protonix to 40 mg p.o. twice daily while in the hospital, plan to discharge on Protonix 40 mg daily
#Abdominal soreness
Due to vomiting, resolving
Lipase normal, pancreatitis ruled out
#Essential hypertension
Hold amlodipine
Give clonidine 0.1 mg BID
#Systemic inflammatory response syndrome
#Tachycardia
#Leukocytosis
Leukocytosis likely reactive from vomiting, tachycardia from alcohol withdrawal
Patient is afebrile, continue to monitor
#Anxiety/depression
Continue SSRI
DVT prophylaxis�SQ lovenox
Full code
Total time spent to see the patient on the floor, examine the patient, review data and lab results, discuss treatment plan with patient, nursing staff around 41 minutes.
Physical Exam
General: Appears disheveled, no acute distress
HEENT: Normocephalic, Atraumatic, EOMI, MMM
Respiratory: Clear to Auscultation bilaterally
Cardiac: Normal S1/S2, tachycardic rate and Rhythm
GI: Soft, diffuse tenderness, Nondistended, Normal Bowel Sounds
Extremities: No Clubbing, Cyanosis, or Edema
Neuro: Bilateral hand tremors noted, mild
Psych: Calm, Cooperative
Derm: No Visible lesions
Anticipated Discharge: Within 24 hours
Subjective/Interval History
-
Date of Service: July 07, 2024
No nausea, no vomiting. Abdominal pain resolved. No fever.
Objective Data
-
Labs:
Laboratory Results
07/07/24
07:07
WBC 5.9
Hgb 12.7 L
Hct 40.1
Plt Count 189
Sodium 138
Potassium 3.3 L
Chloride 97 L
Carbon Dioxide 30
BUN 9
Creatinine 0.9
Glucose 104 H
Calcium 9.0
Total Bilirubin 1.2
AST 44
ALT 46
Alkaline Phosphatase 52
Vital Signs:
Vital Signs
Temp Pulse Resp BP Pulse Ox
98.4 F 65 18 126/85 98
07/07/24 08:12 07/07/24 08:12 07/07/24 08:12 07/07/24 08:12 07/07/24 08:12
I&O
07/06/24 07/07/24 07/08/24
06:59 06:59 06:59
Intake Total 480 / 480 1240 / 1240
Balance 480 / 480 1240 / 1240
[2024-07-07] MEDS: KCL 40 MEQ PO (09:58)
--- NOTE | 2024-07-07 11:27 | CM ---
Patient for d/c home today.
Patients father will transport,
Plan: home no needs.
[2024-07-07 11:58] VITALS: BP 141/90
[2024-07-07] MEDS: ATIVAN 1 MG PO (13:29)
[2024-07-07] MEDS: LUMINAL 64.8 MG PO ×2 (15:23→19:51)
[2024-07-07 15:52] VITALS: BP 142/99
[2024-07-07] MEDS: LOVENOX 40 MG SC (17:04)
[2024-07-07 19:43] VITALS: BP 138/99
[2024-07-07] MEDS: CATAPRES 0.1 MG PO (19:51)
[2024-07-07] MEDS: MELATONIN 10 MG PO (21:37)
[2024-07-07 23:48] VITALS: BP 115/77
[2024-07-08 04:00] VITALS: BP 120/85
[2024-07-08 07:48] VITALS: BP 130/92
[2024-07-08 08:02] LABS: Hemoglobin 11.4 g/dL (13.0-18.0); Mean Corp Hgb Conc. 32.6 g/dL (33.0-37.0); Mean Corpuscular Hgb 29.4 pg (27.0-31.0); Mean Corpuscular Volume 90.2 fL (80.0-94.0); Mean Platelet Volume 10.6 fL (7.4-10.4); Platelet Count 164 10^3/uL (130-400); Red Blood Cell Count 3.88 10^6/uL (4.70-6.10); Red Cell Dist. Width 14.6 % (11.5-14.5); White Blood Cell Count 6.1 10^3/uL (4.8-10.8)
[2024-07-08] MEDS: LEXAPRO 10 MG PO (08:44)
[2024-07-08] MEDS: CATAPRES 0.1 MG PO (08:44)
[2024-07-08] MEDS: THIAMINE INJECTION 200 MG IV (08:45)
[2024-07-08] MEDS: LUMINAL 64.8 MG PO ×2 (08:45→15:22)
[2024-07-08] MEDS: FOLVITE 1 MG PO (08:45)
[2024-07-08] MEDS: PROTONIX 40 MG PO (08:45)
[2024-07-08 08:48] LABS: Blood Urea Nitrogen 10 mg/dl (9-20); Calcium 8.9 mg/dl (8.4-10.2); Carbon Dioxide 27 mmol/L (22-30); Chloride 98 mmol/L (98-107); Estimated Creatinine Clearance > 125 ml/min; Glucose 103 mg/dl (70-99); Magnesium 1.2 mg/dl (1.6-2.3); Potassium 3.3 mmol/L (3.5-5.1); Sodium 136 mmol/L (135-145); eGFR > 60.00
--- NOTE | 2024-07-08 08:49 | W.PN.HOSP.TC ---
Today's Communication/Plan
-
Replete potassium p.o.
Replete magnesium IV
Recheck magnesium & potassium this afternoon
Discharge this afternoon
Assessment / Plan
Assessment / Plan
38-year-old male with a past medical history of alcohol abuse with dependency, gastroesophageal reflux disorder, and anxiety/depression presents with nausea and vomiting since yesterday. Patient reports he has been binge drinking, he was binge
drinking last night, and developed nausea and vomiting. Patient reports he drinks a 12 pack beer a day. His nausea and vomiting persisted throughout the night, this morning he was vomiting up black liquids. He also complains of diffuse abdominal
soreness. No fever, no chest pain, no shortness of breath. Patient has frequent admissions for alcohol withdrawal, his last admission was 1 month ago.
#Acute alcohol intoxication with dependency and withdrawal
#Acute alcoholic hepatitis
#Acute alcoholic ketoacidosis
Alcohol level upon admission 104, last drink 07/04 evening
Phenobarbital taper, MSAS protocol, thiamine, folic acid
Alcohol cessation counseling has been provided
Patient states he has information from [facility], will contact them upon discharge
Medically stable for discharge on low-dose phenobarbital for 2 days
#Coffee-ground emesis
#Alcoholic gastritis
#Hepatomegaly
#Hepatic steatosis
Appreciate GI input, 07/06 EGD shows esophagitis with no bleeding, no esophageal varices, erythematous mucosa in the gastric body, medium size hiatal hernia
GI recommend strict avoidance of alcohol and NSAIDs, FibroScan outpatient
GI signed off. Changed to Protonix 40 mg daily -continue upon discharge
#Abdominal soreness
Due to vomiting, resolving
Lipase normal, pancreatitis ruled out
#Essential hypertension
Hold amlodipine
Give clonidine 0.1 mg BID while in the hospital, resume amlodipine upon discharge
#Hypokalemia
#Hypomagnesemia
Replete, recheck p.m. labs
Discharge on magnesium supplements
#Systemic inflammatory response syndrome
#Tachycardia
#Leukocytosis
Leukocytosis likely reactive from vomiting, tachycardia from alcohol withdrawal
Patient is afebrile
Resolved without antibiotics
#Anxiety/depression
Continue SSRI
DVT prophylaxis�SQ lovenox
Full code
Physical Exam
General: Appears disheveled, no acute distress
HEENT: Normocephalic, Atraumatic, EOMI, MMM
Respiratory: Clear to Auscultation bilaterally
Cardiac: Normal S1/S2, tachycardic rate and Rhythm
GI: Soft, diffuse tenderness, Nondistended, Normal Bowel Sounds
Extremities: No Clubbing, Cyanosis, or Edema
Neuro: Bilateral hand tremors noted, mild
Psych: Calm, Cooperative
Derm: No Visible lesions
Anticipated Discharge: Today
Subjective/Interval History
-
Date of Service: July 07, 2024
Patient reports feeling better. No nausea, no vomiting, no abdominal pain. No fever. He is requesting discharge today.
Objective Data
-
Labs:
Laboratory Results
07/07/24
07:07
WBC 5.9
Hgb 12.7 L
Hct 40.1
Plt Count 189
Sodium 138
Potassium 3.3 L
Chloride 97 L
Carbon Dioxide 30
BUN 9
Creatinine 0.9
Glucose 104 H
Calcium 9.0
Total Bilirubin 1.2
AST 44
ALT 46
Alkaline Phosphatase 52
Vital Signs:
Vital Signs
Temp Pulse Resp BP Pulse Ox
98.2 F 98 18 141/90 98
07/07/24 11:58 07/07/24 11:58 07/07/24 11:58 07/07/24 11:58 07/07/24 11:58
I&O
07/06/24 07/07/24 07/08/24
06:59 06:59 06:59
Intake Total 480 / 480 1240 / 1240
Balance 480 / 480 1240 / 1240
[2024-07-08] MEDS: KCL 40 MEQ PO ×2 (09:40→15:22)
[2024-07-08] MEDS: MAGNESIUM SULFATE 50 IV (09:40)
[2024-07-08] MEDS: TYLENOL 650 MG PO (10:29)
[2024-07-08 11:45] VITALS: BP 119/76
[2024-07-08 13:41] LABS: Magnesium 1.9 mg/dl (1.6-2.3); Potassium 3.9 mmol/L (3.5-5.1)
--- NOTE | 2024-07-08 15:14 | W.DCSUMMARY ---
Discharge Summary
Discharge Data
Date of Admission: 07/05/24
Date of Discharge: 07/08/24
-
Pending Results: No
Hospital Course
Discharge diagnosis:
Acute alcohol intoxication with dependency and withdrawal
Acute alcoholic hepatitis
Acute alcoholic ketoacidosis
Coffee-ground emesis
Alcoholic gastritis
Reflux esophagitis
Hepatic steatosis
Hepatomegaly
Abdominal soreness from vomiting
Essential hypertension
Hypokalemia
Hypomagnesemia
Systemic inflammatory response syndrome
Tachycardia
Leukocytosis
Anxiety/depression
Consults: GI
Procedures: EGD 07/06/24
Impression: - LA Grade A reflux esophagitis with no bleeding.
- no varices seen
- A few gastric polyps. Biopsied.
- Erythematous mucosa in the gastric body and antrum.
Biopsied. ? portal gastropathy
- Medium-sized hiatal hernia.
- Normal examined duodenum.
Recommendation: - Continue present medications.
- AVOID ETOH
- Await pathology results.
- No ibuprofen, naproxen, or other non-steroidal
anti-inflammatory drugs.
- FIBROSCAN as OP
- Continue ETOH withdrawal prophylaxis
Hospital course:
38-year-old male with a past medical history of alcohol abuse with dependency, gastroesophageal reflux disorder, and anxiety/depression was admitted for alcohol dependency with withdrawal, and coffee-ground emesis from alcoholic gastritis and reflux
esophagitis.
Patient was treated with Protonix 40 mg IV twice daily, and seen in conjunction with GI. He had an EGD which shows reflux esophagitis with no bleeding, erythematous mucosa, hiatal hernia. GI recommends treatment with Protonix 40 mg p.o. daily, and
strict cessation of alcohol. GI also recommends avoidance of NSAIDs, and follow-up in the office for FibroScan.
Patient was treated with phenobarbital and Ativan for his alcohol withdrawal. He has been counseled to permanently abstain from drinking alcohol. [facility] consult was recommended, he declined. He states he still has information from [facility] from his
previous admission, and states he will call them upon discharge. Patient requested discharge. He is discharged on low-dose phenobarbital. He has been counseled to not drink alcohol while taking phenobarbital, as this could have harmful side
effects. He reports understanding. He needs to follow-up with his primary care doctor 1 week, GI in the office in 3-4 weeks.
Disposition: Home self-care
Discharge planning: Required 43 minutes
Discharge Plan
-
Patient Disposition: Home (Routine Discharge)
Discharge Diagnosis/Procedures: Acute alcohol intoxication with dependency and withdrawal, acute alcoholic hepatitis, acute alcoholic ketoacidosis, acute alcoholic gastritis, low magnesium, low potassium
Condition: Fair
Diet: Regular
Activity: As tolerated
Driving Restrictions: As prior to admission
Activity Restrictions/Additional Instructions:
Please permanently abstain from drinking alcohol.
Recommend you undergo intense outpatient alcohol rehab.
Recommend you participate in the Alcoholics Anonymous program, get a sponsor, read the [employer] book, work the steps.
If your insurance does not cover thiamine, you can buy an [id number] vitamin B1/B complex supplement to take daily.
Would also recommend you take magnesium supplements.
Referrals:
Xavier Newman MD [Family Provider] - in one week
Prescriptions:
New
pantoprazole 40 mg Tablet,Delayed Release (Dr/Ec)
40 mg PO DAILY Qty: 30 0RF
folic acid 1 mg Tablet
1 mg PO DAILY Qty: 30 0RF
phenobarbital 32.4 mg Tablet
32.4 mg PO BID 2 Days Qty: 4 0RF
thiamine mononitrate (vit B1) 100 mg Tablet
100 mg PO BID Qty: 30 0RF
magnesium oxide 500 mg magnesium tablet
500 mg PO BID Qty: 60 0RF
Continued
amlodipine 5 mg Tablet
5 mg PO DAILY
escitalopram oxalate [Lexapro] 10 mg Tablet
10 mg PO DAILY
Discontinued
omeprazole 20 mg Capsule,Delayed Release(Dr/Ec)
20 mg PO DAILY
Discharge Orders:
Discharge Patient (As Directed); Ordered 07/08/24
Ordered By: Raffy Nicholson
Discharge Date and Time
Discharge Date/Time: 07/08/24 16:30
Print Language: DANISH
[2024-07-08 15:45] VITALS: BP 124/81
== END 2024-07-08 16:30 | disposition home or self-care (01) | DRG 378 ==
LOC: 4 EAST ACU 10:15
PROVIDERS: Emergency Medicine; ADMITTING PHYSICIAN Family Medicine; CONSULT PHYSICIAN Internal Medicine Gastroenterology; EMERGENCY PHYSICIAN Student in an Organized Health Care Education/Training Program; FAMILY PHYSICIAN Family Medicine
PROC: 0DB68ZX Excision of Stomach, Via Natural or Artificial Opening Endoscopic, Diagnostic (ICD-10-PCS; 2024-07-06)
DX: K29.21 Alcoholic gastritis with bleeding (principal); E87.29 Other acidosis; F10.239 Alcohol dependence with withdrawal, unspecified; R65.10 Systemic inflammatory response syndrome (SIRS) of non-infectious origin without acute organ dysfunction; K76.6 Portal hypertension; F10.229 Alcohol dependence with intoxication, unspecified; E87.6 Hypokalemia; E83.42 Hypomagnesemia; F17.290 Nicotine dependence, other tobacco product, uncomplicated; F32.A Depression, unspecified; F41.9 Anxiety disorder, unspecified; I10 Essential (primary) hypertension; K70.10 Alcoholic hepatitis without ascites; K31.7 Polyp of stomach and duodenum; Y90.5 Blood alcohol level of 100-119 mg/100 ml; K44.9 Diaphragmatic hernia without obstruction or gangrene; K31.89 Other diseases of stomach and duodenum; K76.0 Fatty (change of) liver, not elsewhere classified; K21.01 Gastro-esophageal reflux disease with esophagitis, with bleeding; Z79.899 Other long term (current) drug therapy
CPT/HCPCS: 88305; 76700; 80048; 80053; 80306; 80307; 82077; 83690; 83735; 84100; 84132; 85025; 85027; 86850; 86900; 86901; 88342; 93005; 96374; 96375; 96376; 99291

== ENCOUNTER 2024-07-31 17:34 | Inpatient (IN) | payer OTHER, SELFPAY ==
[2024-07-31] VITALS (8 sets, daily range): BP systolic 116–148; BP diastolic 76–100; BMI 29.1; BMI 27.7
--- NOTE | 2024-07-31 14:43 | EDRN ---
Pt states his last drink was 3 hours ago. Pt fears starting to detox. Dr. Tilley in room w/ pt at this time.
[2024-07-31] MEDS: ATIVAN 1 MG IV ×2 (15:05→17:40)
[2024-07-31] MEDS: NSS 1000 IV ×2 (15:05→20:12)
[2024-07-31] MEDS: ZOFRAN 4 MG IV (15:06)
--- NOTE | 2024-07-31 15:25 | ED.GENMED ---
History of Present Illness
General
Chief Complaint: Alcohol Problem
Time Seen by Provider: 07/31/24 14:35
History of Present Illness
History of Present Illness:
38-year-old male with history of alcohol abuse and hypertension presenting for rehabilitation services. Patient reports that he is a daily alcohol abuser, and is looking for rehab. Last request prior to arrival, however he notes that he already
feels that he is going into withdrawal with nausea and shakiness. Denies suicidal homicidal ideations. Denies chest pain or difficulty breathing. Notes some generalized abdominal cramping. Denies fever or recent illness. Notes history of severe
withdrawal in the past and prior rehab. Denies additional acute medical complaints
Past History
Past History
ED Past Medical History: GERD, Psychiatric (Anxiety, Depression, alcoholism) and Other (epididymitis L testicle, kidney stones, PNA, Renal calculus, Migraines, alcoholism, PNA, Pancreatitis, )
ED Past Surgical History: Appendectomy
Social History
Tobacco: Vaping (Quit 2020 now vapes)
Alcohol: Daily (12 pack of beer or bottle of vodka)
Drug: None
Personal: Single
Living: alone
Employment: Employed
Family History
Family History: Other
Phy Exam
Physical Exam
Physical Exam:
General: Dry mucous membranes, nontoxic and in no acute distress
HEENT: protecting airway
Neck: appears supple
CV: Normal heart rate, regular rhythm
Resp: No accessory muscle use, no increased work of breathing, lungs clear to auscultation bilaterally
Abd: Soft and non-distended, no tenderness to palpation
Extremities: No deformities, no swelling
Neuro: alert, no focal neurologic deficit. Mild tremulousness
: deferred
Rectal: deferred
Psych: Normal affect
Skin: Intact
Scores
Withdrawal Assessment of Alcohol
Withdrawal Assessment Completed?: Yes
Nausea and Vomiting: Intermittent nausea with dry heaves
Tactile Disturbances: None
Tremor: Moderate, with patient's arms extended
Auditory Disturbances: Not present
Paroxysmal Sweats: No sweat visible
Visual Disturbances: Not present
Anxiety: No anxiety, at ease
Headache, Fullness in Head: Not present
Agitation: Moderately fidgety and restless
Orientation and clouding of sensorium: Oriented and can do serial additions
Total CIWA Score: 12
Alcohol Withdrawal Medication Recommendation: Equal to MSAS Score 5-7. Lorazepam 1mg IV or PO NOW & re-assess q2hrs
Course
Orders/Labs/Results
Orders:
Orders
07/31/24 14:47
Urinalysis Reflex To Culture Urgent
Urine Drug Abuse Screen Urgent
Thiamine Injection 200 mg IV NOW STA
07/31/24 14:48
0.9% Sodium Chloride 1000 ml [Nss] 1,000 ml IV BOLUS
Lorazepam [Ativan] 1 mg IV NOW STA
07/31/24 14:54
FOLic ACID [Folvite] 1 mg 0.9% Sodium Chloride 50 ml [Nss] 50 ml IV NOW
Ondansetron Injectable [Zofran] 4 mg IV NOW STA
07/31/24 15:16
Acetaminophen [Tylenol] 1,000 mg PO NOW STA
diazePAM [Valium Injection] 5 mg IV NOW STA
07/31/24 15:38
Alcohol Urgent
Complete Blood Count/With Diff Urgent
Comprehensive Metabolic Panel Urgent
Magnesium Urgent
Phosphorus Urgent
Prothrombin Time Urgent
07/31/24 16:13
diazePAM [Valium Injection] 5 mg IV NOW STA
Abnormal Lab Results
07/31/24
15:38
RDW 14.7 H %
(11.5-14.5)
Plt Count 590 H 10^3/uL
(130-400)
Chloride 97 L mmol/L
(98-107)
Carbon Dioxide 20 L mmol/L
(22-30)
BUN 8 L mg/dl
(9-20)
Phosphorus 4.6 H mg/dl
(2.5-4.5)
AST 60 H U/L
(17-59)
ALT 51 H U/L
(0-50)
Total Protein 8.5 H g/dl
(6.3-8.2)
Albumin 5.2 H g/dl
(3.5-5.0)
07/31/24 15:38
07/31/24 15:38
Vital Signs
Initial and Last Documented VS:
Initial Vital Signs
Temp Pulse Resp BP Pulse Ox
98.5 F 138 18 148/100 96
07/31/24 14:12 07/31/24 14:12 07/31/24 14:12 07/31/24 14:12 07/31/24 14:12
Last Documented Vital Signs
Temp Pulse Resp BP Pulse Ox
98.4 F 118 20 138/85 93
07/31/24 15:47 07/31/24 15:45 07/31/24 15:45 07/31/24 15:11 07/31/24 15:45
MDM/Problems Addressed
MDM/Problems Addressed:
38-year-old male presenting to the emergency department with alcohol abuse, seeking rehab. Vital signs are significant for tachycardia.
On exam, patient is in no acute distress, dry mucous membranes. He is slightly tremulous with suspicion for mild withdrawal. Will plan for laboratory analysis and treat patient with IV fluids, benzodiazepines, Zofran, thiamine and folate. [facility], who are very familiar with patient, frequently coming to the hospital for similar symptoms.
15:30 -Patient growing increasingly agitated, dry heaving. Will administer Valium. Per MIGUEL, [facility] is full. Likely plan for admission for medical detox due to ETOH withdrawl.
16:10 -patient requiring frequent redosage of benzodiazepines, remains tremulous. Plan for admission for withdrawl
*Critical Care Note
Total Time (30-74mins, 75-104mins- exclusive of procedures): Not Applicable
ED Attending Note
-
Portions of this chart may have been created with voice recognition software.� Occasional wrong word or��sound alike� substitutions may have occurred due to the inherent limitations of voice recognition software.
Discharge Plan
Departure
Prescriptions:
No Action
amlodipine 5 mg Tablet
5 mg PO DAILY
escitalopram oxalate [Lexapro] 10 mg Tablet
10 mg PO DAILY
pantoprazole 40 mg Tablet,Delayed Release (Dr/Ec)
40 mg PO DAILY Qty: 30 0RF
folic acid 1 mg Tablet
1 mg PO DAILY Qty: 30 0RF
phenobarbital 32.4 mg Tablet
32.4 mg PO BID 2 Days Qty: 4 0RF
thiamine mononitrate (vit B1) 100 mg Tablet
100 mg PO BID Qty: 30 0RF
magnesium oxide 500 mg magnesium tablet
500 mg PO BID Qty: 60 0RF
Referrals:
Xavier Newman MD [Family Provider] -
Interventions
Interventions:
*Risk Screen - Suicide Last Done: 07/31/24 14:40
*General Assessment Last Done: 07/31/24 14:40
*Neglect/Abuse Screening Last Done: 07/31/24 14:40
*ED- Fall Risk Assessment Last Done: 07/31/24 14:40
*ED COVID-19 Vaccine History Last Done: 07/31/24 14:40
ED- Neurological Assessment Last Done: 07/31/24 15:47
ED-Psychological Assessment Last Done: 07/31/24 15:47
Discharge Date and Time
Print Language: SLOVENIAN
[2024-07-31] MEDS: TYLENOL 1000 MG PO (15:31)
[2024-07-31] MEDS: THIAMINE INJECTION 200 MG IV ×2 (15:32→23:16)
[2024-07-31] MEDS: VALIUM INJECTION 5 MG IV ×2 (15:32→16:22)
[2024-07-31] MEDS: FOLVITE 50.2 MG IV (15:51)
[2024-07-31 15:54] LABS: % Basophils 1.4 % (0-2); % Eosinophils 5.8 % (0-6); % Immature Granulocytes 0.2 % (0-0.5); % Lymphocytes 30.6 % (20.5-51.1); % Monocytes 4.7 % (1.7-9.3); % Neutrophils 57.3 % (42.2-75.2); Absolute Basophils 0.2 10^3/uL (0-0.2); Absolute Eosinophils 0.6 10^3/uL (0-0.7); Absolute Lymphocytes 3.3 10^3/uL (1.2-3.4); Absolute Monocytes 0.5 10^3/uL (0.1-0.6); Absolute Neutrophils 6.2 10^3/uL (1.4-6.5); Hematocrit 45.1 % (39.0-52.0); Hemoglobin 15.2 g/dL (13.0-18.0); Mean Corp Hgb Conc. 33.7 g/dL (33.0-37.0); Mean Corpuscular Hgb 28.8 pg (27.0-31.0); Mean Corpuscular Volume 85.6 fL (80.0-94.0); Mean Platelet Volume 9.9 fL (7.4-10.4); Nucleated Red Blood Cells % 0 % (-); Platelet Count 590 10^3/uL (130-400); Red Blood Cell Count 5.27 10^6/uL (4.70-6.10); Red Cell Dist. Width 14.7 % (11.5-14.5); White Blood Cell Count 10.8 10^3/uL (4.8-10.8)
[2024-07-31 16:00] LABS: INR 1.03; PT 13.8 Sec (11.4-14.6)
[2024-07-31 16:06] LABS: ALT (SGPT) 51 U/L (0-50); AST (SGOT) 60 U/L (17-59); Albumin 5.2 g/dl (3.5-5.0); Alcohol 258 mg/dl; Alkaline Phosphatase 89 U/L (38-126); Blood Urea Nitrogen 8 mg/dl (9-20); Calcium 9.6 mg/dl (8.4-10.2); Carbon Dioxide 20 mmol/L (22-30); Chloride 97 mmol/L (98-107); Estimated Creatinine Clearance > 125 ml/min; Glucose 98 mg/dl (70-99); Magnesium 2.2 mg/dl (1.6-2.3); Phosphorus 4.6 mg/dl (2.5-4.5); Potassium 4.5 mmol/L (3.5-5.1); Sodium 140 mmol/L (135-145); Total Bilirubin 0.6 mg/dl (0.2-1.3); Total Protein 8.5 g/dl (6.3-8.2); eGFR > 60.00
--- NOTE | 2024-07-31 16:20 | HPS.HSE ---
Family Physician
-
Family Physician: Xavier Newman
Chief Complaint
-
Alcohol intoxication, once rehab
History of Present Illness
38-year-old male who reports generalized abdominal cramping and states like he is feeling like he is going to withdrawal from alcohol however his current alcohol level is 258. He drinks 750 mL of vodka daily or greater than 10 beers since age 19 he
was recently discharged on 07/08/2024 for alcohol intoxication and coffee-ground emesis at that time he declined [facility] consult. He states he got a DUI yesterday. He reports driving home was in his house and then got arrested inside of his home as
he was followed home by police. This is his fourth DUI however other 3 DUIs were greater than 10 years ago. He was like evaluation by [facility] for rehab. He is only done 6 months of outpatient rehab with [facility] many years ago he complains
of current headache throbbing and worried he is going to start to withdrawal. He denies current suicidal homicidal ideation, chest pain, palpitations, shortness of breath, cough, urinary symptoms, denies indigestion, nausea, hematemesis
The patient had recent admission 07/08/2024 secondary to alcohol intoxication with withdrawal, hepatitis and coffee-ground emesis. He was treated with Protonix 40 mg twice daily and phenobarb with Ativan for his alcohol withdrawal. He declined
[facility] consult. He was evaluated by GI and had a EGD on 07/06/2024 showing grade a reflux esophagitis with no bleeding or varices, few gastric polyps biopsied, erythematous mucosa in the gastric body and antrum biopsied questionable portal
gastropathy, medium size hiatal hernia and normal duodenum he was recommended to avoid alcohol NSAIDs
Other past medical history includes alcohol abuse, alcoholic hepatitis, alcoholic gastritis, reflux esophagitis, hepatic steatosis, hepatomegaly, HTN�benign, hypokalemia, hypomagnesemia, anxiety, depression, epididymitis left testicle, renal
calculi, migraines
Medical History
Past Medical History
Past Medical History: Reports Other
Additional Past Medical History:
Depression / Anxiety
Alcohol Use Disorder
alcoholic hepatitis
GERD
alcoholic gastritis
reflux esophagitis
hepatic steatosis
hepatomegaly
HTN�benign
hypokalemia
hypomagnesemia,
anxiety
depression
epididymitis left testicle,
renal calculi
migraines
Past Surgical History: Reports Other
Additional Past Surgical History:
Appendectomy
EGD on 07/06/2024 showing grade a reflux esophagitis with no bleeding or varices, few gastric polyps biopsied, erythematous mucosa in the gastric body and antrum biopsied questionable portal gastropathy, medium size hiatal hernia and normal duodenum
Social History
Tobacco: Smoker (smoked cigarettes for 20 years, now uses vape every day)
Alcohol: Daily (12 pack of beer per day or 1 bottle vodka per day 750 mL)
Drug: None
Personal: Single
Living: With Family (Lives with his adult parents, 13-year-old daughter and brother)
Employment: Not Employed
Family History
Family History: Other (Brother alcohol abuse sober x 1 year Father history of anxiety, daughter history anxiety)
Allergies / Home Medications
Allergies reflects when Allergies were last updated in [facility].
Home Medications with original date entered in [facility]
Allergy/Medication List:
Allergies
Allergy/AdvReac Type Severity Reaction Status Date / Time
No Known Allergies Allergy Verified 06/04/24 19:00
Home Medications
amlodipine 5 mg tablet 5 mg PO QPM Blood Pressure 05/20/24
escitalopram oxalate 10 mg tablet (Lexapro) 10 mg PO QPM Mental Health/Anxiety 05/20/24
folic acid 1 mg tablet 1 mg PO QPM 07/31/24
magnesium oxide 500 mg PO QPM 07/31/24
pantoprazole 40 mg tablet,delayed release 40 mg PO QPM 07/31/24
thiamine mononitrate (vit B1) 100 mg tablet 100 mg PO QPM 07/31/24
Review of Systems
-
History Source: Patient
A 12 point ROS was completed and negative except as noted: Yes
Constitutional: Denies Fever or Chills
EENT: Denies Sore Throat or Runny Nose
Respiratory: Denies Cough or Trouble Breathing
Cardiac: Denies Chest Pain, Diaphoresis, Palpitations or Syncope
Abdomen/GI: Denies Abdominal Pain, Nausea, Vomiting, Diarrhea, Constipated, Bloody Stools or Black Stools
: Denies Dysuria, Frequency, Flank Pain, Incontinence, Difficulty Voiding, Urgency or Bleeding
Musculoskeletal: Denies Joint Pain, Joint Swelling or Edema
Skin: Denies Itching or Rash
Neurological: Reports Headache; Denies Dizzy, Weakness or Numbness
Endocrine: Reports No Symptoms
Hematologic/Lymphatic: Reports No Symptoms
Psych: Reports Calm
Physical Exam
Vital Signs
Vital Signs
Temp Pulse Resp BP Pulse Ox
98.4 F 118 20 138/85 93
07/31/24 15:47 07/31/24 15:45 07/31/24 15:45 07/31/24 15:11 07/31/24 15:45
Physical Exam
General: Comfortable, Conversant and Pain (Headache); No Fever or Chills
HEENT: NormoCephalic, Anicteric, PERRLA, [place] Conjunctivae, No Ptosis and Other (Dry oral mucosa)
Respiratory: Clear; No Wheezes, Rales or Rhonchi
Cardiac: S1/S2 and Tachycardia (Sinus tach 111 bpm); No Murmur, Rub, Gallop or Peripheral Edema
Breast: Deferred by me
GI: Soft, Non Tender, Non Distended, Normal Bowel Sounds and No Hepatosplenomegaly
Rectal: Deferred by Provider
Genito-urinary: Deferred by me
Musculoskeletal: No Clubbing, No Cyanosis and No Edema
Skin: Warm and Dry; No Rash
Neuro: AO x 3, No Motor Deficits, Nonfocal/grossly intact, Cranial Nerves Intact and No Sensory Deficits; No Slurred Speech, Facial Droop, Tremors or Sedated
Psych: Calm
Laboratory Results
-
07/31/24 15:38
07/31/24 15:38
Laboratory Results
PT 13.8 Sec (11.4-14.6) 07/31/24 15:38
INR 1.03 07/31/24 15:38
Total Bilirubin 0.6 mg/dl (0.2-1.3) 07/31/24 15:38
AST 60 U/L (17-59) H 07/31/24 15:38
ALT 51 U/L (0-50) H 07/31/24 15:38
Alkaline Phosphatase 89 U/L (38-126) 07/31/24 15:38
Data Reviewed
-
Lab Data: Labs Reviewed by me
Impression/Plan
-
Impression/plan:
Admit to telemetry
#Acute alcohol intoxication /alcoholic withdrawal
#Hx chronic alcohol abuse
EtOH level 258, HR 118, last drink 1 PM today 07/31/2024 vodka
Drinks 12 pack of beer or bottle of vodka daily 750 mL daily
-Patient requesting [facility] consult he declined recently on 07/05/2024 admit
-Will start MSAS protocol
-Phenobarb taper
-IV thiamine, IV folate, as needed Ativan
-Consult psychiatry
-IV NSS 100 cc/h
-Tylenol as needed headache
#Hx Recent alcoholic gastritis/reflux esophagitis
#Hx GERD
#Hx alcoholic hepatitis
- he was recommended to avoid alcohol NSAIDs
-Continue Protonix 40 mg daily
EGD on 07/06/2024 showing grade a reflux esophagitis with no bleeding or varices, few gastric polyps biopsied,
erythematous mucosa in the gastric body and antrum biopsied questionable portal gastropathy,
medium size hiatal hernia and normal duodenum
#Chronic transaminitis secondary to alcohol abuse/hepatomegaly
# HX Hepatic steatosis
# HX Hepatomegaly
-Follow CMP
# HTN�benign
-BP 138/85
-Continue amlodipine 5 mg daily
#Anxiety/ Depression
-Continue Lexapro 10 mg daily
Hx hypokalemia
K4.5
Hx hypomagnesemia
Mag 2.2
Other PMH:
Epididymitis left testicle
Renal calculi
Migraines
DVT prophylaxis
Subcu Lovenox
Full code
[2024-07-31 17:41] LABS: Urine Albumin 3+ (Neg - Trace); Urine Bilirubin Negative (Negative); Urine Character Slightly Cloudy (Clear); Urine Color Yellow; Urine Glucose Negative (Negative); Urine Ketone 3+ (Negative); Urine Leukocyte 3+ (Negative); Urine Nitrite Negative (Negative); Urine Occult Blood 3+ (Negative); Urine Specific Gravity 1.025 (<1.030); Urine Urobilinogen Negative (Neg - 1+)
[2024-07-31 17:49] LABS: Urine Bacteria Many (Negative); Urine White Cell 50-60 /HPF (0-5)
--- NOTE | 2024-07-31 17:49 | W.PN.UPDATE ---
Update Note
Progress Note Update
This is an addendum to the H&P written by Marilu Milton on 07/31/2024.� Patient seen and examined independently with TAR PROCESSING TECHNICIAN.
38-year-old male past medical history of alcohol use disorder, anxiety/depression, GERD, presenting for rehab.� He got a DUI yesterday.� He is having headache and some tremors.� Drinks 750 cc of vodka per day, last drink at 12 PM.
Patient tachycardic.� EKG shows sinus tachycardia heart rate 120s.
Labs unremarkable apart from mild transaminitis.� Alcohol level 258.
IV fluids.� Alcohol withdrawal protocol.� Phenobarbital protocol.� Thiamine and folate.� Psychiatry consulted, needs [facility].
[2024-07-31 18:04] LABS: Amphetamines Negative (Negative); Barbiturates Negative (Negative); Benzodiazepines Positive (Negative); Buprenorphine Negative (Negative); Cocaine Negative (Negative); Methamphetamines Negative (Negative)
[2024-07-31 18:05] LABS: Marijuana Negative (Negative); Methadone Negative (Negative); Opiates Negative (Negative); Phencyclidine Negative (Negative); Tricyclic Antidepressants Negative (Negative)
--- NOTE | 2024-07-31 18:30 | PTCARENOTE ---
Received pt from the ED, pt ambulated to the bed. MSAS score 5. Ativan 1mg po given. Report given to next shift.
[2024-07-31 18:31] LABS: Fentanyl, Urine Negative (Negative)
[2024-07-31] MEDS: ATIVAN 1 MG PO ×3 (18:51→23:16)
[2024-07-31] MEDS: PHENOBARBITAL 104 MG IV (20:18)
[2024-08-01] MEDS: ATIVAN 1 MG PO ×6 (02:01→20:25)
[2024-08-01 03:10] VITALS: BP 114/72
[2024-08-01] MEDS: NSS 1000 IV ×3 (05:14→23:53)
[2024-08-01 07:15] LABS: % Basophils 0.9 % (0-2); % Eosinophils 10.3 % (0-6); % Immature Granulocytes 0.4 % (0-0.5); % Lymphocytes 16.6 % (20.5-51.1); % Monocytes 6.3 % (1.7-9.3); % Neutrophils 65.5 % (42.2-75.2); Absolute Basophils 0.1 10^3/uL (0-0.2); Absolute Eosinophils 0.8 10^3/uL (0-0.7); Absolute Lymphocytes 1.3 10^3/uL (1.2-3.4); Absolute Monocytes 0.5 10^3/uL (0.1-0.6); Absolute Neutrophils 4.9 10^3/uL (1.4-6.5); Hematocrit 37.6 % (39.0-52.0); Hemoglobin 12.5 g/dL (13.0-18.0); Mean Corp Hgb Conc. 33.2 g/dL (33.0-37.0); Mean Corpuscular Hgb 28.9 pg (27.0-31.0); Mean Corpuscular Volume 86.8 fL (80.0-94.0); Mean Platelet Volume 9.7 fL (7.4-10.4); Nucleated Red Blood Cells % 0 % (-); Platelet Count 339 10^3/uL (130-400); Red Blood Cell Count 4.33 10^6/uL (4.70-6.10); Red Cell Dist. Width 14.7 % (11.5-14.5); White Blood Cell Count 7.5 10^3/uL (4.8-10.8)
[2024-08-01 07:16] VITALS: BP 128/83
[2024-08-01 07:31] LABS: GGTP 101 U/L (15-73); Phosphorus 2.9 mg/dl (2.5-4.5)
[2024-08-01 07:34] LABS: ALT (SGPT) 39 U/L (0-50); AST (SGOT) 39 U/L (17-59); Albumin 4.5 g/dl (3.5-5.0); Alkaline Phosphatase 73 U/L (38-126); Blood Urea Nitrogen 13 mg/dl (9-20); Calcium 8.8 mg/dl (8.4-10.2); Carbon Dioxide 28 mmol/L (22-30); Estimated Creatinine Clearance > 125 ml/min; Glucose 104 mg/dl (70-99); Potassium 4.3 mmol/L (3.5-5.1); Sodium 134 mmol/L (135-145); Total Bilirubin 1.4 mg/dl (0.2-1.3); Total Protein 7.1 g/dl (6.3-8.2); eGFR > 60.00
[2024-08-01 07:38] LABS: B-Hydroxybutyrate 0.15 mmol/L (0.02-0.27)
[2024-08-01 07:42] LABS: INR 1.14; PT 14.9 Sec (11.4-14.6)
[2024-08-01 07:44] LABS: APTT 35.6 Sec (23.4-35.0)
[2024-08-01] MEDS: FOLVITE 1 MG PO (07:56)
[2024-08-01] MEDS: LEXAPRO 10 MG PO (07:56)
[2024-08-01] MEDS: NORVASC 5 MG PO (07:56)
[2024-08-01] MEDS: MAGNESIUM OXIDE 500 MG PO (07:56)
[2024-08-01] MEDS: PHENOBARBITAL 97.5 MG IV ×3 (07:57→21:58)
[2024-08-01] MEDS: THIAMINE INJECTION 200 MG IV ×3 (07:57→23:44)
[2024-08-01] MEDS: PROTONIX 40 MG PO (07:57)
[2024-08-01 08:15] LABS: Chloride 99 mmol/L (98-107)
--- NOTE | 2024-08-01 11:01 | CM ---
network account manager reviewed patient's chart and met with patient and patient lives with is parents in a 2 story home, patient is independent with adl's and ambulation, no dme, patient with alcohol use and referral was sent to [facility], patient was evaluated
by Jeffy at [facility] and he will follow patient while he is in the hospital.
PCP: Dr. Newman
Pharmacy Kevin: Paul
Plan; [facility] to follow with patient.
[2024-08-01 11:12] VITALS: BP 129/89
[2024-08-01] MEDS: TYLENOL 650 MG PO ×2 (11:12→17:31)
--- NOTE | 2024-08-01 14:01 | CS.PSYCHR ---
Consult Summary - Psychiatry
-
Pt is 38 yo male with history of alcohol use complications, who presented c/o withdrawal symptoms. BAL 258 on admission, reportedly drinking vodka daily. Pt started on Phenobarb taper. Pt seen resting in bed watching TV in no apparent distress.
Pt states he is down on himself for drinking, but denies significant depression or SI. He reports he was sober after last admission, then relapsed for the week prior to admission. Pt reports he talked with [facility] and is considering rehab.
Psych Hx: prescribed Lexapro and Ativan in the past. Recently restarted Lexapro, just increased to 10 mg- Rx by PCP
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
FHx: brother 1 year sober from alcohol
MSE: alert, oriented, calm, cooperative. Mood okay/stable, affect appropriate. No agitation, no signs of psychosis. Speech/thought coherent/goal-directed. Insight limited to fair
Imp: Alcohol Use d/o, severe
Unspecified anxiety/depression, stable on Lexapro
Rec: continue current mgt; continue Lexapro at 10 mg Daily
Pt considering alcohol rehab
will follow peripherally
--- NOTE | 2024-08-01 14:26 | W.PN.HOSP.TC ---
Today's Communication/Plan
-
Alcohol withdrawal protocol
Assessment / Plan
Assessment / Plan
#Acute alcohol intoxication /alcoholic withdrawal
#Hx chronic alcohol abuse
EtOH level 258, HR 118, last drink 1 PM today 07/31/2024 vodka
Drinks 12 pack of beer or bottle of vodka daily 750 mL daily
-Patient requesting [facility] consult he declined recently on 07/05/2024 admit
-Will start MSAS protocol
-Phenobarb taper
-IV thiamine, IV folate, as needed Ativan
-Consult psychiatry
-IV NSS 100 cc/h
-Tylenol as needed headache
#Hx Recent alcoholic gastritis/reflux esophagitis
#Hx GERD
#Hx alcoholic hepatitis
- he was recommended to avoid alcohol NSAIDs (still drinking 1 bottle liquir per day)
-Continue Protonix 40 mg daily
-EGD on 07/06/2024 showing grade a reflux esophagitis with no bleeding or varices, few gastric polyps biopsied,
erythematous mucosa in the gastric body and antrum biopsied questionable portal gastropathy,
medium size hiatal hernia and normal duodenum
#Chronic transaminitis secondary to alcohol abuse/hepatomegaly
# HX Hepatic steatosis
# HX Hepatomegaly
-Follow CMP
�Ultrasound with hepatic infiltration, no acute findings.
#Hyponatremia
� Monitor
# HTN�benign
-Continue amlodipine 5 mg daily
#Anxiety/ Depression
-Continue Lexapro 10 mg daily
Hx hypokalemia
K4.5
Asymptomatic bacteriuria
� No urinary symptoms
Hx hypomagnesemia
Mag 2.2
Other PMH:
Epididymitis left testicle
Renal calculi
Migraines
DVT prophylaxis
Subcu Lovenox
Full code
Anticipated Discharge: > 48 hours
Subjective/Interval History
-
Date of Service: August 01, 2024
No acute events.
Objective Data
-
Labs:
Laboratory Results
08/01/24
06:53
WBC 7.5
Hgb 12.5 L
Hct 37.6 L
Plt Count 339 D
PT 14.9 H
INR 1.14
APTT 35.6 H
Sodium 134 L
Potassium 4.3
Chloride 99
Carbon Dioxide 28
BUN 13
Creatinine 0.7
Glucose 104 H
Calcium 8.8
Total Bilirubin 1.4 H
AST 39
ALT 39
Alkaline Phosphatase 73
Vital Signs:
Vital Signs
Temp Pulse Resp BP Pulse Ox
98.9 F 86 16 129/89 98
08/01/24 11:12 08/01/24 11:12 08/01/24 11:12 08/01/24 11:12 08/01/24 11:12
I&O
07/31/24 08/01/24 08/02/24
06:59 06:59 06:59
Intake Total 1304 / 1304 240 / 240
Balance 1304 / 1304 240 / 240
Review of Systems
-
History Source: Patient
All other systems: Not reviewed unless documented
Physical Exam
-
General: No Apparent Distress
HEENT: Moist Mucous Membranes
Respiratory: Clear to Auscultation
Cardiac: Regular Rhythm and S1/S2; Negative Tachycardic
GI: Soft, Nontender, Nondistended and Normal Bowel Sounds
Neuro: AO x 3; Negative Tremors
Psych: Calm; Negative Confused or Agitated
Data Reviewed
-
Ultrasound: Report Reviewed by me
Labs: Labs Reviewed by me
[2024-08-01 15:00] VITALS: BP 137/85
[2024-08-01 23:19] VITALS: BP 123/77
[2024-08-02 03:28] VITALS: BP 131/78
[2024-08-02 07:05] VITALS: BP 103/62
[2024-08-02] MEDS: NORVASC 5 MG PO (07:54)
[2024-08-02] MEDS: PHENOBARBITAL 97.5 MG IV ×3 (07:54→21:24)
[2024-08-02] MEDS: MAGNESIUM OXIDE 500 MG PO (07:54)
[2024-08-02] MEDS: FOLVITE 1 MG PO (07:54)
[2024-08-02] MEDS: LEXAPRO 10 MG PO (07:54)
[2024-08-02] MEDS: THIAMINE INJECTION 200 MG IV ×3 (07:55→23:46)
[2024-08-02] MEDS: PROTONIX 40 MG PO (07:55)
[2024-08-02 07:59] LABS: % Basophils 0.9 % (0-2); % Eosinophils 16.2 % (0-6); % Immature Granulocytes 0.2 % (0-0.5); % Lymphocytes 26.3 % (20.5-51.1); % Monocytes 4.9 % (1.7-9.3); % Neutrophils 51.5 % (42.2-75.2); Absolute Basophils 0.1 10^3/uL (0-0.2); Absolute Eosinophils 0.9 10^3/uL (0-0.7); Absolute Lymphocytes 1.4 10^3/uL (1.2-3.4); Absolute Monocytes 0.3 10^3/uL (0.1-0.6); Absolute Neutrophils 2.8 10^3/uL (1.4-6.5); Hematocrit 38.3 % (39.0-52.0); Hemoglobin 12.6 g/dL (13.0-18.0); Mean Corp Hgb Conc. 32.9 g/dL (33.0-37.0); Mean Corpuscular Hgb 29.1 pg (27.0-31.0); Mean Corpuscular Volume 88.5 fL (80.0-94.0); Mean Platelet Volume 9.9 fL (7.4-10.4); Nucleated Red Blood Cells % 0 % (-); Platelet Count 283 10^3/uL (130-400); Red Blood Cell Count 4.33 10^6/uL (4.70-6.10); Red Cell Dist. Width 14.5 % (11.5-14.5); White Blood Cell Count 5.4 10^3/uL (4.8-10.8)
[2024-08-02] MEDS: ATIVAN 1 MG PO ×3 (08:04→19:12)
[2024-08-02] MEDS: NSS 1000 IV ×2 (08:45→17:56)
[2024-08-02 09:38] LABS: ALT (SGPT) 31 U/L (0-50); AST (SGOT) 29 U/L (17-59); Albumin 4.2 g/dl (3.5-5.0); Alkaline Phosphatase 68 U/L (38-126); Blood Urea Nitrogen 4 mg/dl (9-20); Calcium 8.7 mg/dl (8.4-10.2); Carbon Dioxide 23 mmol/L (22-30); Chloride 107 mmol/L (98-107); Estimated Creatinine Clearance > 125 ml/min; Glucose 99 mg/dl (70-99); Potassium 4.2 mmol/L (3.5-5.1); Sodium 141 mmol/L (135-145); Total Protein 6.9 g/dl (6.3-8.2); eGFR > 60.00
--- NOTE | 2024-08-02 10:51 | W.PN.UPDATE ---
Update Note
Progress Note Update
Patient seen at bedside, chart reviewed, discussed with staff. Mr. Kirkpatrick reports doing well overall. Denies any w/d symptoms. He is strongly considering IP ETOH tx. He recognizes the issues it is causing him medically as well as now at home. No
other issues or concerns at this time.
Impression/Recommendation: Alcohol Use disorder, severe - MSAS in place as well at phenobarb taper; Unspecified anxiety/depression - continue Lexapro at 10 mg daily, continue to encourage alcohol rehab.
Psych to follow peripherally.
[2024-08-02 11:27] VITALS: BP 134/78
--- NOTE | 2024-08-02 12:59 | CM ---
[facility] continue to follow and provide treatment options.
Plan; Patient to return to home at discharge.
[2024-08-02] MEDS: TYLENOL 650 MG PO ×2 (13:14→19:12)
--- NOTE | 2024-08-02 13:39 | W.PN.HOSP.TC ---
Today's Communication/Plan
-
Alcohol withdrawal protocol
Assessment / Plan
Assessment / Plan
#Acute alcohol intoxication /alcoholic withdrawal
#Hx chronic alcohol abuse
EtOH level 258, HR 118, last drink 1 PM today 07/31/2024 vodka
Drinks 12 pack of beer or bottle of vodka daily 750 mL daily
-Patient requesting [facility] consult he declined recently on 07/05/2024 admit
-Will start MSAS protocol
-Phenobarb taper
-IV thiamine, IV folate, as needed Ativan
-Consult psychiatry
-IV NSS 100 cc/h
-Tylenol as needed headache
#Hx Recent alcoholic gastritis/reflux esophagitis
#Hx GERD
#Hx alcoholic hepatitis
- he was recommended to avoid alcohol NSAIDs (still drinking 1 bottle liquir per day)
-Continue Protonix 40 mg daily
-EGD on 07/06/2024 showing grade a reflux esophagitis with no bleeding or varices, few gastric polyps biopsied,
erythematous mucosa in the gastric body and antrum biopsied questionable portal gastropathy,
medium size hiatal hernia and normal duodenum
#Chronic transaminitis secondary to alcohol abuse/hepatomegaly
# HX Hepatic steatosis
# HX Hepatomegaly
-Follow CMP
#Hyponatremia
� Monitor
# HTN�benign
-Continue amlodipine 5 mg daily
#Anxiety/ Depression
-Continue Lexapro 10 mg daily
Hx hypokalemia
K4.5
Asymptomatic bacteriuria
� No urinary symptoms
Hx hypomagnesemia
Mag 2.2
Other PMH:
Epididymitis left testicle
Renal calculi
Migraines
DVT prophylaxis
Subcu Lovenox
Full code
Anticipated Discharge: > 48 hours
Subjective/Interval History
-
Date of Service: August 02, 2024
no acute events
Objective Data
-
Labs:
Laboratory Results
08/02/24
07:45
WBC 5.4
Hgb 12.6 L
Hct 38.3 L
Plt Count 283
Sodium 141
Potassium 4.2
Chloride 107
Carbon Dioxide 23
BUN 4 L
Creatinine 0.7
Glucose 99
Calcium 8.7
Total Bilirubin 1.0
AST 29
ALT 31
Alkaline Phosphatase 68
Vital Signs:
Vital Signs
Temp Pulse Resp BP Pulse Ox
97.5 F 70 16 134/78 97
08/02/24 11:27 08/02/24 11:27 08/02/24 11:27 08/02/24 11:27 08/02/24 11:27
I&O
08/01/24 08/02/24 08/03/24
06:59 06:59 06:59
Intake Total 1304 / 1304 2930 / 2930
Balance 1304 / 1304 2930 / 2930
Review of Systems
-
History Source: Patient
All other systems: Not reviewed unless documented
Physical Exam
-
General: No Apparent Distress
HEENT: Moist Mucous Membranes
Respiratory: Clear to Auscultation
Cardiac: Regular Rhythm and S1/S2; Negative Tachycardic
GI: Soft, Nontender, Nondistended and Normal Bowel Sounds
Neuro: AO x 3; Negative Tremors
Psych: Calm; Negative Confused or Agitated
Data Reviewed
-
Ultrasound: Report Reviewed by me
Labs: Labs Reviewed by me
[2024-08-02 15:15] VITALS: BP 132/87
[2024-08-02 19:00] VITALS: BP 146/87
[2024-08-02] MEDS: TORADOL 15 MG IV (22:00)
[2024-08-02 23:00] VITALS: BP 124/84
[2024-08-03 03:00] VITALS: BP 131/82
[2024-08-03] MEDS: NSS 1000 IV (06:10)
[2024-08-03 07:37] VITALS: BP 121/77
[2024-08-03] MEDS: NORVASC 5 MG PO (08:53)
[2024-08-03] MEDS: MAGNESIUM OXIDE 500 MG PO (08:53)
[2024-08-03] MEDS: PROTONIX 40 MG PO (08:53)
[2024-08-03] MEDS: FOLVITE 1 MG PO (08:53)
[2024-08-03] MEDS: LUMINAL 64.8 MG PO ×3 (08:53→21:20)
[2024-08-03] MEDS: LEXAPRO 10 MG PO (08:53)
[2024-08-03] MEDS: THIAMINE INJECTION 200 MG IV ×2 (09:35→16:45)
[2024-08-03 09:45] LABS: ALT (SGPT) 52 U/L (0-50); AST (SGOT) 61 U/L (17-59); Albumin 4.2 g/dl (3.5-5.0); Alkaline Phosphatase 48 U/L (38-126); Blood Urea Nitrogen 5 mg/dl (9-20); Calcium 8.8 mg/dl (8.4-10.2); Carbon Dioxide 22 mmol/L (22-30); Chloride 109 mmol/L (98-107); Estimated Creatinine Clearance > 125 ml/min; Glucose 104 mg/dl (70-99); Potassium 4.1 mmol/L (3.5-5.1); Sodium 139 mmol/L (135-145); Total Bilirubin 0.9 mg/dl (0.2-1.3); Total Protein 6.8 g/dl (6.3-8.2); eGFR > 60.00
[2024-08-03 10:15] LABS: % Eosinophils 14.8 % (0-6); % Immature Granulocytes 0.2 % (0-0.5); % Lymphocytes 21.6 % (20.5-51.1); % Monocytes 5.3 % (1.7-9.3); % Neutrophils 57.1 % (42.2-75.2); Absolute Basophils 0.1 10^3/uL (0-0.2); Absolute Eosinophils 0.9 10^3/uL (0-0.7); Absolute Lymphocytes 1.3 10^3/uL (1.2-3.4); Absolute Monocytes 0.3 10^3/uL (0.1-0.6); Absolute Neutrophils 3.4 10^3/uL (1.4-6.5); Hematocrit 37.9 % (39.0-52.0); Hemoglobin 12.3 g/dL (13.0-18.0); Mean Corp Hgb Conc. 32.5 g/dL (33.0-37.0); Mean Corpuscular Hgb 28.6 pg (27.0-31.0); Mean Corpuscular Volume 88.1 fL (80.0-94.0); Mean Platelet Volume 10.2 fL (7.4-10.4); Nucleated Red Blood Cells % 0 % (-); Platelet Count 268 10^3/uL (130-400); Red Cell Dist. Width 14.6 % (11.5-14.5); White Blood Cell Count 5.9 10^3/uL (4.8-10.8)
--- NOTE | 2024-08-03 10:30 | CM ---
sustainability project manager continues to follow with patient progress notes, Jeffy nair [facility] continues to follow with patient progress and patient may agree to outpatient treatment options, will follow.
Plan; Home with parents when stable.
[2024-08-03] MEDS: TYLENOL 650 MG PO ×2 (11:22→19:46)
[2024-08-03] MEDS: ATIVAN 1 MG PO ×2 (11:29→19:46)
[2024-08-03 11:44] VITALS: BP 134/88
--- NOTE | 2024-08-03 13:35 | W.PN.HOSP.TC ---
Today's Communication/Plan
-
Alcohol withdrawal protocol
Assessment / Plan
Assessment / Plan
#Acute alcohol intoxication /alcoholic withdrawal
#Hx chronic alcohol abuse
EtOH level 258, HR 118, last drink 1 PM today 07/31/2024 vodka
Drinks 12 pack of beer or bottle of vodka daily 750 mL daily
-Patient requesting [facility] consult he declined recently on 07/05/2024 admit
-Will start MSAS protocol
-Phenobarb taper
-IV thiamine, IV folate, as needed Ativan
-Consult psychiatry
-IV NSS 100 cc/h
-Tylenol as needed headache
#Hx Recent alcoholic gastritis/reflux esophagitis
#Hx GERD
#Hx alcoholic hepatitis
- he was recommended to avoid alcohol NSAIDs (still drinking 1 bottle liquor per day)
-Continue Protonix 40 mg daily
-EGD on 07/06/2024 showing grade a reflux esophagitis with no bleeding or varices, few gastric polyps biopsied,
erythematous mucosa in the gastric body and antrum biopsied questionable portal gastropathy,
medium size hiatal hernia and normal duodenum
#Chronic transaminitis secondary to alcohol abuse/hepatomegaly
# HX Hepatic steatosis
# HX Hepatomegaly
-Follow CMP
#Hyponatremia
� Monitor
# HTN�benign
-Continue amlodipine 5 mg daily
#Anxiety/ Depression
-Continue Lexapro 10 mg daily
Hx hypokalemia
K4.5
Asymptomatic bacteriuria
� No urinary symptoms
Hx hypomagnesemia
Mag 2.2
Other PMH:
Epididymitis left testicle
Renal calculi
Migraines
DVT prophylaxis
Subcu Lovenox
Full code
Anticipated Discharge: > 48 hours
Subjective/Interval History
-
Date of Service: August 03, 2024
no acute events
Objective Data
-
Labs:
Laboratory Results
08/03/24 08/03/24
08:45 09:39
WBC Cancelled 5.9
Hgb Cancelled 12.3 L
Hct Cancelled 37.9 L
Plt Count Cancelled 268
Sodium 139
Potassium 4.1
Chloride 109 H
Carbon Dioxide 22
BUN 5 L
Creatinine 0.6 L
Glucose 104 H
Calcium 8.8
Total Bilirubin 0.9
AST 61 H
ALT 52 H
Alkaline Phosphatase 48
Vital Signs:
Vital Signs
Temp Pulse Resp BP Pulse Ox
98.6 F 84 18 134/88 97
08/03/24 11:44 08/03/24 11:44 08/03/24 11:44 08/03/24 11:44 08/03/24 11:44
I&O
08/02/24 08/03/24 08/04/24
06:59 06:59 06:59
Intake Total 2930 / 2930 2950 / 2950
Balance 2930 / 2930 2950 / 2950
Review of Systems
-
History Source: Patient
All other systems: Not reviewed unless documented
Data Reviewed
-
Ultrasound: Report Reviewed by me
Labs: Labs Reviewed by me
--- NOTE | 2024-08-03 14:12 | W.PN.UPDATE ---
Update Note
Progress Note Update
patient seen chart reviewed. the patient is a 38 yr old male who has been to several times in the past few months for etoh related issues. he saw dr sharp in may and it was suggested that he consider rehab but he declined. he was
readmitted in jun w pancreatitis and comes to this month w c.o abdominal cramping. he had recently received his fourth dui which he is contesting. patient was not in the car at the time of the dui and was only later charged on the testimony of
an observer. the first three dui's were over ten years ago. he does seem to be taking seriously the need to stop drinking this go around. he says he had stopped for a few weeks and only resumed drinking about a week ago. he has been detoxed w
phenobarb and msas. at this point he continues to take lexapro 10 mg which he says really helps w his depression. he does still suffer from anxiety which if you read dr sharp's note sounds a bit like panic disorder. i suggested he inc lexapro to
15 mg but he says 'i only increased it two months ago' also discussed with him use of gabapentin for anxiety but he was not interested at present. also talked about naltrexone but also not necessarily interested. he says he will atttend aldi
'three times weekly' and consider getting a psychiatrist at [facility]. 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 he is using only occasional ativan here thus far. he says ativan
worked great for him as out pt....i explained to him this is NOT advisable given it is as addicting as etoh and he will get into more trouble. psych will sign off.
[2024-08-03 15:59] VITALS: BP 143/95
[2024-08-03] MEDS: VITAMIN B1 100 MG PO (19:37)
[2024-08-03 19:45] VITALS: BP 140/95
[2024-08-03 23:45] VITALS: BP 120/73
[2024-08-04 03:38] VITALS: BP 112/75
[2024-08-04] MEDS: NORVASC 5 MG PO (07:25)
[2024-08-04] MEDS: FOLVITE 1 MG PO (07:27)
[2024-08-04] MEDS: LEXAPRO 10 MG PO (07:27)
[2024-08-04] MEDS: PROTONIX 40 MG PO (07:27)
[2024-08-04] MEDS: LUMINAL 64.8 MG PO ×3 (07:27→22:10)
[2024-08-04] MEDS: MAGNESIUM OXIDE 500 MG PO (07:30)
[2024-08-04] MEDS: VITAMIN B1 100 MG PO ×2 (07:30→19:31)
[2024-08-04 07:36] VITALS: BP 132/89
[2024-08-04 10:33] LABS: Hematocrit 38.1 % (39.0-52.0); Hemoglobin 12.4 g/dL (13.0-18.0); Mean Corp Hgb Conc. 32.5 g/dL (33.0-37.0); Mean Corpuscular Hgb 28.6 pg (27.0-31.0); Mean Platelet Volume 10.6 fL (7.4-10.4); Platelet Count 263 10^3/uL (130-400); Red Blood Cell Count 4.33 10^6/uL (4.70-6.10); Red Cell Dist. Width 14.4 % (11.5-14.5); White Blood Cell Count 6.7 10^3/uL (4.8-10.8)
[2024-08-04 11:26] LABS: ALT (SGPT) 97 U/L (0-50); AST (SGOT) 96 U/L (17-59); Alkaline Phosphatase 57 U/L (38-126); Blood Urea Nitrogen 8 mg/dl (9-20); Calcium 9.3 mg/dl (8.4-10.2); Carbon Dioxide 27 mmol/L (22-30); Chloride 104 mmol/L (98-107); Estimated Creatinine Clearance > 125 ml/min; Glucose 96 mg/dl (70-99); Potassium 4.2 mmol/L (3.5-5.1); Sodium 139 mmol/L (135-145); Total Bilirubin 0.6 mg/dl (0.2-1.3); Total Protein 6.8 g/dl (6.3-8.2); eGFR > 60.00
--- NOTE | 2024-08-04 14:27 | W.PN.HOSP.TC ---
Today's Communication/Plan
-
Alcohol withdrawal protocol
Assessment / Plan
Assessment / Plan
#Acute alcohol intoxication /alcoholic withdrawal
#Hx chronic alcohol abuse
EtOH level 258, HR 118, last drink 1 PM today 07/31/2024 vodka
Drinks 12 pack of beer or bottle of vodka daily 750 mL daily
-Patient requesting [facility] consult he declined recently on 07/05/2024 admit
-Will start MSAS protocol
-Phenobarb taper
-IV thiamine, IV folate, as needed Ativan
-Consult psychiatry
-IV NSS 100 cc/h
-Tylenol as needed headache
#Hx Recent alcoholic gastritis/reflux esophagitis
#Hx GERD
#Hx alcoholic hepatitis
- he was recommended to avoid alcohol NSAIDs (still drinking 1 bottle liquor per day)
-Continue Protonix 40 mg daily
-EGD on 07/06/2024 showing grade a reflux esophagitis with no bleeding or varices, few gastric polyps biopsied,
erythematous mucosa in the gastric body and antrum biopsied questionable portal gastropathy,
medium size hiatal hernia and normal duodenum
#Chronic transaminitis secondary to alcohol abuse/hepatomegaly
# HX Hepatic steatosis
# HX Hepatomegaly
-Follow CMP
#Hyponatremia
� Monitor
# HTN�benign
-Continue amlodipine 5 mg daily
#Anxiety/ Depression
-Continue Lexapro 10 mg daily
Hx hypokalemia
K4.5
Asymptomatic bacteriuria
� No urinary symptoms
Hx hypomagnesemia
Mag 2.2
Other PMH:
Epididymitis left testicle
Renal calculi
Migraines
DVT prophylaxis
Subcu Lovenox
Full code
Anticipated Discharge: 24 - 48 hours
Subjective/Interval History
-
Date of Service: August 04, 2024
No acute events
Objective Data
-
Labs:
Laboratory Results
08/04/24 08/04/24
07:23 09:30
WBC Cancelled 6.7
Hgb Cancelled 12.4 L
Hct Cancelled 38.1 L
Plt Count Cancelled 263
Sodium Cancelled 139
Potassium Cancelled 4.2
Chloride Cancelled 104
Carbon Dioxide Cancelled 27
BUN Cancelled 8 L
Creatinine Cancelled 0.7
Glucose Cancelled 96
Calcium Cancelled 9.3
Total Bilirubin Cancelled 0.6
AST Cancelled 96 H
ALT Cancelled 97 H
Alkaline Phosphatase Cancelled 57
Vital Signs:
Vital Signs
Temp Pulse Resp BP Pulse Ox
97.9 F 70 18 132/89 97
08/04/24 07:36 08/04/24 07:36 08/04/24 07:36 08/04/24 07:36 08/04/24 07:36
I&O
08/03/24 08/04/24 08/05/24
06:59 06:59 06:59
Intake Total 2950 / 2950 960 / 960
Balance 2950 / 2950 960 / 960
Review of Systems
-
History Source: Patient
All other systems: Not reviewed unless documented
Physical Exam
-
General: No Apparent Distress
HEENT: Moist Mucous Membranes
Respiratory: Clear to Auscultation
Cardiac: Regular Rhythm and S1/S2; Negative Tachycardic
GI: Soft, Nontender, Nondistended and Normal Bowel Sounds
Neuro: AO x 3; Negative Tremors
Psych: Calm; Negative Confused or Agitated
Data Reviewed
-
Ultrasound: Report Reviewed by me
Labs: Labs Reviewed by me
[2024-08-04] MEDS: TYLENOL 650 MG PO ×2 (14:49→20:22)
[2024-08-04] MEDS: ATIVAN 1 MG PO ×2 (14:49→20:22)
[2024-08-04 15:56] VITALS: BP 140/96
[2024-08-04 19:30] VITALS: BP 132/94
[2024-08-04 22:56] VITALS: BP 134/85
[2024-08-05 07:00] VITALS: BP 124/85
[2024-08-05] MEDS: LUMINAL 32.4 MG PO ×3 (07:46→20:58)
[2024-08-05] MEDS: NORVASC 5 MG PO (07:46)
[2024-08-05] MEDS: PROTONIX 40 MG PO (07:46)
[2024-08-05] MEDS: MAGNESIUM OXIDE 500 MG PO (07:47)
[2024-08-05] MEDS: VITAMIN B1 100 MG PO ×2 (07:47→19:54)
[2024-08-05] MEDS: FOLVITE 1 MG PO (07:47)
[2024-08-05] MEDS: LEXAPRO 10 MG PO (07:47)
[2024-08-05 08:28] LABS: Hematocrit 40.1 % (39.0-52.0); Mean Corp Hgb Conc. 32.4 g/dL (33.0-37.0); Mean Corpuscular Hgb 28.4 pg (27.0-31.0); Mean Corpuscular Volume 87.7 fL (80.0-94.0); Mean Platelet Volume 10.2 fL (7.4-10.4); Platelet Count 249 10^3/uL (130-400); Red Blood Cell Count 4.57 10^6/uL (4.70-6.10); Red Cell Dist. Width 14.7 % (11.5-14.5); White Blood Cell Count 7.3 10^3/uL (4.8-10.8)
[2024-08-05 09:04] LABS: ALT (SGPT) 117 U/L (0-50); AST (SGOT) 92 U/L (17-59); Albumin 4.1 g/dl (3.5-5.0); Alkaline Phosphatase 57 U/L (38-126); Blood Urea Nitrogen 8 mg/dl (9-20); Calcium 9.4 mg/dl (8.4-10.2); Carbon Dioxide 27 mmol/L (22-30); Chloride 103 mmol/L (98-107); Estimated Creatinine Clearance > 125 ml/min; Glucose 101 mg/dl (70-99); Potassium 3.8 mmol/L (3.5-5.1); Sodium 139 mmol/L (135-145); Total Bilirubin 0.5 mg/dl (0.2-1.3); Total Protein 6.9 g/dl (6.3-8.2); eGFR > 60.00
[2024-08-05] MEDS: ATIVAN 1 MG PO ×2 (10:21→17:48)
[2024-08-05] MEDS: TYLENOL 650 MG PO ×2 (10:21→17:47)
--- NOTE | 2024-08-05 14:23 | W.PN.HOSP.TC ---
Today's Communication/Plan
-
etoh withdrawal protocol
Assessment / Plan
Assessment / Plan
#Acute alcohol intoxication /alcoholic withdrawal
#Hx chronic alcohol abuse
EtOH level 258, HR 118, last drink 1 PM today 07/31/2024 vodka
Drinks 12 pack of beer or bottle of vodka daily 750 mL daily
-Patient requesting [facility] consult he declined recently on 07/05/2024 admit
-Will start MSAS protocol
-Phenobarb taper
-IV thiamine, IV folate, as needed Ativan
-Consult psychiatry
-IV NSS 100 cc/h
-Tylenol as needed headache
#Hx Recent alcoholic gastritis/reflux esophagitis
#Hx GERD
#Hx alcoholic hepatitis
- he was recommended to avoid alcohol NSAIDs (still drinking 1 bottle liquor per day)
-Continue Protonix 40 mg daily
-EGD on 07/06/2024 showing grade a reflux esophagitis with no bleeding or varices, few gastric polyps biopsied,
erythematous mucosa in the gastric body and antrum biopsied questionable portal gastropathy,
medium size hiatal hernia and normal duodenum
#Chronic transaminitis secondary to alcohol abuse/hepatomegaly
# HX Hepatic steatosis
# HX Hepatomegaly
-Follow CMP
#Hyponatremia
� Monitor
# HTN�benign
-Continue amlodipine 5 mg daily
#Anxiety/ Depression
-Continue Lexapro 10 mg daily
Hx hypokalemia
K4.5
Asymptomatic bacteriuria
� No urinary symptoms
Hx hypomagnesemia
Mag 2.2
Other PMH:
Epididymitis left testicle
Renal calculi
Migraines
DVT prophylaxis
Subcu Lovenox
Full code
Anticipated Discharge: Within 24 hours
Subjective/Interval History
-
Date of Service: August 05, 2024
no acute events
Objective Data
-
Labs:
Laboratory Results
08/05/24
07:28
WBC 7.3
Hgb 13.0
Hct 40.1
Plt Count 249
Sodium 139
Potassium 3.8
Chloride 103
Carbon Dioxide 27
BUN 8 L
Creatinine 0.8
Glucose 101 H
Calcium 9.4
Total Bilirubin 0.5
AST 92 H
ALT 117 H
Alkaline Phosphatase 57
Vital Signs:
Vital Signs
Temp Pulse Resp BP Pulse Ox
98.1 F 68 18 120/84 98
08/05/24 07:00 08/05/24 07:46 08/05/24 07:00 08/05/24 07:46 08/05/24 10:00
I&O
08/04/24 08/05/24 08/06/24
06:59 06:59 06:59
Intake Total 960 / 960 19190
Balance 960 / 960 1919
Review of Systems
-
History Source: Patient
All other systems: Not reviewed unless documented
Data Reviewed
-
Ultrasound: Report Reviewed by me
Labs: Labs Reviewed by me
[2024-08-05 15:00] VITALS: BP 128/89
[2024-08-05 23:35] VITALS: BP 101/59
[2024-08-06 06:37] LABS: Hematocrit 36.4 % (39.0-52.0); Hemoglobin 12.2 g/dL (13.0-18.0); Mean Corp Hgb Conc. 33.5 g/dL (33.0-37.0); Mean Corpuscular Hgb 29.3 pg (27.0-31.0); Mean Corpuscular Volume 87.3 fL (80.0-94.0); Mean Platelet Volume 10.9 fL (7.4-10.4); Platelet Count 230 10^3/uL (130-400); Red Blood Cell Count 4.17 10^6/uL (4.70-6.10); Red Cell Dist. Width 14.6 % (11.5-14.5)
[2024-08-06 07:00] VITALS: BP 126/82
[2024-08-06 07:09] LABS: ALT (SGPT) 129 U/L (0-50); AST (SGOT) 83 U/L (17-59); Albumin 4.3 g/dl (3.5-5.0); Alkaline Phosphatase 53 U/L (38-126); Blood Urea Nitrogen 9 mg/dl (9-20); Calcium 9.1 mg/dl (8.4-10.2); Carbon Dioxide 26 mmol/L (22-30); Chloride 101 mmol/L (98-107); Estimated Creatinine Clearance > 125 ml/min; Glucose 109 mg/dl (70-99); Potassium 3.8 mmol/L (3.5-5.1); Sodium 138 mmol/L (135-145); Total Bilirubin 0.6 mg/dl (0.2-1.3); eGFR > 60.00
[2024-08-06] MEDS: NORVASC 5 MG PO (07:35)
[2024-08-06] MEDS: MAGNESIUM OXIDE 500 MG PO (07:35)
[2024-08-06] MEDS: FOLVITE 1 MG PO (07:36)
[2024-08-06] MEDS: PROTONIX 40 MG PO (07:36)
[2024-08-06] MEDS: VITAMIN B1 100 MG PO (07:36)
[2024-08-06] MEDS: LUMINAL 32.4 MG PO ×2 (07:36→15:08)
[2024-08-06] MEDS: LEXAPRO 10 MG PO (07:36)
[2024-08-06] MEDS: ATIVAN 1 MG PO (09:27)
[2024-08-06] MEDS: TYLENOL 650 MG PO ×2 (09:31→14:06)
--- NOTE | 2024-08-06 10:46 | CM ---
corporate security manager reviewed patient's chart and spoke with [facility] today and patient's plan is to follow up with outpatient treatment program at [facility] in [place].
Plan; Home today and patient to follow up with outpatient treatment at [facility].
--- NOTE | 2024-08-06 11:30 | W.PN.HOSP.TC ---
Addendum entered and electronically signed by Ernesto Villalta MD 08/07/24 15:52:
[id number]
Original Note:
Today's Communication/Plan
-
dc after afternoon dose of phenobarb
f/u cmp outpt
f/u pcp within 1 week
etoh abuse assistance/education provided by CM
refused rehab
Assessment / Plan
Assessment / Plan
#Acute alcohol intoxication /alcoholic withdrawal
#Hx chronic alcohol abuse
EtOH level 258, HR 118, last drink 1 PM today 07/31/2024 vodka
Drinks 12 pack of beer or bottle of vodka daily 750 mL daily
-Patient requesting [facility] consult he declined recently on 07/05/2024 admit
-Will start MSAS protocol
-Phenobarb taper
-IV thiamine, IV folate, as needed Ativan
-Consult psychiatry
-IV NSS 100 cc/h
-Tylenol as needed headache
#Hx Recent alcoholic gastritis/reflux esophagitis
#Hx GERD
#Hx alcoholic hepatitis
- he was recommended to avoid alcohol NSAIDs (still drinking 1 bottle liquor per day)
-Continue Protonix 40 mg daily
-EGD on 07/06/2024 showing grade a reflux esophagitis with no bleeding or varices, few gastric polyps biopsied,
erythematous mucosa in the gastric body and antrum biopsied questionable portal gastropathy,
medium size hiatal hernia and normal duodenum
-phenobarb taper - can dc after afternoon dose today
#Chronic transaminitis secondary to alcohol abuse/hepatomegaly
# HX Hepatic steatosis
# HX Hepatomegaly
-Follow CMP outpt
-f/u pcp outpt
#Hyponatremia
� Monitor
# HTN�benign
-Continue amlodipine 5 mg daily
#Anxiety/ Depression
-Continue Lexapro 10 mg daily
Hx hypokalemia
K4.5
Asymptomatic bacteriuria
� No urinary symptoms
Hx hypomagnesemia
Mag 2.2
Other PMH:
Epididymitis left testicle
Renal calculi
Migraines
DVT prophylaxis
Subcu Lovenox
Full code
More than 30 minutes spent in discharge including
Final examination of the patient
Summarizing hospital stay
Instructions for continuing care to all relevant caregivers
Preparation of discharge records, prescriptions, and referral forms
Total time spent (in minutes): 36
Anticipated Discharge: Today
Subjective/Interval History
-
Date of Service: August 06, 2024
no acute events
Objective Data
-
Labs:
Laboratory Results
08/06/24
05:46
WBC 7.0
Hgb 12.2 L
Hct 36.4 L
Plt Count 230
Sodium 138
Potassium 3.8
Chloride 101
Carbon Dioxide 26
BUN 9
Creatinine 0.7
Glucose 109 H
Calcium 9.1
Total Bilirubin 0.6
AST 83 H
ALT 129 H
Alkaline Phosphatase 53
Vital Signs:
Vital Signs
Temp Pulse Resp BP Pulse Ox
98.2 F 74 18 126/86 97
08/06/24 07:00 08/06/24 07:35 08/06/24 07:00 08/06/24 07:35 08/06/24 07:00
I&O
08/05/24 08/06/24 08/07/24
06:59 06:59 06:59
Intake Total 1919 0 / 0
Balance 1919 0 / 0
Review of Systems
-
History Source: Patient
All other systems: Not reviewed unless documented
Physical Exam
-
General: No Apparent Distress
HEENT: Moist Mucous Membranes
Respiratory: Clear to Auscultation
Cardiac: Regular Rhythm and S1/S2; Negative Tachycardic
GI: Soft, Nontender, Nondistended and Normal Bowel Sounds
Neuro: AO x 3; Negative Tremors
Psych: Calm; Negative Confused or Agitated
Data Reviewed
-
Ultrasound: Report Reviewed by me
Labs: Labs Reviewed by me
--- NOTE | 2024-08-06 11:40 | W.DS.TRANS ---
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
-
Discharge Instructions:
Discharge Diagnosis/Procedures
#Hx Recent alcoholic gastritis/reflux
esophagitis
#Hx GERD
#Hx alcoholic hepatitis
#Chronic transaminitis secondary to alcohol
abuse/hepatomegaly
Diet Low Fat,Low Cholesterol
Blood Work cmp (lfts in 3-5 days) with pcp
Instructions:
Stand-Alone Forms:
Changes to Home Medications: No
Discharge Medications:
DC Medications w/original date entered in [employer]
amlodipine 5 mg tablet 5 mg PO QPM Blood Pressure 05/20/24
escitalopram oxalate 10 mg tablet (Lexapro) 10 mg PO QPM Mental Health/Anxiety 05/20/24
folic acid 1 mg tablet 1 mg PO QPM 07/31/24
magnesium oxide 500 mg PO QPM 07/31/24
pantoprazole 40 mg tablet,delayed release 40 mg PO QPM 07/31/24
thiamine mononitrate (vit B1) 100 mg tablet 100 mg PO QPM 07/31/24
Home Medication Changes
na
Pending Results: No
[2024-08-06 15:00] VITALS: BP 125/84
== END 2024-08-06 17:47 | disposition home or self-care (01) | DRG 897 ==
LOC: 4 WEST ACU 17:34
PROVIDERS: Clinical Nurse Specialist Family Health; ADMITTING PHYSICIAN Hospitalist; ATTENDING PHYSICIAN Internal Medicine; EMERGENCY PHYSICIAN Student in an Organized Health Care Education/Training Program; FAMILY PHYSICIAN Family Medicine; OTHER PHYSICIAN Psychiatry & Neurology Psychiatry
DX: F10.229 Alcohol dependence with intoxication, unspecified (principal); E87.1 Hypo-osmolality and hyponatremia; F10.239 Alcohol dependence with withdrawal, unspecified; E87.6 Hypokalemia; E83.42 Hypomagnesemia; F17.290 Nicotine dependence, other tobacco product, uncomplicated; F32.A Depression, unspecified; F41.9 Anxiety disorder, unspecified; G43.909 Migraine, unspecified, not intractable, without status migrainosus; I10 Essential (primary) hypertension; Y90.8 Blood alcohol level of 240 mg/100 ml or more; K76.0 Fatty (change of) liver, not elsewhere classified; Z79.899 Other long term (current) drug therapy; Z81.1 Family history of alcohol abuse and dependence
CPT/HCPCS: 80053; 80306; 80307; 81003; 81015; 82010; 82077; 82977; 83735; 84100; 85025; 85027; 85610; 85730; 87086; 93005; 96361; 96374; 96375; 96376; 99284

== ENCOUNTER 2024-08-21 08:15 | Emergency (ER) | payer OTHER, SELFPAY ==
[2024-08-21] VITALS (8 sets, daily range): BP systolic 116–146; BP diastolic 70–109
--- NOTE | 2024-08-21 09:00 | ED.GENMED ---
History of Present Illness
General
Chief Complaint: Alcohol Problem
Source: patient
Exam Limitations: none
Time Seen by Provider: 08/21/24 08:34
Nursing documentation reviewed up to this point in time: agreed with
History of Present Illness
History of Present Illness:
pt is a 39 y/o M with h/o HTN, anxiety and alcohol abuse
here with symptoms of alcohol withdrawal after binge drinking
pt frequently comes to the hospital in alcohol withdrawal requesting detox, will be admitted and then decline outpatient rehab. admitted here 07/30 to 08/04 on pheno taper, ultimately declined rehab again
well known to [facility]
pt says he usually doesn't want to go to rehab
he drank vodka all week, probably 2 pints in the past 24 hours and last drank about 4 hours ago, feeling shaky, anxious, nausea/vomit x 1, headache
denies previous alcohol withdrawal seizure, denies hallucinations
hasn't had much to eat in the past 3-4 days
vomiting only started here
no signficant history of pancreatitis
pt declind ches tpain to me, but the RN said he said his chest hurts.
Past History
Past History
ED Past Medical History: GERD, Psychiatric (Anxiety, Depression, alcoholism) and Other (epididymitis L testicle, kidney stones, PNA, Renal calculus, Migraines, alcoholism, PNA, Pancreatitis, )
ED Past Surgical History: Appendectomy
Social History
Tobacco: Vaping (Quit 2020 now vapes)
Alcohol: Daily (12 pack of beer or bottle of vodka)
Drug: None
Personal: Single
Living: alone
Employment: Employed
Family History
Family History: Other
Review of Systems
Review of Systems
Allergies reviewed?: Yes
All Other Systems: Not applicable
Phy Exam
Physical Exam
Physical Exam:
GENERAL: Alert , tearful, mildly anxious
EYE: pupils equal and reactive
NECK: Supple
ENT: o/p clr, mmm.
CARDIAC: tachycardic low 100s
LUNGS: Clear breath sounds bilaterally, no acute respiratory distress, no wheezes/rales/rhonchi
ABDOMEN: Soft, without focal tenderness, no r/g, no cvat, normal bowel sounds
NEUROLOGICAL: Alert and oriented, no focal neuro deficits
SKIN: Warm and dry, skin intact.
MUSCULOSKELETAL: No edema, well perfused. neg aiden's sign
PSYCH: anxious, mild tremor with intention; no hallucinatoins, no SI
Scores
Withdrawal Assessment of Alcohol
Withdrawal Assessment Completed?: Yes
Nausea and Vomiting: Constant nausea, frequent dry heaves and vomiting
Tactile Disturbances: Very mild itching, pins and needles, burning or numbness
Tremor: Not visible, but can be felt fingertip to fingertip
Auditory Disturbances: Not present
Paroxysmal Sweats: No sweat visible
Visual Disturbances: Not present
Anxiety: Moderately anxious, or guarded, so anxiety is inferred
Headache, Fullness in Head: Very mild
Agitation: Normal activity
Orientation and clouding of sensorium: Oriented and can do serial additions
Total CIWA Score: 14
Alcohol Withdrawal Medication Recommendation: Equal to MSAS Score 5-7. Lorazepam 1mg IV or PO NOW & re-assess q2hrs
Course
Orders/Labs/Results
Orders:
Orders
08/21/24 08:56
Urinalysis Reflex To Culture Urgent
Date Specimen was Collected: 08/21/24
Time Specimen was Collected: 09:01
Urine Drug Abuse Screen Urgent
Date Specimen was Collected: 08/21/24
Time Specimen was Collected: 09:01
Lorazepam [Ativan] 2 mg IV NOW STA
Thiamine Injection 200 mg IV NOW STA
08/21/24 09:00
0.9% Sodium Chloride 1000 ml [Nss] 1,000 ml IV 1,000 mls/hr
08/21/24 09:04
Pantoprazole [Protonix IV] 40 mg IV NOW STA
08/21/24 09:05
Electrocardiogram (*1) Urgent
Reason for Study: Chest Pain
EKG- Treatment ONCE
08/21/24 09:30
Alcohol Urgent
Complete Blood Count/With Diff Urgent
Comprehensive Metabolic Panel Urgent
Lipase Urgent
Magnesium Urgent
Phosphorus Urgent
Prothrombin Time Urgent
Troponin I Urgent
08/21/24 09:50
FOLic ACID [Folvite] 1 mg 0.9% Sodium Chloride 50 ml [Nss] 50 ml IV NOW
08/21/24 10:39
Lorazepam [Ativan] 1 mg IV NOW STA
08/21/24 11:17
Lorazepam [Ativan] 2 mg IV NOW STA
08/21/24 12:38
0.9% Sodium Chloride 1000 ml [Nss] 1,000 ml IV BOLUS
08/21/24 12:52
Acetaminophen [Tylenol] 650 mg PO NOW STA
Diazepam [Valium] 5 mg PO NOW STA
08/21/24 13:09
Diazepam [Valium] 2 mg PO NOW STA
Abnormal Lab Results
08/21/24
09:30
Plt Count 533 H 10^3/uL
(130-400)
Basophils % 2.1 H %
(0-2)
Carbon Dioxide 21 L mmol/L
(22-30)
Glucose 107 H mg/dl
(70-99)
08/21/24 09:30
08/21/24 09:30
Vital Signs
Initial and Last Documented VS:
Initial Vital Signs
Temp Pulse Resp BP Pulse Ox
36.8 C 109 16 146/109 98
08/21/24 08:19 08/21/24 08:19 08/21/24 08:19 08/21/24 08:19 08/21/24 08:19
Last Documented Vital Signs
Temp Pulse Resp BP Pulse Ox
37.1 C 106 15 131/85 98
08/21/24 11:00 08/21/24 11:30 08/21/24 11:30 08/21/24 11:00 08/21/24 11:30
MDM/Problems Addressed
Differential Diagnosis Includes:
alcohol dependence, alcohol whithdrawal, pancreatiits
MDM/Problems Addressed:
39 Y/O M with h/o alcohol withdarwal
frequently here requesting detox
usually stays inpatient and then declines detox
here saying he last drank a few hours ago and is already feeling shaky and vomited x 1
binge drank this week
pt is asking for detox again
mildly tachy, tearful; minimally shaky, vomited x 1
he has never had alcohol withdrawal seizure
he was given 2 doses of ativan and did have s ome residual tachycardia
but really otherwise he looks calm, not tremulous, no vomiting
has a mild headache
CIWA around a 6 now
he is asking for something for his headache
will give tylenol and an oral dose of valium to help last longer
other than mild tachycardia, which does ipmrove when i am speaking with him, he has no obvious signs of withdarwal
he repeatedly asks if he should be admitted here rather than go to detox
d/w ed attending, wo also agreed pt did not meet inpatient criteria for detox
susp[ect his tachycardia is anxiety and not actually withdrawal as most of his other withdrawal sypmtoms resolved
accepted by [facility]
uber arranged by [facility]
*Critical Care Note
Total Time (30-74mins, 75-104mins- exclusive of procedures): Not Applicable
ED Attending Note
-
Portions of this chart may have been created with voice recognition software.� Occasional wrong word or��sound alike� substitutions may have occurred due to the inherent limitations of voice recognition software.
Discharge Plan
Departure
Patient Disposition: Home (Routine Discharge)
Date of Disposition: 08/21/24
Time of Disposition: 14:13
Patient with high blood pressure during this ER visit?: No
Condition: Fair
Covid-19: Not Applicable
Discharge Problem:
Anxiety and depression, Alcohol abuse with withdrawal
Instructions: Alcohol Use Disorder (DC)
Prescriptions:
No Action
amlodipine 5 mg Tablet
5 mg PO QPM
escitalopram oxalate [Lexapro] 10 mg Tablet
10 mg PO QPM
pantoprazole 40 mg tablet,delayed release (DR/EC)
40 mg PO QPM
magnesium oxide 500 mg magnesium tablet
500 mg PO QPM
folic acid 1 mg tablet
1 mg PO QPM
thiamine mononitrate (vit B1) 100 mg tablet
100 mg PO QPM
Referrals:
Xavier Newman MD [Family Provider] -
Activity Restrictions/Additional Instructions:
YOU WERE MEDICALLY CLEARED FOR DETOX
RETURN FOR ANY COCNERNS.
Interventions
Interventions:
*Risk Screen - Suicide Last Done: 08/21/24 08:19
*Neglect/Abuse Screening Last Done: 08/21/24 08:19
Discharge Date and Time
Print Language: CAPE VERDEAN
[2024-08-21] MEDS: NSS 1000 IV ×6 (09:41→13:33)
[2024-08-21] MEDS: ATIVAN 2 MG IV ×2 (09:42→11:18)
[2024-08-21] MEDS: THIAMINE INJECTION 200 MG IV (09:43)
[2024-08-21] MEDS: PROTONIX IV 40 MG IV (09:46)
[2024-08-21 10:04] LABS: % Basophils 2.1 % (0-2); % Eosinophils 4.3 % (0-6); % Immature Granulocytes 0.3 % (0-0.5); % Lymphocytes 37.2 % (20.5-51.1); % Neutrophils 48.1 % (42.2-75.2); Absolute Basophils 0.1 10^3/uL (0-0.2); Absolute Eosinophils 0.3 10^3/uL (0-0.7); Absolute Lymphocytes 2.4 10^3/uL (1.2-3.4); Absolute Monocytes 0.5 10^3/uL (0.1-0.6); Absolute Neutrophils 3.1 10^3/uL (1.4-6.5); Hematocrit 45.3 % (39.0-52.0); Hemoglobin 15.1 g/dL (13.0-18.0); Mean Corp Hgb Conc. 33.3 g/dL (33.0-37.0); Mean Corpuscular Hgb 28.3 pg (27.0-31.0); Mean Corpuscular Volume 84.8 fL (80.0-94.0); Mean Platelet Volume 9.7 fL (7.4-10.4); Nucleated Red Blood Cells % 0 % (-); Platelet Count 533 10^3/uL (130-400); Red Blood Cell Count 5.34 10^6/uL (4.70-6.10); Red Cell Dist. Width 14.5 % (11.5-14.5); White Blood Cell Count 6.5 10^3/uL (4.8-10.8)
[2024-08-21 10:09] LABS: PT 13.5 Sec (11.4-14.6)
[2024-08-21 10:14] LABS: ALT (SGPT) 47 U/L (0-50); AST (SGOT) 45 U/L (17-59); Alcohol 299 mg/dl; Alkaline Phosphatase 88 U/L (38-126); Blood Urea Nitrogen 9 mg/dl (9-20); Calcium 9.5 mg/dl (8.4-10.2); Carbon Dioxide 21 mmol/L (22-30); Chloride 99 mmol/L (98-107); Glucose 107 mg/dl (70-99); Lipase 121 U/L (23-300); Phosphorus 3.6 mg/dl (2.5-4.5); Potassium 4.7 mmol/L (3.5-5.1); Sodium 142 mmol/L (135-145); Total Bilirubin 0.7 mg/dl (0.2-1.3); Total Protein 8.2 g/dl (6.3-8.2); eGFR > 60.00
[2024-08-21 10:23] LABS: Troponin I < 0.012 ng/ml
[2024-08-21] MEDS: FOLVITE 50.2 MG IV (11:19)
--- NOTE | 2024-08-21 12:40 | EDRN ---
Patient states that he is ready to start living clean so he can live longer. States he was driving with his 13 year old daughter in the car and he was pulled over for DUI. States he has found his motivation and that he spoke to his daughter's mother
and allegedly told her that if he does not succeed this time then she can keep custody of her. Spoke with patient at length about the recovery process and other positive topics.
[2024-08-21] MEDS: VALIUM 2 MG PO (13:33)
[2024-08-21] MEDS: TYLENOL 650 MG PO (13:33)
[2024-08-21] MEDS: NSS IV (15:53)
== END 2024-08-21 14:30 | disposition home or self-care (01) ==
LOC: EMR 08:15
PROVIDERS: Physician Assistant; EMERGENCY PHYSICIAN Student in an Organized Health Care Education/Training Program; FAMILY PHYSICIAN Family Medicine
DX: F10.139 Alcohol abuse with withdrawal, unspecified (principal); R11.10 Vomiting, unspecified; R51.9 Headache, unspecified; F32.A Depression, unspecified; F41.9 Anxiety disorder, unspecified; R00.0 Tachycardia, unspecified; F17.290 Nicotine dependence, other tobacco product, uncomplicated; K21.9 Gastro-esophageal reflux disease without esophagitis; I10 Essential (primary) hypertension; Z87.442 Personal history of urinary calculi; Z87.01 Personal history of pneumonia (recurrent)
CPT/HCPCS: 99284; 96374; 96375 ×3; 96361 ×4; 96376; 80053; 82077; 83690; 83735; 84100; 84484; 85025; 85610; 93005

== ENCOUNTER 2024-08-22 21:26 | Inpatient (IN) | payer OTHER, SELFPAY ==
[2024-08-22] VITALS (8 sets, daily range): BP systolic 117–149; BP diastolic 79–114; BMI 26.9
[2024-08-22 16:48] LABS: % Basophils 1.5 % (0-2); % Eosinophils 6.5 % (0-6); % Immature Granulocytes 0.2 % (0-0.5); % Lymphocytes 26.5 % (20.5-51.1); % Monocytes 5.9 % (1.7-9.3); % Neutrophils 59.4 % (42.2-75.2); Absolute Basophils 0.1 10^3/uL (0-0.2); Absolute Eosinophils 0.3 10^3/uL (0-0.7); Absolute Lymphocytes 1.3 10^3/uL (1.2-3.4); Absolute Monocytes 0.3 10^3/uL (0.1-0.6); Absolute Neutrophils 2.8 10^3/uL (1.4-6.5); Hematocrit 36.3 % (39.0-52.0); Hemoglobin 12.2 g/dL (13.0-18.0); Mean Corp Hgb Conc. 33.6 g/dL (33.0-37.0); Mean Corpuscular Hgb 28.7 pg (27.0-31.0); Mean Corpuscular Volume 85.4 fL (80.0-94.0); Nucleated Red Blood Cells % 0 % (-); Red Blood Cell Count 4.25 10^6/uL (4.70-6.10); Red Cell Dist. Width 14.6 % (11.5-14.5); White Blood Cell Count 4.8 10^3/uL (4.8-10.8)
[2024-08-22 16:56] LABS: ALT (SGPT) 37 U/L (0-50); AST (SGOT) 34 U/L (17-59); Albumin 4.6 g/dl (3.5-5.0); Alcohol None Detected; Alkaline Phosphatase 68 U/L (38-126); Blood Urea Nitrogen 5 mg/dl (9-20); Calcium 9.2 mg/dl (8.4-10.2); Carbon Dioxide 23 mmol/L (22-30); Chloride 106 mmol/L (98-107); Glucose 122 mg/dl (70-99); Potassium 3.8 mmol/L (3.5-5.1); Sodium 141 mmol/L (135-145); Total Bilirubin 1.2 mg/dl (0.2-1.3); Total Protein 7.4 g/dl (6.3-8.2); eGFR > 60.00
[2024-08-22 17:04] LABS: Platelet Count 301 10^3/uL (130-400)
--- NOTE | 2024-08-22 18:39 | ED.GENMED ---
History of Present Illness
General
Chief Complaint: Alcohol Problem
Source: patient and records
Exam Limitations: none
Time Seen by Provider: 08/22/24 17:09
Nursing documentation reviewed up to this point in time: agreed with
History of Present Illness
History of Present Illness:
39-year-old male with past medical history as documented presents to the emergency room for evaluation of abdominal pain with nausea and vomiting; also complaining of tremulousness, anxiety and concern for alcohol withdrawal. He was admitted in
late July for alcohol withdrawal and acute alcoholic gastritis. Was seen yesterday in this emergency room and treated for alcohol withdrawal and was discharged to [facility] in coordination with [facility]. He says that he arrived at [facility] and began having worsening nausea, vomiting, abdominal pain and was having some dark emesis. He was transferred to [facility] where he was admitted overnight; he says he had an endoscopy that he was told was essentially unremarkable and
he was discharged this morning from [facility]. He did not return back to [facility], went home and says that throughout the day he has had continued abdominal pain, nausea, vomiting, tremulousness, sweatiness and anxiety. Consistent prior
alcohol withdrawal symptoms. He return here 'to detox' and to get his symptoms under control. He says his last drink was yesterday morning. He denies any drug use. Usual alcohol intake is 2 pints of vodka daily.
Past History
Past History
ED Past Medical History: GERD, Psychiatric (Anxiety, Depression, alcoholism) and Other (epididymitis L testicle, kidney stones, PNA, Renal calculus, Migraines, alcoholism, PNA, Pancreatitis, )
ED Past Surgical History: Appendectomy
Social History
Tobacco: Vaping (Quit 2020 now vapes)
Alcohol: Daily (12 pack of beer or bottle of vodka)
Drug: None
Personal: Single
Living: alone
Employment: Employed
Family History
Family History: Other
Review of Systems
Review of Systems
All Other Systems: ROS reviewed and negative except as documented in HPI and ROS
Constitutional: Reports chills; Denies fever
EENT: Denies sore throat
Respiratory: Denies cough or trouble breathing
Cardiac: Reports diaphoresis; Denies chest pain
ABD/GI: Reports abdominal pain, nausea and vomiting
: Denies flank pain
Musculoskeletal: Denies neck pain or back pain
Neurological: Reports dizzy and headache; Denies weakness or numbness
Psychiatric: Reports anxiety
Phy Exam
Physical Exam
Physical Exam:
General: Awake, alert, oriented x3; holding emesis bag
Head: Normocephalic, atraumatic
Eyes: Conjunctiva normal, sclera anicteric
Throat: Airway intact, handling secretions
Neck: Trachea midline, supple without meningismus
Lungs: Clear to auscultation bilaterally, no wheezing, rales, rhonchi
Heart: Tachycardia with regular rhythm, no murmurs, gallops, or rubs
Abd: Soft, non distended, tender in epigastrium
Neuro: Patient is tremulous but no focal deficits noted
Skin: Diaphoretic, no rash
Extremities: No edema in extremities, equal pulses in all extremities
Scores
Heart Failure Risk
Heart Failure Risk Score: Not Applicable
Heart Score for Chest Pain Patients
STEMI patient?: Not applicable
Withdrawal Assessment of Alcohol
Withdrawal Assessment Completed?: Yes
Nausea and Vomiting: Intermittent nausea with dry heaves
Tactile Disturbances: None
Tremor: Moderate, with patient's arms extended
Auditory Disturbances: Not present
Paroxysmal Sweats: Beads of sweat obvious on forehead
Visual Disturbances: Not present
Anxiety: Mild anxiety
Headache, Fullness in Head: Very mild
Agitation: Normal activity
Orientation and clouding of sensorium: Oriented and can do serial additions
Total CIWA Score: 14
Alcohol Withdrawal Medication Recommendation: Equal to MSAS Score 5-7. Lorazepam 1mg IV or PO NOW & re-assess q2hrs
Course
Orders/Labs/Results
Orders:
Orders
08/22/24 16:23
Alcohol Urgent
Complete Blood Count/With Diff Urgent
Comprehensive Metabolic Panel Urgent
Lipase Urgent
08/22/24 18:31
Add On- LAB Urgent
Tests Added?: lipase
08/22/24 18:38
Lorazepam [Ativan] 1 mg IV NOW STA
Ondansetron Injectable [Zofran] 4 mg IV NOW STA
08/22/24 18:39
0.9% Sodium Chloride 1000 ml [Nss] 1,000 ml IV BOLUS
Thiamine Injection 100 mg IV NOW STA
08/22/24 19:25
Drug Screen, Urine [Urine Drug Abuse Screen] Urgent
Date Specimen was Collected: 08/22/24
Time Specimen was Collected: 19:10
08/22/24 19:45
Pantoprazole [Protonix IV] 40 mg IV NOW STA
08/22/24 20:00
FOLic ACID [Folvite] 1 mg 0.9% Sodium Chloride 50 ml [Nss] 50 ml IV ONCE
Abnormal Lab Results
08/22/24
16:23
RBC 4.25 L 10^6/uL
(4.70-6.10)
Hgb 12.2 L g/dL
(13.0-18.0)
Hct 36.3 L %
(39.0-52.0)
RDW 14.6 H %
(11.5-14.5)
Eosinophils % 6.5 H %
(0-6)
BUN 5 L mg/dl
(9-20)
Glucose 122 H mg/dl
(70-99)
08/22/24 16:23
08/22/24 16:23
Vital Signs
Initial and Last Documented VS:
Initial Vital Signs
Temp Pulse Resp BP Pulse Ox
36.8 C 115 20 149/114 97
08/22/24 16:10 08/22/24 16:10 08/22/24 16:10 08/22/24 16:10 08/22/24 16:10
Last Documented Vital Signs
Temp Pulse Resp BP Pulse Ox
36.8 C 95 17 138/98 98
08/22/24 16:10 08/22/24 18:00 08/22/24 18:00 08/22/24 18:00 08/22/24 18:00
MDM/Problems Addressed
Differential Diagnosis Includes:
Alcohol withdrawal, alcoholic gastritis, pancreatitis
MDM/Problems Addressed:
39-year-old male presents to the emergency room for nausea, vomiting, abdominal pain, tremulousness and concern for alcohol withdrawal. Multiple recent visits for similar. Vitals and exam as above. Suspect alcohol withdrawal with likely some
alcoholic gastritis as well. Labs sent in triage including CBC and CMP which were unremarkable. His glucose is acceptable. Added lipase. Will treat symptomatically�Ativan x 1 mg for alcohol withdrawal, Zofran. Thiamine and folate, fluids.
Monitor closely reassess after the above.
Lipase normal. Patient did have some improvement with treatment. Will need serial assessment for withdrawal. Will plan to admit for continued treatment of acute alcoholic gastritis, alcohol withdrawal. Discussed with hospitalist.
Chronic conditions affecting care:
Alcohol abuse
*Pulse Oximetry
Patient hypoxic: no
*Critical Care Note
Total Time (30-74mins, 75-104mins- exclusive of procedures): Not Applicable
Data Reviewed
Review of Other/Old Records Reveals: Labs, Records and Discharge Summary
Source: patient and records
Patient Management
Social determinants of health affecting care: Substance abuse
Discussion with other providers: Hospitalist (Discussed with hospitalist)
Escalation/DeEscalation of care consider admission/obs:
Admission indicated
ED Attending Note
-
Portions of this chart may have been created with voice recognition software.� Occasional wrong word or��sound alike� substitutions may have occurred due to the inherent limitations of voice recognition software.
Discharge Plan
Departure
Patient Disposition: Admit
Date of Disposition: 08/22/24
Time of Disposition: 19:44
Admit to doctor: Cony
Presentation/result/management discussed w/ accepting MD/DO: Hospitalist
Discharge Problem:
Alcohol withdrawal, Alcoholic gastritis
Prescriptions:
No Action
amlodipine 5 mg Tablet
5 mg PO DAILY
escitalopram oxalate [Lexapro] 10 mg Tablet
10 mg PO DAILY
pantoprazole 40 mg tablet,delayed release (DR/EC)
40 mg PO DAILY
magnesium oxide 500 mg magnesium tablet
500 mg PO DAILY
folic acid 1 mg tablet
1 mg PO DAILY
thiamine mononitrate (vit B1) 100 mg tablet
100 mg PO DAILY
Referrals:
Xavier Newman MD [Family Provider] -
Interventions
Interventions:
*Risk Screen - Suicide Last Done: 08/22/24 16:10
*General Assessment Last Done: 08/22/24 17:16
*Neglect/Abuse Screening Last Done: 08/22/24 17:16
*ED- Fall Risk Assessment Last Done: 08/22/24 17:37
*ED COVID-19 Vaccine History Last Done: 08/22/24 17:37
ED- Neurological Assessment Last Done: 08/22/24 17:15
ED-Psychological Assessment Last Done: 08/22/24 17:15
Discharge Date and Time
Print Language: HONG KONGER
[2024-08-22] MEDS: THIAMINE INJECTION 100 MG IV (19:03)
[2024-08-22] MEDS: ATIVAN 1 MG IV (19:03)
[2024-08-22] MEDS: ZOFRAN 4 MG IV (19:03)
[2024-08-22] MEDS: NSS 1000 IV ×2 (19:04→22:26)
[2024-08-22 19:06] LABS: Lipase 116 U/L (23-300)
[2024-08-22 19:45] LABS: Amphetamines Negative (Negative); Barbiturates Positive (Negative); Benzodiazepines Positive (Negative); Buprenorphine Negative (Negative); Cocaine Negative (Negative); Marijuana Negative (Negative); Methadone Negative (Negative); Methamphetamines Negative (Negative); Opiates Negative (Negative); Phencyclidine Negative (Negative); Tricyclic Antidepressants Negative (Negative)
[2024-08-22 20:10] LABS: Fentanyl, Urine Negative (Negative)
[2024-08-22] MEDS: FOLVITE 50.2 MG IV (20:17)
[2024-08-22] MEDS: PROTONIX IV 40 MG IV (20:17)
--- NOTE | 2024-08-22 21:02 | HPS.HSE ---
Family Physician
-
Family Physician: Xavier Newman
Chief Complaint
-
Alcohol withdrawal symptoms
History of Present Illness
This is a 39-year-old with past medical history significant for alcohol abuse, alcoholic gastritis, chronic alcoholic hepatitis, with recurrent admissions for intoxication and withdrawal, presenting to the emergency department from home after being
seen yesterday and discharged to rehab facility.
Patient was seen in the emergency department yesterday and treated for alcohol withdrawal with discharge to [facility]. On arrival at [facility] and the patient continued to have nausea and vomiting. He had coffee-ground emesis and was
transferred to an outside hospital ([facility]. The [place] had an EGD which was unremarkable. And he was discharged this morning. Patient refused to return to [facility] as he states that they were not doing well detoxification but rather rehab
and he would rather go to please call [facility] so he went home. He has continued to have nausea vomiting tremulousness sweatiness and anxiety with abdominal pain.
His last drink was yesterday morning. Recently he is trying 2 pints of vodka daily all week. He denies history of withdrawal seizures. Denies history of withdrawal delirium tremens. Returns to emergency department for detox.
In the ED blood pressure was stable at 123/92, pulse rate 80 oxygen saturation 90% on room air. He was afebrile. CBC was normal. Electrolytes were stable and BUN/creatinine were normal. Glucose was normal.
Medical History
Past Medical History
Past Medical History: Reports Other
Additional Past Medical History:
Depression / Anxiety
Alcohol Use Disorder
alcoholic hepatitis
GERD
alcoholic gastritis
reflux esophagitis
hepatic steatosis
hepatomegaly
HTN�benign
hypokalemia
hypomagnesemia,
anxiety
depression
epididymitis left testicle,
renal calculi
migraines
Past Surgical History: Reports Other
Additional Past Surgical History:
Appendectomy
EGD on 07/06/2024 showing grade a reflux esophagitis with no bleeding or varices, few gastric polyps biopsied, erythematous mucosa in the gastric body and antrum biopsied questionable portal gastropathy, medium size hiatal hernia and normal duodenum
Social History
Tobacco: Smoker (smoked cigarettes for 20 years, now uses vape every day)
Alcohol: Daily (12 pack of beer per day or 1 bottle vodka per day 750 mL)
Drug: None
Personal: Single
Living: With Family (Lives with his adult parents, 13-year-old daughter and brother)
Employment: Not Employed
Family History
Family History: Other (Brother alcohol abuse sober x 1 year Father history of anxiety, daughter history anxiety)
Allergies / Home Medications
Allergies reflects when Allergies were last updated in [facility].
Home Medications with original date entered in [facility]
Allergy/Medication List:
Allergies
Allergy/AdvReac Type Severity Reaction Status Date / Time
No Known Allergies Allergy Verified 06/04/24 19:00
Home Medications
amlodipine 5 mg tablet 5 mg PO QPM Blood Pressure 05/20/24
escitalopram oxalate 10 mg tablet (Lexapro) 10 mg PO QPM Mental Health/Anxiety 05/20/24
folic acid 1 mg tablet 1 mg PO QPM 07/31/24
magnesium oxide 500 mg PO QPM 07/31/24
pantoprazole 40 mg tablet,delayed release 40 mg PO QPM 07/31/24
thiamine mononitrate (vit B1) 100 mg tablet 100 mg PO QPM 07/31/24
Review of Systems
-
History Source: Patient
Constitutional: Reports No Symptoms
EENT: Reports No Symptoms
Respiratory: Reports No Symptoms
Cardiac: Reports No Symptoms
Abdomen/GI: Reports Abdominal Pain, Nausea and Vomiting
: Reports No Symptoms
Musculoskeletal: Reports No Symptoms
Skin: Reports No Symptoms
Neurological: Reports No Symptoms
Endocrine: Reports No Symptoms
Hematologic/Lymphatic: Reports No Symptoms
Psych: Reports No Symptoms
Physical Exam
Vital Signs
Vital Signs
Temp Pulse Resp BP Pulse Ox
98.2 F 84 18 120/95 97
08/22/24 16:10 08/22/24 20:45 08/22/24 20:45 08/22/24 20:00 08/22/24 20:45
Physical Exam
General: Well Developed, Well Nourished and No Apparent Distress
HEENT: NormoCephalic, Anicteric, Moist mucous membranes and Atraumatic
Respiratory: Clear
Cardiac: S1/S2 and Regular Rhythm
Breast: Deferred by me
GI: Soft, Non Tender, Non Distended and Normal Bowel Sounds
Rectal: Deferred by Provider
Genito-urinary: Deferred by me
Musculoskeletal: No Clubbing, No Cyanosis and No Edema
Skin: Warm
Neuro: AO x 3 and Nonfocal/grossly intact
Hematologic/Lymphatic: No Lymphadenopathy
Psych: Calm
Laboratory Results
-
08/22/24 16:23
08/22/24 16:23
Laboratory Results
Total Bilirubin 1.2 mg/dl (0.2-1.3) 08/22/24 16:23
AST 34 U/L (17-59) 08/22/24 16:23
ALT 37 U/L (0-50) 08/22/24 16:23
Alkaline Phosphatase 68 U/L (38-126) 08/22/24 16:23
Lipase 116 U/L (23-300) 08/22/24 16:23
Data Reviewed
-
Lab Data: Labs Reviewed by me
Old Records: Reviewed
Impression/Plan
-
IMPRESSION:
39 y.o here with gastritis and withdrawal symptoms. Last drink yesterday morning. H/O ETOH withdrawal but no history of DTs or withdrawal seizures. Seen by [facility] here already. Plans to try intensive outpatient rehab at [facility]. Currently CIWA AR
= 8.
PLAN:
ETOH withdrawal - Suspect moderate withdrawal with risk of worsening symptoms
- admit to telemetry
- MSAS withdrawal protocol with phenobarbital taper
- IV fluids
- continue thiamine, folate tx
- [facility] aware
- Case management consult
Gastritis - Episode of coffee ground emesis yesterday s/p EGD at [facility] without any acute findings. Likely etoh gastritis
- continue ppi daily
- pain control
DVT PPX - SCDs for now
Code status - Full Code
[2024-08-22] MEDS: NSS (PRESERVATIVE FREE) 0.25 ML IV (21:19)
[2024-08-22] MEDS: ATIVAN 0.5 MG IV (21:19)
[2024-08-22] MEDS: TYLENOL 650 MG PO (21:19)
[2024-08-23] VITALS (14 sets, daily range): BP systolic 115–147; BP diastolic 75–104; BMI 27.0
[2024-08-23] MEDS: ATIVAN 1 MG IV ×2 (01:34→12:42)
[2024-08-23] MEDS: TYLENOL 650 MG PO ×3 (03:49→17:27)
[2024-08-23] MEDS: ATIVAN 1 MG PO ×4 (04:54→16:09)
[2024-08-23 05:40] LABS: Blood Urea Nitrogen 2 mg/dl (9-20); Calcium 8.4 mg/dl (8.4-10.2); Carbon Dioxide 24 mmol/L (22-30); Chloride 108 mmol/L (98-107); Estimated Creatinine Clearance > 125 ml/min; Glucose 93 mg/dl (70-99); Magnesium 1.7 mg/dl (1.6-2.3); Phosphorus 3.5 mg/dl (2.5-4.5); Sodium 140 mmol/L (135-145); eGFR > 60.00
[2024-08-23] MEDS: MAGNESIUM OXIDE 500 MG PO (08:19)
[2024-08-23] MEDS: PROTONIX 40 MG PO (08:19)
[2024-08-23] MEDS: NORVASC 5 MG PO (08:19)
[2024-08-23] MEDS: ZOFRAN 4 MG IV ×2 (08:19→16:10)
[2024-08-23] MEDS: FOLVITE 1 MG PO (08:36)
[2024-08-23] MEDS: LEXAPRO 10 MG PO (08:36)
[2024-08-23] MEDS: VITAMIN B1 100 MG PO (08:36)
[2024-08-23] MEDS: NSS 1000 IV ×2 (08:37→18:16)
--- NOTE | 2024-08-23 12:43 | W.PN.HOSP.TC ---
Today's Communication/Plan
-
Continue alcohol withdrawal protocol
Add phenobarbital
Advance diet as tolerated
COVID
Assessment / Plan
Assessment / Plan
Gen-AAOx3, NAD
HEENT-NC, AT, anicteric, clear oral mm
Neck-supple
CV-reg, no M, +S1/S2
Lungs-clear B/L
Abd-soft, NT, ND
Ext-no edema
Musculoskeletal-no cyanosis, clubbing
Skin-warm and dry
Neuro-grossly non-focal
Psych-calm, cooperative
Acute alcohol withdrawal syndrome -still with ongoing tremors. Continue Ativan per withdrawal protocol. Add phenobarbital and taper.
Nausea and vomiting appear to be settling down. Reportedly was seen in [facility] and had an EGD yesterday for coffee-ground emesis that showed gastritis.
Also had EGD performed in our hospital 07/06/2024 showing LA grade a reflux esophagitis with no bleeding, no varices seen, a few gastric polyps, biopsied. Questionable portal gastropathy. Medium sized hiatal hernia. Pathology report showed fundic
gland polyp. Focal mild chronic active gastritis. No Helicobacter organisms noted.
Continue Protonix, antiemetics.
Severe alcohol use disorder -patient seen by [facility]. He is interested in intensive outpatient program. Offered psychiatry consultation but he feels it is not necessary right now.
Continue thiamine, folic acid.
Acute bronchitis -patient complaining of cough. Likely viral etiology, check COVID.
GERD -continue Protonix.
Essential hypertension -continue amlodipine.
Anxiety/depression
Full code
Anticipated Discharge: > 48 hours
Subjective/Interval History
-
Date of Service: August 23, 2024
Patient seen and examined. Complaining of tremors, alcohol withdrawal.
Objective Data
-
Labs:
Laboratory Results
08/23/24
04:59
Sodium 140
Potassium 4.0
Chloride 108 H
Carbon Dioxide 24
BUN 2 L
Creatinine 0.7
Glucose 93
Calcium 8.4
Vital Signs:
Vital Signs
Temp Pulse Resp BP Pulse Ox
97.6 F 89 19 128/95 96
08/23/24 05:05 08/23/24 12:00 08/23/24 11:30 08/23/24 11:00 08/23/24 12:00
Review of Systems
-
History Source: Patient
All other systems: Reviewed and negative
[2024-08-23] MEDS: PHENOBARBITAL 104 MG IV (13:26)
[2024-08-23 14:11] LABS: COVID-19 Antigen Negative (Negative)
[2024-08-23] MEDS: LOVENOX 40 MG SC (17:27)
[2024-08-23] MEDS: PHENOBARBITAL 97.5 MG IV (21:03)
[2024-08-24] VITALS (8 sets, daily range): BP systolic 124–150; BP diastolic 84–100
[2024-08-24] MEDS: TYLENOL 650 MG PO ×3 (00:25→16:37)
[2024-08-24] MEDS: ATIVAN 1 MG PO ×2 (00:25→10:17)
[2024-08-24] MEDS: NSS 1000 IV (04:41)
[2024-08-24 07:17] LABS: % Basophils 1.4 % (0-2); % Eosinophils 14.9 % (0-6); % Immature Granulocytes 0.2 % (0-0.5); % Lymphocytes 34.9 % (20.5-51.1); % Monocytes 6.4 % (1.7-9.3); % Neutrophils 42.2 % (42.2-75.2); Absolute Basophils 0.1 10^3/uL (0-0.2); Absolute Eosinophils 0.7 10^3/uL (0-0.7); Absolute Lymphocytes 1.7 10^3/uL (1.2-3.4); Absolute Monocytes 0.3 10^3/uL (0.1-0.6); Absolute Neutrophils 2.1 10^3/uL (1.4-6.5); Hematocrit 34.2 % (39.0-52.0); Hemoglobin 11.2 g/dL (13.0-18.0); Mean Corp Hgb Conc. 32.7 g/dL (33.0-37.0); Mean Corpuscular Hgb 28.6 pg (27.0-31.0); Mean Corpuscular Volume 87.5 fL (80.0-94.0); Mean Platelet Volume 10.3 fL (7.4-10.4); Nucleated Red Blood Cells % 0 % (-); Platelet Count 261 10^3/uL (130-400); Red Blood Cell Count 3.91 10^6/uL (4.70-6.10); Red Cell Dist. Width 14.1 % (11.5-14.5)
[2024-08-24] MEDS: PHENOBARBITAL 97.5 MG IV ×3 (07:39→21:09)
[2024-08-24] MEDS: VITAMIN B1 100 MG PO (07:39)
[2024-08-24] MEDS: MAGNESIUM OXIDE 500 MG PO (07:39)
[2024-08-24] MEDS: LEXAPRO 10 MG PO (07:40)
[2024-08-24] MEDS: FOLVITE 1 MG PO (07:40)
[2024-08-24] MEDS: NORVASC 5 MG PO (07:40)
[2024-08-24] MEDS: PROTONIX 40 MG PO (07:40)
--- NOTE | 2024-08-24 08:24 | W.PN.HOSP.TC ---
Today's Communication/Plan
-
Stop IV fluids
Continue alcohol withdrawal protocol
Assessment / Plan
Assessment / Plan
Gen-AAOx3, NAD
HEENT-NC, AT, anicteric, clear oral mm
Neck-supple
CV-reg, no M, +S1/S2
Lungs-clear B/L
Abd-soft, NT, ND
Ext-no edema
Musculoskeletal-no cyanosis, clubbing
Skin-warm and dry
Neuro-grossly non-focal
Psych-calm, cooperative
Acute alcohol withdrawal syndrome -clinically improving. Continue phenobarbital protocol and taper. Continue lorazepam as needed alcohol withdrawal.
Nausea and vomiting appear to be settling down. Reportedly was seen in [facility] and had an EGD day before admission for coffee-ground emesis that showed gastritis.
Also had EGD performed in our hospital 07/06/2024 showing LA grade a reflux esophagitis with no bleeding, no varices seen, a few gastric polyps, biopsied. Questionable portal gastropathy. Medium sized hiatal hernia. Pathology report showed fundic
gland polyp. Focal mild chronic active gastritis. No Helicobacter organisms noted.
Continue Protonix, antiemetics.
Severe alcohol use disorder [facility] He is interested in [facility]. Offered psychiatry consultation but he feels it is not necessary right now.
Continue thiamine, folic acid.
Acute bronchitis -patient complaining of cough for the past week. COVID-negative. Etiology unclear but includes possible viral bronchitis versus GERD related cough versus other etiology.
GERD -continue Protonix.
Essential hypertension -continue amlodipine.
Anxiety/depression
Nocturnal bradycardia -noted by nursing. Recommend outpatient sleep study, will document on discharge instructions.
Full code
Anticipated Discharge: Within 24 hours
Subjective/Interval History
-
Date of Service: August 24, 2024
Patient seen and examined. Overall feeling better. Less nausea.
Objective Data
-
Labs:
Laboratory Results
08/24/24
06:29
WBC 5.0
Hgb 11.2 L
Hct 34.2 L
Plt Count 261
Vital Signs:
Vital Signs
Temp Pulse Resp BP Pulse Ox
98.1 F 60 16 131/90 98
08/24/24 07:16 08/24/24 07:16 08/24/24 07:16 08/24/24 07:16 08/24/24 07:16
I&O
08/23/24 08/24/24 08/25/24
06:59 06:59 06:59
Intake Total 600 / 600
Balance 600 / 600
Review of Systems
-
History Source: Patient
All other systems: Reviewed and negative
--- NOTE | 2024-08-24 09:24 | CM ---
late entry: Patient seen yesterday at bedside
Lives at home with mom & dad, daughter & brother in 2 story home, 1 step to enter
PLOF: Independent
Denies DME
Denies VN/Rehab
Spoke with Christos from [facility]
seen by [facility] on Thursday in ER, was set [facility] for [facility]
Sent to [facility] by [facility] for emesis & procedure done & discharged
Patient did not wish to return to inpatient [facility]
States that he plans to do [facility]
Patient given the number to [facility] intake dept [phone] to set up for their program
PCP: Xavier Newman
Pharmacy: [facility]
PLAN: Home, intensive outpatient program at [place]
L
--- NOTE | 2024-08-24 11:40 | PTCARENOTE ---
patient complaining of dull and heavy CP. Dr. Marie notified. EKG done NSR with sinus arrhythmia. Troponins ordered and VSS. Patient assessed and resting in bed safely
[2024-08-24 12:52] LABS: Troponin I < 0.012 ng/ml
[2024-08-24] MEDS: LOVENOX 40 MG SC (17:20)
[2024-08-24 19:13] LABS: Troponin I < 0.012 ng/ml
[2024-08-24] MEDS: MELATONIN 5 MG PO (23:16)
[2024-08-25 03:11] VITALS: BP 118/75
[2024-08-25] MEDS: TYLENOL 650 MG PO ×2 (06:32→14:28)
[2024-08-25] MEDS: PHENOBARBITAL 97.5 MG IV ×2 (07:27→15:43)
[2024-08-25] MEDS: VITAMIN B1 100 MG PO (07:28)
[2024-08-25] MEDS: LEXAPRO 10 MG PO (07:28)
[2024-08-25] MEDS: PROTONIX 40 MG PO (07:28)
[2024-08-25] MEDS: NORVASC 5 MG PO (07:28)
[2024-08-25] MEDS: MAGNESIUM OXIDE 500 MG PO (07:28)
[2024-08-25] MEDS: FOLVITE 1 MG PO (07:28)
[2024-08-25 07:50] VITALS: BP 123/86
--- NOTE | 2024-08-25 09:19 | W.PN.HOSP.TC ---
Today's Communication/Plan
-
Discharge later today
Assessment / Plan
Assessment / Plan
Gen-AAOx3, NAD
HEENT-NC, AT, anicteric, clear oral mm
Neck-supple
CV-reg, no M, +S1/S2
Lungs-clear B/L
Abd-soft, NT, ND
Ext-no edema
Musculoskeletal-no cyanosis, clubbing
Skin-warm and dry
Neuro-grossly non-focal
Psych-calm, cooperative
Acute alcohol withdrawal syndrome -clinically improving. Continue phenobarbital protocol and taper. Last dose of lorazepam was 08/24 morning.
Tolerating diet. Reportedly was seen in [facility] and had an EGD day before admission for coffee-ground emesis that showed gastritis.
Also had EGD performed in our hospital 07/06/2024 showing LA grade a reflux esophagitis with no bleeding, no varices seen, a few gastric polyps, biopsied. Questionable portal gastropathy. Medium sized hiatal hernia. Pathology report showed fundic
gland polyp. Focal mild chronic active gastritis. No Helicobacter organisms noted.
Continue Protonix, antiemetics.
Last dose of IV phenobarbital today then will go on oral phenobarbital taper. Will send prescription to his pharmacy. Patient informed not to drive or drink alcohol while taking phenobarbital. He understands.
Severe alcohol use disorder -patient seen by [facility]. He is interested in intensive outpatient program. Offered psychiatry consultation but he feels it is not necessary right now.
Continue thiamine, folic acid.
Acute bronchitis -patient complaining of cough for the past week. COVID-negative. Etiology unclear but includes possible viral bronchitis versus GERD related cough versus other etiology.
GERD -continue Protonix.
Essential hypertension -continue amlodipine.
Anxiety/depression
Nocturnal bradycardia -noted by nursing. Recommend outpatient sleep study, will document on discharge instructions.
Full code
Dispo -anticipate discharge later today after last dose of IV phenobarbital. Patient plans to enter intensive outpatient program for alcohol abuse starting tomorrow August 26.
Follow-up with PCP.
32 minutes spent in discharge process.
Anticipated Discharge: Today
Subjective/Interval History
-
Date of Service: August 25, 2024
Patient seen and examined. No complaints.
Objective Data
-
Vital Signs:
Vital Signs
Temp Pulse Resp BP Pulse Ox
98.2 F 62 16 123/86 99
08/25/24 07:50 08/25/24 07:50 08/25/24 07:50 08/25/24 07:50 08/25/24 07:50
I&O
08/24/24 08/25/24 08/26/24
06:59 06:59 06:59
Intake Total 600 / 600 1440 / 1440
Balance 600 / 600 1440 / 1440
Review of Systems
-
History Source: Patient
All other systems: Reviewed and negative
--- NOTE | 2024-08-25 09:28 | W.DS.TRANS ---
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
-
Discharge Instructions:
Discharge Diagnosis/Procedures Alcohol withdrawal syndrome
Diet Regular
Activity As tolerated
Driving Restrictions No driving
Bathing Restrictions None
Instructions:
Stand-Alone Forms:
Changes to Home Medications: No
Discharge Medications:
DC Medications w/original date entered in [facility]
amlodipine 5 mg tablet 5 mg PO DAILY Blood Pressure 05/20/24
escitalopram oxalate 10 mg tablet (Lexapro) 10 mg PO DAILY Mental Health/Anxiety 05/20/24
folic acid 1 mg tablet 1 mg PO DAILY 07/31/24
magnesium oxide 500 mg PO DAILY 07/31/24
thiamine mononitrate (vit B1) 100 mg tablet 100 mg PO DAILY 07/31/24
pantoprazole 40 mg tablet,delayed release 40 mg PO DAILY #30 tabs 08/25/24
phenobarbital 32.4 mg tablet 32.4 mg PO TID #18 tabs 08/25/24
Home Medication Changes
Pending Results: No
--- NOTE | 2024-08-25 11:13 | CM ---
Patient seen at bedside
discharge today to home
willl follow up with [facility]
PLAN: home, intensive outpatient program at [facility]
parents to transport after 4pm today
[2024-08-25 11:41] VITALS: BP 134/87
[2024-08-25 15:13] VITALS: BP 129/93
== END 2024-08-25 15:59 | disposition home or self-care (01) | DRG 897 ==
LOC: 3 WEST ACU 21:26
PROVIDERS: ADMITTING PHYSICIAN Internal Medicine; ATTENDING PHYSICIAN Hospitalist; EMERGENCY PHYSICIAN Emergency Medicine; FAMILY PHYSICIAN Family Medicine
DX: F10.239 Alcohol dependence with withdrawal, unspecified (principal); J20.9 Acute bronchitis, unspecified; K21.00 Gastro-esophageal reflux disease with esophagitis, without bleeding; I10 Essential (primary) hypertension; F41.9 Anxiety disorder, unspecified; K70.10 Alcoholic hepatitis without ascites; K29.20 Alcoholic gastritis without bleeding; Z81.1 Family history of alcohol abuse and dependence; E83.42 Hypomagnesemia; E87.6 Hypokalemia; F32.A Depression, unspecified; G43.909 Migraine, unspecified, not intractable, without status migrainosus; F17.290 Nicotine dependence, other tobacco product, uncomplicated; Z11.52 Encounter for screening for COVID-19
CPT/HCPCS: 80048; 80053; 80306; 80307; 82077; 83690; 83735; 84100; 84484; 85025; 87811; 93005; 96361; 96374; 96375; 99285

== ENCOUNTER 2024-09-03 17:03 | Emergency (ER) | payer OTHER, SELFPAY ==
[2024-09-03 17:09] VITALS: BP 152/107
[2024-09-03 17:33] LABS: % Basophils 1.2 % (0-2); % Eosinophils 2.9 % (0-6); % Immature Granulocytes 0.2 % (0-0.5); % Lymphocytes 29.4 % (20.5-51.1); % Neutrophils 57.3 % (42.2-75.2); Absolute Basophils 0.1 10^3/uL (0-0.2); Absolute Eosinophils 0.3 10^3/uL (0-0.7); Absolute Lymphocytes 2.8 10^3/uL (1.2-3.4); Absolute Monocytes 0.9 10^3/uL (0.1-0.6); Absolute Neutrophils 5.4 10^3/uL (1.4-6.5); Hematocrit 41.8 % (39.0-52.0); Hemoglobin 13.4 g/dL (13.0-18.0); Mean Corp Hgb Conc. 32.1 g/dL (33.0-37.0); Mean Corpuscular Hgb 28.4 pg (27.0-31.0); Mean Corpuscular Volume 88.6 fL (80.0-94.0); Mean Platelet Volume 10.5 fL (7.4-10.4); Nucleated Red Blood Cells % 0 % (-); Platelet Count 411 10^3/uL (130-400); Red Blood Cell Count 4.72 10^6/uL (4.70-6.10); Red Cell Dist. Width 14.5 % (11.5-14.5); White Blood Cell Count 9.4 10^3/uL (4.8-10.8)
[2024-09-03 17:52] LABS: ALT (SGPT) 59 U/L (0-50); AST (SGOT) 34 U/L (17-59); Albumin 5.4 g/dl (3.5-5.0); Alkaline Phosphatase 57 U/L (38-126); Blood Urea Nitrogen 7 mg/dl (9-20); Calcium 10.2 mg/dl (8.4-10.2); Carbon Dioxide 24 mmol/L (22-30); Chloride 102 mmol/L (98-107); Glucose 91 mg/dl (70-99); Potassium 4.8 mmol/L (3.5-5.1); Sodium 142 mmol/L (135-145); Total Bilirubin 0.6 mg/dl (0.2-1.3); Total Protein 8.8 g/dl (6.3-8.2); eGFR > 60.00
[2024-09-03 17:57] LABS: Troponin I < 0.012 ng/ml
[2024-09-03 19:04] VITALS: BP 133/85
[2024-09-03 19:26] VITALS: BMI 27.3
--- NOTE | 2024-09-03 19:58 | ED.GENMED ---
History of Present Illness
General
Chief Complaint: Headache
Time Seen by Provider: 09/03/24 19:09
History of Present Illness
History of Present Illness:
39-year-old male with prior history of headaches, and alcohol abuse currently sober presenting to the emergency department for chest pain, difficulty breathing, headache. Patient reports symptoms started prior to arrival. He is feeling has
headache in the posterior aspect of his head with associated neck pain. Denies fever or sick contacts. Does note some similar symptoms a few months ago, reports negative CT, treated as a migraine with improvement. Denies recent injury or trauma.
Denies history of cardiac disease. Denies abdominal pain or vomiting. Denies present visual changes, weakness, numbness to extremities or additional acute medical complaints
Past History
Past History
ED Past Medical History: GERD, Psychiatric (Anxiety, Depression, alcoholism) and Other (epididymitis L testicle, kidney stones, PNA, Renal calculus, Migraines, alcoholism, PNA, Pancreatitis, )
ED Past Surgical History: Appendectomy
Social History
Tobacco: Vaping (Quit 2020 now vapes)
Alcohol: Daily (12 pack of beer or bottle of vodka)
Drug: None
Personal: Single
Living: alone
Employment: Employed
Family History
Family History: Other
Phy Exam
Physical Exam
Physical Exam:
General: Well-appearing, no clinical signs of dehydration, nontoxic and in no acute distress
HEENT: protecting airway. Pupils asymmetric, however reactive
Neck: appears supple, no meningismus or neck rigidity
CV: Normal heart rate, regular rhythm
Resp: No accessory muscle use, no increased work of breathing, lungs clear to auscultation bilaterally
Abd: Soft and non-distended, no tenderness to palpation
Extremities: No deformities, no swelling
Neuro: alert, no focal neurologic deficit
: deferred
Rectal: deferred
Psych: Normal affect
Skin: Intact
Scores
Heart Score for Chest Pain Patients
STEMI patient?: No
History: Slightly or Non-Suspicious
ECG: Normal
Age: </= 45 years
Risk Factors: 1 or 2 Risk Factors
Troponin: </= Normal Limit
Heart Score for Chest Pain Patients: 1
Heart Score Risk: 2.5% MACE over next 6 weeks
Course
Orders/Labs/Results
Orders:
Orders
09/03/24 17:11
EKG [Electrocardiogram (*1)] Urgent
Reason for Study: Chest Pain
EKG- Treatment ONCE
09/03/24 17:22
Complete Blood Count/With Diff Urgent
Comprehensive Metabolic Panel Urgent
Troponin I Urgent
09/03/24 19:30
CT Head W/o Iv Contrast Urgent
Comment:
Reason For Exam: headache
Diphenhydramine [Benadryl] 25 mg IV NOW STA
Ketorolac [Toradol] 15 mg IV NOW STA
Metoclopramide [Reglan] 5 mg IV NOW STA
09/03/24 20:19
COVID-19 Antigen Urgent
Source: Nasal Swab
Influenza A+B Rapid Molecular Urgent
YOVANY Source: Nasal Swab
Specimen Description:
Abnormal Lab Results
09/03/24
17:22
MCHC 32.1 L g/dL
(33.0-37.0)
Plt Count 411 H 10^3/uL
(130-400)
MPV 10.5 H fL
(7.4-10.4)
Absolute Monos (auto) 0.9 H 10^3/uL
(0.1-0.6)
BUN 7 L mg/dl
(9-20)
ALT 59 H U/L
(0-50)
Total Protein 8.8 H g/dl
(6.3-8.2)
Albumin 5.4 H g/dl
(3.5-5.0)
09/03/24 17:22
09/03/24 17:22
Vital Signs
Initial and Last Documented VS:
Initial Vital Signs
Temp Pulse Resp BP Pulse Ox
98.5 F 93 18 152/107 98
09/03/24 17:09 09/03/24 17:09 09/03/24 17:09 09/03/24 17:09 09/03/24 17:09
Last Documented Vital Signs
Temp Pulse Resp BP Pulse Ox
98.5 F 66 17 133/85 98
09/03/24 17:09 09/03/24 20:17 09/03/24 20:17 09/03/24 19:04 09/03/24 20:17
MDM/Problems Addressed
MDM/Problems Addressed:
39-year-old male with history of alcohol abuse, currently sober, presenting for chest pain, difficulty breathing, headache. Vital signs on arrival are significant for mild hypertension.
On exam patient is resting comfortably, no acute distress or discomfort. Patient notes similar headache in the past. Symptom presentation and physical exam appears most consistent with tension versus migrainous headache. No concern for infectious
etiology, afebrile, no meningeal signs. No focal neurologic deficits on exam or concern for acute central neurologic process. No report of trauma or concern for any acute traumatic intracranial abnormality. No tenderness to the temporal
arteries, without concern for temporal arteritis. Will administer migraine cocktail and reassess for improvement. Patient however does have some asymmetrical pupils which he is unsure is chronic or acute, so for this reason we will obtain CT brain
imaging. Regarding chest pain, EKG obtained, nonischemic, minimal cardiac risk factors and lower suspicion for ACS. Patient had laboratory analysis prior to my assessment, undetectable troponin. At this time low risk by heart score. PERC
negative without concern for PE. Will send COVID and flu swab as possible viral syndrome
21:40 -CT brain negative. Labs unremarkable. Viral swabs negative. On reassessment, reports improvement of symptoms. Continue to migraine headache. Blood pressure has improved. Ultimately feel stable for discharge with outpatient follow-up and
continued supportive therapy. Return precautions discussed and patient verbalized understanding
*EKG
Interpreted by ED Provider?: Yes
EKG Intrepretation Date: 09/03/24
EKG Intrepretation Time: 20:01
Interpretation: normal
Comparison EKG: no changes (08/24/24)
Heart Rate: 70
Rate: normal
Rhythm: sinus
Dewart: normal axis
Interval: normal interval
QRS Pattern: normal QRS
Ischemia: no ischemia
*Critical Care Note
Total Time (30-74mins, 75-104mins- exclusive of procedures): Not Applicable
ED Attending Note
-
Portions of this chart may have been created with voice recognition software.� Occasional wrong word or��sound alike� substitutions may have occurred due to the inherent limitations of voice recognition software.
Discharge Plan
Departure
Patient Disposition: Home (Routine Discharge)
Date of Disposition: 09/03/24
Time of Disposition: 21:46
Patient with high blood pressure during this ER visit?: No
Condition: Good
Discharge Problem:
Migraine
Instructions: Migraines (DC), BLOOD PRESSURE
Prescriptions:
No Action
amlodipine 5 mg Tablet
5 mg PO DAILY
escitalopram oxalate [Lexapro] 10 mg Tablet
10 mg PO DAILY
magnesium oxide 500 mg magnesium tablet
500 mg PO DAILY
folic acid 1 mg tablet
1 mg PO DAILY
thiamine mononitrate (vit B1) 100 mg tablet
100 mg PO DAILY
phenobarbital 32.4 mg Tablet
32.4 mg PO TID Qty: 18 0RF
Rx Instructions:
2 tabs (64.8mg) 3x/day for 6 doses, then 1 tab (32.4mg) 3x/day for 6 doses then stop.
pantoprazole 40 mg tablet,delayed release (DR/EC)
40 mg PO DAILY Qty: 30 0RF
Referrals:
Xavier Newman [Other]
Xavier Newman MD [Family Provider] -
Activity Restrictions/Additional Instructions:
You were seen in the emergency department for a headache and chest pain
You were found to have normal blood work, EKG, CT imaging of your brain. We suspect that you are having a migraine headache.
Please follow-up closely with your primary care physician.
Return to the emergency department for any worsening of your symptoms, or any development of chest pain, difficulty breathing, abdominal pain with persistent vomiting and inability to tolerate food or liquid by mouth (concern for dehydration),
weakness, headache or confusion, fever greater than 100.4, or any additional symptoms that are concerning to you.
Thank you for choosing [facility].
Interventions
Interventions:
*Risk Screen - Suicide Last Done: 09/03/24 17:09
*General Assessment Last Done: 09/03/24 17:09
*Neglect/Abuse Screening Last Done: 09/03/24 19:26
*ED- Fall Risk Assessment Last Done: 09/03/24 17:09
*ED COVID-19 Vaccine History Last Done: 09/03/24 17:09
ED- Neurological Assessment Last Done: 09/03/24 19:26
Discharge Date and Time
Print Language: SYRIAC
[2024-09-03] MEDS: TORADOL 15 MG IV (20:21)
[2024-09-03] MEDS: REGLAN 5 MG IV (20:22)
[2024-09-03] MEDS: BENADRYL 25 MG IV (20:23)
[2024-09-03 20:49] LABS: COVID-19 Antigen Negative (Negative)
[2024-09-03 21:12] VITALS: BP 115/87
== END 2024-09-03 22:15 | disposition home or self-care (01) ==
LOC: EMR 17:03
PROVIDERS: EMERGENCY PHYSICIAN Student in an Organized Health Care Education/Training Program; FAMILY PHYSICIAN Family Medicine
DX: G43.909 Migraine, unspecified, not intractable, without status migrainosus (principal); F17.290 Nicotine dependence, other tobacco product, uncomplicated; K21.9 Gastro-esophageal reflux disease without esophagitis; F10.20 Alcohol dependence, uncomplicated; F41.8 Other specified anxiety disorders; I10 Essential (primary) hypertension; Z87.442 Personal history of urinary calculi; Z90.49 Acquired absence of other specified parts of digestive tract
CPT/HCPCS: 99284; 96374; 96375; 70450; 80053; 84484; 85025; 87502; 87811; 93005

== ENCOUNTER 2024-09-18 20:48 | Emergency (ER) | payer OTHER, SELFPAY ==
[2024-09-18 20:51] VITALS: BP 120/94
[2024-09-18 21:12] VITALS: BMI 26.7
[2024-09-18 21:23] LABS: % Basophils 1.4 % (0-2); % Eosinophils 2.5 % (0-6); % Immature Granulocytes 0.1 % (0-0.5); % Monocytes 8.8 % (1.7-9.3); % Neutrophils 57.2 % (42.2-75.2); Absolute Basophils 0.1 10^3/uL (0-0.2); Absolute Eosinophils 0.2 10^3/uL (0-0.7); Absolute Lymphocytes 2.3 10^3/uL (1.2-3.4); Absolute Monocytes 0.7 10^3/uL (0.1-0.6); Absolute Neutrophils 4.3 10^3/uL (1.4-6.5); Hemoglobin 13.2 g/dL (13.0-18.0); Mean Corpuscular Volume 84.9 fL (80.0-94.0); Mean Platelet Volume 10.3 fL (7.4-10.4); Nucleated Red Blood Cells % 0 % (-); Platelet Count 460 10^3/uL (130-400); Red Blood Cell Count 4.71 10^6/uL (4.70-6.10); White Blood Cell Count 7.6 10^3/uL (4.8-10.8)
[2024-09-18] MEDS: NSS 1000 IV (21:24)
[2024-09-18] MEDS: ZOFRAN 4 MG IV (21:24)
[2024-09-18 21:46] LABS: ALT (SGPT) 24 U/L (0-50); AST (SGOT) 23 U/L (17-59); Albumin 4.8 g/dl (3.5-5.0); Alcohol 248 mg/dl; Alkaline Phosphatase 54 U/L (38-126); Blood Urea Nitrogen 4 mg/dl (9-20); Carbon Dioxide 24 mmol/L (22-30); Chloride 106 mmol/L (98-107); Estimated Creatinine Clearance > 125 ml/min; Glucose 104 mg/dl (70-99); Potassium 3.5 mmol/L (3.5-5.1); Sodium 145 mmol/L (135-145); Total Bilirubin 0.6 mg/dl (0.2-1.3); Total Protein 7.9 g/dl (6.3-8.2); eGFR > 60.00
[2024-09-18 22:00] VITALS: BP 142/89
--- NOTE | 2024-09-18 22:06 | ED.GENMED ---
History of Present Illness
General
Chief Complaint: Alcohol Problem
Source: patient
Exam Limitations: none
Time Seen by Provider: 09/18/24 20:53
Nursing documentation reviewed up to this point in time: agreed with
History of Present Illness
History of Present Illness:
Patient to ED requesting treatment for alcohol withdrawal and requesting rehab after withdrawal. He has attempted treatment in the past. He reports he is supposed to by enrolled in IOP with [facility] but he never followed through. He was
here approx 1 month ago and admitted for his withdrawal. He states he received Phenobarbital and is requesting this tonight. Admits to drinking [employer] to ED. Arrives complaining of nausea, anxiety.
Past History
Past History
ED Past Medical History: GERD, Psychiatric (Anxiety, Depression, alcoholism) and Other (epididymitis L testicle, kidney stones, PNA, Renal calculus, Migraines, alcoholism, PNA, Pancreatitis, )
ED Past Surgical History: Appendectomy
Social History
Tobacco: Vaping (Quit 2020 now vapes)
Alcohol: Daily (12 pack of beer or bottle of vodka)
Drug: None
Personal: Single
Living: alone
Employment: Employed
Family History
Family History: Other
Phy Exam
General Physical Exam
General Presentation: mild distress
General age: appears stated age
General Skin: warm and dry
General Habitus: normal
General Mental: alert
Cardiovascular Exam
Cardiovascular Exam: tachycardia
Pulmonary Exam
Pulmonary Exam: no respiratory distress
Gastrointestinal Exam
Gastrointestinal Exam: non tender and soft
Neurological Exam
Neurological Exam: alert, oriented x3, CN II-XII intact, no motor deficits, no sensory deficits, speech normal and normal gait
Musculoskeletal Exam
Musculoskeletal Exam: full ROM and neuro vasc intact
Skin Exam
Skin Exam: normal color, warm/dry and no rash
Psychiatric Exam
Psychiatric Exam: normal mood/affect
Scores
Withdrawal Assessment of Alcohol
Withdrawal Assessment Completed?: Yes
Nausea and Vomiting: Intermittent nausea with dry heaves
Tactile Disturbances: None
Tremor: No tremor
Auditory Disturbances: Not present
Paroxysmal Sweats: No sweat visible
Visual Disturbances: Not present
Anxiety: Moderately anxious, or guarded, so anxiety is inferred
Headache, Fullness in Head: Not present
Agitation: Moderately fidgety and restless
Orientation and clouding of sensorium: Oriented and can do serial additions
Total CIWA Score: 12
Alcohol Withdrawal Medication Recommendation: Equal to MSAS Score 5-7. Lorazepam 1mg IV or PO NOW & re-assess q2hrs
Course
Orders/Labs/Results
Orders:
Orders
09/18/24 21:15
Alcohol Urgent
Complete Blood Count/With Diff Urgent
Comprehensive Metabolic Panel Urgent
09/18/24 21:20
Add On- LAB Urgent
Tests Added?: alcohol level
09/18/24 21:21
Ondansetron Injectable [Zofran] 4 mg .ROUTE .STK-MED ONE
09/18/24 21:23
Ondansetron Injectable [Zofran] 4 mg IV NOW STA
09/18/24 21:24
0.9% Sodium Chloride 1000 ml [Nss] 1,000 ml IV BOLUS
09/18/24 22:05
Lorazepam [Ativan] 1 mg IV NOW STA
Abnormal Lab Results
09/18/24
21:15
Plt Count 460 H 10^3/uL
(130-400)
Absolute Monos (auto) 0.7 H 10^3/uL
(0.1-0.6)
BUN 4 L mg/dl
(9-20)
Glucose 104 H mg/dl
(70-99)
09/18/24 21:15
09/18/24 21:15
Vital Signs
Initial and Last Documented VS:
Initial Vital Signs
BP
120/94
09/18/24 20:51
Last Documented Vital Signs
Temp Pulse Resp BP Pulse Ox
98.1 F 96 23 111/76 97
09/18/24 20:52 09/18/24 23:30 09/18/24 22:15 09/18/24 23:00 09/18/24 23:30
*Critical Care Note
Total Time (30-74mins, 75-104mins- exclusive of procedures): Not Applicable
Update Note
Update Note:
Patient resting comfortably after 1mg IV ativan. HR now in the low 90's. GIven IVF and zofran, no further n/v.
Patient spoke with Katy pollock. He was offered inpatient care for his withdrawal and rehab but refused inpatient care. He states he will follow up with [facility] tomorrow. Katy was able to confirm that he has an appoitment tomorrow
evening. I spoke with pateint about the need for inpatient care. He states he tried it once and he wont go back. He will be discharged home tonight.
ED Attending Note
-
Portions of this chart may have been created with voice recognition software.� Occasional wrong word or��sound alike� substitutions may have occurred due to the inherent limitations of voice recognition software.
Discharge Plan
Departure
Patient Disposition: Home (Routine Discharge)
Date of Disposition: 09/18/24
Time of Disposition: 23:17
Patient with high blood pressure during this ER visit?: No
Condition: Fair
Covid-19: Not Applicable
Discharge Problem:
Alcohol abuse with withdrawal
Instructions: Alcohol Withdrawal (DC), Alcohol Use Disorder (DC)
Prescriptions:
No Action
amlodipine 5 mg Tablet
5 mg PO DAILY
escitalopram oxalate [Lexapro] 10 mg Tablet
10 mg PO DAILY
magnesium oxide 500 mg magnesium tablet
500 mg PO DAILY
folic acid 1 mg tablet
1 mg PO DAILY
thiamine mononitrate (vit B1) 100 mg tablet
100 mg PO DAILY
phenobarbital 32.4 mg Tablet
32.4 mg PO TID Qty: 18 0RF
Rx Instructions:
2 tabs (64.8mg) 3x/day for 6 doses, then 1 tab (32.4mg) 3x/day for 6 doses then stop.
pantoprazole 40 mg tablet,delayed release (DR/EC)
40 mg PO DAILY Qty: 30 0RF
diazepam [Valium] 10 mg tablet
See Rx Instructions .ROUTE .COMPLEX Qty: 10 0RF
Rx Instructions:
day 1: 10 mg p.o. every 6 hours, day 2: 10 mg p.o. every 8 hours, day 3: 10 mg p.o. every 12 hours, day 4: 10 mg at bedtime
Referrals:
Xavier Newman [Other]
Xavier Newman MD [Family Provider] -
Activity Restrictions/Additional Instructions:
Please follow through with your [facility] appointment tomorrow night. Please return to the emergency department at any time if you decide you are ready for inpatient treatment.
Interventions
Interventions:
*Risk Screen - Suicide Last Done: 09/18/24 21:30
*General Assessment Last Done: 09/18/24 21:30
*Neglect/Abuse Screening Last Done: 09/18/24 21:30
*ED- Fall Risk Assessment Last Done: 09/18/24 21:30
*ED COVID-19 Vaccine History Last Done: 09/18/24 21:30
*Nursing Disposition Last Done: 09/19/24 00:00
ED- Neurological Assessment Last Done: 09/18/24 21:31
ED-Psychological Assessment Last Done: 09/18/24 21:31
Discharge Date and Time
Discharge Date/Time: 09/19/24 00:01
Print Language: PORTUGUESE
[2024-09-18] MEDS: ATIVAN 1 MG IV (22:12)
[2024-09-18 23:00] VITALS: BP 111/76
== END 2024-09-19 00:01 | disposition home or self-care (01) ==
LOC: EMR 20:48
PROVIDERS: EMERGENCY PHYSICIAN Emergency Medicine; FAMILY PHYSICIAN Family Medicine
DX: F10.239 Alcohol dependence with withdrawal, unspecified (principal); F41.9 Anxiety disorder, unspecified; R11.0 Nausea; F32.A Depression, unspecified; G43.909 Migraine, unspecified, not intractable, without status migrainosus; K21.9 Gastro-esophageal reflux disease without esophagitis; I10 Essential (primary) hypertension; F17.290 Nicotine dependence, other tobacco product, uncomplicated; Z87.01 Personal history of pneumonia (recurrent); Z87.442 Personal history of urinary calculi; Z86.16 Personal history of COVID-19
CPT/HCPCS: 99284; 96374; 96375; 96361 ×3; 80048; 80053; 82077; 85025; 93005

== ENCOUNTER 2024-09-19 10:58 | Emergency (ER) | payer OTHER, SELFPAY ==
[2024-09-19 11:23] VITALS: BP 132/85
--- NOTE | 2024-09-19 11:31 | ED.GENMED ---
ED Provider Triage
<Kacey Young PA-C - Last Filed: 09/19/24 18:20>
-
Patient seen by provider in Triage?: Seen in Triage
39yoM here requesting detox. Drinks alcohol heavily. Seen in ED last night. Was supposed to go to [facility] today but wants to be properly detoxed before going there. Drank a 12 pack since discharge. Last drink 9am. Starting to have withdrawal
symptoms, c/o shakiness.
CBC, CMP, magnesium, ETOH, and EKG ordered.
History of Present Illness
<Kacey Young PA-C - Last Filed: 09/19/24 18:20>
General
Chief Complaint: Alcohol Problem
Time Seen by Provider: 09/19/24 12:56
<LEANNE Sun - Last Filed: 09/19/24 14:30>
General
Source: patient
Exam Limitations: none
Nursing documentation reviewed up to this point in time: agreed with
History of Present Illness
History of Present Illness:
Patient is a 39-year-old male who presents to the ER requesting' alcohol detox.' Patient reports he was here last night he was scheduled to follow-up with [facility] this evening arranged by Piero fung. He was given Ativan here last night x 1
dose. He does report that he drank a 12 pack of beer last night and last drank approximately 9 AM this morning. Patient complains abdominal cramping and is starting to feel tremors in his hands. He is worried that he is going to go into
withdrawal.
He feels slightly nauseous denies any vomiting he denies any visual or tactile hallucinations.
Past History
<Kacey Young PA-C - Last Filed: 09/19/24 18:20>
Past History
ED Past Medical History: GERD, Psychiatric (Anxiety, Depression, alcoholism) and Other (epididymitis L testicle, kidney stones, PNA, Renal calculus, Migraines, alcoholism, PNA, Pancreatitis, )
ED Past Surgical History: Appendectomy
Social History
Tobacco: Vaping (Quit 2020 now vapes)
Alcohol: Daily (12 pack of beer or bottle of vodka)
Drug: None
Personal: Single
Living: alone
Employment: Employed
Family History
Family History: Other
Review of Systems
<LEANNE Sun - Last Filed: 09/19/24 14:30>
Review of Systems
Allergies reviewed?: Yes
All Other Systems: ROS reviewed and negative except as documented in HPI and ROS
Constitutional: Reports no symptoms; Denies fever, fatigue or chills
EENT: Reports no symptoms
Respiratory: Reports no symptoms
Cardiac: Reports no symptoms
ABD/GI: Reports abdominal pain and nausea; Denies vomiting or diarrhea
: Reports no symptoms
Musculoskeletal: Reports no symptoms
Skin: Reports no symptoms
Neurological: Reports other (feels like he has mild tremors )
Psychiatric: Reports no symptoms
Phy Exam
<LEANNE Sun - Last Filed: 09/19/24 14:30>
General Physical Exam
General Presentation: no apparent distress
General age: appears stated age
General Skin: warm and dry
General Habitus: normal
General Mental: alert
General Hydration: appears well hydrated
Cardiovascular Exam
Cardiovascular Exam: regular rate/rhythm, no murmur and normal peripheral pulses
Pulmonary Exam
Pulmonary Exam: lungs clear and no respiratory distress
Gastrointestinal Exam
Gastrointestinal Exam: non tender and soft
Neurological Exam
Neurological Exam: alert, oriented x3, no motor deficits, no sensory deficits and other (No tremors)
Musculoskeletal Exam
Musculoskeletal Exam: full ROM
Skin Exam
Skin Exam: normal color and warm/dry
Psychiatric Exam
Psychiatric Exam: normal mood/affect
Scores
<Kacey Young PA-C - Last Filed: 09/19/24 18:20>
Withdrawal Assessment of Alcohol
Total CIWA Score: 1
Alcohol Withdrawal Medication Recommendation: Equal to MSAS Score 0-4. Monitor & re-assess q2hrs, NO MEDICATION NEEDED
<LEANNE Sun - Last Filed: 09/19/24 14:30>
Withdrawal Assessment of Alcohol
Withdrawal Assessment Completed?: Yes
Nausea and Vomiting: Mild nausea with no vomiting
Tactile Disturbances: None
Tremor: No tremor
Auditory Disturbances: Not present
Paroxysmal Sweats: No sweat visible
Visual Disturbances: Not present
Anxiety: No anxiety, at ease
Headache, Fullness in Head: Not present
Agitation: Normal activity
Orientation and clouding of sensorium: Oriented and can do serial additions
Total CIWA Score: 1
Alcohol Withdrawal Medication Recommendation: Equal to MSAS Score 0-4. Monitor & re-assess q2hrs, NO MEDICATION NEEDED
Course
<Kacey Young PA-C - Last Filed: 09/19/24 18:20>
Orders/Labs/Results
Orders:
Orders
09/19/24 11:32
Electrocardiogram (*1) Urgent
Reason for Study: QTc Monitoring
EKG- Treatment ONCE
09/19/24 11:44
Alcohol Urgent
Basic Metabolic Panel Urgent
09/19/24 13:58
Diazepam [Valium] 10 mg PO NOW STA
09/19/24 16:33
Ondansetron Orally Disint [Zofran Odt (Orally Disintegrating)] 4 mg PO NOW STA
Abnormal Lab Results
09/19/24
11:44
Carbon Dioxide 20 L mmol/L
(22-30)
BUN 3 L mg/dl
(9-20)
Glucose 124 H mg/dl
(70-99)
09/19/24 11:32
09/19/24 11:44
Vital Signs
Initial and Last Documented VS:
Initial Vital Signs
Temp Pulse Resp BP Pulse Ox
98.4 F 101 18 132/85 97
09/19/24 11:23 09/19/24 11:23 09/19/24 11:23 09/19/24 11:23 09/19/24 11:23
Last Documented Vital Signs
Temp Pulse Resp BP Pulse Ox
98.4 F 90 20 132/85 98
09/19/24 11:23 09/19/24 14:08 09/19/24 13:15 09/19/24 11:23 09/19/24 14:08
<LEANNE Sun - Last Filed: 09/19/24 14:30>
Orders/Labs/Results
Orders:
Orders
09/19/24 11:32
Electrocardiogram (*1) Urgent
Reason for Study: QTc Monitoring
EKG- Treatment ONCE
09/19/24 11:44
Alcohol Urgent
Basic Metabolic Panel Urgent
09/19/24 13:58
Diazepam [Valium] 10 mg PO NOW STA
09/19/24 16:33
Ondansetron Orally Disint [Zofran Odt (Orally Disintegrating)] 4 mg PO NOW STA
Abnormal Lab Results
09/19/24
11:44
Carbon Dioxide 20 L mmol/L
(22-30)
BUN 3 L mg/dl
(9-20)
Glucose 124 H mg/dl
(70-99)
09/19/24 11:32
09/19/24 11:44
Vital Signs
Initial and Last Documented VS:
Initial Vital Signs
Temp Pulse Resp BP Pulse Ox
98.4 F 101 18 132/85 97
09/19/24 11:23 09/19/24 11:23 09/19/24 11:23 09/19/24 11:23 09/19/24 11:23
Last Documented Vital Signs
Temp Pulse Resp BP Pulse Ox
98.4 F 90 20 132/85 98
09/19/24 11:23 09/19/24 14:08 09/19/24 13:15 09/19/24 11:23 09/19/24 14:08
Director Of Outreach consulted with Physician
Director Of Outreach consulted with physician?: Yes
Name of Physician Consulted: Dr Garcia
<LEANNE Sun - Last Filed: 09/19/24 14:30>
MDM/Problems Addressed
Differential Diagnosis Includes:
not limited to : Alcohol abuse, withdrawal
MDM/Problems Addressed:
Patient is awake alert no acute distress he appears comfortable no obvious tremors on exam , patient is not diaphoretic able to give clear history no visual hallucinations. No evidence of acute alcohol withdrawal at this time.
patient confirms that he does have an outpatient appointment with [facility] this evening. Case reviewed with ED physician I did explain the patient that we do not simply admit for detox. If someone is in acute medical alcohol withdrawal
then that is a different story. He is in no acute distress and well-appearing .we will give oral Valium here and send patient on Valium taper for alcohol withdrawal. He reports he is planning on going to his outpt [place] appt this evening. He is
in agreement with assessment and plan. He ambulate with a steady gait out of the ER and he is getting a ride home.
<LEANNE Sun - Last Filed: 09/19/24 14:30>
*Critical Care Note
Total Time (30-74mins, 75-104mins- exclusive of procedures): Not Applicable
ED Attending Note
<Kacey Young PA-C - Last Filed: 09/19/24 18:20>
-
Portions of this chart may have been created with voice recognition software.� Occasional wrong word or��sound alike� substitutions may have occurred due to the inherent limitations of voice recognition software.
Discharge Plan
Departure
Patient Disposition: Home (Routine Discharge)
Date of Disposition: 09/19/24
Time of Disposition: 14:02
Patient with high blood pressure during this ER visit?: Yes
Condition: Fair
Covid-19: Not Applicable
Discharge Problem:
Alcohol abuse
Instructions: Alcohol Use Disorder (DC), BLOOD PRESSURE
Prescriptions:
New
diazepam [Valium] 10 mg tablet
See Rx Instructions .ROUTE .COMPLEX Qty: 10 0RF
Rx Instructions:
day 1: 10 mg p.o. every 6 hours, day 2: 10 mg p.o. every 8 hours, day 3: 10 mg p.o. every 12 hours, day 4: 10 mg at bedtime
No Action
amlodipine 5 mg Tablet
5 mg PO DAILY
escitalopram oxalate [Lexapro] 10 mg Tablet
10 mg PO DAILY
magnesium oxide 500 mg magnesium tablet
500 mg PO DAILY
folic acid 1 mg tablet
1 mg PO DAILY
thiamine mononitrate (vit B1) 100 mg tablet
100 mg PO DAILY
phenobarbital 32.4 mg Tablet
32.4 mg PO TID Qty: 18 0RF
Rx Instructions:
2 tabs (64.8mg) 3x/day for 6 doses, then 1 tab (32.4mg) 3x/day for 6 doses then stop.
pantoprazole 40 mg tablet,delayed release (DR/EC)
40 mg PO DAILY Qty: 30 0RF
Referrals:
Xavier Newman MD [Family Provider] -
Activity Restrictions/Additional Instructions:
As discussed a prescription for Valium taper was sent to your pharmacy to prevent alcohol withdrawal. Take only as directed. No driving while taking this medicine. No drinking alcohol taking this medicine. Please follow-up with [facility]
this evening as scheduled for your appointment. Return if any worsening of symptoms.
Interventions
Interventions:
*Risk Screen - Suicide Last Done: 09/19/24 11:23
*General Assessment Last Done: 09/19/24 11:23
*Neglect/Abuse Screening Last Done: 09/19/24 11:23
*ED- Fall Risk Assessment Last Done: 09/19/24 14:18
*ED COVID-19 Vaccine History Last Done: 09/19/24 11:23
*Nursing Disposition Last Done: 09/19/24 14:18
ED- Neurological Assessment Last Done: 09/19/24 13:15
ED-Psychological Assessment Last Done: 09/19/24 13:15
Discharge Date and Time
Discharge Date/Time: 09/19/24 14:18
Print Language: SPANISH
[2024-09-19 12:30] LABS: Alcohol 199 mg/dl; Blood Urea Nitrogen 3 mg/dl (9-20); Calcium 9.2 mg/dl (8.4-10.2); Carbon Dioxide 20 mmol/L (22-30); Chloride 105 mmol/L (98-107); Glucose 124 mg/dl (70-99); Sodium 143 mmol/L (135-145); eGFR > 60.00
[2024-09-19] MEDS: VALIUM 10 MG PO (14:09)
== END 2024-09-19 14:18 | disposition home or self-care (01) ==
LOC: EMR 10:58
PROVIDERS: Physician Assistant; EMERGENCY PHYSICIAN Emergency Medicine; FAMILY PHYSICIAN Family Medicine
DX: F10.239 Alcohol dependence with withdrawal, unspecified (principal); R11.0 Nausea; R10.9 Unspecified abdominal pain; R25.1 Tremor, unspecified; R03.0 Elevated blood-pressure reading, without diagnosis of hypertension; F32.A Depression, unspecified; F41.9 Anxiety disorder, unspecified; K21.9 Gastro-esophageal reflux disease without esophagitis; G43.909 Migraine, unspecified, not intractable, without status migrainosus; F17.290 Nicotine dependence, other tobacco product, uncomplicated; Z87.01 Personal history of pneumonia (recurrent); Z87.442 Personal history of urinary calculi; Z86.16 Personal history of COVID-19
CPT/HCPCS: 99283; 80048; 82077; 93005

== ENCOUNTER 2024-09-19 16:19 | Emergency (ER) | payer OTHER, SELFPAY ==
[2024-09-19 16:29] VITALS: BP 136/97
[2024-09-19] MEDS: ZOFRAN ODT (ORALLY DISINTEGRATING) 4 MG PO (16:35)
[2024-09-19 19:30] VITALS: BP 138/80
[2024-09-19 21:24] VITALS: BP 144/82
== END 2024-09-19 21:25 ==
LOC: EMR 16:19
DX: R11.2 Nausea with vomiting, unspecified (principal); R07.9 Chest pain, unspecified; R25.1 Tremor, unspecified; Z53.21 Procedure and treatment not carried out due to patient leaving prior to being seen by health care provider
CPT/HCPCS: 99281; 93005

== ENCOUNTER 2024-09-27 14:05 | Inpatient (IN) | payer OTHER, SELFPAY ==
[2024-09-27] VITALS (12 sets, daily range): BP systolic 117–144; BP diastolic 86–103; BMI 27.0
[2024-09-27 07:17] LABS: % Basophils 1.7 % (0-2); % Eosinophils 7.4 % (0-6); % Immature Granulocytes 0.2 % (0-0.5); % Lymphocytes 42.7 % (20.5-51.1); % Monocytes 9.1 % (1.7-9.3); % Neutrophils 38.9 % (42.2-75.2); Absolute Basophils 0.1 10^3/uL (0-0.2); Absolute Eosinophils 0.5 10^3/uL (0-0.7); Absolute Lymphocytes 2.8 10^3/uL (1.2-3.4); Absolute Monocytes 0.6 10^3/uL (0.1-0.6); Absolute Neutrophils 2.6 10^3/uL (1.4-6.5); Hematocrit 42.7 % (39.0-52.0); Hemoglobin 13.9 g/dL (13.0-18.0); Mean Corp Hgb Conc. 32.6 g/dL (33.0-37.0); Mean Corpuscular Hgb 27.9 pg (27.0-31.0); Mean Corpuscular Volume 85.7 fL (80.0-94.0); Mean Platelet Volume 9.9 fL (7.4-10.4); Nucleated Red Blood Cells % 0 % (-); Platelet Count 363 10^3/uL (130-400); Red Blood Cell Count 4.98 10^6/uL (4.70-6.10); Red Cell Dist. Width 14.6 % (11.5-14.5); White Blood Cell Count 6.6 10^3/uL (4.8-10.8)
[2024-09-27 07:30] LABS: ALT (SGPT) 44 U/L (0-50); AST (SGOT) 51 U/L (17-59); Alkaline Phosphatase 56 U/L (38-126); Blood Urea Nitrogen 11 mg/dl (9-20); Carbon Dioxide 24 mmol/L (22-30); Chloride 110 mmol/L (98-107); Glucose 124 mg/dl (70-99); Potassium 3.7 mmol/L (3.5-5.1); Sodium 148 mmol/L (135-145); Total Bilirubin 0.3 mg/dl (0.2-1.3); Total Protein 8.2 g/dl (6.3-8.2); eGFR > 60.00
--- NOTE | 2024-09-27 08:44 | ED.GENMED ---
History of Present Illness
General
Chief Complaint: Alcohol Problem
Source: patient and records
Exam Limitations: none
Time Seen by Provider: 09/27/24 08:44
History of Present Illness
History of Present Illness:
39yoM with a history of hypertension presenting for evaluation of alcohol withdrawal. Last drink was a few hours ago. He has been drinking very heavily in the past several days and drank 2 pints of vodka last night. He is symptomatic with nausea
and tremors. He had an episode of vomiting and some chest pain in the waiting room. He denies any hallucinations. Of note, patient was seen in the ED 8 days ago for alcohol withdrawal and was prescribed a Valium taper but did not complete this.
No prior history of withdrawal seizures.
Past History
Past History
ED Past Medical History: GERD, Psychiatric (Anxiety, Depression, alcoholism) and Other (epididymitis L testicle, kidney stones, PNA, Renal calculus, Migraines, alcoholism, PNA, Pancreatitis, )
ED Past Surgical History: Appendectomy
Social History
Tobacco: Vaping (Quit 2020 now vapes)
Alcohol: Daily (12 pack of beer or bottle of vodka)
Drug: None
Personal: Single
Living: alone
Employment: Employed
Family History
Family History: Other
Phy Exam
General Physical Exam
General Presentation: mild distress
General Skin: warm and dry
General Habitus: normal
General Mental: alert
ENT Exam
ENT Exam: normocephalic
Cardiovascular Exam
Cardiovascular Exam: tachycardia
Pulmonary Exam
Pulmonary Exam: lungs clear, no respiratory distress, no rales, no crackles, no rhonchi and no wheezing
Neurological Exam
Neurological Exam: other (+Tremulous )
[place] Coma Scale
Eye Opening: Spontaneous
Verbal Response: Oriented
Motor Response: Obeys Commands
GCS Total Score: 15
Skin Exam
Skin Exam: normal color and warm/dry
Psychiatric Exam
Psychiatric Exam: normal mood/affect
Scores
Withdrawal Assessment of Alcohol
Withdrawal Assessment Completed?: Not applicable
Course
Orders/Labs/Results
Orders:
Orders
09/27/24 07:06
CBC/With Diff [Complete Blood Count/With Diff] Urgent
Comprehensive Metabolic Panel Urgent
Magnesium Urgent
Comment: ADD ON
Phosphorus Urgent
Comment: ADD ON
09/27/24 08:12
EKG [Electrocardiogram (*1)] Urgent
Reason for Study: Chest Pain
EKG- Treatment ONCE
09/27/24 09:06
Add On- LAB Urgent
Tests Added?: magnesium
Cardiac Monitoring- Treatment ONCE
Lorazepam [Ativan] 2 mg IV NOW STA
09/27/24 09:10
Ondansetron Injectable [Zofran] 4 mg IV NOW STA
09/27/24 10:06
Troponin I Urgent
09/27/24 10:13
Lorazepam [Ativan] 2 mg IV NOW STA
09/27/24 11:47
Lorazepam [Ativan] 1 mg IV NOW STA
09/27/24 13:26
Lorazepam [Ativan] 1 mg IV NOW STA
09/27/24 13:45
Admit/Transfer Patient As Directed
Co-Sign Provider:
Level of Care: Inpatient admission
Assign to:: Telemetry
Physician / Group: nelson
Diagnosis: alcohol withdrawal
Reason for Telemetry: Arrhythmia
Date to Stop Telemetry: 09/30/24
Time to Stop Telemetry: 11:00
Reason for Hospitalization: alcohol withdrawal
Expected length of stay greater than two midnights?: Yes
ELOS- Estimated Length of Stay in days: 2
I certify the patient meets the requirements for IP care: Yes
Code Status As Directed
Resuscitation Status: Full Code
PRN Pain Medication Management As Directed
May give lesser potent ordered pain med per pt: Yes
preference::
Protocol:: Medication orders for pain may be administered in a
manner that supports deferring to patient preference
when the pt is:
- Requesting an ordered lesser potent pain medication.
Least to most potent pain medications are defined
as: acetaminophen < NSAID < tramadol < opioids
(morphine, oxycodone, hydromorphone).
- Requesting a lesser dose of the same medication IF
ORDERED.
- Requesting a less intrusive route of administration
if both routes are prescribed by the provider (PO <
IV).
09/27/24 13:48
0.9% Sodium Chloride [Nss (Preservative Free)] See Protocol IV PRN PRN
FOLic ACID [Folvite] 1 mg 0.9% Sodium Chloride 50 ml [Nss] 50 ml IV DAILYPRN
Lorazepam [Ativan] 1 mg IV Q1HPRN PRN
Lorazepam [Ativan] 1 mg PO Q2HPRN PRN
Lorazepam [Ativan] 2 mg IV Q1HPRN PRN
MSAS SCORE As Directed
MSAS Score 0-4: Repeat MSAS every 2 hours until 0-4 for three consecutive assessments, then every 4 hours x 48
hours.
MSAS Score 5-7: For MILD withdrawl symptoms. Repeat MSAS and RASS every 2 hours
MSAS Score 8-11: For MODERATE withdrawal symptoms. Repeat MSAS and RASS every 1 hour. Consider ICU or IMU
level of care.
MSAS Score > 11: For SEVERE withdrawal symptoms. Repeat MSAS and RASS every 1 hour. Notify provider, consider
ICU level of care.
MSAS Additional Instructions: If no improvement or no decrease in score from severe to moderate within 12
hours, consult psychiatry
MSAS Notify Provider: Notify provider if patient requires more than 10 mg of Lorazepam in eight hour period.
09/27/24 13:49
Phenobarbital Sodium [Phenobarbital] 260 mg 0.9% Sodium Chloride 100 ml [Nss] 100 ml IV NOW
09/27/24 13:52
Add On- LAB Routine
Tests Added?: phos
09/27/24 14:00
0.45% Sodium Chloride 1000 ml [0.45%NaCl] 1,000 ml IV 100 mls/hr
09/27/24 Dinner
Regular
09/27/24 16:48
Ondansetron Injectable [Zofran] 4 mg IV Q6HPRN PRN
09/27/24 16:48
Activity As Directed
Activity Level: As Tolerated
Vital Signs As Directed
Frequency: Per unit guidelines
DX Deep Vein Thrombosis Video Routine
09/27/24 18:00
Enoxaparin Sodium [Lovenox] 40 mg SC QPM
09/27/24 20:00
Thiamine Injection 200 mg IV Q12
09/27/24 22:00
Phenobarbital Sodium [Phenobarbital] 97.5 mg IV TID
09/28/24 06:00
Complete Blood Count/With Diff IN AM
Comprehensive Metabolic Panel IN AM
09/28/24 08:00
FOLic ACID [Folvite] 1 mg PO DAILY
09/29/24 22:00
Phenobarbital [Luminal] 64.8 mg PO TID
09/30/24 11:00
DC Protocol for Telemetry ONCE
09/30/24 20:00
Thiamine HCl [Vitamin B1] 100 mg PO BID
10/01/24 22:00
Phenobarbital [Luminal] 32.4 mg PO TID
Abnormal Lab Results
09/27/24
07:06
MCHC 32.6 L g/dL
(33.0-37.0)
RDW 14.6 H %
(11.5-14.5)
Neutrophils % 38.9 L %
(42.2-75.2)
Eosinophils % 7.4 H %
(0-6)
Sodium 148 H mmol/L
(135-145)
Chloride 110 H mmol/L
(98-107)
Glucose 124 H mg/dl
(70-99)
09/27/24 07:06
09/27/24 07:06
Vital Signs
Initial and Last Documented VS:
Initial Vital Signs
Temp Pulse Resp BP Pulse Ox
98.2 F 113 16 134/97 97
09/27/24 06:57 09/27/24 06:57 09/27/24 06:57 09/27/24 06:57 09/27/24 06:57
Last Documented Vital Signs
Temp Pulse Resp BP Pulse Ox
98.2 F 108 18 138/97 98
09/27/24 06:57 09/27/24 16:00 09/27/24 16:00 09/27/24 16:00 09/27/24 16:00
MDM/Problems Addressed
Differential Diagnosis Includes:
39yoM here for alcohol withdrawal. Last drink last night. C/o nausea and tremors. Seen in ED frequently for the same. HR in the 100-110 range during initial exam. Patient noted to be tremulous. Differential diagnosis includes but is not limited to:
alcohol withdrawal, dehydration, electrolyte abnormality
Initial ED plan: Labs obtained in triage. Sodium 148 and chloride 110. Renal function and LFTs are unremarkable. EKG shows NSR without ischemic changes. Will check magnesium and troponin. IV Zofran, Ativan, and fluid bolus for symptoms. Will consult
[facility].
*EKG
Interpreted by ED Provider?: Yes
EKG Intrepretation Date: 09/27/24
Heart Rate: 98
Rate: normal
Rhythm: sinus
[place]: normal axis
Interval: normal interval
QRS Pattern: normal QRS
Ischemia: no ischemia
*Critical Care Note
Total Time (30-74mins, 75-104mins- exclusive of procedures): Not Applicable
Update Note
Update Note:
Patient evaluated by MIGUEL. He is refusing to go to another facility and only wants to be admitted for detox. He apparently has had a bad experience at [facility] in the past. He is requiring multiple doses of IV Ativan for symptoms. Will
admit for further management.
ED Attending Note
-
Portions of this chart may have been created with voice recognition software.� Occasional wrong word or��sound alike� substitutions may have occurred due to the inherent limitations of voice recognition software.
Discharge Plan
Departure
Patient Disposition: Admit
Date of Disposition: 09/27/24
Time of Disposition: 13:28
Presentation/result/management discussed w/ accepting MD/DO: Hospitalist
Discharge Problem:
Alcohol withdrawal
Interventions
Interventions:
*Risk Screen - Suicide Last Done: 09/27/24 06:57
*General Assessment Last Done: 09/27/24 08:58
*Neglect/Abuse Screening Last Done: 09/27/24 06:57
*ED- Fall Risk Assessment Last Done: 09/27/24 11:12
*ED COVID-19 Vaccine History Last Done: 09/27/24 08:59
*Nursing Disposition Last Done: 09/27/24 16:42
ED- Neurological Assessment Last Done: 09/27/24 09:00
ED-Psychological Assessment Last Done: 09/27/24 09:00
Discharge Date and Time
Discharge Date/Time: 09/27/24 16:42
[2024-09-27] MEDS: ATIVAN 2 MG IV ×2 (09:16→10:31)
[2024-09-27] MEDS: ZOFRAN 4 MG IV (09:16)
[2024-09-27 09:39] LABS: Magnesium 1.7 mg/dl (1.6-2.3)
[2024-09-27 10:36] LABS: Troponin I < 0.012 ng/ml
[2024-09-27] MEDS: ATIVAN 1 MG IV ×2 (11:53→13:35)
--- NOTE | 2024-09-27 13:50 | HPS.HSE ---
Family Physician
-
Family Physician: Xavier Newman
Chief Complaint
-
alcohol withdrawal
History of Present Illness
38-year-old male past medical history of alcohol use disorder, hypertension, anxiety/depression, GERD, presenting with alcohol withdrawal. Last drink was 2 hours ago. She has been drinking very heavily in the past several days and drank 2 pints of
vodka last night. He has nausea and tremors. He had vomiting without diarrhea. No abdominal bloating. He denies any chest pain or palpitations.. Denies hallucinations. He was seen in the emergency room 8 days ago for alcohol withdrawal and was
prescribed Valium taper but did not complete this. Denies history of withdrawal seizures.
He vapes nicotine. No other drug use.
Medical History
Past Medical History
Past Medical History: Reports Other (alcohol use disorder, hypertension, anxiety/depression, GERD)
Past Surgical History: Reports Other (Appendectomy)
Social History
Tobacco: Vaping
Alcohol: Daily
Drug: None
Family History
Family History: Not pertinent
Allergies / Home Medications
Allergies reflects when Allergies were last updated in [facility].
Home Medications with original date entered in [facility]
Allergy/Medication List:
Allergies
Allergy/AdvReac Type Severity Reaction Status Date / Time
No Known Allergies Allergy Verified 09/27/24 06:56
Home Medications
amlodipine 5 mg tablet 5 mg PO DAILY Blood Pressure 05/20/24
escitalopram oxalate 10 mg tablet (Lexapro) 10 mg PO DAILY Mental Health/Anxiety 05/20/24
folic acid 1 mg tablet 1 mg PO DAILY 07/31/24
magnesium oxide 500 mg PO DAILY 07/31/24
thiamine mononitrate (vit B1) 100 mg tablet 100 mg PO DAILY 07/31/24
pantoprazole 40 mg tablet,delayed release 40 mg PO DAILY #30 tabs 08/25/24
phenobarbital 32.4 mg tablet 32.4 mg PO TID #18 tabs 08/25/24
diazepam 10 mg tablet (Valium) See Rx Instructions .Route .COMPLEX #10 tabs 09/19/24
Review of Systems
-
Constitutional: Reports No Symptoms
EENT: Reports No Symptoms
Respiratory: Reports No Symptoms
Cardiac: Reports No Symptoms
Abdomen/GI: Reports See HPI
: Reports No Symptoms
Musculoskeletal: Reports No Symptoms
Skin: Reports No Symptoms
Neurological: Reports No Symptoms
Endocrine: Reports No Symptoms
Hematologic/Lymphatic: Reports No Symptoms
Psych: Reports No Symptoms
Physical Exam
Vital Signs
Vital Signs
Temp Pulse Resp BP Pulse Ox
98.2 F 104 16 117/90 93
09/27/24 06:57 09/27/24 11:00 09/27/24 11:00 09/27/24 11:00 09/27/24 11:00
Physical Exam
General: Well Developed, Well Nourished and No Apparent Distress
HEENT: NormoCephalic, Moist mucous membranes and Atraumatic
Respiratory: Clear
Cardiac: S1/S2 and Regular Rhythm; No Murmur or Rub
GI: Soft, Non Tender, Non Distended and Normal Bowel Sounds; No Organomegaly
Rectal: Deferred by Provider
Musculoskeletal: No Clubbing, No Cyanosis and No Edema
Skin: No Rash
Neuro: Nonfocal/grossly intact
Laboratory Results
-
09/27/24 07:06
09/27/24 07:06
Laboratory Results
Total Bilirubin 0.3 mg/dl (0.2-1.3) 09/27/24 07:06
AST 51 U/L (17-59) 09/27/24 07:06
ALT 44 U/L (0-50) 09/27/24 07:06
Alkaline Phosphatase 56 U/L (38-126) 09/27/24 07:06
Troponin I < 0.012 ng/ml 09/27/24 10:06
Data Reviewed
-
Lab Data: Labs Reviewed by me
Old Records: Reviewed
Impression/Plan
-
IMPRESSION:
PLAN:
# Alcohol withdrawal
# Alcohol use disorder
-IV fluids with half-normal saline
- Thiamine and folate
- Alcohol withdrawal protocol
- Phenobarbital protocol
- Seen by Piero fung but refuses to go to another facility
- Check magnesium, Phos
- Protonix for presumed gastritis
# Hypernatremia secondary to free water losses from vomiting
- Half-normal saline
# Chest pain/palpitations secondary to alcohol withdrawal
- EKG showed normal sinus rhythm
- Troponin negative
Anxiety/depression
- Continue Lexapro
Essential hypertension
- Continue amlodipine
GERD
- Continue Protonix
Nicotine vaper
Full code
DVT prophylaxis�Lovenox
Regular diet
--- NOTE | 2024-09-27 14:27 | CM ---
CM met with pt, well known to [facility]
Pt resides with his father and mother in a 2[address]
His 13 y/o dtr is in home foreign languages department chair
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
Hx with [facility]
Current receives counseling through [facility] and would like to be established with IOP
Referral to MIGUEL/Christos
Discharge Disposition- [facility]
[2024-09-27 14:32] LABS: Phosphorus 3.5 mg/dl (2.5-4.5)
[2024-09-27] MEDS: ATIVAN 1 MG PO (15:39)
[2024-09-27] MEDS: 0.45%NACL IV (17:37)
[2024-09-27] MEDS: PHENOBARBITAL 104 MG IV (17:42)
[2024-09-27] MEDS: LOVENOX 40 MG SC (17:50)
[2024-09-27] MEDS: THIAMINE INJECTION 200 MG IV (20:15)
[2024-09-27] MEDS: 0.45%NACL 1000 IV (20:20)
[2024-09-27] MEDS: PHENOBARBITAL 97.5 MG IV (21:13)
[2024-09-27] MEDS: TYLENOL 650 MG PO (21:19)
[2024-09-28 03:19] VITALS: BP 124/81
[2024-09-28] MEDS: ATIVAN 1 MG PO (05:26)
[2024-09-28] MEDS: 0.45%NACL 1000 IV (05:39)
[2024-09-28 07:25] VITALS: BP 141/97
[2024-09-28 07:59] LABS: % Eosinophils 4.6 % (0-6); % Immature Granulocytes 0.3 % (0-0.5); % Lymphocytes 24.4 % (20.5-51.1); % Monocytes 11.3 % (1.7-9.3); % Neutrophils 58.4 % (42.2-75.2); Absolute Basophils 0.1 10^3/uL (0-0.2); Absolute Eosinophils 0.3 10^3/uL (0-0.7); Absolute Lymphocytes 1.7 10^3/uL (1.2-3.4); Absolute Monocytes 0.8 10^3/uL (0.1-0.6); Hematocrit 35.1 % (39.0-52.0); Hemoglobin 11.6 g/dL (13.0-18.0); Mean Corpuscular Hgb 28.1 pg (27.0-31.0); Mean Platelet Volume 10.5 fL (7.4-10.4); Nucleated Red Blood Cells % 0 % (-); Platelet Count 246 10^3/uL (130-400); Red Blood Cell Count 4.13 10^6/uL (4.70-6.10); Red Cell Dist. Width 14.2 % (11.5-14.5); White Blood Cell Count 6.9 10^3/uL (4.8-10.8)
[2024-09-28] MEDS: THIAMINE INJECTION 200 MG IV ×2 (08:10→21:09)
[2024-09-28] MEDS: PHENOBARBITAL 97.5 MG IV ×3 (08:13→21:09)
[2024-09-28] MEDS: FOLVITE 1 MG PO (08:13)
[2024-09-28] MEDS: LEXAPRO 10 MG PO (09:31)
[2024-09-28] MEDS: NORVASC 5 MG PO (09:31)
[2024-09-28 09:50] LABS: ALT (SGPT) 33 U/L (0-50); AST (SGOT) 33 U/L (17-59); Albumin 3.8 g/dl (3.5-5.0); Alkaline Phosphatase 57 U/L (38-126); Blood Urea Nitrogen 10 mg/dl (9-20); Calcium 8.6 mg/dl (8.4-10.2); Carbon Dioxide 27 mmol/L (22-30); Chloride 105 mmol/L (98-107); Estimated Creatinine Clearance > 125 ml/min; Glucose 108 mg/dl (70-99); Potassium 3.9 mmol/L (3.5-5.1); Sodium 136 mmol/L (135-145); Total Bilirubin 1.1 mg/dl (0.2-1.3); Total Protein 6.4 g/dl (6.3-8.2); eGFR > 60.00
--- NOTE | 2024-09-28 10:41 | CM ---
Spoke w/ Christos/MIGUEL, who is familiar w/ patient and has placed patient in an inpatient D&A rehab before. Per Christos, patient only wants to detox in the hospital, does not want to detox at a facility or engage in inpatient rehab. Patient plans to
resume OP services at [facility], has plans to transition to IOP.
Plan: Home, will resume services at [facility]
[2024-09-28 11:36] VITALS: BP 137/93
[2024-09-28] MEDS: TYLENOL 650 MG PO (11:36)
[2024-09-28 15:20] VITALS: BP 135/96
--- NOTE | 2024-09-28 15:22 | W.PN.HOSP.TC ---
Addendum entered and electronically signed by Jey Baez MD 09/29/24 13:43:
38 male history of alcohol use disorder, hypertension, anxiety depression, GERD presenting with alcohol withdrawal. Last drink prior to admission was 2 hours. Previous night had 2 pints of vodka. Has associated nausea tremors.
Alcohol use disorder with withdrawal
IV fluids
Thiamine folate
CIWA protocol/MSAS protocol
Phenobarbital protocol
PPIs
Chest pain and tachycardia which is likely related to alcohol withdrawal
EKG nonischemic
Troponin negative
Hypernatremia
Expect to improve with IV fluids
Anxiety depression
Continue Lexapro
Hypertension
Continue amlodipine
GERD
Continue ppi
Original Note:
Today's Communication/Plan
-
PT/OT
Continue phenobarbital taper
Monitor blood pressure
Assessment / Plan
Assessment / Plan
Impression
Patient is a 39-year-old male, history of alcohol use disorder, last remained sober for 1 month and then relapsed with heavy drinking for a week due to boredom and anxiety. His brother also had alcohol use disorder and has been sober for a year.
Patient has a 13-year-old daughter, the daughter and his brother are the motivation for him to bring changes. Seen by [facility]g but refuses to go to a facility as he feels that he would like to talk to his therapist at [facility]. Recently lost
his car, did not explain the reasons. Patient appears in denial regarding his alcohol use.
Admitted for alcohol withdrawal, chest pain/palpitations secondary to alcohol withdrawal and slight hypernatremia.
On admission, he had vomiting and chest palpitations. Now he denies any vomiting, nausea, chest palpitations, shortness of breath or balance issues. He denies any hallucinations or crawling sensations over his skin but feels a little bit tremulous.
Assessment/plan
1. Alcohol use disorder/alcohol withdrawal
Continue phenobarbital protocol
Continue thiamine and folate
Patient insist that he would leave by Thursday since he has commitments
Continue monitoring magnesium and potassium levels
Did not complete valium taper during his last admission
2. Chest pain/palpitations secondary to alcohol withdrawal
EKG done in the ER shows normal sinus rhythm and normal rate with no acute abnormalities
Today patient denies any pain in the chest, shortness of breath, palpitations
3.Hypernatremia
Presented with sodium level of 148
Most likely secondary to vomiting repeatedly
Today's sodium is 136
Continue to monitor
Other stable medical conditions
Essential kyjkvnnijjvl-eyoopp-gjzswjbe home medications as able
Anxiety/depression-continue Accocby-lseirs-xg with PCP on outpatient basis
GERD-continue PPI
CODE STATUS-full code
DVT prophylaxis-enoxaparin
Anticipated Discharge: 24 - 48 hours
Subjective/Interval History
-
Date of Service: September 28, 2024
Patient denies any hallucinations, confusion, visual disturbances, gait disturbances, sensation of crawl over skin
Has some tremors
Objective Data
-
Labs:
Laboratory Results
09/28/24
07:12
WBC 6.9
Hgb 11.6 L
Hct 35.1 L
Plt Count 246 D
Sodium 136 D
Potassium 3.9
Chloride 105
Carbon Dioxide 27
BUN 10
Creatinine 0.7
Glucose 108 H
Calcium 8.6
Total Bilirubin 1.1
AST 33
ALT 33
Alkaline Phosphatase 57
Vital Signs:
Vital Signs
Temp Pulse Resp BP Pulse Ox
98.0 F 80 18 137/93 97
09/28/24 11:36 09/28/24 11:36 09/28/24 11:36 09/28/24 11:36 09/28/24 11:36
Review of Systems
-
All other systems: Reviewed and negative
Physical Exam
-
General: Well Developed, Well Nourished and No Apparent Distress
HEENT: Moist Mucous Membranes and Anicteric
Respiratory: Clear to Auscultation; Negative Wheezes, Rales or Rhonchi
Cardiac: Regular Rhythm and S1/S2; Negative Murmur, Rub or Gallop
GI: Soft, Nontender, Nondistended and Normal Bowel Sounds
Musculoskeletal: No Clubbing, No Cyanosis and No Edema
Skin: Warm and Dry
Neuro: Awake, Oriented, Tremors and Nonfocal/Grossly Intact
Psych: Calm and Intact Judgement/Insight
[2024-09-28] MEDS: LOVENOX 40 MG SC (17:34)
[2024-09-28 19:33] VITALS: BP 135/86
[2024-09-28] MEDS: 0.45%NACL IV (21:01)
[2024-09-28 23:50] VITALS: BP 128/88
[2024-09-29 03:45] VITALS: BP 129/91
[2024-09-29] MEDS: TYLENOL 650 MG PO ×2 (04:10→10:17)
--- NOTE | 2024-09-29 07:18 | W.PN.HOSP.TC ---
Addendum entered and electronically signed by Jey Baez MD 09/29/24 13:44:
38 male history of alcohol use disorder, hypertension, anxiety depression, GERD presenting with alcohol withdrawal. Last drink prior to admission was 2 hours. Previous night had 2 pints of vodka. Has associated nausea tremors.
Alcohol use disorder with withdrawal
IV fluids
Thiamine folate
CIWA protocol/MSAS protocol
Phenobarbital protocol
PPIs
Chest pain and tachycardia which is likely related to alcohol withdrawal
EKG nonischemic
Troponin negative
Hypernatremia
Expect to improve with IV fluids
Anxiety depression
Continue Lexapro
Hypertension
Continue amlodipine
GERD
Continue ppi
He wants to go home today. 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 He does not want to stay in the hospital any further. I informed him that he is on a phenobarb taper and this is typically near
impossible especially as that he has been previously discharged with phenobarb taper and went back to using alcohol not too long ago. He states that he understands and he will be in touch with his sponsor/counselor at [facility] as soon as he gets out of
here. He understands that he cannot use phenobarbital with alcohol and he should not operate heavy machinery when using phenobarbital.
Original Note:
Today's Communication/Plan
-
Pointing Machine Operator the patient about importance of refraining from alcohol while being on phenobarbital taper
PT/OT
Patient insists on discharge, discharge planning
Assessment / Plan
Assessment / Plan
Impression
Patient is a 39-year-old male, history of alcohol use disorder, last remained sober for 1 month and then relapsed with heavy drinking for a week due to boredom and anxiety. His brother also had alcohol use disorder and has been sober for a year.
Patient has a 13-year-old daughter, the daughter and his brother are the motivation for him to bring changes. Seen by [facility] but refuses to go to a facility as he feels that he would like to talk to his therapist at [facility]. Recently lost
his car, did not explain the reasons. Patient appears in denial regarding his alcohol use.
Admitted for alcohol withdrawal, chest pain/palpitations secondary to alcohol withdrawal and slight hypernatremia.
On admission, he had vomiting and chest palpitations. Now he denies any vomiting, nausea, chest palpitations, shortness of breath or balance issues. He denies any hallucinations or crawling sensations over his skin but feels a little bit tremulous.
Assessment/plan
1. Alcohol use disorder/alcohol withdrawal
Continue phenobarbital protocol
Continue thiamine and folate
Patient insists about discharge today, denies any hallucinations, tremors, crawling sensations
Magnesium 1.7, potassium 4.3
Did not complete valium taper during his last admission
Emphasized importance of abstaining from alcohol while being on phenobarbital taper
2. Chest pain/palpitations secondary to alcohol withdrawal
EKG done in the ER shows normal sinus rhythm and normal rate with no acute abnormalities
Today patient denies any pain in the chest, shortness of breath, palpitations
QTc interval 430 ms
3.Hypernatremia
Presented with sodium level of 148
Most likely secondary to vomiting repeatedly
Sodium 138
Continue to monitor
Other stable medical conditions
Essential nwjccwsaldgx-hhpwuy-euduasbg home medications as able
Anxiety/depression-continue Yiawwwz-rxslia-nk with PCP on outpatient basis
GERD-continue PPI
dairy frozen manager spoke to Christos/[facility]UEL, who is familiar w/ patient and has placed patient in an inpatient D&A rehab before. Per Christos, patient only wants to detox in the hospital, does not want to detox at a facility or engage in inpatient rehab.
Patient plans to resume OP services at [facility], has plans to transition to IOP.
Plan: Home, will resume services at [facility]
CODE STATUS-full code
DVT prophylaxis-enoxaparin
Anticipated Discharge: 24 - 48 hours
Subjective/Interval History
-
Date of Service: September 29, 2024
Objective Data
-
Labs:
Laboratory Results
09/29/24
07:17
WBC Pending
Hgb Pending
Hct Pending
Plt Count Pending
Sodium Pending
Potassium Pending
Chloride Pending
Carbon Dioxide Pending
BUN Pending
Creatinine Pending
Glucose Pending
Calcium Pending
Vital Signs:
Vital Signs
Temp Pulse Resp BP Pulse Ox
97.5 F 71 16 129/91 100
09/29/24 03:45 09/29/24 03:45 09/29/24 03:45 09/29/24 03:45 09/29/24 03:45
I&O
09/28/24 09/29/24 09/30/24
06:59 06:59 06:59
Intake Total 1200 / 1200
Balance 1200 / 1200
Review of Systems
-
All other systems: Reviewed and negative
Physical Exam
-
General: Well Developed, Well Nourished and No Apparent Distress
HEENT: Moist Mucous Membranes and Anicteric
Respiratory: Clear to Auscultation; Negative Wheezes, Rales or Rhonchi
Cardiac: Regular Rhythm and S1/S2; Negative Murmur, Rub or Gallop
GI: Soft, Nontender and Normal Bowel Sounds
Musculoskeletal: No Clubbing, No Cyanosis and No Edema
Neuro: Awake, Oriented, Tremors and Nonfocal/Grossly Intact
Psych: Calm
[2024-09-29 07:50] VITALS: BP 130/91
[2024-09-29 08:40] LABS: % Basophils 0.9 % (0-2); % Eosinophils 6.5 % (0-6); % Immature Granulocytes 0.3 % (0-0.5); % Lymphocytes 24.7 % (20.5-51.1); % Monocytes 7.6 % (1.7-9.3); Absolute Basophils 0.1 10^3/uL (0-0.2); Absolute Eosinophils 0.4 10^3/uL (0-0.7); Absolute Lymphocytes 1.6 10^3/uL (1.2-3.4); Absolute Monocytes 0.5 10^3/uL (0.1-0.6); Absolute Neutrophils 3.9 10^3/uL (1.4-6.5); Hematocrit 36.8 % (39.0-52.0); Hemoglobin 12.2 g/dL (13.0-18.0); Mean Corp Hgb Conc. 33.2 g/dL (33.0-37.0); Mean Corpuscular Hgb 27.7 pg (27.0-31.0); Mean Corpuscular Volume 83.4 fL (80.0-94.0); Mean Platelet Volume 10.4 fL (7.4-10.4); Nucleated Red Blood Cells % 0 % (-); Platelet Count 260 10^3/uL (130-400); Red Blood Cell Count 4.41 10^6/uL (4.70-6.10); Red Cell Dist. Width 14.2 % (11.5-14.5); White Blood Cell Count 6.5 10^3/uL (4.8-10.8)
[2024-09-29] MEDS: FOLVITE 1 MG PO (08:45)
[2024-09-29] MEDS: LEXAPRO 10 MG PO (08:45)
[2024-09-29] MEDS: NORVASC 5 MG PO (08:45)
[2024-09-29] MEDS: PHENOBARBITAL 97.5 MG IV ×2 (08:46→15:02)
[2024-09-29] MEDS: THIAMINE INJECTION 200 MG IV (08:46)
[2024-09-29 08:51] LABS: Blood Urea Nitrogen 6 mg/dl (9-20); Calcium 9.3 mg/dl (8.4-10.2); Carbon Dioxide 25 mmol/L (22-30); Chloride 106 mmol/L (98-107); Estimated Creatinine Clearance > 125 ml/min; Glucose 121 mg/dl (70-99); Magnesium 1.7 mg/dl (1.6-2.3); Potassium 4.3 mmol/L (3.5-5.1); Sodium 138 mmol/L (135-145); eGFR > 60.00
[2024-09-29] MEDS: ATIVAN 1 MG PO (10:14)
--- NOTE | 2024-09-29 10:47 | W.DCSUMMARY ---
Discharge Summary
Discharge Data
Date of Admission: 09/27/24
Date of Discharge: 09/29/24
-
Pending Results: No
Hospital Course
Discharging Physician :
Jey Baez
Disposition :
Home
Primary care physician :
Xavier Newman MD
Principal Discharge diagnosis :
Alcohol use disorder/alcohol withdrawal/hypernatremia
Chronic Discharge diagnosis :
Essential hypertension
Anxiety/depression
GERD
Hospital Course :
Patient is a 39-year-old male, history of alcohol use disorder, last remained sober for 1 month and then relapsed with heavy drinking for a week due to boredom and anxiety. His brother also had alcohol use disorder and has been sober for a year.
Patient has a 13-year-old daughter, the daughter and his brother are the motivation for him to bring changes. Seen by Piero fung but refuses to go to a facility as he feels that he would like to talk to his therapist at [facility]. Recently lost
his car, did not explain the reasons. Patient appears in denial regarding his alcohol use.
Admitted for alcohol withdrawal, chest pain/palpitations secondary to alcohol withdrawal and slight hypernatremia.
On admission, he had vomiting and chest palpitations. Now he denies any vomiting, nausea, chest palpitations, shortness of breath or balance issues. He denies any hallucinations or crawling sensations over his skin but feels a little bit tremulous.
Emphasized importance of abstaining from alcohol while being on phenobarbital taper,
Patient demonstrates understanding
Insists on discharge as he has no symptoms, denies any hallucinations, tremors, crawling sensations blood pressure and pulse normal
Plan discharge on phenobarbital taper
He also had mild hyponatremia on admission most likely secondary to free water loss secondary to vomiting, patient's sodium levels stable on discharge
Piero fung reached out to the patient but he does not want to detox at the facility or engage in rehab and would like to resume outpatient services at [facility]
Discharge Plan
-
Patient Disposition: Home (Routine Discharge)
Discharge Diagnosis/Procedures: Alcohol use disorder/alcohol withdrawal
Condition: Fair
Diet: Regular
Activity: As tolerated
Driving Restrictions: As prior to admission
Referrals:
Xavier Newman MD [Family Provider] - in less than 1 week
Prescriptions:
New
phenobarbital 32.4 mg tablet
See Rx Instructions .ROUTE .COMPLEX Qty: 14 0RF
Rx Instructions:
64.8mg 2tabs in the AM & PM for 2 days
32.4mg tab in the AM & PM for 2 days
32.4mg tab in the AM for 2days
Continued
amlodipine 5 mg Tablet
5 mg PO DAILY
escitalopram oxalate [Lexapro] 10 mg Tablet
10 mg PO DAILY
thiamine mononitrate (vit B1) 100 mg tablet
100 mg PO DAILY
pantoprazole 40 mg tablet,delayed release (DR/EC)
40 mg PO DAILY Qty: 30 0RF
Discharge Orders:
Discharge Patient (As Directed); Ordered 09/29/24
Ordered By: Jonah Hernandez
Discharge Date and Time
Print Language: CAPE VERDEAN
[2024-09-29 11:06] VITALS: BP 149/95; PULSE 80; O2SAT 100
[2024-09-29 11:33] VITALS: BP 130/60
--- NOTE | 2024-09-29 11:33 | CM ---
Chart reviewed, patient insisting on d/c. D/c order placed
Therapy assessed, no skilled needs
No CM needs at this time
Plan: Home, resume services at [facility]
[2024-09-29 15:08] VITALS: BP 138/97
== END 2024-09-29 15:43 | disposition home or self-care (01) | DRG 897 ==
LOC: 4 EAST ACU 14:05
PROVIDERS: Physician Assistant; ADMITTING PHYSICIAN Hospitalist; ATTENDING PHYSICIAN Hospitalist; EMERGENCY PHYSICIAN Emergency Medicine; FAMILY PHYSICIAN Family Medicine
DX: F10.239 Alcohol dependence with withdrawal, unspecified (principal); E87.0 Hyperosmolality and hypernatremia; E87.1 Hypo-osmolality and hyponatremia; F41.9 Anxiety disorder, unspecified; F32.A Depression, unspecified; K21.9 Gastro-esophageal reflux disease without esophagitis; I10 Essential (primary) hypertension; F17.290 Nicotine dependence, other tobacco product, uncomplicated; G43.909 Migraine, unspecified, not intractable, without status migrainosus
CPT/HCPCS: 80048; 80053; 83735; 84100; 84484; 85025; 93005; 96374; 96375; 96376; 97161; 99284

== ENCOUNTER 2024-11-04 23:20 | Emergency (ER) | payer OTHER, SELFPAY ==
[2024-11-04 23:32] VITALS: BP 137/96
--- NOTE | 2024-11-04 23:46 | EDRN ---
of beer. Pt has detoxed before and has termers and no seizures. Pt has a hx of high BP. Pt last detox admission at [facility] in [place]
[2024-11-04 23:51] VITALS: BP 138/101
[2024-11-05] VITALS (12 sets, daily range): BP systolic 115–136; BP diastolic 76–99; BMI 26.0
[2024-11-05] MEDS: ZOFRAN ODT (ORALLY DISINTEGRATING) 4 MG PO ×3 (02:03→12:06)
[2024-11-05] MEDS: ATIVAN 1 MG PO ×5 (02:04→12:06)
--- NOTE | 2024-11-05 07:52 | ED.GENMED ---
History of Present Illness
General
Chief Complaint: Alcohol Problem
Source: patient and previous hospital records (Recent hospitalizations for recurrent alcohol withdrawal most recently September of this year.)
Exam Limitations: none
Time Seen by Provider: 11/05/24 04:19
Nursing documentation reviewed up to this point in time: agreed with
History of Present Illness
History of Present Illness:
This is a 39-year-old gentleman with longstanding history of alcohol use disorder, history of hypertension, anxiety/depression, GERD. Several recent hospitalization for alcohol withdrawal and underwent inpatient alcohol detox for 5 days
approximately 2 weeks ago. He admits to declining 28-day additional program and since discharge to home he has been drinking steadily on a daily basis. Reportedly consumes 1 to 2 pints of vodka per day.
He presents to the ED requesting treatment for alcohol detox.
He admits to nausea but has had no vomiting. He admits to feeling tremulous.
He denies hallucinations. No falls or injuries.
He vapes nicotine.
He denies drug use.
Past History
Past History
ED Past Medical History: GERD, HTN, Psychiatric (Anxiety, Depression, alcoholism) and Other (epididymitis L testicle, kidney stones, PNA, Renal calculus, Migraines, alcoholism, PNA, Pancreatitis, )
ED Past Surgical History: Appendectomy
Social History
Tobacco: Vaping (Quit 2020 now vapes)
Alcohol: Daily (12 pack of beer or bottle of vodka)
Drug: None
Personal: Single
Living: alone
Employment: Employed
Family History
Family History: Other
Phy Exam
Physical Exam
Physical Exam:
GENERAL: 39-year-old gentleman appears somewhat older than stated age, awake and alert, easily communicative, appears in no acute distress.
EYE: pupils equal and reactive. anicteric
NECK: Supple, nontender, no meningismus, no significant adenopathy.
ENT: oral mucosa is moist. No rhinorrhea.
CARDIAC: Regular rhythm, mildly tachycardic. no murmur.
LUNGS: Clear breath sounds bilaterally, no acute respiratory distress, no wheezes/rales/rhonchi
ABDOMEN: Soft, nondistended, without focal tenderness, no r/g, no cvat. normoactive BS.
NEUROLOGICAL: Alert and oriented x3, no focal neuro deficits. Gait is salazar and steady. Hands are intermittently minimally tremulous.
SKIN: Warm and dry, normal color, skin intact. No rash.
MUSCULOSKELETAL: No C/C/E. peripheral pulses are full and equal b/l. No palpable tenderness.
PSYCH: Normal and appropriate interaction.
Scores
Withdrawal Assessment of Alcohol
Withdrawal Assessment Completed?: Yes
Nausea and Vomiting: Mild nausea with no vomiting
Tactile Disturbances: None
Tremor: No tremor
Auditory Disturbances: Not present
Paroxysmal Sweats: Beads of sweat obvious on forehead
Visual Disturbances: Not present
Anxiety: No anxiety, at ease
Headache, Fullness in Head: Not present
Agitation: Normal activity
Orientation and clouding of sensorium: Oriented and can do serial additions
Total CIWA Score: 5
Alcohol Withdrawal Medication Recommendation: Equal to MSAS Score 0-4. Monitor & re-assess q2hrs, NO MEDICATION NEEDED
Course
Orders/Labs/Results
Orders:
Orders
11/05/24 02:00
Ondansetron Orally Disint [Zofran Odt (Orally Disintegrating)] 4 mg .ROUTE .STK-MED ONE
11/05/24 02:01
Lorazepam [Ativan] 1 mg .ROUTE .STK-MED ONE
11/05/24 02:03
Ondansetron Orally Disint [Zofran Odt (Orally Disintegrating)] 4 mg PO NOW STA
11/05/24 02:04
Lorazepam [Ativan] 1 mg PO NOW STA
11/05/24 03:39
Lorazepam [Ativan] 1 mg PO NOW STA
11/05/24 04:22
Ondansetron Orally Disint [Zofran Odt (Orally Disintegrating)] 4 mg .ROUTE .STK-MED ONE
Ondansetron Orally Disint [Zofran Odt (Orally Disintegrating)] 4 mg PO NOW STA
11/05/24 05:53
Lorazepam [Ativan] 1 mg .ROUTE .STK-MED ONE
11/05/24 05:57
Lorazepam [Ativan] 1 mg PO NOW STA
11/05/24 07:21
Lorazepam [Ativan] 1 mg PO NOW STA
11/05/24 08:16
Lorazepam [Ativan] 2 mg IV NOW STA
11/05/24 08:23
Alcohol Urgent
Complete Blood Count/With Diff Urgent
Comprehensive Metabolic Panel Urgent
Magnesium Urgent
Phosphorus Urgent
Prothrombin Time Urgent
11/05/24 08:30
Phenobarbital Sodium [Phenobarbital] 260 mg 0.9% Sodium Chloride 100 ml [Nss] 100 ml IV NOW
11/05/24 09:00
0.9% Sodium Chloride 1000 ml [Nss] 1,000 ml Mvi, Adult [Multivitamin] 10 ml Thiamine Injection 100 mg IV 500 mls/hr
11/05/24 11:48
Lorazepam [Ativan] 1 mg PO NOW STA
11/05/24 12:03
Ondansetron Orally Disint [Zofran Odt (Orally Disintegrating)] 4 mg .ROUTE .STK-MED ONE
11/05/24 12:05
Ondansetron Orally Disint [Zofran Odt (Orally Disintegrating)] 4 mg PO NOW STA
Abnormal Lab Results
11/05/24
08:23
MCV 79.1 L fL
(80.0-94.0)
MCH 26.2 L pg
(27.0-31.0)
RDW 15.6 H %
(11.5-14.5)
Plt Count 401 H 10^3/uL
(130-400)
Absolute Neuts (auto) 7.5 H 10^3/uL
(1.4-6.5)
Lymphocytes % 18.7 L %
(20.5-51.1)
Chloride 97 L mmol/L
(98-107)
Glucose 106 H mg/dl
(70-99)
Total Protein 8.6 H g/dl
(6.3-8.2)
Albumin 5.2 H g/dl
(3.5-5.0)
11/05/24 08:23
11/05/24 08:23
Vital Signs
Initial and Last Documented VS:
Initial Vital Signs
Temp Pulse Resp BP Pulse Ox
98.3 F 128 18 137/96 100
11/04/24 23:32 11/04/24 23:32 11/04/24 23:32 11/04/24 23:32 11/04/24 23:32
Last Documented Vital Signs
Temp Pulse Resp BP Pulse Ox
98.8 F 108 21 125/85 96
11/05/24 10:00 11/05/24 11:00 11/05/24 11:00 11/05/24 11:00 11/05/24 11:00
MDM/Problems Addressed
Differential Diagnosis Includes:
Longstanding history of alcohol abuse, binge drinking presents for assistance with alcohol withdrawal, alcohol rehab.
Recent discharge from inpatient rehab 2 weeks ago.
Will treat with intermittent doses of Ativan, Zofran.
He has had no vomiting. No evidence of significant withdrawal symptoms at this point.
Tolerating oral fluids thus no indication for IV fluids.
Call placed to [facility] manager recovery.
Chronic conditions affecting care: HTN and Other (Alcohol abuse)
Acute Exacerbation and/or Progression of Chronic Illness: Other (Alcohol abuse )
*Pulse Oximetry
SaO2: 95
Oxygen Mode of Delivery: Room air
Patient hypoxic: no
*[employer] Interpretation
Rate: tachycardiac
Interpretation: abnormal
Rhythm: sinus
*Critical Care Note
Total Time (30-74mins, 75-104mins- exclusive of procedures): Not Applicable
Update Note
Update Note:
I have spoken with [facility] manager recovery, Rahul. He knows this patient well and assisted with alcohol rehab admission and transfer 2 weeks ago.
Will be in to evaluate patient this morning around 8/9 AM.
08:15
Patient more tachycardic, much more tremulous.
Intermittent nausea but has had no vomiting.
Will initiate IV fluids, IV Ativan and will give an IV dose of phenobarb as well.
Awaiting [facility] arrival.
ED Attending Note
-
Portions of this chart may have been created with voice recognition software.� Occasional wrong word or��sound alike� substitutions may have occurred due to the inherent limitations of voice recognition software.
Discharge Plan
Departure
Patient Disposition: Acute Rehab Facility
Date of Disposition: 11/05/24
Time of Disposition: 08:04
Patient with high blood pressure during this ER visit?: No
Discharge Problem:
Alcohol withdrawal syndrome, Alcohol abuse
Prescriptions:
No Action
amlodipine 5 mg Tablet
5 mg PO DAILY
escitalopram oxalate [Lexapro] 10 mg Tablet
10 mg PO DAILY
thiamine mononitrate (vit B1) 100 mg tablet
100 mg PO DAILY
pantoprazole 40 mg tablet,delayed release (DR/EC)
40 mg PO DAILY Qty: 30 0RF
phenobarbital 32.4 mg tablet
See Rx Instructions .ROUTE .COMPLEX Qty: 14 0RF
Rx Instructions:
64.8mg 2tabs in the AM & PM for 2 days
32.4mg tab in the AM & PM for 2 days
32.4mg tab in the AM for 2days
Referrals:
Xavier Newman MD [Family Provider, Family Practice]
Interventions
Interventions:
*Risk Screen - Suicide Last Done: 11/04/24 23:32
*General Assessment Last Done: 11/04/24 23:32
*Neglect/Abuse Screening Last Done: 11/04/24 23:32
*ED- Fall Risk Assessment Last Done: 11/04/24 23:41
*ED COVID-19 Vaccine History Last Done: 11/04/24 23:41
*Nursing Disposition Last Done: 11/05/24 12:10
ED- Neurological Assessment Last Done: 11/04/24 23:41
ED-Psychological Assessment Last Done: 11/04/24 23:41
Discharge Date and Time
Discharge Date/Time: 11/05/24 12:10
Print Language: DJIBOUTIAN
[2024-11-05] MEDS: ATIVAN 2 MG IV (08:23)
[2024-11-05 08:38] LABS: % Basophils 1.4 % (0-2); % Eosinophils 0.8 % (0-6); % Immature Granulocytes 0.2 % (0-0.5); % Lymphocytes 18.7 % (20.5-51.1); % Monocytes 4.7 % (1.7-9.3); % Neutrophils 74.2 % (42.2-75.2); Absolute Basophils 0.1 10^3/uL (0-0.2); Absolute Eosinophils 0.1 10^3/uL (0-0.7); Absolute Lymphocytes 1.9 10^3/uL (1.2-3.4); Absolute Monocytes 0.5 10^3/uL (0.1-0.6); Absolute Neutrophils 7.5 10^3/uL (1.4-6.5); Hematocrit 40.2 % (39.0-52.0); Hemoglobin 13.3 g/dL (13.0-18.0); Mean Corp Hgb Conc. 33.1 g/dL (33.0-37.0); Mean Corpuscular Hgb 26.2 pg (27.0-31.0); Mean Corpuscular Volume 79.1 fL (80.0-94.0); Mean Platelet Volume 9.4 fL (7.4-10.4); Nucleated Red Blood Cells % 0 % (-); Platelet Count 401 10^3/uL (130-400); Red Blood Cell Count 5.08 10^6/uL (4.70-6.10); Red Cell Dist. Width 15.6 % (11.5-14.5); White Blood Cell Count 10.1 10^3/uL (4.8-10.8)
[2024-11-05 08:47] LABS: INR 1.08; PT 14.3 Sec (11.4-14.6)
[2024-11-05] MEDS: PHENOBARBITAL 104 MG IV (09:05)
[2024-11-05 09:11] LABS: ALT (SGPT) 22 U/L (0-50); AST (SGOT) 26 U/L (17-59); Albumin 5.2 g/dl (3.5-5.0); Alcohol 14 mg/dl; Alkaline Phosphatase 76 U/L (38-126); Blood Urea Nitrogen 11 mg/dl (9-20); Calcium 9.3 mg/dl (8.4-10.2); Carbon Dioxide 23 mmol/L (22-30); Chloride 97 mmol/L (98-107); Estimated Creatinine Clearance > 125 ml/min; Glucose 106 mg/dl (70-99); Phosphorus 4.1 mg/dl (2.5-4.5); Potassium 4.5 mmol/L (3.5-5.1); Sodium 136 mmol/L (135-145); Total Protein 8.6 g/dl (6.3-8.2); eGFR > 60.00
[2024-11-05] MEDS: MULTIVITAMIN 1011 ML IV (09:27)
[2024-11-05] MEDS: MULTIVITAMIN 1011 MG IV (09:27)
== END 2024-11-05 12:10 ==
LOC: EMR 23:20
PROVIDERS: EMERGENCY PHYSICIAN Emergency Medicine; FAMILY PHYSICIAN Family Medicine
DX: F10.239 Alcohol dependence with withdrawal, unspecified (principal); F41.8 Other specified anxiety disorders; F17.290 Nicotine dependence, other tobacco product, uncomplicated; Y90.9 Presence of alcohol in blood, level not specified; Z87.442 Personal history of urinary calculi; Z90.49 Acquired absence of other specified parts of digestive tract
CPT/HCPCS: 99283; 80053; 82077; 83735; 84100; 85025; 85610

== ENCOUNTER 2025-03-02 07:52 | Emergency (ER) | payer OTHER, SELFPAY ==
[2025-03-02 08:02] VITALS: BP 115/76
[2025-03-02 08:13] VITALS: BMI 25.8
[2025-03-02] MEDS: LET TOPICAL ANESTHETIC GEL 3 ML TOPICAL (09:08)
--- NOTE | 2025-03-02 09:42 | ED.GENMED ---
History of Present Illness
General
Chief Complaint: Fall
Time Seen by Provider: 03/02/25 08:14
History of Present Illness
History of Present Illness:
45 shaft falling off a scooter earlier today at work. He was able to go on a scooter trip to work but came to the hospital due to multiple wounds. Denies LOC. Was not helmeted when he fell. Lives with abrasions to the left forehead, laceration
to the right lower chin. Denies any neck pain or extremity paresthesias. Does not take any blood thinners
Past History
Past History
ED Past Medical History: GERD, HTN, Psychiatric (Anxiety, Depression, alcoholism) and Other (epididymitis L testicle, kidney stones, PNA, Renal calculus, Migraines, alcoholism, PNA, Pancreatitis, )
ED Past Surgical History: Appendectomy
Social History
Tobacco: Vaping (Quit 2020 now vapes)
Alcohol: Daily (12 pack of beer or bottle of vodka)
Drug: None
Personal: Single
Living: alone
Employment: Employed
Family History
Family History: Other
Review of Systems
Review of Systems
Allergies reviewed?: Yes
All Other Systems: ROS reviewed and negative except as documented in HPI and ROS
Phy Exam
Physical Exam
Physical Exam:
GEN: Well appearing, NAD, WDWN
HEENT: Oral mucosa moist, no scleral icterus, no nasal congestion. 1 cm laceration to the right lower lip that does not cross the vermilion border. There is an additional 1 cm laceration to the right lower extremity with minimal active bleeding.
No ecchymosis. No midline cervical spine tenderness. There is a minor abrasion to the right forehead with no cephalohematoma
Cardiac: Regular rate
Lung: No respiratory distress, no tachypnea
MSK: No gross deformity or injuries
Skin: Good color, no pallor or jaundice, no rashes
Neuro: AO x3; CN II-XII grossly intact. BUE strength 5/5 in all moss, sensation intact and symmetric. BLE strength 5/5 in all moss, sensation intact and symmetric
Psych: Calm, cooperative
Course
Orders/Labs/Results
Orders:
Orders
03/02/25 08:33
Lidocaine/Epinephrine/Tetracai [Let Topical Anesthetic Gel] 3 ml TOPICAL NOW STA
CR Ribs-right 3 Vw W/pa Chest* Urgent
Comment:
Reason For Exam: fall off scooter
Vital Signs
Initial and Last Documented VS:
Initial Vital Signs
Temp Pulse Resp BP Pulse Ox
98.0 F 70 16 115/76 98
03/02/25 08:02 03/02/25 08:02 03/02/25 08:02 03/02/25 08:02 03/02/25 08:02
Last Documented Vital Signs
Temp Pulse Resp BP Pulse Ox
98.0 F 70 16 119/84 98
03/02/25 08:02 03/02/25 08:02 03/02/25 08:02 03/02/25 10:07 03/02/25 09:44
Procedures
Laceration Closure
Right lower lip:
Status of Wound: clean
Size of Wound in cm: 1
Description of Wound Edges: sharp
Preparation: cleaned with saline
Anesthesia: Topical-LET
Type of Closure: layered closure and Dermabond-skin glue
Skin Closure Material: 5-0 chromic gut
Number of sutures: 2
Right lower chin:
Status of Wound: clean
Size of Wound in cm: 1
Description of Wound Edges: sharp
Preparation: cleaned with saline
Anesthesia: 1% Lidocaine with epi
Wound exploration: explored to base- no FB
Type of Closure: single layer closure
Skin Closure Material: 5-0 prolene
Number of sutures: 2
MDM/Problems Addressed
MDM/Problems Addressed:
Patient is neurologically intact with no signs of skull fracture, he is not on anticoagulants thus I see no indication for CT of the head. Wounds of the right lip and right chin were repaired with sutures. Remained stable in the emergency
department
*Pulse Oximetry
SaO2: 98
Oxygen Mode of Delivery: Room air
Patient hypoxic: no
*Critical Care Note
Total Time (30-74mins, 75-104mins- exclusive of procedures): Not Applicable
ED Attending Note
-
Portions of this chart may have been created with voice recognition software.� Occasional wrong word or��sound alike� substitutions may have occurred due to the inherent limitations of voice recognition software.
Discharge Plan
Departure
Patient Disposition: Home (Routine Discharge)
Date of Disposition: 03/02/25
Time of Disposition: 09:42
Patient with high blood pressure during this ER visit?: No
Discharge Problem:
Fall from standing electric scooter, CHI (closed head injury), Laceration of lip, Chin laceration, Chest wall contusion
Instructions: Laceration Repair With Stitches (DC)
Prescriptions:
No Action
amlodipine 5 mg Tablet
5 mg PO DAILY
escitalopram oxalate [Lexapro] 10 mg Tablet
10 mg PO DAILY
thiamine mononitrate (vit B1) 100 mg tablet
100 mg PO DAILY
pantoprazole 40 mg tablet,delayed release (DR/EC)
40 mg PO DAILY Qty: 30 0RF
phenobarbital 32.4 mg tablet
See Rx Instructions .ROUTE .COMPLEX Qty: 14 0RF
Rx Instructions:
64.8mg 2tabs in the AM & PM for 2 days
32.4mg tab in the AM & PM for 2 days
32.4mg tab in the AM for 2days
Referrals:
Xavier Newman MD [Family Provider, Family Practice]
Activity Restrictions/Additional Instructions:
Regarding the lip wound, keep this dry for many days and simple washing with soap and water is appropriate. Do not drink from straws for at least the next week. Regarding the chin laceration, keep dry for the next 24 hours then begin to wash each
day with regular soap and water. The sutures need to be removed in 7 days. Regarding your chest injury this is likely a muscular contusion and I recommend ice and anti-inflammatories such as ibuprofen. Return to the emergency department if you
develop significant headache, vomiting
Interventions
Interventions:
*Risk Screen - Suicide Last Done: 03/02/25 08:02
*General Assessment Last Done: 03/02/25 08:15
*Neglect/Abuse Screening Last Done: 03/02/25 08:02
*ED- Fall Risk Assessment Last Done: 03/02/25 08:15
*ED COVID-19 Vaccine History Last Done: 03/02/25 08:15
*ED Influenza Vaccine History Last Done: 03/02/25 08:15
*Nursing Disposition Last Done: 03/02/25 10:07
ED-Musculoskeletal Assessment Last Done: 03/02/25 08:47
ED- Neurological Assessment Last Done: 03/02/25 08:47
ED-Skin Assessment Last Done: 03/02/25 08:47
Discharge Date and Time
Discharge Date/Time: 03/02/25 10:08
Print Language: SAMMARINESE
[2025-03-02 10:07] VITALS: BP 119/84
== END 2025-03-02 10:08 | disposition home or self-care (01) ==
LOC: EMR 07:52
PROVIDERS: EMERGENCY PHYSICIAN Emergency Medicine; FAMILY PHYSICIAN Family Medicine
DX: S09.90XA Unspecified injury of head, initial encounter (principal); S01.511A Laceration without foreign body of lip, initial encounter; S01.81XA Laceration without foreign body of other part of head, initial encounter; S20.219A Contusion of unspecified front wall of thorax, initial encounter; V00.841A Fall from standing electric scooter, initial encounter; Y92.410 Unspecified street and highway as the place of occurrence of the external cause; I10 Essential (primary) hypertension; F41.9 Anxiety disorder, unspecified; F32.A Depression, unspecified; F10.20 Alcohol dependence, uncomplicated; F17.290 Nicotine dependence, other tobacco product, uncomplicated
CPT/HCPCS: 99283; 12011; 71101

== ENCOUNTER 2025-03-16 13:00 | Emergency (ER) | payer OTHER, SELFPAY ==
[2025-03-16 13:09] VITALS: BP 127/95
[2025-03-16 13:11] VITALS: BP 127/95; BMI 26.1
[2025-03-16 13:33] LABS: Hematocrit 47.3 % (39.0-52.0); Hemoglobin 15.3 g/dL (13.0-18.0); Mean Corp Hgb Conc. 32.3 g/dL (33.0-37.0); Mean Corpuscular Volume 79.1 fL (80.0-94.0); Nucleated Red Blood Cells % 0 % (-); Platelet Count 538 10^3/uL (130-400); Red Cell Dist. Width 16.1 % (11.5-14.5)
[2025-03-16 13:43] LABS: INR 0.97; PT 13.4 Sec (11.4-14.6)
[2025-03-16 13:44] LABS: APTT 36.9 Sec (23.4-35.0)
[2025-03-16 13:49] LABS: ALT (SGPT) 32 U/L (0-50); AST (SGOT) 47 U/L (17-59); Albumin 5.9 g/dl (3.5-5.0); Alkaline Phosphatase 118 U/L (38-126); Blood Urea Nitrogen 13 mg/dl (9-20); Calcium 9.3 mg/dl (8.4-10.2); Carbon Dioxide 13 mmol/L (22-30); Chloride 101 mmol/L (98-107); Estimated Creatinine Clearance 104 ml/min; Glucose 101 mg/dl (70-99); Magnesium 2.3 mg/dl (1.6-2.3); Potassium 4.4 mmol/L (3.5-5.1); Sodium 139 mmol/L (135-145); Total Protein 10.6 g/dl (6.3-8.2); eGFR > 60.00
--- NOTE | 2025-03-16 13:56 | ED.GENMED ---
History of Present Illness
<Trip Serrano PA-C - Last Filed: 03/16/25 16:46>
General
Chief Complaint: Alcohol Problem
Source: patient
Time Seen by Provider: 03/16/25 13:10
History of Present Illness
History of Present Illness:
39-year-old male with past medical history of alcohol pancreatitis, migraines, hypertension, long-term alcohol abuse presenting to the ER with EMS stating that he relapsed after being sober for 4 months, has been drinking over the last few days,
wants to get help. Patient has gone to inpatient rehab in the past and is looking for similar again. Patient's last drink was just prior to him contacting the ambulance. He notes that he drinks a bottle of liquor daily. Feels somewhat shaky but
otherwise no concerns.
Past History
<Trip Serrano PA-C - Last Filed: 03/16/25 16:46>
Past History
ED Past Medical History: GERD, HTN, Psychiatric (Anxiety, Depression, alcoholism) and Other (epididymitis L testicle, kidney stones, PNA, Renal calculus, Migraines, alcoholism, PNA, Pancreatitis, )
ED Past Surgical History: Appendectomy
Social History
Tobacco: Vaping (Quit 2020 now vapes)
Alcohol: Daily (12 pack of beer or bottle of vodka)
Drug: None
Personal: Single
Living: alone
Employment: Employed
Family History
Family History: Other
Review of Systems
<Trip Serrano PA-C - Last Filed: 03/16/25 16:46>
Review of Systems
All Other Systems: ROS reviewed and negative except as documented in HPI and ROS
Phy Exam
<PAGE Garrett Last Filed: 03/16/25 16:46>
Physical Exam
Physical Exam:
GENERAL: Alert , in no apparent distress, Tearful and upset
HEAD: Normocephalic atraumatic
EYE: Anicteric sclera
NECK: Supple
ENT: o/p clr, mmm.
CARDIAC: Heart rate between 110 and 118 bpm, normal rhythm
LUNGS: Clear breath sounds bilaterally, no acute respiratory distress, no wheezes/rales/rhonchi
ABDOMEN: Soft, without focal tenderness, no r/g, no cvat
NEUROLOGICAL: Alert and oriented
SKIN: Warm and dry, skin intact.
MUSCULOSKELETAL: No edema, well perfused.
PSYCH: Normal and appropriate interaction.
Scores
<Trip Serrano PA-C - Last Filed: 03/16/25 16:46>
Heart Failure Risk
Heart Failure Risk Score: Not Applicable
Heart Score for Chest Pain Patients
STEMI patient?: Not applicable
Withdrawal Assessment of Alcohol
Withdrawal Assessment Completed?: Yes
Nausea and Vomiting: No nausea and no vomiting
Tactile Disturbances: None
Tremor: No tremor
Auditory Disturbances: Not present
Paroxysmal Sweats: No sweat visible
Visual Disturbances: Not present
Anxiety: Mild anxiety
Headache, Fullness in Head: Not present
Agitation: Normal activity
Orientation and clouding of sensorium: Oriented and can do serial additions
Total CIWA Score: 1
Alcohol Withdrawal Medication Recommendation: Equal to MSAS Score 0-4. Monitor & re-assess q2hrs, NO MEDICATION NEEDED
<Hernan Wagoner DO - Last Filed: 03/16/25 14:57>
Withdrawal Assessment of Alcohol
Total CIWA Score: 1
Alcohol Withdrawal Medication Recommendation: Equal to MSAS Score 0-4. Monitor & re-assess q2hrs, NO MEDICATION NEEDED
Course
<Trip Serrano PA-C - Last Filed: 03/16/25 16:46>
Orders/Labs/Results
Orders:
Orders
03/16/25 13:16
Electrocardiogram (*1) Urgent
Reason for Study: Bradycardia / Tachycardia
EKG- Treatment ONCE
03/16/25 13:23
Alcohol Urgent
Complete Blood Count/With Diff Urgent
Comprehensive Metabolic Panel Urgent
Magnesium Urgent
PTT Urgent
Phosphorus Urgent
Prothrombin Time Urgent
03/16/25 13:55
Diazepam [Valium] 5 mg PO NOW STA
03/16/25 13:58
0.9% Sodium Chloride 1000 ml [Nss] 1,000 ml IV BOLUS
03/16/25 15:38
Lorazepam [Ativan] 1 mg PO NOW STA
Abnormal Lab Results
03/16/25
13:23
WBC 13.7 H 10^3/uL
(4.8-10.8)
MCV 79.1 L fL
(80.0-94.0)
MCH 25.6 L pg
(27.0-31.0)
MCHC 32.3 L g/dL
(33.0-37.0)
RDW 16.1 H %
(11.5-14.5)
Plt Count 538 H 10^3/uL
(130-400)
Absolute Neuts (auto) 10.1 H 10^3/uL
(1.4-6.5)
Absolute Monos (auto) 1.0 H 10^3/uL
(0.1-0.6)
Lymphocytes % 18.0 L %
(20.5-51.1)
APTT 36.9 H Sec
(23.4-35.0)
Carbon Dioxide 13 L* mmol/L
(22-30)
Glucose 101 H mg/dl
(70-99)
Total Protein 10.6 H g/dl
(6.3-8.2)
Albumin 5.9 H g/dl
(3.5-5.0)
03/16/25 13:23
03/16/25 13:23
Vital Signs
Initial and Last Documented VS:
Initial Vital Signs
BP
127/95
03/16/25 13:09
Last Documented Vital Signs
Temp Pulse Resp BP Pulse Ox
98.6 F 109 17 114/95 98
03/16/25 13:11 03/16/25 15:30 03/16/25 15:30 03/16/25 15:00 03/16/25 15:30
<Hernan Wagoner, - Last Filed: 03/16/25 14:57>
Orders/Labs/Results
Orders:
Orders
03/16/25 13:16
Electrocardiogram (*1) Urgent
Reason for Study: Bradycardia / Tachycardia
EKG- Treatment ONCE
03/16/25 13:23
Alcohol Urgent
Complete Blood Count/With Diff Urgent
Comprehensive Metabolic Panel Urgent
Magnesium Urgent
PTT Urgent
Phosphorus Urgent
Prothrombin Time Urgent
03/16/25 13:55
Diazepam [Valium] 5 mg PO NOW STA
03/16/25 13:58
0.9% Sodium Chloride 1000 ml [Nss] 1,000 ml IV BOLUS
03/16/25 15:38
Lorazepam [Ativan] 1 mg PO NOW STA
Abnormal Lab Results
03/16/25
13:23
WBC 13.7 H 10^3/uL
(4.8-10.8)
MCV 79.1 L fL
(80.0-94.0)
MCH 25.6 L pg
(27.0-31.0)
MCHC 32.3 L g/dL
(33.0-37.0)
RDW 16.1 H %
(11.5-14.5)
Plt Count 538 H 10^3/uL
(130-400)
Absolute Neuts (auto) 10.1 H 10^3/uL
(1.4-6.5)
Absolute Monos (auto) 1.0 H 10^3/uL
(0.1-0.6)
Lymphocytes % 18.0 L %
(20.5-51.1)
APTT 36.9 H Sec
(23.4-35.0)
Carbon Dioxide 13 L* mmol/L
(22-30)
Glucose 101 H mg/dl
(70-99)
Total Protein 10.6 H g/dl
(6.3-8.2)
Albumin 5.9 H g/dl
(3.5-5.0)
03/16/25 13:23
03/16/25 13:23
Vital Signs
Initial and Last Documented VS:
Initial Vital Signs
BP
127/95
03/16/25 13:09
Last Documented Vital Signs
Temp Pulse Resp BP Pulse Ox
98.6 F 109 17 114/95 98
03/16/25 13:11 03/16/25 15:30 03/16/25 15:30 03/16/25 15:00 03/16/25 15:30
<Trip Serrano PA-C - Last Filed: 03/16/25 16:46>
MDM/Problems Addressed
Differential Diagnosis Includes:
ETOH abuse
Given patient drank right before coming to the emergency department I do not have concern for an active withdrawal at this time
Other substance ingestion
MDM/Problems Addressed:
39-year-old male presenting to the ER for evaluation of alcohol use/abuse, has been admitted to this facility multiple times due to withdrawal symptoms. Reports last drink was just prior to arrival so doubt acute withdrawal at present time.
Patient has been consulted with [facility] in the past. Will have patient be seen by [facility]. Will treat with PO valium due to patient inferred anxiety
Chronic conditions affecting care: Psychiatric illness
Acute Exacerbation and/or Progression of Chronic Illness: Psychiatric illness
<Trip Serrano PA-C - Last Filed: 03/16/25 16:46>
*Pulse Oximetry
SaO2: 97
Oxygen Mode of Delivery: Room air
Patient hypoxic: no
*EKG
Heart Rate: 113
Rate: tachycardiac
Rhythm: sinus
Ischemia: no ischemia
*Assistant [employer] Interpretation
Rate: tachycardiac
Heart Rate: 115
Rhythm: sinus
<Hernan Wagoner DO - Last Filed: 03/16/25 14:57>
*Critical Care Note
Total Time (30-74mins, 75-104mins- exclusive of procedures): 30 minutes
<Trip Serrano PA-C - Last Filed: 03/16/25 16:46>
Patient Management
Social determinants of health affecting care: Living situation and Substance abuse
Discussion with other providers: Other
Escalation/DeEscalation of care consider admission/obs:
Patient seen by [facility] who was able to arrange for inpatient bed today at rehab facility. Patient's pickup to be 445 this afternoon and they will drive him directly to facility.
ED Attending Note
<Trip Serrano PA-C - Last Filed: 03/16/25 16:46>
-
Portions of this chart may have been created with voice recognition software.� Occasional wrong word or��sound alike� substitutions may have occurred due to the inherent limitations of voice recognition software.
<Hernan Wagoner DO - Last Filed: 03/16/25 14:57>
ED Attending Note
Patient seen and examined by attending physician: Yes
I performed the substantive portion of visit, reviewed & personally made and approve the management plan that is documented in note by myself or MARIA ESTHER.: Yes
ED Attending Note:
39-year-old male who presents after he relapsed after being sober for few months. Patient states he has been drinking a bottle of bourbon. Presents feeling anxious with nausea and bodyaches. Exam: Tachycardic but normal blood pressure. Mildly
fidgety. Assessment and plan: Being seen by [facility]. Treat with benzodiazepines. Reassess
Discharge Plan
Departure
Patient Disposition: Home (Routine Discharge)
Date of Disposition: 03/16/25
Time of Disposition: 15:38
Patient with high blood pressure during this ER visit?: No
Discharge Problem:
Alcohol abuse, Alcohol use disorder
Prescriptions:
No Action
amlodipine 5 mg Tablet
5 mg PO DAILY
escitalopram oxalate [Lexapro] 10 mg Tablet
10 mg PO DAILY
pantoprazole 40 mg tablet,delayed release (DR/EC)
40 mg PO DAILY Qty: 30 0RF
buspirone 7.5 mg Capsule
7.5 mg PO BID
Referrals:
Xavier Newman MD [Family Provider, Family Practice]
Interventions
Interventions:
*Risk Screen - Suicide Last Done: 03/16/25 13:11
*General Assessment Last Done: 03/16/25 13:11
*Neglect/Abuse Screening Last Done: 03/16/25 13:11
*ED COVID-19 Vaccine History Last Done: 03/16/25 13:11
*ED Influenza Vaccine History Last Done: 03/16/25 13:11
ED- Neurological Assessment Last Done: 03/16/25 13:30
ED-Psychological Assessment Last Done: 03/16/25 13:30
Discharge Date and Time
Print Language: FAROESE
[2025-03-16 14:00] VITALS: BP 126/86
[2025-03-16] MEDS: VALIUM 5 MG PO (14:53)
[2025-03-16] MEDS: NSS 1000 IV (14:53)
[2025-03-16 15:00] VITALS: BP 114/95
[2025-03-16 16:00] VITALS: BP 122/87
[2025-03-16] MEDS: ATIVAN 1 MG PO (16:33)
== END 2025-03-16 16:35 | disposition home or self-care (01) ==
LOC: EMR 13:00
PROVIDERS: Physician Assistant Medical; EMERGENCY PHYSICIAN Emergency Medicine; FAMILY PHYSICIAN Family Medicine
DX: F10.20 Alcohol dependence, uncomplicated (principal); R00.0 Tachycardia, unspecified; I10 Essential (primary) hypertension; F41.9 Anxiety disorder, unspecified; F32.A Depression, unspecified; K21.9 Gastro-esophageal reflux disease without esophagitis; F17.290 Nicotine dependence, other tobacco product, uncomplicated
CPT/HCPCS: 99285; 96360; 80053; 82077; 83735; 84100; 85025; 85610; 85730; 93005